=== PATIENT | male | born 1945 | race Hispanic/Latino ===

== ENCOUNTER 2017-04-08 12:05 | Emergency (ER) | payer OTHER ==
[~2017-04-08] VITALS: Ht 177.8 cm; Wt 118.2 kg
[2017-04-08] MEDS ORDERED: LOSA100T36 PO (12:15)
[2017-04-08] MEDS ORDERED: CARV25TA PO (12:15)
--- NOTE | 2017-04-08 15:23 | REP ---
Ultrasonography of the inguinal areas bilaterally: Says performed without and with Valsalva bilaterally. There is varying omental fat through the inguinal canals bilaterally. There is no bowel and either hernia on the right on the left. The hernia on the right measures 10.18 mm at rest and this increases to 15.4 mm with Valsalva. On the left, the hernia measures 13.4 mm at rest and increases to 18.3 of millimeters with Valsalva. There is an area of pulsation in the left upper thigh. Ultrasonography of this area identifies normal appearing soft tissues. No hernia, mass or vascular structure is identified by ultrasound. Signed by Andrés Moreira MD 04/08/2017 03:15 P
[2017-04-08 16:04] VITALS: BP 198/90
== END 2017-04-08 16:10 | disposition home or self-care (01) ==
LOC: M ED 12:05
DX: I73.9 Peripheral vascular disease, unspecified (principal); K40.20 Bilateral inguinal hernia, without obstruction or gangrene, not specified as recurrent; Z79.899 Other long term (current) drug therapy

== ENCOUNTER 2018-03-14 12:08 | Emergency (ER) | payer MEDICARE, OTHER ==
[2018-03-14 12:48] LABS: BASO # 0.1 10^3/uL (0.0-0.2); BASO % 0.9 % (0.0-1.0); EOS # 0.4 10^3/uL (0.0-0.50); EOS % 4.5 % (0.0-3.0); HEMATOCRIT 45.2 % (42.0-52.0); HEMOGLOBIN 15.6 g/dl (13.5-17.5); IMMATURE GRANULOCYTE % 0.6 % (0-3.0); LYMPH # 2.2 10^3/uL (1.5-4.5); LYMPH % 28.9 % (24.0-44.0); MEAN CORPUSCULAR HEMOGLOBIN 30.1 pg (27.0-33.0); MEAN CORPUSCULAR HGB CONC 34.5 g/dl (32.0-36.5); MEAN CORPUSCULAR VOLUME 87.1 fl (80.0-96.0); MONO # 0.5 10^3/uL (0.0-0.8); MONO % 6.6 % (0.0-5.0); NEUTROPHILS # 4.5 10^3/uL (1.8-7.7); NEUTROPHILS % 58.5 % (36.0-66.0); PLATELET COUNT, AUTOMATED 144 10^3/uL (150-450); RED BLOOD COUNT 5.19 10^6/uL (4.30-6.10); RED CELL DISTRIBUTION WIDTH 12.5 % (11.5-14.5); WHITE BLOOD COUNT 7.7 10^3/uL (4.0-10.0)
[2018-03-14 13:00] LABS: INR 1.07; PROTHROMBIN TIME 14.1 SECONDS (12.1-14.4)
[2018-03-14 13:01] LABS: PARTIAL THROMBOPLASTIN TIME 26.3 SECONDS (25.4-37.6)
[2018-03-14 13:17] LABS: ALBUMIN 3.7 GM/DL (3.2-5.2); ALBUMIN/GLOBULIN RATIO 1.09 (1.00-1.93); ALKALINE PHOSPHATASE 66 U/L (45-117); ALT/SGPT 23 U/L (12-78); ANION GAP 8 MEQ/L (8-16); AST/SGOT 9 U/L (7-37); BILIRUBIN,DIRECT 0.3 MG/DL (0.0-0.2); BILIRUBIN,TOTAL 1.1 MG/DL (0.2-1.0); BLOOD UREA NITROGEN 18 MG/DL (7-18); CALCIUM LEVEL 8.5 MG/DL (8.8-10.2); CARBON DIOXIDE LEVEL 27 MEQ/L (21-32); CHLORIDE LEVEL 104 MEQ/L (98-107); CPK CREATINE PHOSPHOKINASE 68 U/L (39-308); CREATININE FOR GFR 1.18 MG/DL (0.70-1.30); GLOMERULAR FILTRATION RATE > 60.0 (>42); GLUCOSE, FASTING 146 MG/DL (70-100); LIPASE 113 U/L (73-393); POTASSIUM SERUM 3.8 MEQ/L (3.5-5.1); SODIUM LEVEL 139 MEQ/L (136-145); TOTAL PROTEIN 7.1 GM/DL (6.4-8.2); TROPONIN I < 0.02 NG/ML (< 0.10)
[2018-03-14 13:23] LABS: CK-MB VALUE MASS < 1.0 NG/ML (<3.6); MB/CK RELATIVE INDEX 1.47 (< OR =4); NT-PRO BNP 34 PG/ML (<125)
== END 2018-03-14 13:47 | disposition home or self-care (01) ==
LOC: M ED 12:08
DX: R09.1 Pleurisy (principal); I10 Essential (primary) hypertension; E78.5 Hyperlipidemia, unspecified; Z98.890 Other specified postprocedural states; Z82.49 Family history of ischemic heart disease and other diseases of the circulatory system; Z79.899 Other long term (current) drug therapy
CPT/HCPCS: 71045

== ENCOUNTER 2019-08-19 06:10 | Emergency (ER) | payer MEDICARE, OTHER ==
[~2019-08-19] VITALS: Ht 177.8 cm; Wt 113.6 kg
[~2019-08-19 06:10] MED LIST: ATOR80TA59 PO; CARV25TA PO; CHLO125TA PO; IBUP-1022 PO; LOSA100T50 PO
[2019-08-19] MEDS ORDERED: CILO100T (06:38)
[2019-08-19] MEDS ORDERED: ASPI-1 PO (06:38)
[2019-08-19] MEDS ORDERED: LISI-538 (06:38)
[2019-08-19] MEDS ORDERED: CARV25TA (06:38)
[2019-08-19 07:00] LABS: BASO # 0.1 10^3/uL (0.0-0.2); BASO % 0.8 % (0.0-1.0); EOS # 0.4 10^3/uL (0.0-0.5); EOS % 5.3 % (0.0-3.0); HEMATOCRIT 45.8 % (42.0-52.0); LYMPH # 2.2 10^3/uL (1.5-5.0); LYMPH % 29.4 % (24.0-44.0); MEAN CORPUSCULAR HEMOGLOBIN 28.7 pg (27.0-33.0); MEAN CORPUSCULAR HGB CONC 32.8 g/dl (32.0-36.5); MEAN CORPUSCULAR VOLUME 87.7 fl (80.0-96.0); MONO # 0.6 10^3/uL (0.0-0.8); MONO % 7.5 % (0.0-5.0); NEUTROPHILS # 4.2 10^3/uL (1.5-8.5); NEUTROPHILS % 56.5 % (36.0-66.0); PLATELET COUNT, AUTOMATED 147 10^3/uL (150-450); RED BLOOD COUNT 5.22 10^6/uL (4.30-6.10); WHITE BLOOD COUNT 7.5 10^3/uL (4.0-10.0)
[2019-08-19 07:28] LABS: BLOOD UREA NITROGEN 22 MG/DL (7-18); CALCIUM LEVEL 8.6 MG/DL (8.8-10.2); CARBON DIOXIDE LEVEL 23 MEQ/L (21-32); CHLORIDE LEVEL 107 MEQ/L (98-107); CK-MB VALUE MASS 1.2 NG/ML (<3.6); CPK CREATINE PHOSPHOKINASE 83 U/L (39-308); CREATININE FOR GFR 1.38 MG/DL (0.70-1.30); GLOMERULAR FILTRATION RATE 53.9 (>42); GLUCOSE, FASTING 123 MG/DL (70-100); MB/CK RELATIVE INDEX 1.45 (< OR =4); POTASSIUM SERUM 4.2 MEQ/L (3.5-5.1); SODIUM LEVEL 139 MEQ/L (136-145); TROPONIN I < 0.02 NG/ML (< 0.10)
[2019-08-19] MEDS ORDERED: GI COCKTAIL 50ML BTL(HYOSCYAMINE/MAALOX/LIDOCAINE VISCOUS)(1:3:1) PO ONE (07:45)
--- NOTE | 2019-08-19 08:01 | REP ---
Clinical: Chest pain . Comparison: 06/30/2016, 03/14/2018 . Findings: The mediastinum and cardiac silhouette are stable and within normal limits for portable technique. The lung khalil are clear without acute consolidation, effusion, or pneumothorax. Skeletal structures are intact. Impression: No acute cardiopulmonary process appreciated. Electronically Signed by Adi Burr MD 08/19/2019 07:50 A
[2019-08-19] MEDS ORDERED: NS 1,000 ML IV ONE (10:00)
[2019-08-19 10:45] LABS: CPK CREATINE PHOSPHOKINASE 65 U/L (39-308); MB/CK RELATIVE INDEX 1.54 (< OR =4); TROPONIN I < 0.02 NG/ML (< 0.10)
[2019-08-19] MEDS ORDERED: PEPC1TAB5 PO (10:51)
[2019-08-19] MEDS ORDERED: SUCR1TA PO (10:51)
[2019-08-19 11:08] VITALS: BP 158/94
--- NOTE | 2019-08-21 14:54 | ECGEPIP ---
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
--- NOTE | 2019-08-21 14:59 | ECGEPIP ---
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
== END 2019-08-19 11:16 | disposition home or self-care (01) ==
LOC: M ED 06:10
DX: K21.0 Gastro-esophageal reflux disease with esophagitis (principal); R07.9 Chest pain, unspecified; I10 Essential (primary) hypertension; E78.5 Hyperlipidemia, unspecified; R00.1 Bradycardia, unspecified; R94.31 Abnormal electrocardiogram [ECG] [EKG]; Z79.82 Long term (current) use of aspirin; Z79.899 Other long term (current) drug therapy

== ENCOUNTER → 2020-06-02 | Outpatient (CLI) | payer MEDICARE, OTHER ==
[~2020-06-02] MED LIST changes: +ASPI-1 PO; +ASPI81TA86 PO; +ATOR1TAB21 PO; +CILO100T; +LISI-538 PO; +PEPC1TAB5 PO; +PLAV1TAB2 PO; +SUCR1TA PO; +TERB250T12 PO
== END ==
LOC: M LABSMTC 11:28
PROVIDERS: ATTEND Anesthesiology
DX: Z01.812 Encounter for preprocedural laboratory examination (principal); Z20.828 Contact with and (suspected) exposure to other viral communicable diseases
CPT/HCPCS: C9803; U0003

== ENCOUNTER 2020-06-07 10:04 | Day surgery (SDC) | payer MEDICARE, OTHER ==
[~2020-06-07] VITALS: Ht 177.8 cm; Wt 110.3 kg
[~2020-06-07 10:04] MED LIST changes: +LIDOCAINE 2% 100MG/5ML SDV (FOR ANES.) As Ordered ONE; +NS 1,000 ML IV ONE; -PLAV1TAB2 PO; +propofoL 200 MG/20 ML VIAL As Ordered ONE
[2020-06-07] MEDS ORDERED: PLAV1TAB2 PO (10:42)
--- NOTE | 2020-06-07 11:30 | ROOR ---
Patient Name: Theo Edwards Procedure Date: 06/07/2020 11:08 AM Date of : 1945 Age: 74 Room: [facility] Gender: Male Note Status: Finalized Procedure: Colonoscopy Indications: Screening for colorectal malignant neoplasm Providers: Santhosh CALERO MD Referring MD: SOMMER ALVARADO MD Requesting Provider: Medicines: Monitored Anesthesia Care Complications: No immediate complications. Procedure: Pre-Anesthesia Assessment: - The heart rate, respiratory rate, oxygen saturations, blood pressure, adequacy of pulmonary ventilation, and response to care were monitored throughout the procedure. The Colonoscope was introduced through the anus and advanced to the cecum, identified by appendiceal orifice and ileocecal valve. The colonoscopy was performed without difficulty. The patient tolerated the procedure well. The quality of the bowel preparation was good. Findings: The perianal and digital rectal examinations were normal. A 8-10 mm polyp was found in the rectum. The polyp was semi-pedunculated. The polyp was removed with a cold snare. Resection and retrieval were complete. To prevent bleeding after the polypectomy, two hemostatic clips were successfully placed. There was no bleeding at the end of the procedure. Mild sigmoid diverticulosis and small internal hemorrhoids. The exam was otherwise without abnormality on direct and retroflexion views. Impression: - One 8-10 mm polyp in the mid rectum, removed with a cold snare. Resected and retrieved. Clips were placed. - Mild sigmoid diverticulosis and small internal hemorrhoids. - The examination was otherwise normal on direct and retroflexion views. Recommendation: - Repeat colonoscopy in 3 - 5 years for surveillance based on pathology results. - Telephone endoscopist for pathology results in 2 weeks. Santhosh Claero MD Santhosh CALERO MD 06/07/2020 11:29:48 AM Electronically signed by Santhosh CALERO MD Number of Addenda: 0 Note Initiated On: 06/07/2020 11:08 AM Estimated Blood Loss: Estimated blood loss: none.
[2020-06-07 11:52] VITALS: BP 103/56
== END 2020-06-07 12:02 | disposition home or self-care (01) ==
LOC: M OPP 10:04
PROVIDERS: ATTEND Internal Medicine Gastroenterology
DX: Z12.11 Encounter for screening for malignant neoplasm of colon (principal); K62.1 Rectal polyp; K57.30 Diverticulosis of large intestine without perforation or abscess without bleeding; K64.8 Other hemorrhoids; I11.9 Hypertensive heart disease without heart failure; I36.0 Nonrheumatic tricuspid (valve) stenosis; I25.10 Atherosclerotic heart disease of native coronary artery without angina pectoris; Z79.82 Long term (current) use of aspirin; Z79.899 Other long term (current) drug therapy; Z88.8 Allergy status to other drugs, medicaments and biological substances

== ENCOUNTER → 2020-09-28 | Outpatient (REF) | payer MEDICARE, OTHER ==
[~2020-09-28] MED LIST changes: -LIDOCAINE 2% 100MG/5ML SDV (FOR ANES.) As Ordered ONE; -LISI-538 PO; +LISI20TA33 PO; -NS 1,000 ML IV ONE; +PLAV1TAB2 PO; -propofoL 200 MG/20 ML VIAL As Ordered ONE
== END ==
LOC: M LAB REF 17:05
PROVIDERS: ATTEND Dermatology
DX: L57.0 Actinic keratosis (principal); L57.8 Other skin changes due to chronic exposure to nonionizing radiation
CPT/HCPCS: 11102; 17000; 17003; 88305; G0463

== ENCOUNTER 2020-10-17 15:57 | Emergency (ER) | payer MEDICARE, OTHER ==
[~2020-10-17] VITALS: Ht 177.8 cm; Wt 117.5 kg
--- OUTSIDE RECORDS SUMMARY | 2020-10-17 16:06 | CCD | Continuity of Care Document ---
Author Author Theo CALERO MD Organization Unknown Address [address] [place] [id number] Phone [phone] Care Team Providers Care Incinerator Operator Name Role Phone Cirilo Soria M.D. AUTM [phone] Symone Keen M.D. AUTM [phone] Donovan Luevano M.D. AUTM [phone] Problems Active Problems Provider Date Essential hypertension LAURENT Johnston Onset: Social History Type Date Description Comments Sex Unknown ETOH Use 1 A Week Tobacco Use Start: Unknown Non Smoker Allergies, Adverse Reactions, Alerts Active Allergies Reaction Severity Comments Date Amlodipine / Valsartan 01/11 Hydralazine 01/12/2020 Labetalol 01/12/2020 Medications Active Medications SIG Qnty Indications Ordering Provide r Date Amoxicillin 500mg Tablets take 4 tablets by mouth 1 hour prior to arrival time for procedure. 4tabs Santhosh Calero MD 05/24/2020 Suprep Bowel Prep Kit 17.5-3.13-1.6GM/177ML Solution take per doctor's bowel prep instructions. 354ml Santhosh Calero MD 05/21/2020 Milk Of Magnesia 1200mg/15ML Suspe nsion take 45 milliliters by mouth as directed on colonoscopy prep sheet. Santhosh Calero MD 05/21/2020 Atorvastatin Calcium 20mg Tablets every day Unknown Aspirin [address] take 1 tab by mouth daily Unknown Lisinopril 20mg Tablets 1 by mouth every day Unknown Chlorthalidone 25mg Tablets 1/2 by mouth every day Unknown Carvedilol 25mg Tablets 1 by mouth bid Unknown Immunizations Description No Information Available Vital Signs Date Vital Result Comment 01/12/2020 10:21am BP Systolic 112 mmHg BP Diastolic 64 mmHg Height 70.5 inches 5'10.50" Weight 248.00 lb BMI (Body Mass Index) 35.1 kg/m2 [place] Body Weight 166 lb Weight 112.493 kg BSA (Body Surface Area) 2.30 m2 Results Test Acquired Date Facility Test Result H/L Range Note Laboratory test finding 06/07/2020 [facility] [address] [place] [address] [phone] Pathology Request For Service (SEE NOTE) 1 1 FINAL DIAGNOSIS Colon polyp rectum, polypectomy: Tubular adenoma, fragments. 06/08/20201107 CLINICAL DIAGNOSIS Screening colonoscopy 06/08/2020721 GROSS DIAGNOSIS Received in formalin labeled "colon polyp rectum" and it consists of fragments of tissue 0.3 x 0.3 x 0.1 cm. All in one. -OA 06/08/2020721 Signed VINCENT ADORNO MD 06/08/2020 1108 Procedures Date Code Description Status 06/07/2020 83416 Colonoscopy W/ Poly Completed Medical Devices Description No Information Available Encounters Description No Information Available Assessments Date Code Description Provider 06/07/2020 Z12.11 Encounter for screening for omar gnant neoplasm of colon Santhosh Calero MD 06/07/2020 D12.8 Benign neoplasm of rectum Santhosh Calero MD 06/07/2020 K57.30 Diverticulosis of la rge intestine without perforation or abscess without bleeding Santhosh Calero MD 06/07/2020 K64.8 Other hemorrhoids Santhosh Calero MD Plan of Treatment 01/12/2020 - Mariel Strauss, RPA-C* Z12.11 Encounter for screening for malignant neoplasm of colon * * Comments:* Colonoscopy was offered to the patient, and he would like to proceed. Due to patient's recent heart valve surgery, we will need to contact his Oil Changer to see when he will be okay to have the colonoscopy completed. We will need permission for the patient to hold Plavix prior to the procedure. The patient verbalized understanding of all of the above. He will await our phone call to get scheduled for the colonoscopy. He will seek medical attention sooner if needed. * Follow up:* We will call patient. Functional Status Description No Information Available Mental Status Description No Information Available Referrals Description No Information Available
--- OUTSIDE RECORDS SUMMARY | 2020-10-17 16:06 | CCD ---
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 ; Acti alpesh keratosis L57.0 ; Sebaceous hyperplasia L73.8 ; Nevus D22.9 ; Dermatofibroma D23.9 ; Skin tag L91.8 ; Onychomycosis B35.1 and Neoplasm of uncertain behavior of skin D48.5 IMMUNIZATIONS No Information SOCIAL HISTORY Tobacco Use: Social History Observation Description Date Details (start date - stop date) Never Smoker Sex Assigned At : Social History Observation Description Sex Assigned At Unknown Tobacco Use: Question Answer Notes Are you a: never smoker REASON FOR REFERRAL No Information VITAL SIGNS Weight 256 lbs Sep, Height 70 in Sep, BMI 36.73 kg/m2 Sep, Blood pressure systolic 124 mm Hg Sep, Blood pressure diastolic 74 mm Hg Sep, MEDICATIONS Medication SIG (Take, Route, Frequency, Duration) Notes Start Da te End Date Status Chlorthalidone Active Lisinopril Active Carvedilol Active ASA 81mg Active Plavix Not-Taking Atorvastatin Calcium Acti ve PROCEDURES from 1945 to 2020-10-05 Procedure Date Ordered Result Body Site Medication: (Derm) 1% Lidocaine with Epi nephrine Injection Intradermally to marked area (s) 2020-09-28 N/A RESULTS No Results REASON FOR VISIT spot on scalp MEDICAL (GENERAL) HISTORY Type Description Date Medical History HTN Medical History Hyperlipidemia Medical History PVD Surgical History Aortic Valve replacement Surgical History Scope bilateral knee's Goals Section No Information Health Concerns No Information MEDICAL EQUIPMENT No Information MENTAL STATUS No Information FUNCTIONAL STATUS No Information ASSESSMENTS Encounter Date Diagnosis Assessment Notes Treatment Notes Treatm ent Clinical Notes Sep, 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 The patient was extensively counseled regarding the benign nature of of the lesion but that skin cancer may arise in this area just as it would anywhere on their skin. For that reason, return to clinic was recommended for any acute changes, itching, burning, or bleeding. The patient was educated that benign lesions are not a covered insurance benefit and treatment would be elective and cosmetic. They expressed understanding. Sep, Actinic keratosis (ICD-10 - L57.0) Cryotherapy x [3 ] number of sites. [place] protocol was followed in compliance with [facility] standards. Patient was counseled regarding the indication for treatment (precancerous state for actinic keratosis or cosmetic reasons if done for seborrheic keratoses, acrochordons or warts) as well as, the method and expected results to include compromise of the skin barrier, bleeding, scarring/white area, redness at site, lesion recurrence, and pain. Patient was consented to the risks and benefits of the procedure and gave informed consent. Lesion(s) with locations as indicated in the physical examination were treated. Lesion(s) were treated with 2 cycles of liquid nitrogen with a thaw time of at least ten seconds. Therapy was applied in a pulsed fashion to minimize collateral tissue injury. Patient was instructed to use Vaseline ointment to the area(s) until healed. Patient tolerated the procedure well and left in stable condition. Pain before and after the procedure were assessed to not be significantly different than baseline. Sep, Sebaceous hyperplasia (ICD-10 - L73.8) Benign lesion. Benign lesion counseling performed. Sep, Nevus (ICD-10 - D22.9) Benign-appearing today. Reassurance provided, however patient was educated moles can change management consultant time. ABCDE education performed. Patient instructed to return for any changes to the mole to include size, color, itching, burning, or bleeding. Sep, Dermatofibroma (ICD-10 - D23.9) Benign lesion. Benign lesion counseling performed. Sep, Skin tag (ICD-10 - L91.8) Benign lesion. Benign lesion counseling performed. Sep, Onychomycosis (ICD-10 - B35.1) foot fungus, deferred treatment Sep, Neoplasm of uncertain behavior of skin (ICD-10 - D48.5) Procedure: Tangential Biopsy [place] protocol was followed in compliance with [facility] standards. The patient was educated on the potential risks and benefits of the procedure and gave his/her informed consent. Location of biopsy noted in the physical exam and images uploaded to the medical record. Area(s) treated with EtOH. Local anesthesia performed with <1mL of 1% lidocaine with epinephrine per site. Site(s) verified with patient via timeout utilizing patient name and date of . Biopsy/Biopsies performed. Dual site-specimen cup verification performed verbally between provider and clinic staff. Hemostasis achieved with hyfrecation or aluminum chloride/styptic. Closure: secondary intent. Petrolatum and bandage applied. Wound care instruction addressed with patient by provider or clinic staff and wound care handout given. Patient tolerated the procedure well and left in stable condition. Patient reports that his/her pain was well-managed. There was no noted significant d ifference from baseline pain score after procedure. Patient was educated to use acetaminophen 500mg up to 4 times daily. If not sufficient, patient was educated to re-present to the dermatology clinic or, if after hours, the emergency department. Patient was informed they would be notified in 10-14 days by telephone for all malignant conditions and scheduled for definitive management. r/o SCC PLAN OF TREATMENT Treatment Notes Assessment Notes Clinical Notes Cortes angioma Benign Lesion Kenna donovan. The patient was extensively counseled regarding the benign nature of of the lesion but that skin cancer may arise in this area just as it would anywhere on their skin. For that reason, return to clinic was recommended for any acute changes, itching, burning, or bleeding. The patient was educated that benign lesions are not a covered insurance benefit and treatment would be elective and cosmetic. They expressed understanding. Actinic keratosis Cryotherapy x [3 ] n umber of sites. [place] protocol was followed in compliance with [facility] standards. Patient was counseled regarding the indication for treatment (precancerous state for actinic keratosis or cosmetic reasons if done for seborrheic keratoses, acrochordons or warts) as well as, the method and expected results to include compromise of the skin barrier, bleeding, scarring/white area, redness at site, lesion recurrence, and pain. Patient was consented to the risks and benefits of the procedure and gave informed consent. Lesion(s) with locations as indicated in the physical examination were treated. Lesion(s) were treated with 2 cycles of liquid nitrogen with a thaw time of at least ten seconds. Therapy was applied in a pulsed fashion to minimize collateral tissue injury. Patient was instructed to use Vaseline ointment to the area(s) until healed. Patient tolerated the procedure well and left in stable condition. Pain before and after the procedure were assessed to not be significantly different than baseline. Sebaceous hyperplasia Benign lesion. Chandan ign lesion counseling performed. Nevus Benign-appearing tod ay. Reassurance provided, however patient was educated moles can change management consultant time. ABCDE education performed. Patient instructed to return for any changes to the mole to include size, color, itching, burning, or bleeding. Dermatofibroma Benign lesion. Benig n lesion counseling performed. Skin tag Benign lesion. Benig n lesion counseling performed. Onychomycosis foot fungus, deferre d treatment Neoplasm of uncertain behavior of skin P rocedure: Tangential Biopsy [place] protocol was followed in compliance with [facility] standards. The patient was educated on the potential risks and benefits of the procedure and g ave his/her informed consent. Location of biopsy noted in the physical exam and images uploaded to the medical record. Area(s) treated with EtOH. Local anesthesia performed with <1mL of 1% lidocaine with epinephrine per site. Site(s) verified with patient via timeout utilizing patient name and date of . Biopsy/Biopsies performed. Dual site-specimen cup verification performed verbally between provider and clinic staff. Hemostasis achieved with hyfrecation or aluminum chloride/styptic. Closure: secondary intent. Petrolatum and bandage applied. Wound care instruction addressed with patient by provider or clinic staff and wound care handout given. Patient tolerated the procedure well and left in stable condition. Patient reports that his/her pain was well-managed. There was no noted significant difference from baseline pain score after procedure. Patient was educated to use acetaminophen 500mg up to 4 times daily. If not sufficient, patient was educated to re-present to the dermatology clinic or, if after hours, the emergency department. Patient was informed they would be notified in 10-14 days by telephone for all malignant conditions and scheduled for definitive management.r/o SCC Next Appt Details Provider Name:Wilberto Jose Guadalupe Vitaliy, 10-04 02:00:00 PM, [address] [place] [address], [address] [place] [address], [place], [address], Insurance Providers Payer Name Payer Address Payer Phone Insured Name Patient Relati onship to Insured Coverage Start Date Coverage End Date MEDICARE Part A and B [address] [facility] [id number] RAYSHAWN DEAN FOR LIFE [address] [facility] [phone] TO RAYSHAWN VIDES
--- OUTSIDE RECORDS SUMMARY | 2020-10-17 16:06 | CCD | Continuity of Care Document ---
Author Author Theo SORIA M.D. Organization Unknown Address [address] [place] [address] Phone [phone] Care Team Providers Care Shank Cementer Hand Name Role Phone Cirilo Soria M.D. AUTM [phone] [facility] Dermatology AUTM [phone] [facility] AUTM [phone] [facility] Gastroenterology AUTM [phone] Problems Active Problems Provider Date Abnormal glucose level Cirilo Soria MD Onset: 05/14/2016 Essential hypertension Cirilo Soria MD Onset: 05/14/2016 Trochanteric bursitis Cirilo Soria MD Onset: 05/14/2016 Hyperlipidemia Cirilo Soria MD Onset: 06/17/2016 Hearing loss Cirilo Soria MD Onset: 11/12/2016 Adult health examination Cirilo Soria MD Onset: 02/13/20 17 Polyarthropathy Cirilo Soria MD Onset: 04/02/2017 Achilles bursitis Cirilo Soria MD Onset: 04/02/2017 Peripheral vascular disease Cirilo Soria MD Onset: 04/02 Pruritus of skin SYL Tompkins Onset: 7 Chronic pain SYL Tompkins Onset: 7 Current tear of medial cartilage AND/OR meniscus of knee Lucian meena Soria MD Onset: 11/03/2017 Social History Type Date Description Comments Sex Unknown Tobacco Use Start: Unknown Never Smoked Cigarettes Tobacco Use Start: Unknown Never Smoked Cigars Tobacco Use Start: Unknown Never Smoked A Pipe Tobacco Use Start: Unknown Never Used Smokeless Tobacco ETOH Use Occasionally consumes alcohol Tobacco Use Start: Unknown Patient has never smoked Allergies, Adverse Reactions, Alerts Active Allergies Reaction Severity Comments Date NKFA 05/14/2016 NKEA 05/14/2016 Amlodipine / Valsartan Urticaria, ? ALLERGY 04/21/2017 Hydralazine Urticaria, ? ALLERGY 017 Labetalol Urticaria, ? ALLERGY 017 Soap Urticaria 09/02/2017 Inactive Allergies NKDA 05/14/2016 Medications Active Medications SIG Qnty Indications Ordering Provide r Date Atorvastatin Calcium 20mg Tablets Take 1 Tablet Daily 90tabs E78.5 Cirilo Soria MD 06/30/2019 Lisinopril 20mg Tablets Take 1 Tablet Daily 90tabs I10 Cirilo Soria MD 11/05/2018 Carvedilol 25mg Tablets take 1 tablet twice a day 180tabs I10 Cirilo Soria MD 04/21/2017 Glucometer Device use daily 1units R73.9 Cirilo Soria MD 05/14/2016 Lancets Bullseye Safety Misc lancet use once a day 90units R73.9 Cirilo Soria MD 05/14/2016 Glucose Meter Test Strips Advanced Strips use once a day 90units R73.9 Cirilo Soria MD 2015 Chlorthalidone 25mg Tablets take one-half (1/2) tablet daily 45tabs I10 Cirilo Soria MD 0 Aspir-Low 81mg Tablets DR 1 by mouth every day Unknown Cilostazol 100mg Tablets 1 tab bid ( restarted after stopping plavix) Cirilo Soria M.D. History Medications Bactrim DS 800-160mg Tablets one tablet by mouth twice daily for 10 days 20tabs L02.214 Sumanth Cruz 05/07/2020 - 08/08/2020 Ciclopirox 8% Solution 1 thin layer to toe nails twice a day 19.8ml L60.2 Cirilo Soria MD 05/07/2020 - 08/08/2020 Terbinafine HCL 250mg Tablets 1 tab tab by mouth daily. 90tabs L60.2 Cirilo Soria MD 05/07/2020 - 08/08/2020 Medications Administered in Office Medication SIG Qnty Indications Ordering Provider Date methylPREDNISolone Sod Succ 125 MG Injection Cirilo Soria MD 04/21/20 17 Ketorolac (Toradol) Inj 30MG/ML Injection Cirilo Soria MD 04/21/20 17 Immunizations CPT Code Status Date Vaccine Lot # [id number] Given 08/08/2020 [id number] (Pneumovax 23 ) Vaccine [id number] 79540 Given 08/08/2020 Influenza (>= 6 Months) P.F. Vaccine [id number] 89384 Given 06/30/2019 Influenza (>= 6 Months) P.F. Vaccine [id number] 49191 Given 06/30/2019 Pneumococcal 13(Prevnar 13) Vaccine [id number] 33274 Given 06/25/2018 Influenza (>= 6 Months) P.F. Vaccine [id number] Vital Signs Date Vital Result Comment 08/08/2020 9:05am BP Systolic 118 mmHg BP Diastolic 80 mmHg Heart Rate 68 /min Body Temperature 97.1 F Respiratory Rate 16 /min O2 % BldC Oximetry 98 % Weight 250.00 lb Weight 113.400 kg Height 70.5 inches 5'10.50" BMI (Body Mass Index) 35.4 kg/m2 BSA (Body Surface Area) 2.31 m2 05/07/2020 12:53pm BP Systolic 112 mmHg BP Diastolic 66 mmHg Heart Rate 53 /min Body Temperature 97.4 F Respiratory Rate 18 /min O2 % BldC Oximetry 96 % Weight 249.00 lb Weight 112.946 kg Results Test Acquired Date Facility Test Result H/L Range Note Comprehensive Metabolic Panel 08/08/2020 [facility] Comprehensive Metabo (SEE NOTE) 1, 2 Sodium 135 mEq/L 134 - 153 Potassium 4.3 mEq/L 3.6 - 5.0 Chloride 100 mEq/L 98 - 107 Co2 26 mEq/L 22 - 30 Glucose 132 mg/dL High 65 - 110 BUN 21 mg/dL 7 - 21 Creatinine 1.1 mg/dL 0.7 - 1.5 BUN/Creat 19 8 - 27 Total Protein 7.0 g/dL 6.3 - 8.2 Albumin 4.7 g/dL 3.9 - 5.0 Globulin 2.3 GM/DL Low 2.4 - 3.2 A/G Ratio 2.0 0.8 - 2.0 Calcium 9.8 mg/dL 8.4 - 10.2 Total Bili 0.8 mg/dL 0.2 - 1.3 Alkaline Phos 68 U/L 38 - 126 Sgot/Ast 15 U/L 5 - 40 SGPT/Alt 12 U/L 7 - 56 Anion Gap 9.0 mmol/L 8.0 - 16.0 Age 74 yrs Non-Aa GFR >60 mL/min Afr Amer GFR >60 mL/min 3 CBC W/Automated Diff 08/08/2020 [facility] CBC W/Automated Diff (SEE NOTE) 4 WBC 7.2 10^3/uL 4.2 - 11.0 RBC 5.54 10^6/uL 4.50 - 6.30 Hemoglobin 16.3 g/dL High 14.0 - 16.0 Hematocrit 48.4 % 41.0 - 51.0 MCV 87.4 fL 80.0 - 94.0 MCH 29.4 pg 27.0 - 34.0 MCHC 33.7 g/dL 31.0 - 36.0 RDW 12.6 % 11.5 - 14.8 Platelets 140 10^3/uL Low 150 - 450 MPV 12.1 fL High 7.4 - 10.4 Neut 59.7 % 37.0 - 80.0 Lymph 26.7 % 25.0 - 40.0 [place] 7.0 % 3.0 - 8.0 Eos 5.2 % 0.0 - 7.0 Baso 0.8 % 0.0 - 2.0 %Ig 0.6 % High 0.0 - 0.0 %NRBC 0.0 % 0.0 - 0.0 #Neut 4.27 10^3/uL 2.00 - 6.90 #Lymph 1.91 10^3/uL 0.60 - 3.40 #Floyd 0.50 10^3/uL 0.00 - 0.90 #Eos 0.37 10^3/uL 0.00 - 0.70 #Baso 0.06 10^3/uL 0.00 - 0.20 #Ig 0.04 10^3/uL 0.00 - 0.10 #NRBC 0.00 10^3/uL 0.00 - 0.00 Manual Diff NOT INDICATED RBC Morph NOT INDICATED Laboratory test finding 08/08/2020 [facility] Hgba1c 5.8 % 4.4 - 6.1 5 Cve Panel 08/08/2020 [facility] Cve Panel (SEE NOTE) 6 Cholesterol 153 mg/dL 131 - 200 Triglycerides 96 mg/dL 35 - 160 HDL 45 mg/dL 29 - 86 LDL 99 mg/dL 65 - 175 Risk Factor 3.4 Low 3.4 - 4.9 LDL/HDL 2.20 1.00 - 3.55 7 Laboratory test finding 08/08/2020 [facility] Vitamin D (25-Hydroxy) 23 NG/ML 8 Laboratory test finding 05/07/2020 [facility] Culture Wound (SEE NOTE) 9, 10 1 Is patient fasting? N 2 COMPREHENSIVE METABOLIC PANE L 3 Male GFR Interprentation 20-49 yrs >60 mL/min Normal 50-59 yrs >56 mL/min Normal 60-69 yrs >49 mL/min Normal 70-79yrs >42 mL/min Normal 80 and above >35 mL/min Normal Female GFR Interpretation 20-39 yrs >60 mL/min Normal 40-49 yrs >58 mL/min Normal 50-59 yrs >51 mL/min Normal 60-69 yrs >45 mL/min Normal 70-79 yrs >39 mL/min Normal 80 and above >32 mL/min Normal 4 COMPLETE BLOOD COUNT 5 {A1] {HB] 6 LIPID PANEL 7 CVE RISK CHOL/HDL LDL/HDL MEN: 1/2 AVERAGE 3.43 1.00 AVERAGE 4.97 3.55 2X AVERAGE 9.55 6.25 3X AVERAGE 23.99 7.99 WOMEN: 1/2 AVERAGE 3.27 1.47 AVERAGE 4.44 3.22 2X AVERAGE 7.05 5.03 3X AVERAGE 11.04 6.14 8 VITAMIN-D(25HYDROXY) Deficiency: <=20 ng/ml Insufficiency: 21-29 ng/ml Preferred level: => 30 ng/ml 9 {SPECIMEN SOURCE : ABDOMEM GROIN AREA 10 _CULTURE WOUND_ ^^088437 ^$835064 $$[id number] ^^344238 $$[id number] $$189839 $$[id number] $$[id number] $$[id number] REPORTED DATE/TIME: 05/11/2020 13:06 Culture: CULTURE WOUND Status: Final Aerobic Bacterial Culture: P1 No growth in 36 - 48 hours. Previous result entered on 05/10/2020 05:29 ET No growth after 18-24 hours. P1 Test performed by: [facility] #: [id number] [address] [id number] [facility] [address] Asbestos Worker : Keenan Wisdom MD NPI #: Referral Manager : 05/10/20.0623.XMT.SENT REF 05/11/20.1332.XMT.SENT REF Procedures Description No Information Available Medical Devices Description No Information Available Encounters Type Date Location Provider Dx Diagnosis Office Visit 08/08/2020 9:20a Family Practice Cirilo Soria MD Z0 0.00 Encntr for general adult medical exam w/o abnormal findings E78.5 Hyperlipidemia, unspecified I10 Essential (primary) hyperten richard I73.9 Peripheral vascular disease, unspecified G47.33 Obstructive sleep apnea (colby lt) (pediatric) 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 M13.0 Polyarthritis, unspecified Z23 Encounter for immunization Assessments Date Code Description Provider 08/08/2020 Z00.00 Encounter for genera l adult medical examination without abnormal findings Cirilo Soria MD 08/08/2020 E78.5 Hyperlipidemia, unspecified Rangel Soria MD 08/08/2020 I10 Essential (primary) hypertension Cirilo Soria MD 08/08/2020 I73.9 Peripheral vascular disease, uns pecified Cirilo Soria MD 08/08/2020 G47.33 Obstructive sleep apnea (adult) (pediatric) Cirilo Soria MD 08/08/2020 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 Routine labs were ordered today. * E78.5 Hyperlipidemia, unspecified* Comments:* He will continue with his current regimen. He was encouraged to maintain a low-cholesterol diet. Include more whole grains, fruits and vegetables in diet. Avoid red meat and include lean meat in diet. Advised the patient about the importance of regular exercise regimen to help control his cholesterol. He is aware of the cardiac risks associated with elevated cholesterol. We will continue to monitor. * I10 Essential (primary) hypertension* Comments:* Blood pressure today is 118/80 mmHg. He was advised to continue with his current line of therapies. Advised him to regularly monitor his blood pressure. He will benefit from maintaining a low-sodium diet. We will continue to monitor. * I73.9 Peripheral vascular disease, unspecified* Comments:* Plavix was discontinued by business services assistant. He will continue Cilostazol 100 mg 1 tablet b.i.d. * G47.33 Obstructive sleep apnea (adult) (pediatric)* Comments:* Patient was advised to continue to wear his CPAP mask at night and uses CPAP machine at night. Cardiovascular risks if not being compliant with obstructive sleep apnea discussed in detail. 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 * M13.0 Polyarthritis, unspecified* Comments:* Symptomatic care at this time. * Z23 Encounter for immunization* Comments:* Influenza and Pneumovax 23 vaccination status updated after obtaining consent from the patient. Patient tolerated it well. * All * Comments:* He has not been checking his blood sugars at home. We will check his HbA1c. Advised to stop drinking sodas and fruit juice. He can drink water instead. Avoid sugar. We will call him with the results of blood work. Functional Status Description No Information Available Mental Status Description No Information Available Referrals Description No Information Available
--- OUTSIDE RECORDS SUMMARY | 2020-10-17 16:06 | CCD | Continuity of Care Document ---
Author Author Theo SORIA M.D. Organization Unknown Address [address] [place] [address] Phone [phone] Care Team Providers Care Student Finance Advisor Name Role Phone Cirilo Soria M.D. AUTM [phone] [facility] Dermatology AUTM [phone] [facility] AUTM [facility] Gastroenterology AUTM [phone] Problems Active Problems Provider Date Abnormal glucose [...] CPT Code Status Date Vaccine Lot # [id number] Given 08/08/2020 [id number] (Pneumovax 23 ) Vaccine [id number] 62954 Given 08/08/2020 Influenza (>= 6 Months) P.F. Vaccine [id number] 86440 Given 06/30/2019 Influenza (>= 6 Months) P.F. Vaccine [id number] Given 06/30/2019 Pneumococcal 13(Prevnar 13) Vaccine [id number] 16610 Given 06/25/2018 Influenza (>= 6 Months) P.F. [...] H/L Range Note Comprehensive Metabolic Panel 08/08/2020 [facility] Comprehensive Metabo (SEE NOTE) 1, [...] >60 mL/min 3 CBC W/Automated Diff 08/08/2020 [facility] CBC W/Automated Diff (SEE NOTE) 4 WBC [...] 80.0 Lymph 26.7 % 25.0 - 40.0 [place] 7.0 % 3.0 - 8.0 Eos 5.2 % 0.0 - 7.0 Baso 0.8 % 0.0 - 2.0 %Ig 0.6 % High 0.0 - 0.0 %NRBC 0.0 % 0.0 - 0.0 #Neut 4.27 10^3/uL 2.00 - 6.90 #Lymph 1.91 10^3/uL 0.60 - 3.40 #[place] 0.50 10^3/uL 0.00 - 0.90 #Eos 0.37 10^3/uL 0.00 - 0.70 #Baso 0.06 10^3/uL 0.00 - 0.20 #Ig 0.04 10^3/uL 0.00 - 0.10 #NRBC 0.00 10^3/uL 0.00 - 0.00 Manual Diff NOT INDICATED RBC Morph NOT INDICATED Laboratory test finding 08/08/2020 [facility] Hgba1c 5.8 % 4.4 - 6.1 5 Cve Panel 08/08/2020 [facility] Cve Panel (SEE NOTE) 6 Cholesterol 153 mg/dL 131 - 200 Triglycerides 96 mg/dL 35 - 160 HDL 45 mg/dL 29 - 86 LDL 99 mg/dL 65 - 175 Risk Factor 3.4 Low 3.4 - 4.9 LDL/HDL 2.20 1.00 - 3.55 7 Laboratory test finding 05/07/2020 [facility] Culture Wound (SEE NOTE) 8, 9 1 Is patient fasting? N 2 COMPREHENSIVE [...] 7.05 5.03 3X AVERAGE 11.04 6.14 8 {SPECIMEN SOURCE : ABDOMEM GROIN AREA 9 _CULTURE WOUND_ ^^242605 ^$558751 $$128445 ^^374916 $$903661 $$[id number] $$[id number] $$[id number] $$[id number] REPORTED DATE/TIME: 05/11/2020 13:06 Culture: CULTURE WOUND Status: Final Aerobic Bacterial Culture: P1 No growth in 36 - 48 hours. Previous result entered on 05/10/2020 05:29 ET No growth after 18-24 hours. P1 Test performed by: [facility] #: [id number] [address] [place] [id number] [facility] [address] Chemical Etch Operator : Keenan Wisdom MD NPI #: Strand Galvanizer : 05/10/20.0623.XMT.SENT REF 05/11/20.1332.XMT.SENT REF Procedures Description No Information Available Medical Devices Description No Information Available Encounters Type Date Location Provider Dx Diagnosis Office Visit 08/08/2020 9:20a [facility] Cirilo Soria MD Z0 0.00 Encntr for general adult medical exam w/o abnormal findings E78.5 Hyperlipidemia, unspecified I10 Essential (primary) hyperten richard I73.9 Peripheral vascular disease, unspecified G47.33 Obstructive sleep apnea (colby lt) (pediatric) 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
--- OUTSIDE RECORDS SUMMARY | 2020-10-17 16:06 | CCD ---
Continuity of Care Document (CCD) Created on: 09/04/2020 [facility] External Reference #: [id number] : [id number] Sex: Male Author Author Theo SORIA M.D. Organization Unknown Address [address] [place] [address] Phone [phone] Care Team Providers Care Rack Loader Name Role Phone Cirilo Soria M.D. AUTM [phone] [facility] AUTM [phone] [facility] AUTM [facility] Gastroenterology AUTM [phone] Problems Active Problems Provider Date Abnormal glucose [...] SIG Qnty Indications Ordering Provide r Date Triamcinolone Acetonide 0.5% Cream apply thin layer to left abd wall twice a day for 2-4 weeks 45gm L30.9 Cirilo Soria MD 09/04/2020 Weekly-D 1.25mg (26340 Ut) Capsule s 1 tab by mouth every week 12caps E55.9 Cirilo Soria MD 09/04/19 21 Atorvastatin Calcium 20mg Tablets Take 1 Tablet Daily 90tabs E78.5 Cirilo Soria MD 06/30/2019 Lisinopril 20mg Tablets Take 1 Tablet Daily 90tabs I10 Cirilo Soria MD 11/05/2018 Carvedilol 25mg Tablets take 1 tablet twice a day 180tabs I10 Cirilo Soria MD 04/21/2017 Glucometer Device use daily 1units R73.9 Cirilo Soria MD 05/14/2016 Lancets Bullseye Safety [facility] lancet use once a day 90units R73.9 Cirilo Soria MD 05/14/2016 Glucose Meter Test Strips Advanced Strips use once a day 90units R73.9 Cirilo Soria MD 2015 Chlorthalidone 25mg Tablets take one-half (1/2) tablet daily 45tabs I10 Cirilo Soria MD 0 Aspir-Low 81mg Tablets DR 1 by mouth every day I73.9 Unknown Cilostazol 100mg Tablets 1 tab bid ( restarted after stopping plavix) I73.9 Cirilo Soria M.D. History Medications Bactrim DS [...] CPT Code Status Date Vaccine Lot # [id number] Given 08/08/2020 [id number] (Pneumovax 23 ) Vaccine [id number] 71942 Given 08/08/2020 Influenza (>= 6 Months) P.F. Vaccine [id number] 26469 Given 06/30/2019 Influenza (>= 6 Months) P.F. Vaccine [id number] 81275 Given 06/30/2019 Pneumococcal 13(Prevnar 13) Vaccine [id number] 43602 Given 06/25/2018 Influenza (>= 6 Months) P.F. Vaccine [id number] Vital Signs Date Vital Result Comment 09/04/2020 2:54pm BP Systolic 142 mmHg just took his meds before he came forgot this am BP Diastolic 78 mmHg just took his meds b efore he came forgot this am Heart Rate 70 /min Body Temperature 97.3 F Respiratory Rate 18 /min O2 % BldC Oximetry 96 % Weight 259.00 lb Weight 117.482 kg Height 70.5 inches 5'10.50" BMI (Body Mass Index) 36.6 kg/m2 BSA (Body Surface Area) 2.34 m2 08/08/2020 9:05am BP Systolic 118 mmHg BP Diastolic 80 mmHg Heart Rate 68 /min Body Temperature 97.1 F Respiratory Rate 16 /min O2 % BldC Oximetry 98 % Weight 250.00 lb Weight 113.400 kg Height 70.5 inches 5'10.50" BMI (Body Mass Index) 35.4 kg/m2 BSA (Body Surface Area) 2.31 m2 Results Test Acquired Date Facility Test Result H/L Range Note Comprehensive Metabolic Panel 08/08/2020 [facility] Comprehensive Metabo (SEE NOTE) 1, 2 [...] >60 mL/min 3 CBC W/Automated Diff 08/08/2020 [facility] CBC W/Automated Diff (SEE NOTE) 4 [...] 80.0 Lymph 26.7 % 25.0 - 40.0 [place] 7.0 % 3.0 - 8.0 Eos 5.2 % 0.0 - 7.0 Baso 0.8 % 0.0 - 2.0 %Ig 0.6 % High 0.0 - 0.0 %NRBC 0.0 % 0.0 - 0.0 #Neut 4.27 10^3/uL 2.00 - 6.90 #Lymph 1.91 10^3/uL 0.60 - 3.40 #[place] 0.50 10^3/uL 0.00 - 0.90 #Eos 0.37 10^3/uL 0.00 - 0.70 #Baso 0.06 10^3/uL 0.00 - 0.20 #Ig 0.04 10^3/uL 0.00 - 0.10 #NRBC 0.00 10^3/uL 0.00 - 0.00 Manual Diff NOT INDICATED RBC Morph NOT INDICATED Laboratory test finding 08/08/2020 [facility] l Hgba1c 5.8 % 4.4 - 6.1 5 Cve Panel 08/08/2020 [facility] Cve Panel (SEE NOTE) 6 Cholesterol 153 mg/dL 131 - 200 Triglycerides 96 mg/dL 35 - 160 HDL 45 mg/dL 29 - 86 LDL 99 mg/dL 65 - 175 Risk Factor 3.4 Low 3.4 - 4.9 LDL/HDL 2.20 1.00 - 3.55 7 Laboratory test finding 08/08/2020 [facility] Vitamin D (25-Hydroxy) 23 NG/ML 8 Laboratory test finding 05/07/2020 [facility] Culture Wound (SEE NOTE) 9, 10 1 [...] : ABDOMEM GROIN AREA 10 _CULTURE WOUND_ ^^345198 ^$470970 $$894432 ^^764893 $$[id number] $$282602 $$251581 $$[id number] $$[id number] REPORTED DATE/TIME: 05/11/2020 13:06 Culture: CULTURE WOUND Status: Final Aerobic Bacterial Culture: P1 No growth in 36 - 48 hours. Previous result entered on 05/10/2020 05:29 ET No growth after 18-24 hours. P1 Test performed by: [employer] [place] CLIA #: [id number] [address] [place] [phone] [facility] [address] Senior Accounting Clerk : Keenan Wisdom MD NPI #: Air Pollution Inspector : 05/10/20.0623.XMT.SENT REF 05/11/20.1332.XMT.SENT REF Procedures Description No Information Available Medical Devices Description No Information Available Encounters Type Date Location Provider Dx Diagnosis Office Visit 09/04/2020 3:00p Family Practice Cirilo Soria MD I1 0 Essential (primary) hypertension I73.9 Peripheral vascular disease, unspecified E78.5 Hyperlipidemia, unspecified G47.33 Obstructive sleep apnea (colby lt) (pediatric) R73.9 Hyperglycemia, unspecified E55.9 Vitamin D deficiency, unspec ified L30.9 Dermatitis, unspecified Assessments Date Code Description Provider 09/04/2020 I10 Essential (primary) hypertension Cirilo Soria MD 09/04/2020 I73.9 Peripheral vascular disease, uns pecified Cirilo Soria MD 09/04/2020 E78.5 Hyperlipidemia, unspecified Rangel Soria MD 09/04/2020 G47.33 Obstructive sleep apnea (adult) (pediatric) Cirilo Soria MD 09/04/2020 R73.9 Hyperglycemia, unspecified Hardi robert Soria MD 09/04/2020 E55.9 Vitamin D deficiency, unspecifie d Cirilo Soria MD 09/04/2020 L30.9 Dermatitis, unspecified Cirilo Soria MD 08/08/2020 Z00.00 Encounter for genera l adult [...] Onychogryphosis Cirilo Soria MD Plan of Treatment Future Appointment(s):* 10/08/2020 1:00 pm - Cirilo Soria MD at [facility] 09/04/2020 - Cirilo Soria MD* I10 Essential (primary) hypertension* Follow up:* 1 month * I73.9 Peripheral vascular disease, unspecified * E78.5 Hyperlipidemia, unspecified * G47.33 Obstructive sleep apnea (adult) (pediatric) * R73.9 Hyperglycemia, unspecified * E55.9 Vitamin D deficiency, unspecified* New Medication:* Weekly-D 1.25 mg (82609 Ut) - 1 tab by mouth every week * L30.9 Dermatitis, unspecified* New Medication:* Triamcinolone Acetonide 0.5 % - apply thin layer to left abd wall twice a day for 2-4 weeks Functional Status Description No Information Available Mental Status Description No Information Available Referrals Description No Information Available
--- OUTSIDE RECORDS SUMMARY | 2020-10-17 16:06 | CCD | Continuity of Care Document ---
Author Author Theo SORIA M.D. Organization Unknown Address [address] [place] [address] Phone [phone] Care Team Providers Care Manager Hospice Name Role Phone Cirilo Soria M.D. AUTM [phone] [facility] Dermatology AUTM [phone] [facility] AUTM [facility] Gastroenterology AUTM [phone] Problems Active Problems Provider Date Abnormal glucose [...] CPT Code Status Date Vaccine Lot # [id number] Given 08/08/2020 [id number] (Pneumovax 23 ) Vaccine [id number] 47303 Given 08/08/2020 Influenza (>= 6 Months) P.F. Vaccine [id number] 67450 Given 06/30/2019 Influenza (>= 6 Months) P.F. Vaccine [id number] 63084 Given 06/30/2019 Pneumococcal 13(Prevnar 13) Vaccine [id number] 11286 Given 06/25/2018 Influenza (>= 6 Months) P.F. [...] Result H/L Range Note Laboratory test finding 08/08/2020 [facility] Hgba1c <pending> Laboratory test finding 08/08/2020 [facility] Vitamin D (25-Hydroxy) <pending> Laboratory test finding 05/07/2020 [facility] Culture Wound (SEE NOTE) 1, 2 1 {SPECIMEN SOURCE : ABDOMEM GROIN AREA 2 _CULTURE WOUND_ ^^682991 ^$636678 $$366007 ^^127822 $$827425 $$689570 $$[id number] $$[id number] $$[id number] REPORTED DATE/TIME: 05/11/2020 13:06 Culture: CULTURE WOUND Status: Final Aerobic Bacterial Culture: P1 No growth in 36 - 48 hours. Previous result entered on 05/10/2020 05:29 ET No growth after 18-24 hours. P1 [facility] #: [id number] [address] [id number] [facility] [address] Digital Marketing Officer : Keenan Wisdom MD NPI #: Supervisor Cell Room : 05/10/20.0623.XMT.SENT REF 05/11/20.1332.XMT.SENT REF Procedures Description [...]
--- OUTSIDE RECORDS SUMMARY | 2020-10-17 16:06 | CCD | Continuity of Care Document ---
Author Author Theo SORIA M.D. 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 AUTM [phone] [facility] Dermatology AUTM [phone] [facility] AUTM [facility] Gastroenterology AUTM [phone] Problems Active Problems Provider Date Abnormal glucose [...] L30.9 Cirilo Soria MD 09/04/2020 Weekly-D 1.25mg (04766 Ut) Capsule s 1 tab by mouth [...] I73.9 Unknown Cilostazol 100mg Tablets 1 tab twice a day 180tabs I73.9 Cirilo Soria MD History Medications Bactrim DS 800-160mg Tablets one [...] CPT Code Status Date Vaccine Lot # [id number] Given 08/08/2020 [id number] (Pneumovax 23 ) Vaccine [id number] Given 08/08/2020 Influenza (>= 6 Months) P.F. Vaccine [id number] Given 06/30/2019 Influenza (>= 6 Months) P.F. Vaccine [id number] Given 06/30/2019 Pneumococcal 13(Prevnar 13) Vaccine [id number] Given 06/25/2018 Influenza (>= 6 Months) P.F. Vaccine [id number] Vital Signs Date Vital Result Comment 10/08/2020 1:05pm BP Systolic 110 mmHg BP Diastolic 60 mmHg Heart Rate 55 /min Body Temperature 97.2 F Respiratory Rate 16 /min O2 % BldC Oximetry 98 % Weight 251.00 lb Weight 113.854 kg Height 70.5 inches 5'10.50" BMI (Body Mass Index) 35.5 kg/m2 BSA (Body Surface Area) 2.31 m2 09/04/2020 2:54pm BP Systolic 142 mmHg just [...] kg/m2 BSA (Body Surface Area) 2.34 m2 Results Test Acquired Date Facility Test Result H/L Range Note Comprehensive Metabolic Panel 08/08/2020 [facility] ospital Comprehensive Metabo (SEE NOTE) 1, 2 [...] >60 mL/min 3 CBC W/Automated Diff 08/08/2020 [facility] CBC W/Automated Diff (SEE NOTE) 4 [...] 80.0 Lymph 26.7 % 25.0 - 40.0 Ford 7.0 % 3.0 - 8.0 Eos 5.2 % 0.0 - 7.0 Baso 0.8 % 0.0 - 2.0 %Ig 0.6 % High 0.0 - 0.0 %NRBC 0.0 % 0.0 - 0.0 #Neut 4.27 10^3/uL 2.00 - 6.90 #Lymph 1.91 10^3/uL 0.60 - 3.40 #Ford 0.50 10^3/uL 0.00 - 0.90 #Eos 0.37 10^3/uL 0.00 - 0.70 #Baso 0.06 10^3/uL 0.00 - 0.20 #Ig 0.04 10^3/uL 0.00 - 0.10 #NRBC 0.00 10^3/uL 0.00 - 0.00 Manual Diff NOT INDICATED RBC Morph NOT INDICATED Laboratory test finding 08/08/2020 [facility] Hgba1c 5.8 % 4.4 - 6.1 5 Cve Panel 08/08/2020 [facility] Cve Panel (SEE NOTE) 6 Cholesterol 153 mg/dL 131 - 200 Triglycerides 96 mg/dL 35 - 160 HDL 45 mg/dL 29 - 86 LDL 99 mg/dL 65 - 175 Risk Factor 3.4 Low 3.4 - 4.9 LDL/HDL 2.20 1.00 - 3.55 7 Laboratory test finding 08/08/2020 [facility] Vitamin D (25-Hydroxy) 23 NG/ML 8 Laboratory test finding 05/07/2020 [facility] Culture Wound (SEE NOTE) 9, 10 [...] : ABDOMEM GROIN AREA 10 _CULTURE WOUND_ ^^[id number] ^$[id number] $$[id number] ^^[id number] $$[id number] $$[id number] $$[id number] $$[id number] $$[id number] REPORTED DATE/TIME: 05/11/2020 13:06 Culture: CULTURE WOUND Status: Final Aerobic Bacterial Culture: P1 No growth in 36 - 48 hours. Previous result entered on 05/10/2020 05:29 ET No growth after 18-24 hours. P1 Test performed by: [facility] [facility]: [id number] [address] [id number] [facility] [address] Tobacco Blender : Keenan Wisdom MD NPI #: Sales Donor Recruitment Representative : [email or web address] REF 05/11/[email or web address] REF Procedures Description No Information Available Medical Devices Description No Information Available Encounters Description No Information Available Assessments Date Code Description Provider 09/04/2020 I10 Essential (primary) hypertension Cirilo Soria MD 09/04/2020 I73.9 Peripheral vascular disease, uns pecified Cirilo Soria MD 09/04/2020 E78.5 Hyperlipidemia, unspecified Rangel Soria MD 09/04/2020 G47.33 Obstructive sleep apnea (adult) (pediatric) Cirilo Soria MD 09/04/2020 R73.9 Hyperglycemia, unspecified Macario Soria MD 09/04/2020 E55.9 Vitamin D deficiency, unspecifie d Cirilo Soria MD 09/04/2020 L30.9 Dermatitis, keoified Cirilo Soria MD 08/08/2020 Z00.00 Encounter for [...] Soria MD Plan of Treatment Future Appointment(s):* 04/08/2021 1:00 pm - Cirilo Soria MD at [facility] Functional Status Description No Information Available Mental Status Description No Information Available Referrals Description No Information Available
--- OUTSIDE RECORDS SUMMARY | 2020-10-17 16:08 | CCD ---
Author Author [facility] Organization [facility] Address Unknown Phone Unavailable Care Team Providers Care Car Shunter Name Role Phone Ajit, L Jenna PA Unavailable Unavailable Ajit, L Jenna PA Unavailable Unavailable Ajit, L Jenna PA Unavailable Unavailable Ajit, L Jenna PA Unavailable Unavailable Ajit, L Jenna PA Unavailable Unavailable Ajit, L Jenna PA Unavailable Unavailable Ajit, L Jenna PA Unavailable Unavailable Ajit, L Jenna PA Unavailable Unavailable Ajit, L Jenna PA Unavailable Unavailable Ajit, L Jenna PA Unavailable Unavailable Ajit, L Jenna PA Unavailable Unavailable Ajit, L Jenna PA Unavailable Unavailable Ajit, L Jenna PA Unavailable Unavailable Ajit, L Jenna PA Unavailable Unavailable Ajit, L Jenna PA Unavailable Unavailable Ajit, L Jenna PA Unavailable Unavailable Ajit, L Jenna PA Unavailable Unavailable Ajit, L Jenna PA Unavailable Unavailable Ajit, L Jenna PA Unavailable Unavailable Ajit, L Jenna PA Unavailable Unavailable Ajit, L Jenna PA Unavailable Unavailable Ajit, L Jenna PA Unavailable Unavailable Ajit, L Jenna PA Unavailable Unavailable Olivia II, C Dominic RPA-C Unavailable Unavailable Olivia II, C Dominic RPA-C Unavailable Unavailable Olivia II, C Dominic RPA-C Unavailable Unavailable Olivia II, C Dominic RPA-C Unavailable Unavailable Olivia II, C Dominic RPA-C Unavailable Unavailable Olivia II, C Dominic RPA-C Unavailable Unavailable Olivia II, C Dominic RPA-C Unavailable Unavailable Olivia II, C Dominic RPA-C Unavailable Unavailable Olivia II, C Dominic RPA-C Unavailable Unavailable Olivia II, C Dominic RPA-C Unavailable Unavailable Olivia II, C Dominic RPA-C Unavailable Unavailable Olivia II, C Dominic RPA-C Unavailable Unavailable Olivia II, C Dominic RPA-C Unavailable Unavailable Olivia II, C Dominic RPA-C Unavailable Unavailable Olivia II, C Dominic RPA-C Unavailable Unavailable Olivia II, C Dominic RPA-C Unavailable Unavailable Olivia II, C Dominic RPA-C Unavailable Unavailable Olivia II, C Dominic RPA-C Unavailable Unavailable Olivia II, C Dominic RPA-C Unavailable Unavailable Olivia II, C Dominic RPA-C Unavailable Unavailable Olivia II, C Dominic RPA-C Unavailable Unavailable Olivia II, C Dominic RPA-C Unavailable Unavailable Olivia II, C Dominic RPA-C Unavailable Unavailable Olivia II, C Dominic RPA-C Unavailable Unavailable Olivia II, C Dominic RPA-C Unavailable Unavailable Olivia II, C Dominic RPA-C Unavailable Unavailable Olivia II, C Dominic RPA-C Unavailable Unavailable Olivia II, C Dominic RPA-C Unavailable Unavailable Olivia II, C Dominic RPA-C Unavailable Unavailable Olivia II, C Dominic RPA-C Unavailable Unavailable Olivia II, C Dominic RPA-C Unavailable Unavailable Olivia II, C Dominic RPA-C Unavailable Unavailable Olivia II, C Dominic RPA-C Unavailable Unavailable Olivia II, C Dominic RPA-C Unavailable Unavailable Olivia II, C Dominic RPA-C Unavailable Unavailable Olivia II, C Dominic RPA-C Unavailable Unavailable Olivia II, C Dominic RPA-C Unavailable Unavailable Olivia II, C Dominic RPA-C Unavailable Unavailable SOMMER SORIA MD Unavailable Unavailable SOMMER SORIA MD Unavailable Unavailable SOMMER SORIA MD Unavailable Unavailable SOMMER SORIA MD Unavailable Unavailable SOMMER SORIA MD Unavailable Unavailable SOMMER SORIA MD Unavailable Unavailable SOMMER SORIA MD Unavailable Unavailable SOMMER SORIA MD Unavailable Unavailable SOMMER SORIA MD Unavailable Unavailable SOMMER SORIA MD Unavailable Unavailable SOMMER SORIA MD Unavailable Unavailable SOMMER SORIA MD Unavailable Unavailable SOMMER SORIA MD Unavailable Unavailable SOMMER SORIA MD Unavailable Unavailable SOMMER SORIA MD Unavailable Unavailable SOMMER SORIA MD Unavailable Unavailable SOMMER SORIA MD Unavailable Unavailable SOMMER SORIA MD Unavailable Unavailable SOMMER SORIA MD Unavailable Unavailable SOMMER SORIA MD Unavailable Unavailable SOMMER SORIA MD Unavailable Unavailable SOMMER SORIA MD Unavailable Unavailable SOMMER SORIA MD Unavailable Unavailable SOMMER SORIA MD Unavailable Unavailable SOMMER SORIA MD Unavailable Unavailable SOMMER SORIA MD Unavailable Unavailable SORIA, SOMMER MD Unavailable Unavailable SORIA, SOMMER MD Unavailable Unavailable SORIA, SOMMER MD Unavailable Unavailable SORIA, SOMMER MD Unavailable Unavailable SORIA, SOMMER MD Unavailable Unavailable SORIA, SOMMER MD Unavailable Unavailable SORIA, SOMMER MD Unavailable Unavailable SORIA, SOMMER MD Unavailable Unavailable SORIA, SOMMER MD Unavailable Unavailable SORIA, SOMMER MD Unavailable Unavailable SORIA, SOMMER MD Unavailable Unavailable SORIA, SOMMER MD Unavailable Unavailable SORIA, SOMMER MD Unavailable Unavailable SORIA, SOMMER MD Unavailable Unavailable SORIA, SOMMER MD Unavailable Unavailable SORIA, SOMMER MD Unavailable Unavailable SORIA, SOMMER MD Unavailable Unavailable SORIA, SOMMER MD Unavailable Unavailable SORIA, SOMMER MD Unavailable Unavailable SORIA, SOMMER MD Unavailable Unavailable SORIA, SOMMER MD Unavailable Unavailable SORIA, SOMMER MD Unavailable Unavailable SORIA, SOMMER MD Unavailable Unavailable SORIA, SOMMER MD Unavailable Unavailable SORIA, SOMMER MD Unavailable Unavailable SORIA, SOMMER MD Unavailable Unavailable SORIA, SOMMER MD Unavailable Unavailable SORIA, SOMMER MD Unavailable Unavailable SORIA, SOMMER MD Unavailable Unavailable SORIA, SOMMER MD Unavailable Unavailable SORIA, SOMMER MD Unavailable Unavailable SORIA, SOMMER MD Unavailable Unavailable SORIA, SOMMER MD Unavailable Unavailable SORIA, SMOMER MD Unavailable Unavailable SORIA, SOMMER MD Unavailable Unavailable SORIA, SOMMER MD Unavailable Unavailable SORIA, SOMMER MD Unavailable Unavailable SORIA, SOMMER MD Unavailable Unavailable SORIA, SOMMER MD Unavailable Unavailable SORIA, SOMMER MD Unavailable Unavailable SORIA, SOMMER MD Unavailable Unavailable SORIA, SOMMER MD Unavailable Unavailable SORIA, SOMMER MD Unavailable Unavailable Blake KEEN MD Unavailable Unavailable Blake KEEN MD Unavailable Unavailable Blake KEEN MD Unavailable Unavailable Blake KEEN MD Unavailable Unavailable Blake KEEN MD Unavailable Unavailable Blake KEEN MD Unavailable Unavailable Blake KEEN MD Unavailable Unavailable Blake KEEN MD Unavailable Unavailable Blake KEEN MD Unavailable Unavailable Blake KEEN MD Unavailable Unavailable Blake KEEN MD Unavailable Unavailable Blake KEEN MD Unavailable Unavailable Blake KEEN MD Unavailable Unavailable Blake KEEN MD Unavailable Unavailable HANSA, S AYMAN MD Unavailable Unavailable HANSA, S AYMAN MD Unavailable Unavailable HANSA, S AYMAN MD Unavailable Unavailable HANSA, S AYMAN MD Unavailable Unavailable HANSA, S AYMAN MD Unavailable Unavailable HANSA, S AYMAN MD Unavailable Unavailable HANSA, S AYMAN MD Unavailable Unavailable HANSA, S AYMAN MD Unavailable Unavailable HANSA, S AYMAN MD Unavailable Unavailable HANSA, S AYMAN MD Unavailable Unavailable HANSA, S AYMAN MD Unavailable Unavailable HANSA, S AYMAN MD Unavailable Unavailable HANSA, S AYMAN MD Unavailable Unavailable HANSA, S AYMAN MD Unavailable Unavailable HANSA, S AYMAN MD Unavailable Unavailable HANSA, S AYMAN MD Unavailable Unavailable HANSA, S AYMAN MD Unavailable Unavailable HANSA, S AYMAN MD Unavailable Unavailable HANSA, S AYMAN MD Unavailable Unavailable HANSA, S AYMAN MD Unavailable Unavailable HANSA, S AYMAN MD Unavailable Unavailable HANSA, S AYMAN MD Unavailable Unavailable HANSA, S AYMAN MD Unavailable Unavailable HANSA, S AYMAN MD Unavailable Unavailable HANSA, S AYMAN MD Unavailable Unavailable HANSA, S AYMAN MD Unavailable Unavailable HANSA, S AYMAN MD Unavailable Unavailable HANSA, S AYMAN MD Unavailable Unavailable HANSA, S AYMAN MD Unavailable Unavailable HANSA, S AYMAN MD Unavailable Unavailable HANSA, S AYMAN MD Unavailable Unavailable HANSA, S AYMAN MD Unavailable Unavailable HANSA, S AYMAN MD Unavailable Unavailable HANSA, S AYMAN MD Unavailable Unavailable HANSA, S AYMAN MD Unavailable Unavailable HANSA, S AYMAN MD Unavailable Unavailable HANSA, S AYMAN MD Unavailable Unavailable HANSA, S AYMAN MD Unavailable Unavailable HANSA, S AYMAN MD Unavailable Unavailable HANSA, S AYMAN MD Unavailable Unavailable HANSA, S AYMAN MD Unavailable Unavailable HANSA, S AYMAN MD Unavailable Unavailable HANSA, S AYMAN MD Unavailable Unavailable HANSA, S AYMAN MD Unavailable Unavailable HANSA, S AYMAN MD Unavailable Unavailable HANSA, S AYMAN MD Unavailable Unavailable HANSA, S AYMAN MD Unavailable Unavailable HANSA, S AYMAN MD Unavailable Unavailable HANSA, S AYMAN MD Unavailable Unavailable HANSA, S AYMAN MD Unavailable Unavailable HANSA, S AYMAN MD Unavailable Unavailable HANSA, S AYMAN MD Unavailable Unavailable HANSA, S AYMAN MD Unavailable Unavailable HANSA, S AYMAN MD Unavailable Unavailable HANSA, S AYMAN MD Unavailable Unavailable HANSA, S AYMAN MD Unavailable Unavailable HANSA, S AYMAN MD Unavailable Unavailable HANSA, S AYMAN MD Unavailable Unavailable HANSA, S AYMAN MD Unavailable Unavailable HANSA, S AYMAN MD Unavailable Unavailable HANSA, S AYMAN MD Unavailable Unavailable HANSA, S AYMAN MD Unavailable Unavailable HANSA, S AYMAN MD Unavailable Unavailable HANSA, S AYMAN MD Unavailable Unavailable HANSA, S AYMAN MD Unavailable Unavailable HANSA, S AYMAN MD Unavailable Unavailable HANSA, S AYMAN MD Unavailable Unavailable HANSA, S AYMAN MD Unavailable Unavailable Re-disclosure Warning The records that you are about to access may contain information from federally-assisted alcohol or drug abuse programs. If such information is present, then the following federally mandated warning applies: This information has been disclosed to you from records protected by federal confidentiality rules (42 CFR part 2). The federal rules prohibit you from making any further disclosure of this information unless further disclosure is expressly permitted by the written consent of the person to whom it pertains or as otherwise permitted by 42 CFR part 2. A general authorization for the release of medical or other information is NOT sufficient for this purpose. The Federal rules restrict any use of the information to criminally investigate or prosecute any alcohol or drug abuse patient.The records that you are about to access may contain highly sensitive health information, the redisclosure of which is protected by Article 27-F of the [place] State Public Health law. If you continue you may have access to information: Regarding HIV / AIDS; Provided by facilities licensed or operated by the [facility] Office of Mental Health; or Provided by the [facility] Office for People With Developmental Disabilities. If such information is present, then the following [facility] mandated warning applies: This information has been disclosed to you from confidential records which are protected by state law. State law prohibits you from making any further disclosure of this information without the specific written consent of the person to whom it pertains, or as otherwise permitted by law. Any unauthorized further disclosure in violation of state law may result in a fine or [place] health [place] sentence or both. A general authorization for the release of medical or other information is NOT sufficient authorization for further disc losure. Allergies and Adverse Reactions Type Description Substance Reaction Status Data Source(s ) No Known Environmental Allergies No Known Environmental Al lergies [facility] No Known Food Allergies No Known Food Allergies [facility] BRANDNAME [facility] Family History Family Member Name Family Member Gender Family Member Status Date o f Status Description Data Source(s) Unknown Female Problem [facility] ([facility]) Unknown Male Problem [facility] ([facility] ) Unknown Female Problem [facility] ([facility] Encounters Encounter Providers Location Date Indications Data Source(s ) Outpatient Attender: SOMMER SORIA MDConsultant: SOMMER Rider MD 10/08/2020 12:54:00 PM EST - 10/08/2020 12:54:00 PM [facility] [address] [place] [address] 10/02/2020 12:00:00 AM EST eCW1 ([facility]) Outpatient Attender: SOMMER SORIA MDConsultant: SOMMER Rider MD 09/04/2020 02:43:00 PM EST - 09/04/2020 02:43:00 PM [facility] Outpatient Attender: SOMMER SORIA MD Family Practice 09/04/2020 0 2:00:00 PM EST MED[facility] ([facility]) Outpatient Attender: SOMMER SORIA MDConsultant: SOMMER Rider MD 08/08/2020 08:56:00 AM EST - 08/08/2020 08:56:00 AM [facility] Outpatient Attender: SOMMER SORIA MD Family Practice 08/08/2020 0 8:20:00 AM EST [facility] ([facility]) Outpatient Attender: SOMMER SORIA MD Family Practice 05/07/2020 0 1:00:00 PM EDT [facility] ([facility]) Outpatient Attender: SOMMER SORIA MDConsultant: SOMMER Rider MD 05/07/2020 12:40:00 PM EDT - 05/07/2020 12:40:00 PM EDT [facility] [address] [place] [id number] 02/07/2020 12:00:00 AM EDT eCW1 ([facility]) Unknown [address] [id number] 02/06/2020 12:00:00 AM EDT eCW1 ([facility]) Outpatient Attender: SOMMER SORIA MD Family Practice 01/19/2020 1 0:00:00 AM EDT MED[facility] ([facility]) Outpatient Attender: SOMMER SORIA MDConsultant: SOMMER Rider MD 01/19/2020 09:37:00 AM EDT - 01/19/2020 09:37:00 AM EDT [facility] Recurring Patient Attender: Dominic Baker IIReferrer: SOMMER LINARES MD 12/30/2019 09:16:29 AM EDT [facility] Outpatient Attender: Jenna STREETER Main Office 10/19/2019 01:00:0 0 PM EST [facility] ([facility]) Outpatient Attender: SOMMER SORIA MDConsultant: SOMMER Rider MD 10/03/2019 10:18:00 AM EST - 10/03/2019 10:18:00 AM EST [facility] Office Visit Attender: SOMMER SORIA MD Family Practice 2019 09:00:00 AM EST [facility] ([facility] [address] [place] [phone] 09/30/2019 12:00:00 AM EST eCW1 ([facility]) Outpatient Attender: SOMMER SORIA MDConsultant: SOMMER Rider MD 09/27/2019 09:04:00 AM EST - 09/27/2019 10:04:00 AM EST [facility] Inpatient Attender: SYMONE KEEN MDAdmitter: SYMONE CASTRO MD [id number] 09/19/2019 06:32:00 AM EST - 09/20/2019 05:42:00 PM EST [facility] Patient discharged. Outpatient Attender: SYMONE KEEN MDReferrer: SYMONE CASTRO MD [email or web address] 09/12/2019 12:11:35 PM EST - 09/12/2019 01:47:14 PM EST [facility] Outpatient Attender: SOMMER SORIA MDConsultant: SOMMER Rider MD 03/18/2018 02:50:51 PM EDT [facility] Immunizations Vaccine Date Status Description Data Source(s) New in 2011. IIV4 08/08/2020 08:38:00 AM EST completed MED[facility] ([facility]) pneumococcal polysaccharide PPV23 08/08/2020 08:37:00 AM EST comple julian MED[facility] ([facility]) Medications Medication Brand Name Start Date Product Form Dose Route Admi nistrative Instructions Pharmacy Instructions Status Indications Reaction Description Data Source(s) Cholecalciferol 59879 UNT Oral Capsule Weekly-D 09/04/2020 12:00:00 AM EST ORAL active MED[facility] ([facility]) Triamcinolone Acetonide 5 MG/ML Topical Cream Triamcinolone Acetonide 09/04/2020 12:00:00 AM EST active M EDENT ([facility]) Amoxicillin 500 MG Oral Tablet Amoxicillin 05/24/2020 12:00:00 AM EDT ORAL active MEDENT ([facility], ) Magnesium Hydroxide 80 MG/ML Oral Suspension Milk Of Magnesi a 05/21/2020 12:00:00 AM EDT ORAL active M EDENT ([facility], ) Suprep Bowel Prep Kit Suprep Bowel Prep Kit 05/21/2020 12:00:00 AM EDT active MEDENT ([facility], ) terbinafine 250 MG Oral Tablet Terbinafine HCL 05/07/2020 12:00:00 AM EDT ORAL completed [facility] ([facility]) ciclopirox 80 MG/ML Topical Solution Ciclopirox 05/07/2020 12:00:00 A M EDT completed [facility] ([facility]) Sulfamethoxazole 800 MG / Trimethoprim 160 MG Oral Tablet [B actrim] Bactrim DS 05/07/2020 12:00:00 AM EDT ORAL completed [facility] ([facility]) Aspirin 81 MG Delayed Release Oral Tablet Aspirin 10/18/2019 1 2:00:00 AM EST ORAL active [facility] ([facility]) clopidogrel 75 MG Oral Tablet Clopidogrel Bisulfate 10/18/2019 1 2:00:00 AM EST ORAL active [facility] ( [facility]) Bisacodyl 10 MG Rectal Suppository bisacodyl (DULCOLAX ) suppository 10 mg bisacodyl (DULCOLAX) suppository 10 mg 09/22/2019 09:00:00 AM EST 10 mg Rectal active 10 mg, Rectal, Daily PRN, constipation, Starting Kasie 09/22/19 at 0900, Post-op
If lactulose not effective, give bisacodyl suppository x 1 per rectum prn starting POD #3.
[facility] Medication administered onsite POLYETHYLENE GLYCOL 3350 142 MG/ML Oral Solution polyethylene glycol (GLYCOLAX) packet 17 g polyethylene glycol (GLYCOLAX) packet 17 g 09/21/2019 07:00:00 AM EST 17 g Oral active 17 g, Or al, Daily PRN, For constipation, Starting Thu09/21/19 at 0700, PACU & Post-op
hold for loose stools
[facility] Medication administered onsite Aspirin 81 MG Delayed Release Oral Tablet aspirin EC t ablet 81 mg aspirin EC tablet 81 mg 09/20/2019 09:00:00 AM EST 81 mg Oral activ e 81 mg, Oral, Daily, First dose on Thu09/20/19 at 0900, Post-op
Starting POD # 1 for RUSS patient. Hold for platelet count less than 90,000. If OG tube in place, give non-enteric aspirin.
[facility] Medication administered onsite pantoprazole 40 MG Delayed Release Oral Tablet pantoprazole (PROTONIX) EC tablet 40 mg pantoprazole (PROTONIX) EC tablet 40 mg 09/20/2019 09:00:[address] 40 mg Oral active Stress Ulcer Prophylaxis 40 mg, Oral, Daily, Indications: Stress Ulcer Prophylaxis, First dose on Thu09/20/19 at 0900, Post-op [facility] Stress Ulcer Prophylaxis Medication administered onsite Docusate Sodium 100 MG Oral Capsule docusate sodium (C OLACE) capsule 100 mg docusate sodium (COLACE) capsule 100 mg 09/20/2019 09:00:00 AM EST 100 mg Oral active 100 mg, Oral, 2 times daily, First dose on Thu09/20/19 at 0900, Post-op
Start first POD.
[facility] Medication administered onsite Lisinopril 20 MG Oral Tablet lisinopril (PRINIVIL,ZEST RIL) tablet 20 mg lisinopril (PRINIVIL,ZESTRIL) tablet 20 mg 09/20/2019 09:00:00 AM EST 20 mg Oral active 20 mg, Oral, Daily, First dose on Thu09/20/19 at 0900 [facility] Medication administered onsite clopidogrel 75 MG Oral Tablet clopidogrel (PLAVIX) tab let 75 mg clopidogrel (PLAVIX) tablet 75 mg 09/20/2019 09:00:00 AM EST 75 mg Oral active 75 mg, Oral, Daily, First dose on Thu09/20/19 at 0900, Post-op
Start first POD.
[facility] Medication administered onsite Chlorthalidone 25 MG Oral Tablet chlorthalidone (HYGRO TEN) tablet 12.5 mg chlorthalidone (HYGROTEN) tablet 12.5 mg 09/20/2019 09:00:00 AM EST 12.5 mg Oral active 12.5 mg, Oral, Daily , First dose on Thu09/20/19 at 0900 [facility] Medication administered onsite carvedilol 25 MG Oral Tablet carvedilol (COREG) tablet 25 mg carvedilol (COREG) tablet 25 mg 09/20/2019 09:00:00 AM EST 25 mg Oral activ e 25 mg, Oral, 2 times daily, First dose on Thu09/20/19 at 0900
Hold for SBP <110 or HR <60
[facility] Medication administered onsite clopidogrel 75 MG Oral Tablet clopidogrel (PLAVIX) 75 MG tablet clopidogrel (PLAVIX) 75 MG tablet 09/20/2019 12:00:00 AM EST 75 mg Oral active Take 1 tablet (75 mg total) by mouth daily [facility] Amoxicillin 500 MG Oral Capsule amoxicillin (AMOXIL) 5 00 MG capsule amoxicillin (AMOXIL) 500 MG capsule 09/20/2019 12:00:00 AM EST 2000 mg Oral active Take 4 capsules (2,000 mg total) by mout h as needed (Take 1 hr prior to any dental procedures or cleanings) [facility] Aspirin 81 MG Delayed Release Oral Tablet aspirin 81 M G EC tablet aspirin 81 MG EC tablet 09/20/2019 12:00:00 AM EST 81 mg Oral active Take 1 tablet (81 mg total) by mouth daily [facility] heparin (porcine) injection 5,000 Units [id number] 09/19/19 09:00:00 PM EST 5000 U Subcutaneous aborted 5,000 Units , Subcutaneous, Every 12 hours (scheduled), First dose on Thu09/19/19 at 2100, Post-op
If platelet count is less than 100,000 or hematocrit is less than 25, or if there is a 5 point decrea se in hematocrit, do not give the dose and call physician/designee.Hold for INR greater than or equal to 1.7 if receiving Coumadin therapy.
[facility] Medication administered onsite cefazolin (ANCEF) injection 2 g 09/19/2019 03:00:00 PM EST 2 g Intravenous completed Perioperative Pharmacoprophylaxis 2 g, Intravenous, Administer over 6 Minutes, Every 8 hours (relative), First dose on Thu09/19/19 at 1500, For 2 doses, Post-op
RN may administer IV push or infuse this medication through syringe adapter set ref [id number]. Flush line after use
[facility] Perioperative Pharmacoprophylaxis Medication administered onsite normal saline flush 0.9 % injection 3 mL 77956-123-21 09/19/2019 02:00:00 PM EST 3 mL Intravenous active 3 mL , Intravenous, PROTOCOL, First dose on Thu09/19/19 at 1400, Post-op
flush per protocol, D/C Main IV fluid if appropriate
[facility] Medication administered onsite acetaminophen (TYLENOL) 325 MG tablet 650 mg 0 10:58:08 AM EST 650 mg Oral active [Order 1 S tart] Name: acetaminophen (TYLENOL) 325 MG tablet 650 mg Signed Summary: 650 mg, Oral, Every 4 hours PRN, mild pain (1-3), for temperature > 101. Call MD/PA. May also give for headache., Starting Thu09/19/19 at 1058, Post-op
"Maximum dose of acetaminophen is 4,000 mg from all sources in 24 hours."
[Order 1 End] [Order 2 Start] Name: acetaminophen (TYLENOL) suppository 650 mg Signed Summary: 650 mg (1 suppository), Rectal, Every 4 hours PRN, mild pain (1-3), for temperature > 101. Call MD/PA. May also give for headache., Starting Thu09/19/19 at 1058, Post-op [Order 2 End] [facility] Medication administered onsite 2 ML Metoclopramide 5 MG/ML Prefilled Sy ringe metoclopramide (REGLAN) injection 10 mg metoclopramide (REGLAN) injection 10 mg 09/19/2019 10:58:[address] 10 mg Intravenous active 10 mg, I ntravenous, Every 6 hours PRN, nausea, vomiting, Starting Thu09/19/19 at 1058, Post-op
Give once if no response to Zofran after 15-30 minutes, then q6h prn N/V.
[facility] Medication administered onsite ondansetron (ZOFRAN) injection 4 mg [id number] 09/19/2019 10:58:0 7 AM EST 4 mg Intravenous active 4 mg, In travenous, Every 6 hours PRN, nausea, vomiting, Starting Thu09/19/19 at 1058, Post-op
If no response in 15-30 minutes then give metoclopramide 10 mg IV x 1 then q6h prn N/V.
[facility] Medication administered onsite sodium chloride 0.9% (NS) infusion 5344-7324-05 09/19/2019 10:00:00 A M EST Intravenous completed at 75 mL/hr, Intravenous, Continuous, Starting Thu09/19/19 at 1000, For 4 hours, Post-op [facility] Medication administered onsite atorvastatin 20 MG Oral Tablet atorvastatin (LIPITOR) tablet 20 mg atorvastatin (LIPITOR) tablet 20 mg 09/19/2019 10:00:00 AM EST 20 mg Oral active 20 mg, Oral, Daily, First dose on Thu09/19/19 at 1000 [facility] Medication administered onsite Magnesium Chloride 0.17039 MEQ/ML / Pota ssium Chloride 0.0497 MEQ/ML / Sodium Acetate 0.0163 MEQ/ML / Sodium Chloride 0.0899 MEQ/ML / Sodium gluconate 5.02 MG/ML Injectable Solution [Normosol-R] electrolyte-R (NORMOSOL-R/PLASMALYTE-R) solution electrolyte-R (NORMOSOL-R/PLASMALYTE-R) solution 09/19 08:00:00 AM EST Intravenous active at 3 0 mL/hr, Intravenous, Continuous, Starting Thu09/19/19 at 0800, Pre-op
For cardiac surgery patients only
[facility] Medication administered onsite heparin (porcine) injection 5,000 Units [id number] 09/19/19 07:00:00 AM EST 5000 U Subcutaneous completed 5,000 Uni ts, Subcutaneous, On Admission, Thu09/19/19 at 0700, For 1 dose, Pre-op
Hold for platelets less than 90,000.
[facility] Medication administered onsite Lidocaine Hydrochloride 20 MG/ML Mucous Membrane Topical Solution lidocaine Viscous HCl (XYLOCAINE) 2 % solution lidocaine Viscous HCl (XYLOCAINE) 2 % solution 07/14/2019 12:00:00 AM EST 5 mL Oral aborted Take 5 mL by mouth as needed for pain [facility] cilostazol 100 MG Oral Tablet cilostazol (PLETAL) 100 MG tablet cilostazol (PLETAL) 100 MG tablet 100 mg Oral aborted Take 100 mg by mouth 2 (two) times a day [facility] Aspirin 325 MG Oral Tablet aspirin 325 MG tablet aspirin 325 MG tab let 325 mg Oral aborted Take 325 mg by mouth linus ly [facility] cilostazol 100 MG Oral Tablet cilostazol (PLETAL) 100 MG tablet cilostazol (PLETAL) 100 MG tablet 100 mg Oral aborted Take 100 mg by mouth 2 (two) times a day [facility] Insurance Providers Payer name Policy type / Coverage type Policy ID Covered green party ID Covered green party's relationship to moss Policy Moss Plan Information FOR LIFE [id number] SP [id number] MEDICARE [id number] SP [id number] MEDICARE PART A [facility] [id number] 18 [id number] FOR LIFE [id number] 01 [id number] FOR LIFE CO UNAVAILABLE 01 U NAVAILABLE FOR LIFE -O/P UNAVAILABLE 01 UNAVAILABLE Family [place] F [id number] SELF [id number] MEDICARE [id number] Sandra [id number] [id number] Sandra [id number] FOR LIFE -O/P [id number] 01 [id number] MEDICARE PART A -O/P [id number] 18 [id number] FOR LIFE -O/P [place] [id number] 01 [id number] FOR LIFE [id number] MEDICARE [id number] MEDICARE [id number] SP [id number] A MEDICARE [id number] Sandra [id number] A MEDICARE PART A [facility] [id number] 18 [id number] FOR LIFE -O/P [id number] 01 [id number] MEDICARE PART A -O/P [id number] 18 [id number] DME Jurisdiction A LAIC C [id number] SELF [id number] Medicare C [id number] SELF [id number] M77 For Life F [id number] SELF 0 [id number] DME Jurisdiction A LAIC C [id number] SELF [id number] Medicare C [id number] SELF [id number] For Life Medigap Part B [id number] Family Dependent [id number] Medicare Part A [place] Primary [id number] Self [id number] For Life Medigap Part [id number] Family Dependent [id number] [place] Part [place] Primary [id number] Self [id number] [employer] Plan Commercial [id number] Self [id number] [place] [facility] (TFL) Medigap Part B [id number] Self [id number] Medicare [facility] Medicare Primary [id number] Self [id number] Next audience Commercial [id number] Self [id number] [place] [employer] (TFL) Medigap Part B [id number] Self [id number] [place] Primary [id number] Self [id number] For Life Medigap Part [id number] Family Dependent [id number] [place] Part A [place] Primary [id number] Self [id number] For Life - WPS Medigap Part B [id number] Family Depen dent [id number] Medicare (Part B) Medicare Primary [id number] Self [id number] For Life Medigap Part B [id number] Family Dependent [id number] [place] Part [place] Primary [id number] Self [id number] [facility] [id number] SP [id number] For Life Medigap Part [id number] Family Dependent [id number] [place] Part A [place] Primary [id number] Self [id number] Next audience Commercial [id number] Self [id number] [place] [employer] (TFL) Medigap Part B [id number] Self [id number] [place] Primary [id number] Self [id number] [place] Family Health Plan Commercial [id number] Self [id number] [facility] Serv (TFL) Medigap Part B [id number] Self [id number] [place] Primary [id number] Self [id number] For Life Medigap Part B [id number] Family Dependent [id number] [place] Part [place] Primary [id number] Self [id number] FOR LIFE O [id number] P [id number] MEDICARE C [id number] S [id number] A FOR LIFE [id number] 01 [id number] MEDICARE -O/P [id number] 18 [id number] Medicare Part A [place] Primary [id number] Self [id number] For Life Commercial [id number] Family Dependent [id number] Medicare Part A [place] Primary [id number] Self [id number] For Life Commercial [id number] Family Dependent [id number] [facility] AT [facility] -PHYSICIAN [id number] 18 [id number] [facility] AT [facility] [id number] 18 [id number] [facility] AT [facility]-O/P [id number] 18 [id number] Medicare Part [place] Primary [id number] Self [id number] For Life Commercial [id number] Family Dependent [id number] MEDICARE PART A [facility] [id number] 18 [id number] For Life - WPS Medigap Part B [id number] Self [id number] Medicare (Part B) Medicare Primary [id number] Self [id number] [facility] [place] [id number] 18 [id number] [facility] [place] [id number] 18 [id number] [facility] Commercial [id number] Self [id number] [facility] [id number] Self [id number] [place] Commercial [id number] Self [id number] [place] Commercial [id number] Self [id number] [place] Commercial [id number] Self [id number] [place] Commercial [id number] Self 000 [id number] [place] Commercial [id number] Self 000 [id number] [place] Commercial [id number] Self 000 [id number] [place] O [id number] S [id number] [facility] Point Commercial Self [facility] Health Plan Commercial Self [facility] Healthcare Health Maintenance Organization (HMO) [facility] HEALTHCARE [id number] Spo [id number] Problems, Conditions, and Diagnoses Code Display Name Description Problem Type Effective Dates Data Source(s) 39669168 Essential hypertension Essential hypertension Problem 01/12/2020 12:00:00 AM [facility] ([facility], ) E78.5 Hyperlipidemia, acquired Hyperlipidemia, acquired 6457 200009/19/2019 12:00:00 AM [facility] I10 Hypertension, essential Hypertension, essential 270205 09/19/2019 12:00:00 AM [facility] I73.9 Peripheral vascular disease Peripheral vascular diseas e [id number] 09/19/2019 12:00:00 AM [facility] K21.9 GERD (gastroesophageal reflux disease) G ERD (gastroesophageal reflux disease) 72030019 09/19/2019 12:00:00 AM [facility] I35.0 Nonrheumatic aortic (valve) stenosis Nonrheumati c aortic (valve) stenosis [id number] 09/19/2019 12:00:00 AM [facility] E559 Vitamin D deficiency, unspecified Vitamin D defi ciency, unspecified Diagnosis 09/04/2020 02:43:00 PM [facility] R739 Hyperglycemia, unspecified Hyperglycemia, unspecified Diagnosis 09/04/2020 02:43:00 PM [facility] G4733 Obstructive sleep apnea (adult) (pediatr ic) Obstructive sleep apnea (adult) (pediatric) Diagnosis 09/04/2020 02:43:00 PM [facility] E785 Hyperlipidemia, unspecified Hyperlipidemia, unspecifie d Diagnosis 09/04/2020 02:43:00 PM [facility] I739 Peripheral vascular disease, unspecified Peripheral vascular disease, unspecified Diagnosis 09/04/2020 02:43:00 PM [facility] I10 Essential (primary) hypertension Essential (primary) h ypertension Diagnosis 09/04/2020 02:43:00 PM [facility] Z23 Encounter for immunization Encounter for immunization Diagnosis 08/08/2020 08:56:00 AM [facility] M130 Polyarthritis, unspecified Polyarthritis, unspecified Diagnosis 08/08/2020 08:56:00 AM [facility] 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 Onychogryphosis Diagnosis 08/08/2020 08:5 6:00 AM [facility] E782 Mixed hyperlipidemia Mixed hyperlipidemia Diagnosis 08/08/2020 08:56:00 AM [facility] I359 Nonrheumatic aortic valve disorder, unsp ecified Nonrheumatic aortic valve disorder, unspecified Diagnosis 10/03/2019 10:18:00 AM [facility] N3289 Other specified disorders of bladder Other speci fied disorders of bladder Diagnosis 09/27/2019 09:04:00 AM [facility] I35.0 Nonrheumatic aortic (valve) stenosis Nonrheumati c aortic (valve) stenosis Diagnosis 09/12/2019 12:11:35 PM [facility] Surgeries/Procedures Procedure Description Date Indications Data Source(s) Medication: (Derm) 1% Lidocaine with Epi nephrine Injection Intradermally to marked area (s) 09/28/2020 12:00:00 AM EST eCW1 ([facility]) Colonoscopy W/ Poly 06/07/2020 12:00:00 AM EDT [facility] ([facility]) ECG ROUTINE ECG W/LEAST 12 LDS W/I&R 10/19/2019 12:00: 00 AM EST [facility] ([facility]) Brief Emotional/Behav Assessment W/ Scoring Doc Per Standard Inst 10/03/2019 12:00:00 AM EST [facility] ([facility]) DESTROY BENIGN/PREMLG LESION 09/30/2019 12:00:00 AM ES T eCW1 ([facility]) ECHO TTHRC R-T 2D W/WOM-MODE COMPL SPEC&COLR DOP ECHOCARDIO GRAM TRANSTHORACIC Routine 09/20/2019 2:24 PM EST 09/20/2019 07:24:37 PM EST [facility] BLOOD COUNT COMPLETE AUTOMATED CBC Timed 09/20/2019 2:21 A M EST 09/20/2019 07:21:00 AM EST [facility] BASIC METABOLIC PANEL CALCIUM TOTAL BASIC METABOLIC PANEL Timed 09/20/2019 2:21 AM EST 09/20/2019 07:21:00 AM EST [facility] XR CHEST PORTABLE XR CHEST PORTABLE STAT 09/19/2019 9:33 AM EST 09/19/2019 02:33:46 PM EST [facility] ECG ROUTINE ECG W/LEAST 12 LDS TRCG ONLY W/O I&R ECG 12-LEAD Routine 09/19/2019 9:23 AM EST 09/19/2019 02:23:05 PM EST [facility] PROTHROMBIN TIME PROTIME-INR STAT 09/19/2019 9:19 AM EST 09/19/2019 02:19:00 PM EST [facility] BLOOD COUNT COMPLETE AUTOMATED CBC STAT 09/19/2019 9:19 A M EST 09/19/2019 02:19:00 PM EST [facility] MAGNESIUM MAGNESIUM STAT 09/19/2019 9:19 AM EST 09/19/2019 02:19:00 PM EST [facility] BASIC METABOLIC PANEL CALCIUM TOTAL BASIC METABOLIC PANEL STAT 09/19/2019 9:19 AM EST 09/19/2019 02:19:00 PM EST [facility] TRANSCATHETER AORTIC VALVE IMPLANT FEMORAL TRANSCATHE TER AORTIC VALVE IMPLANT FEMORAL Routine 09/19/2019 8:48 AM EST Nonrheumatic aortic (valve) stenosis 09/19/2019 01:48:00 PM EST Nonrheumatic aortic (valve) stenosis [facility] Nonrheumatic aortic (valve) stenosis POC ARTERIAL BLOOD GAS W LYTES POC ARTERIAL BLOOD GAS W LYTES R outine 09/19/2019 8:24 AM EST 09/19/2019 01:24:00 PM EST [facility] POC ACT POC ACT Routine 09/19/2019 8:23 AM EST 020 01:23:00 PM EST [facility] POC ARTERIAL BLOOD GAS W LYTES POC ARTERIAL BLOOD GAS W LYTES R outine 09/19/2019 7:55 AM EST 09/19/2019 12:55:00 PM EST [facility] POC ACT POC ACT Routine 09/19/2019 7:54 AM EST 020 12:54:00 PM EST [facility] GLUC BLD GLUC MNTR DEV CLEARED FDA SPEC HOME USE POCT GLUCOSE Routine 09/19/2019 6:49 AM EST 09/19/2019 11:49:00 AM EST [facility] ECG ROUTINE ECG W/LEAST 12 LDS TRCG ONLY W/O I&R ECG 12-LEAD Routine 09/12/2019 1:46 PM EST Nonrheumatic aortic valve stenosis 09/12/2019 06:46:25 PM ES T Nonrheumatic aortic valve stenosis [facility] Nonrheumatic aortic valve stenosis ROOM TEMP AB SCREEN ROOM TEMP AB SCREEN Routine 09/12/2019 1 :10 PM EST Nonrheumatic aortic valve stenosis 09/12/2019 06:10:00 PM ES T Nonrheumatic aortic valve stenosis [facility] Nonrheumatic aortic valve stenosis BLOOD TYPING ABO TYPE AND SCREEN Routine 09/12/2019 1:10 PM EST Nonrheumatic aortic valve stenosis 09/12/2019 06:10:00 PM ES T Nonrheumatic aortic valve stenosis [facility] Nonrheumatic aortic valve stenosis NT PRO BNP NT PRO BNP Routine 09/12/2019 1:03 PM EST Nonrheumatic aortic valve stenosis 09/12/2019 06:03:00 PM ES T Nonrheumatic aortic valve stenosis [facility] Nonrheumatic aortic valve stenosis URNLS DIP STICK/TABLET RGNT AUTO W/O MICROSCOPY URINALYSIS W/O MICRO Routine 09/12/2019 1:03 PM EST Nonrheumatic aortic valve stenosis 09/12/2019 06:03:00 PM ES T Nonrheumatic aortic valve stenosis [facility] Nonrheumatic aortic valve stenosis THROMBOPLASTIN TIME PARTIAL PLASMA/WHOLE BLOOD APTT Routine 09/12/2019 1:03 PM EST Nonrheumatic aortic valve stenosis 09/12/2019 06:03:00 PM ES T Nonrheumatic aortic valve stenosis [facility] Nonrheumatic aortic valve stenosis PROTHROMBIN TIME PROTIME-INR Routine 09/12/2019 1:03 PM EST Nonrheumatic aortic valve stenosis 09/12/2019 06:03:00 PM ES T Nonrheumatic aortic valve stenosis [facility] Nonrheumatic aortic valve stenosis BLOOD COUNT COMPLETE AUTO&AUTO DIFRNTL WBC COUNT CBC AND DIFFER ENTIAL Routine 09/12/2019 1:03 PM EST Nonrheumatic aortic valve stenosis 09/12/2019 06:03:00 PM ES T Nonrheumatic aortic valve stenosis [facility] Nonrheumatic aortic valve stenosis HEMOGLOBIN GLYCOSYLATED A1C HEMOGLOBIN A1C Routine 09/12/2019 1:03 PM EST Nonrheumatic aortic valve stenosis 09/12/2019 06:03:00 PM ES T Nonrheumatic aortic valve stenosis [facility] Nonrheumatic aortic valve stenosis COMPREHENSIVE METABOLIC PANEL COMPREHENSIVE METABOLIC PANEL Rou lamar 09/12/2019 1:03 PM EST Nonrheumatic aortic valve stenosis 09/12/2019 06:03:00 PM ES T Nonrheumatic aortic valve stenosis [facility] Nonrheumatic aortic valve stenosis Results ID Date Data Source [id number] 08/08/2020 09:32:00 AM EST [facility] ([facility]) Name Value Range Interpretation Code Description Data Meme rce(s) Supporting Document(s) Calcidiol [Mass/volume] in Serum or Plasma 23 ng/mL [facility] ([facility]) Is patient fasting? N ID Date Data Source [id number] 08/08/2020 09:32:00 AM EST [facility] ([facility]) Name Value Range Interpretation Code Description Data Meme rce(s) Supporting Document(s) Cve Panel Laboratory test result [facility] ([facility]) Is patient fasting? N Cholesterol 153 mg/dL 131-200 [facility] ([facility]) Is patient fasting? N Triglycerides 96 mg/dL 35-160 [facility] ([facility]) Is patient fasting? N HDL 45 mg/dL 29-86 [facility] ([facility]) Is patient fasting? N Risk Factor 3.4 3.4-4.9 Below low normal [facility] ([facility]) Is patient fasting? N LDL 99 mg/dL 65-175 [facility] ([facility]) Is patient fasting? N LDL/HDL 2.20 1.00-3.55 [facility] ([facility]) Is patient fasting? N ID Date Data Source [id number] 08/08/2020 09:32:00 AM EST [facility] ([facility]) Name Value Range Interpretation Code Description Data Meme rce(s) Supporting Document(s) Hemoglobin A1c/Hemoglobin.total in Blood 5.8 % 4.4-6.1 [facility] ([facility]) Is patient fasting? N ID Date Data Source [id number] 08/08/2020 09:32:00 AM EST [facility] ([facility]) Name Value Range Interpretation Code Description Data Meme rce(s) Supporting Document(s) CBC W/Automated Diff Laboratory test result [facility] ([facility]) Is patient fasting? N RBC 5.54 10^6/uL 4.50-6.30 [facility] ([facility]) Is patient fasting? N WBC 7.2 10^3/uL 4.2-11.0 [facility] ([facility]) Is patient fasting? N Hemoglobin 16.3 g/dL 14.0-16.0 Above high normal [facility] ([facility]) Is patient fasting? N Hematocrit 48.4 % 41.0-51.0 [facility] ([facility]) Is patient fasting? N MCV 87.4 fL 80.0-94.0 [facility] ([facility]) Is patient fasting? N RDW 12.6 % 11.5-14.8 [facility] ([facility]) Is patient fasting? N MCHC 33.7 g/dL 31.0-36.0 [facility] ([facility]) Is patient fasting? N MCH 29.4 pg 27.0-34.0 [facility] ([facility]) Is patient fasting? N Platelets 140 10^3/uL 150-450 Below low normal [facility] ([facility]) Is patient fasting? N MPV 12.1 fL 7.4-10.4 Above high normal [facility] ([facility]) Is patient fasting? N Neut 59.7 % 37.0-80.0 [facility] ([facility]) Is patient fasting? N [place] 7.0 % 3.0-8.0 [facility] ([facility]) Is patient fasting? N Lymph 26.7 % 25.0-40.0 [facility] ([facility]) Is patient fasting? N Eos 5.2 % 0.0-7.0 [facility] ([facility]) Is patient fasting? N %Ig 0.6 % 0.0-0.0 Above high normal [facility] ([facility]) Is patient fasting? N Baso 0.8 % 0.0-2.0 [facility] ([facility]) Is patient fasting? N #Neut 4.27 10^3/uL 2.00-6.90 [facility] ([facility]) Is patient fasting? N %NRBC 0.0 % 0.0-0.0 [facility] ([facility]) Is patient fasting? N #Lymph 1.91 10^3/uL 0.60-3.40 [facility] ([facility]) Is patient fasting? N #[place] 0.50 10^3/uL 0.00-0.90 [facility] ([facility]) Is patient fasting? N #Eos 0.37 10^3/uL 0.00-0.70 [facility] ([facility]) Is patient fasting? N #Baso 0.06 10^3/uL 0.00-0.20 [facility] ([facility]) Is patient fasting? N Manual Diff Laboratory test result M [facility] ([facility]) Is patient fasting? N #Ig 0.04 10^3/uL 0.00-0.10 [facility] ([facility]) Is patient fasting? N #NRBC 0.00 10^3/uL 0.00-0.00 [facility] ([facility]) Is patient fasting? N RBC Morph Laboratory test result [facility] ([facility]) Is patient fasting? N ID Date Data Source [id number] 08/08/2020 09:32:00 AM EST [facility] ([facility]) Name Value Range Interpretation Code Description Data Meme rce(s) Supporting Document(s) Comprehensive Metabo Laboratory test result [facility] ([facility]) Is patient fasting? N Potassium 4.3 meq/L 3.6-5.0 [facility] ([facility]) Is patient fasting? N Sodium 135 meq/L 134-153 [facility] ([facility]) Is patient fasting? N Co2 26 meq/L 22-30 [facility] ([facility]) Is patient fasting? N Chloride 100 meq/L 98-107 [facility] ([facility]) Is patient fasting? N BUN 21 mg/dL 7-21 [facility] ([facility]) Is patient fasting? N Creatinine 1.1 mg/dL 0.7-1.5 [facility] ([facility]) Is patient fasting? N Glucose 132 mg/dL 65-110 Above high normal [facility] ([facility]) Is patient fasting? N BUN/Creat 19 8-27 [facility] ([facility]) Is patient fasting? N Albumin 4.7 g/dL 3.9-5.0 [facility] ([facility]) Is patient fasting? N Total Protein 7.0 g/dL 6.3-8.2 [facility] ([facility]) Is patient fasting? N A/G Ratio 2.0 0.8-2.0 [facility] ([facility]) Is patient fasting? N Globulin 2.3 GM/DL 2.4-3.2 Below low normal [facility] ( [facility]) Is patient fasting? N Total Bili 0.8 mg/dL 0.2-1.3 [facility] ([facility]) Is patient fasting? N Alkaline Phos 68 U/L 38-126 [facility] ([facility]) Is patient fasting? N Calcium 9.8 mg/dL 8.4-10.2 [facility] ([facility]) Is patient fasting? N SGPT/Alt 12 U/L 7-56 [facility] ([facility]) Is patient fasting? N Sgot/Ast 15 U/L 5-40 [facility] ([facility]) Is patient fasting? N Anion Gap 9.0 mmol/L 8.0-16.0 [facility] ([facility]) Is patient fasting? N Non-Aa GFR Laboratory test result [facility] ([facility]) Is patient fasting? N Age 74 yrs [facility] ([facility]) Is patient fasting? N Afr Amer GFR Laboratory test result [facility] ([facility]) Is patient fasting? N ID Date Data Source [id number] 08/10/2020 03:17:00 AM [facility] Name Value Range Interpretation Code Description Data Meme rce(s) Supporting Document(s) Calcidiol [Moles/volume] in Serum or Plasma 23 NG/ML [facility] VITAMIN-D(2 5HYDROXY) Deficiency: <=20 ng/ml Insufficiency: 21-29 ng/ml Preferred level: => 30 ng/ml ID Date Data Source [id number] 08/08/2020 03:53:00 PM [facility] Name Value Range Interpretation Code Description Data Meme rce(s) Supporting Document(s) CVE PANEL [facility] LIPID PANEL Cholesterol [Mass/volume] in Serum or Plasma 153 MG/DL 131 - 200 [facility] Deprecated Triglyceride [Mass/volume] in Serum or Plasma 96 MG/DL 3 5 - 160 [facility] HDL 45 MG/DL 29 - 86 [facility] Cholesterol in LDL [Mass/volume] in Serum or Plasma by Direc t assay 99 mg/dL 65 - 175 [facility] Cholesterol.total/Cholesterol in HDL [Mass Ratio] in Serum o r Plasma 3.4 3.4 - 4.9 L [facility] LDL/HDL 2.20 1.00 - 3.55 [facility] ital CVE RISK CHOL/HDL LDL/HDLMEN: 1/2 AVERAGE 3.43 1.00 AVERAGE 4.97 3.55 2X AVERAGE 9.55 6.25 3X AVERAGE 23.99 7.99WOMEN: 1/2 AVERAGE 3.27 1.47 AVERAGE 4.44 3.22 2X AVERAGE 7.05 5.03 3X AVERAGE 11.04 6.14 ID Date Data Source [id number] 08/08/2020 03:53:00 PM EST [facility] Name Value Range Interpretation Code Description Data Meme rce(s) Supporting Document(s) COMPREHENSIVE METABOLIC PANEL [facility] COMPREHENSIVE METABOLIC PANEL Sodium [Moles/volume] in Serum or Plasma 135 mEq/L 134 - 153 [facility] Potassium [Moles/volume] in Serum or Plasma 4.3 mEq/L 3.6 - 5.0 [facility] Chloride [Moles/volume] in Serum or Plasma 100 mEq/L 98 - 107 [facility] Carbon dioxide, total [Moles/volume] in Serum or Plasma 26 MEQ/L 22 - 30 [facility] Glucose [Mass/volume] in Serum or Plasma 132 MG/DL 65 - 110 H [facility] BUN 21 MG/DL 7 - 21 [facility] Creatinine [Mass/volume] in Serum or Plasma 1.1 MG/DL 0.7 - 1.5 [facility] BUN/CREAT 19 8 - 27 [facility] Protein [Mass/volume] in Serum or Plasma 7.0 G/DL 6.3 - 8.2 [facility] Albumin [Mass/volume] in Serum or Plasma 4.7 G/DL 3.9 - 5.0 [facility] Globulin [Mass/volume] in Serum by calculation 2.3 GM/DL 2.4 - 3.2 L [facility] A/G RATIO 2.0 0.8 - 2.0 [facility] Calcium [Mass/volume] in Serum or Plasma 9.8 MG/DL 8.4 - 10.2 [facility] Bilirubin.total [Mass/volume] in Serum or Plasma 0.8 MG/DL 0.2 - 1.3 [facility] Alkaline phosphatase [Enzymatic activity/volume] in Serum or Plasma 68 U/L 38 - 126 [facility] Aspartate aminotransferase [Enzymatic activity/volume] in Serum or Plasma 15 U/L 5 - 40 [facility] Alanine aminotransferase [Enzymatic activity/volume] in Seru m or Plasma 12 U/L 7 - 56 [facility] Anion gap 3 in Serum or Plasma 9.0 mmol/L 8.0 - 16.0 [facility] AGE 74 yrs [facility] NON-AA GFR >60 mL/min [facility] AFR AMER GFR >60 mL/min [facility] Male GFR In terprentation 20-49 yrs >60 mL/min Normal 50-59 yrs >56 mL/min Normal 60-69 yrs >49 mL/min Normal 70-79yrs >42 mL/min Normal 80 and above >35 mL/min Normal Female GFR Interpretation 20-39 yrs >60 mL/min Normal 40-49 yrs >58 mL/min Normal 50-59 yrs >51 mL/min Normal 60-69 yrs >45 mL/min Normal 70-79 yrs >39 mL/min Normal 80 and above >32 mL/min Normal ID Date Data Source [id number] 08/08/2020 03:37:00 PM EST [facility] Name Value Range Interpretation Code Description Data Meme rce(s) Supporting Document(s) CBC W/AUTOMATED DIFF [facility] COMPLETE BLOOD COUNT Leukocytes [#/volume] in Blood by Automated count 7.2 10^3/uL 4.2 - 1 1.0 [facility] Erythrocytes [#/volume] in Blood by Automated count 5.54 10^6/uL 4. 50 - 6.30 [facility] Hemoglobin [Mass/volume] in Blood 16.3 g/dL 14.0 - 16.0 H [facility] Hematocrit [Volume Fraction] of Blood by Automated count 48.4 % 4 1.0 - 51.0 [facility] Erythrocyte mean corpuscular volume [Entitic volume] by Auto mated count 87.4 fL 80.0 - 94.0 [facility] Erythrocyte mean corpuscular hemoglobin [Entitic mass] by Automated count 29.4 pg 27.0 - 34.0 [facility] Erythrocyte mean corpuscular hemoglobin concentration [Mass/volume] by Automated count 33.7 g/dL 31.0 - 36.0 [facility] Erythrocyte distribution width [Ratio] by Automated count 12.6 % 11.5 - 14.8 [facility] Platelets [#/volume] in Blood by Automated count 140 10^3/uL 150 - 45 0 L [facility] Platelet mean volume [Entitic volume] in Blood by Automated count 12.1 fL 7.4 - 10.4 H [facility] Neutrophils/100 leukocytes in Blood by Automated count 59.7 % 37. 0 - 80.0 [facility] Lymphocytes/100 leukocytes in Blood by Manual count 26.7 % 25.0 - 40.0 [facility] Monocytes/100 leukocytes in Blood by Automated count 7.0 % 3.0 - 8.0 [facility] Eosinophils/100 leukocytes in Blood by Automated count 5.2 % 0.0 - 7.0 [facility] Basophils/100 leukocytes in Blood by Automated count 0.8 % 0.0 - 2.0 [facility] %IG 0.6 % 0.0 - 0.0 H [facility] %NRBC 0.0 % 0.0 - 0.0 [facility] Neutrophils [#/volume] in Blood by Automated count 4.27 10^3/uL 2.00 - 6.90 [facility] Lymphocytes [#/volume] in Blood by Automated count 1.91 10^3/uL 0.60 - 3.40 [facility] Monocytes [#/volume] in Blood by Automated count 0.50 10^3/uL 0.00 - 0.90 [facility] Eosinophils [#/volume] in Blood by Automated count 0.37 10^3/uL 0.00 - 0.70 [facility] Basophils [#/volume] in Blood by Automated count 0.06 10^3/uL 0.00 - 0.20 [facility] #IG 0.04 10^3/uL 0.00 - 0.10 [facility] #NRBC 0.00 10^3/uL 0.00 - 0.00 [facility] MANUAL DIFF NOT INDICATED [facility] RBC MORPH NOT INDICATED [facility] ID Date Data Source [id number] 08/08/2020 03:32:00 PM EST [facility] Name Value Range Interpretation Code Description Data Meme rce(s) Supporting Document(s) Hemoglobin A1c/Hemoglobin.total in Blood 5.8 % 4.4 - 6.1 [facility] {A1]{HB] ID Date Data Source [id number] 06/07/2020 11:29:00 AM EDT [facility] ([facility], ) Name Value Range Interpretation Code Description Data Meme rce(s) Supporting Document(s) Surgical pathology study Laboratory test result [facility] ([facility], ) FINAL DIAGNOSIS Colon polyp rectum, polypectomy: Tubular adenoma, fragments. 06/08/20201107 CLINICAL DIAGNOSIS Screening colonoscopy 06/08/2020721 GROSS DIAGNOSIS Received in formalin labeled "colon polyp rectum" and it consists of fragments of tissue 0.3 x 0.3 x 0.1 cm. All in one. -OA 06/08/2020721 Signed VINCENT ADORNO MD 06/08/20201107 ID Date Data Source [id number] 06/02/2020 12:00:00 PM EDT [facility] Name Value Range Interpretation Code Description Data Meme rce(s) Supporting Document(s) SARS coronavirus 2 RNA [facility] This lab was ordered by [facility] and reported by [facility]. ID Date Data Source [id number] 05/07/2020 01:56:00 PM EDT [facility] ([facility]) Name Value Range Interpretation Code Description Data Meme rce(s) Supporting Document(s) Bacteria identified in Wound by Culture Laboratory test result [facility] ([facility]) {SPECIMEN SOURCE : ABDOMEM GROIN AREA ID Date Data Source [id number] 05/11/2020 01:32:00 PM EDT [facility] Name Value Range Interpretation Code Description Data Meme rce(s) Supporting Document(s) CULTURE WOUND [facility] _CULTURE WOUND_$$[id number]$$[id number]$$[id number]$$[id number]$$[id number] DATE/TIME: 05/11/2020 13:06Culture: CULTURE WOUND Status: FinalAerobic Bacterial Culture: P1No growth in 36 - 48 hours. Previous result entered on 05/10/2020 05:29 ET No growth after 18-24 hours.P1 [facility] performed [facility]: [facility]: [id number] [address] [place] [id number] [facility] [id number] Director : Keenan Wisdom MD NPI #:Head Athletic Trainer/Strength Coach : 05/10/20.0623.XMT.SENT REF 05/11/20.1332.XMT.SENT REF ID Date Data Source [id number] 01/19/2020 11:28:00 AM EDT [facility] Name Value Range Interpretation Code Description Data Meme rce(s) Supporting Document(s) White Blood Count 6.6 4.2-11.0 [facility] ([facility]) Platelets 127 150-450 [facility] ([facility]) Red Blood Count 5.30 4.50-6.30 [facility] ([facility]io [facility]) Hematocrit 46.0 41.0-51.0 [facility] ([facility]) Hemoglobin 15.1 14.0-16.0 [facility] ([facility]) ID Date Data Source [id number] 01/19/2020 11:28:00 AM EDT [facility] Name Value Range Interpretation Code Description Data Meme rce(s) Supporting Document(s) Alanine aminotransferase [Enzymatic activity/volume] in Serum or Pl asma 15 [facility] ([facility]) Calcium [Mass/volume] in Serum or Plasma 9.3 [facility] ([facility]) Albumin [Mass/volume] in Serum or Plasma 4.6 [facility] ([facility]) Potassium [Moles/volume] in Serum or Plasma 4.3 [facility] ([facility]) Carbon dioxide, total [Moles/volume] in Serum or Plasma 23 [facility] ([facility]) Alkaline phosphatase [Enzymatic activity/volume] in Serum or Plasma 5 8 [facility] ([facility] Chloride [Moles/volume] in Serum or Plasma 103 [facility] ([facility]) Sodium 140 [facility] ([facility] Protein [Mass/volume] in Serum or Plasma 6.8 [facility] ([facility]) Aspartate aminotransferase [Enzymatic activity/volume] in Serum or Plasma 16 [facility] ([facility]) Urea nitrogen [Mass/volume] in Serum or Plasma 28 [facility] ([facility]) Creatinine For GFR 1.1 [facility] (Car [facility]) Glucose 113 65-110 [facility] ID Date Data Source [id number] 01/19/2020 11:28:00 AM EDT [facility] ([facility]) Name Value Range Interpretation Code Description Data Meme rce(s) Supporting Document(s) Triglycerides 108 [facility] ([facility]) Cholesterol 110 131-200 [facility] ([facility]) Cholesterol in LDL [Mass/volume] in Serum or Plasma by calculation 60 [facility] ([facility]) HDL 39 29-86 [facility] Chol/HDL Ratio 1.54 [facility] ([facility]) ID Date Data Source [id number] 01/19/2020 10:13:00 AM EDT [facility] ([facility]) Name Value Range Interpretation Code Description Data Meme rce(s) Supporting Document(s) Reflex Criteria Laboratory test result [facility] ([facility]) FASTING~.~.~<DG1.3.1>E78.5</DG1.3.1><DG1.3.1>E78.5</DG1.3.1><DG1.3.1>E78.5</DG1. 3.1><DG1.3.1 Prostate Specific Ag,Serum 1.7 ng/mL 0.0-4.0 [facility] ([facility]) FASTING~.~.~<DG1.3.1>E78.5</DG1.3.1><DG1.3.1>E78.5</DG1.3.1><DG1.3.1>E78.5</DG1. 3.1><DG1.3.1 ID Date Data Source [id number] 01/19/2020 10:13:00 AM EDT [facility] ([facility]) Name Value Range Interpretation Code Description Data Meme rce(s) Supporting Document(s) Natriuretic peptide.B prohormone N-Terminal [Mass/volu me] in Serum or Plasma 74 pg/mL 0-125 [facility] ([facility]) FASTING~.~.~<DG1.3.1>E78.5</DG1.3.1><DG1.3.1>E78.5</DG1.3.1><DG1.3.1>E78.5</DG1. 3.1><DG1.3.1 Hemoglobin A1c/Hemoglobin.total in Blood 5.7 % 4.4-6.1 [facility] ([facility]) FASTING~.~.~<DG1.3.1>E78.5</DG1.3.1><DG1.3.1>E78.5</DG1.3.1><DG1.3.1>E78.5</DG1. 3.1><DG1.3.1 ID Date Data Source [id number] 01/19/2020 10:13:00 AM EDT [facility] ([facility]) Name Value Range Interpretation Code Description Data Meme rce(s) Supporting Document(s) Urinalysis Laboratory test result [facility] ([facility]) FASTING~.~.~<DG1.3.1>E78.5</DG1.3.1><DG1.3.1>E78.5</DG1.3.1><DG1.3.1>E78.5</DG1. 3.1><DG1.3.1 Source Laboratory test result [facility] ([facility]) FASTING~.~.~<DG1.3.1>E78.5</DG1.3.1><DG1.3.1>E78.5</DG1.3.1><DG1.3.1>E78.5</DG1. 3.1><DG1.3.1 Color Laboratory test result [facility] ([facility]) FASTING~.~.~<DG1.3.1>E78.5</DG1.3.1><DG1.3.1>E78.5</DG1.3.1><DG1.3.1>E78.5</DG1. 3.1><DG1.3.1 Spec [place] 1.025 1.001-1.030 [facility] ([facility]) FASTING~.~.~<DG1.3.1>E78.5</DG1.3.1><DG1.3.1>E78.5</DG1.3.1><DG1.3.1>E78.5</DG1. 3.1><DG1.3.1 Clarity Laboratory test result [facility] ([facility]) FASTING~.~.~<DG1.3.1>E78.5</DG1.3.1><DG1.3.1>E78.5</DG1.3.1><DG1.3.1>E78.5</DG1. 3.1><DG1.3.1 pH 5 5-9 [facility] ([facility]) FASTING~.~.~<DG1.3.1>E78.5</DG1.3.1><DG1.3.1>E78.5</DG1.3.1><DG1.3.1>E78.5</DG1. 3.1><DG1.3.1 Glucose Laboratory test result [facility] ([facility]) FASTING~.~.~<DG1.3.1>E78.5</DG1.3.1><DG1.3.1>E78.5</DG1.3.1><DG1.3.1>E78.5</DG1. 3.1><DG1.3.1 Bilirubin Laboratory test result [facility] ([facility]) FASTING~.~.~<DG1.3.1>E78.5</DG1.3.1><DG1.3.1>E78.5</DG1.3.1><DG1.3.1>E78.5</DG1. 3.1><DG1.3.1 Ketone Laboratory test result [facility] ([facility]) FASTING~.~.~<DG1.3.1>E78.5</DG1.3.1><DG1.3.1>E78.5</DG1.3.1><DG1.3.1>E78.5</DG1. 3.1><DG1.3.1 Nitrite Laboratory test result [facility] ([facility]) FASTING~.~.~<DG1.3.1>E78.5</DG1.3.1><DG1.3.1>E78.5</DG1.3.1><DG1.3.1>E78.5</DG1. 3.1><DG1.3.1 Blood Laboratory test result [facility] ([facility]) FASTING~.~.~<DG1.3.1>E78.5</DG1.3.1><DG1.3.1>E78.5</DG1.3.1><DG1.3.1>E78.5</DG1. 3.1><DG1.3.1 Protein Laboratory test result [facility] ([facility]) FASTING~.~.~<DG1.3.1>E78.5</DG1.3.1><DG1.3.1>E78.5</DG1.3.1><DG1.3.1>E78.5</DG1. 3.1><DG1.3.1 Urobilinogen Laboratory test result [facility] ([facility]) FASTING~.~.~<DG1.3.1>E78.5</DG1.3.1><DG1.3.1>E78.5</DG1.3.1><DG1.3.1>E78.5</DG1. 3.1><DG1.3.1 Leuk Est Laboratory test result [facility] ([facility]) FASTING~.~.~<DG1.3.1>E78.5</DG1.3.1><DG1.3.1>E78.5</DG1.3.1><DG1.3.1>E78.5</DG1. 3.1><DG1.3.1 Microscopic Laboratory test result [facility] ([facility]) FASTING~.~.~<DG1.3.1>E78.5</DG1.3.1><DG1.3.1>E78.5</DG1.3.1><DG1.3.1>E78.5</DG1. 3.1><DG1.3.1 ID Date Data Source [id number] 01/19/2020 10:13:00 AM EDT [facility] ([facility]) Name Value Range Interpretation Code Description Data Meme rce(s) Supporting Document(s) CBC W/Automated Diff Laboratory test result [facility] ([facility]) FASTING~.~.~<DG1.3.1>E78.5</DG1.3.1><DG1.3.1>E78.5</DG1.3.1><DG1.3.1>E78.5</DG1. 3.1><DG1.3.1 WBC 6.6 10^3/uL 4.2-11.0 [facility] ([facility]) FASTING~.~.~<DG1.3.1>E78.5</DG1.3.1><DG1.3.1>E78.5</DG1.3.1><DG1.3.1>E78.5</DG1. 3.1><DG1.3.1 RBC 5.30 10^6/uL 4.50-6.30 [facility] ([facility]) FASTING~.~.~<DG1.3.1>E78.5</DG1.3.1><DG1.3.1>E78.5</DG1.3.1><DG1.3.1>E78.5</DG1. 3.1><DG1.3.1 Hematocrit 46.0 % 41.0-51.0 [facility] ([facility]) FASTING~.~.~<DG1.3.1>E78.5</DG1.3.1><DG1.3.1>E78.5</DG1.3.1><DG1.3.1>E78.5</DG1. 3.1><DG1.3.1 Hemoglobin 15.1 g/dL 14.0-16.0 [facility] ([facility]) FASTING~.~.~<DG1.3.1>E78.5</DG1.3.1><DG1.3.1>E78.5</DG1.3.1><DG1.3.1>E78.5</DG1. 3.1><DG1.3.1 MCHC 32.8 g/dL 31.0-36.0 [facility] ([facility]) FASTING~.~.~<DG1.3.1>E78.5</DG1.3.1><DG1.3.1>E78.5</DG1.3.1><DG1.3.1>E78.5</DG1. 3.1><DG1.3.1 MCH 28.5 pg 27.0-34.0 [facility] ([facility]) FASTING~.~.~<DG1.3.1>E78.5</DG1.3.1><DG1.3.1>E78.5</DG1.3.1><DG1.3.1>E78.5</DG1. 3.1><DG1.3.1 MCV 86.8 fL 80.0-94.0 [facility] ([facility]) FASTING~.~.~<DG1.3.1>E78.5</DG1.3.1><DG1.3.1>E78.5</DG1.3.1><DG1.3.1>E78.5</DG1. 3.1><DG1.3.1 Platelets 127 10^3/uL 150-450 Below low normal [facility] ([facility]) FASTING~.~.~<DG1.3.1>E78.5</DG1.3.1><DG1.3.1>E78.5</DG1.3.1><DG1.3.1>E78.5</DG1. 3.1><DG1.3.1 RDW 12.7 % 11.5-14.8 [facility] ([facility]) FASTING~.~.~<DG1.3.1>E78.5</DG1.3.1><DG1.3.1>E78.5</DG1.3.1><DG1.3.1>E78.5</DG1. 3.1><DG1.3.1 MPV 12.1 fL 7.4-10.4 Above high normal [facility] ([facility]) FASTING~.~.~<DG1.3.1>E78.5</DG1.3.1><DG1.3.1>E78.5</DG1.3.1><DG1.3.1>E78.5</DG1. 3.1><DG1.3.1 Lymph 30.6 % 25.0-40.0 [facility] ([facility]) FASTING~.~.~<DG1.3.1>E78.5</DG1.3.1><DG1.3.1>E78.5</DG1.3.1><DG1.3.1>E78.5</DG1. 3.1><DG1.3.1 Neut 55.0 % 37.0-80.0 [facility] ([facility]) FASTING~.~.~<DG1.3.1>E78.5</DG1.3.1><DG1.3.1>E78.5</DG1.3.1><DG1.3.1>E78.5</DG1. 3.1><DG1.3.1 [place] 7.8 % 3.0-8.0 [facility] ([facility]) FASTING~.~.~<DG1.3.1>E78.5</DG1.3.1><DG1.3.1>E78.5</DG1.3.1><DG1.3.1>E78.5</DG1. 3.1><DG1.3.1 Eos 5.8 % 0.0-7.0 [facility] ([facility]) FASTING~.~.~<DG1.3.1>E78.5</DG1.3.1><DG1.3.1>E78.5</DG1.3.1><DG1.3.1>E78.5</DG1. 3.1><DG1.3.1 Baso 0.6 % 0.0-2.0 [facility] ([facility]) FASTING~.~.~<DG1.3.1>E78.5</DG1.3.1><DG1.3.1>E78.5</DG1.3.1><DG1.3.1>E78.5</DG1. 3.1><DG1.3.1 %Ig 0.2 % 0.0-0.0 Above high normal [facility] ([facility]) FASTING~.~.~<DG1.3.1>E78.5</DG1.3.1><DG1.3.1>E78.5</DG1.3.1><DG1.3.1>E78.5</DG1. 3.1><DG1.3.1 #Neut 3.61 10^3/uL 2.00-6.90 [facility] ([facility]) FASTING~.~.~<DG1.3.1>E78.5</DG1.3.1><DG1.3.1>E78.5</DG1.3.1><DG1.3.1>E78.5</DG1. 3.1><DG1.3.1 #Lymph 2.01 10^3/uL 0.60-3.40 [facility] ([facility]) FASTING~.~.~<DG1.3.1>E78.5</DG1.3.1><DG1.3.1>E78.5</DG1.3.1><DG1.3.1>E78.5</DG1. 3.1><DG1.3.1 %NRBC 0.0 % 0.0-0.0 [facility] ([facility]) FASTING~.~.~<DG1.3.1>E78.5</DG1.3.1><DG1.3.1>E78.5</DG1.3.1><DG1.3.1>E78.5</DG1. 3.1><DG1.3.1 #Eos 0.38 10^3/uL 0.00-0.70 [facility] ([facility]) FASTING~.~.~<DG1.3.1>E78.5</DG1.3.1><DG1.3.1>E78.5</DG1.3.1><DG1.3.1>E78.5</DG1. 3.1><DG1.3.1 #[place] 0.51 10^3/uL 0.00-0.90 [facility] ([facility]) FASTING~.~.~<DG1.3.1>E78.5</DG1.3.1><DG1.3.1>E78.5</DG1.3.1><DG1.3.1>E78.5</DG1. 3.1><DG1.3.1 #Baso 0.04 10^3/uL 0.00-0.20 [facility] ([facility]) FASTING~.~.~<DG1.3.1>E78.5</DG1.3.1><DG1.3.1>E78.5</DG1.3.1><DG1.3.1>E78.5</DG1. 3.1><DG1.3.1 Manual Diff Laboratory test result [facility] ([facility]) FASTING~.~.~<DG1.3.1>E78.5</DG1.3.1><DG1.3.1>E78.5</DG1.3.1><DG1.3.1>E78.5</DG1. 3.1><DG1.3.1 #NRBC 0.00 10^3/uL 0.00-0.00 [facility] ([facility]) FASTING~.~.~<DG1.3.1>E78.5</DG1.3.1><DG1.3.1>E78.5</DG1.3.1><DG1.3.1>E78.5</DG1. 3.1><DG1.3.1 #Ig 0.01 10^3/uL 0.00-0.10 [facility] ([facility]) FASTING~.~.~<DG1.3.1>E78.5</DG1.3.1><DG1.3.1>E78.5</DG1.3.1><DG1.3.1>E78.5</DG1. 3.1><DG1.3.1 RBC Morph Laboratory test result [facility] ([facility]) FASTING~.~.~<DG1.3.1>E78.5</DG1.3.1><DG1.3.1>E78.5</DG1.3.1><DG1.3.1>E78.5</DG1. 3.1><DG1.3.1 ID Date Data Source [id number] 01/19/2020 10:13:00 AM EDT [facility] ([facility]) Name Value Range Interpretation Code Description Data Meme rce(s) Supporting Document(s) Sodium 140 meq/L 134-153 [facility] ([facility]) FASTING~.~.~<DG1.3.1>E78.5</DG1.3.1><DG1.3.1>E78.5</DG1.3.1><DG1.3.1>E78.5</DG1. 3.1><DG1.3.1 Comprehensive [employer] Laboratory test result [facility] ([facility]) FASTING~.~.~<DG1.3.1>E78.5</DG1.3.1><DG1.3.1>E78.5</DG1.3.1><DG1.3.1>E78.5</DG1. 3.1><DG1.3.1 Potassium 4.3 meq/L 3.6-5.0 [facility] ([facility]) FASTING~.~.~<DG1.3.1>E78.5</DG1.3.1><DG1.3.1>E78.5</DG1.3.1><DG1.3.1>E78.5</DG1. 3.1><DG1.3.1 Chloride 103 meq/L 98-107 [facility] ([facility]) FASTING~.~.~<DG1.3.1>E78.5</DG1.3.1><DG1.3.1>E78.5</DG1.3.1><DG1.3.1>E78.5</DG1. 3.1><DG1.3.1 Glucose 113 mg/dL 65-110 Above high normal [facility] ([facility]) FASTING~.~.~<DG1.3.1>E78.5</DG1.3.1><DG1.3.1>E78.5</DG1.3.1><DG1.3.1>E78.5</DG1. 3.1><DG1.3.1 Co2 23 meq/L 22-30 [facility] ([facility]) FASTING~.~.~<DG1.3.1>E78.5</DG1.3.1><DG1.3.1>E78.5</DG1.3.1><DG1.3.1>E78.5</DG1. 3.1><DG1.3.1 Creatinine 1.1 mg/dL 0.7-1.5 [facility] ([facility]) FASTING~.~.~<DG1.3.1>E78.5</DG1.3.1><DG1.3.1>E78.5</DG1.3.1><DG1.3.1>E78.5</DG1. 3.1><DG1.3.1 BUN/Creat 25 8-27 [facility] ([facility]) FASTING~.~.~<DG1.3.1>E78.5</DG1.3.1><DG1.3.1>E78.5</DG1.3.1><DG1.3.1>E78.5</DG1. 3.1><DG1.3.1 BUN 28 mg/dL 7-21 Above high normal [facility] ([facility]) FASTING~.~.~<DG1.3.1>E78.5</DG1.3.1><DG1.3.1>E78.5</DG1.3.1><DG1.3.1>E78.5</DG1. 3.1><DG1.3.1 Total Protein 6.8 g/dL 6.3-8.2 [facility] ([facility]) FASTING~.~.~<DG1.3.1>E78.5</DG1.3.1><DG1.3.1>E78.5</DG1.3.1><DG1.3.1>E78.5</DG1. 3.1><DG1.3.1 Albumin 4.6 g/dL 3.9-5.0 [facility] ([facility]) FASTING~.~.~<DG1.3.1>E78.5</DG1.3.1><DG1.3.1>E78.5</DG1.3.1><DG1.3.1>E78.5</DG1. 3.1><DG1.3.1 A/G Ratio 2.1 0.8-2.0 Above high normal [facility] ([facility]) FASTING~.~.~<DG1.3.1>E78.5</DG1.3.1><DG1.3.1>E78.5</DG1.3.1><DG1.3.1>E78.5</DG1. 3.1><DG1.3.1 Globulin 2.2 GM/DL 2.4-3.2 Below low normal [facility] ( [facility]) FASTING~.~.~<DG1.3.1>E78.5</DG1.3.1><DG1.3.1>E78.5</DG1.3.1><DG1.3.1>E78.5</DG1. 3.1><DG1.3.1 Calcium 9.3 mg/dL 8.4-10.2 [facility] ([facility]) FASTING~.~.~<DG1.3.1>E78.5</DG1.3.1><DG1.3.1>E78.5</DG1.3.1><DG1.3.1>E78.5</DG1. 3.1><DG1.3.1 Alkaline Phos 58 U/L 38-126 [facility] ([facility]) FASTING~.~.~<DG1.3.1>E78.5</DG1.3.1><DG1.3.1>E78.5</DG1.3.1><DG1.3.1>E78.5</DG1. 3.1><DG1.3.1 Total Bili 0.9 mg/dL 0.2-1.3 [facility] ([facility]) FASTING~.~.~<DG1.3.1>E78.5</DG1.3.1><DG1.3.1>E78.5</DG1.3.1><DG1.3.1>E78.5</DG1. 3.1><DG1.3.1 Sgot/Ast 16 U/L 5-40 [facility] ([facility]) FASTING~.~.~<DG1.3.1>E78.5</DG1.3.1><DG1.3.1>E78.5</DG1.3.1><DG1.3.1>E78.5</DG1. 3.1><DG1.3.1 SGPT/Alt 15 U/L 7-56 [facility] ([facility]) FASTING~.~.~<DG1.3.1>E78.5</DG1.3.1><DG1.3.1>E78.5</DG1.3.1><DG1.3.1>E78.5</DG1. 3.1><DG1.3.1 Anion Gap 14.0 mmol/L 8.0-16.0 [facility] ([facility]) FASTING~.~.~<DG1.3.1>E78.5</DG1.3.1><DG1.3.1>E78.5</DG1.3.1><DG1.3.1>E78.5</DG1. 3.1><DG1.3.1 Non-Aa GFR Laboratory test result [facility] ([facility]) FASTING~.~.~<DG1.3.1>E78.5</DG1.3.1><DG1.3.1>E78.5</DG1.3.1><DG1.3.1>E78.5</DG1. 3.1><DG1.3.1 Age 74 yrs [facility] ([facility]) FASTING~.~.~<DG1.3.1>E78.5</DG1.3.1><DG1.3.1>E78.5</DG1.3.1><DG1.3.1>E78.5</DG1. 3.1><DG1.3.1 Afr Amer GFR Laboratory test result [facility] ([facility]) FASTING~.~.~<DG1.3.1>E78.5</DG1.3.1><DG1.3.1>E78.5</DG1.3.1><DG1.3.1>E78.5</DG1. 3.1><DG1.3.1 ID Date Data Source [id number] 01/19/2020 10:13:00 AM EDT [facility] ([facility]) Name Value Range Interpretation Code Description Data Meme rce(s) Supporting Document(s) Creatine kinase [Enzymatic activity/volume] in Serum or Plasma 93 U /L 30-170 [facility] ([facility]) FASTING~.~.~<DG1.3.1>E78.5</DG1.3.1><DG1.3.1>E78.5</DG1.3.1><DG1.3.1>E78.5</DG1. 3.1><DG1.3.1 ID Date Data Source [id number] 01/19/2020 10:13:00 AM EDT [facility] ([facility]) Name Value Range Interpretation Code Description Data Meme rce(s) Supporting Document(s) Cve Panel Laboratory test result [facility] ([facility]) FASTING~.~.~<DG1.3.1>E78.5</DG1.3.1><DG1.3.1>E78.5</DG1.3.1><DG1.3.1>E78.5</DG1. 3.1><DG1.3.1 Triglycerides 108 mg/dL 35-160 [facility] ([facility]) FASTING~.~.~<DG1.3.1>E78.5</DG1.3.1><DG1.3.1>E78.5</DG1.3.1><DG1.3.1>E78.5</DG1. 3.1><DG1.3.1 Cholesterol 110 mg/dL 131-200 Below low normal [facility] ([facility]) FASTING~.~.~<DG1.3.1>E78.5</DG1.3.1><DG1.3.1>E78.5</DG1.3.1><DG1.3.1>E78.5</DG1. 3.1><DG1.3.1 HDL 39 mg/dL 29-86 [facility] ([facility]) FASTING~.~.~<DG1.3.1>E78.5</DG1.3.1><DG1.3.1>E78.5</DG1.3.1><DG1.3.1>E78.5</DG1. 3.1><DG1.3.1 Risk Factor 2.8 3.4-4.9 Below low normal [facility] ([facility]) FASTING~.~.~<DG1.3.1>E78.5</DG1.3.1><DG1.3.1>E78.5</DG1.3.1><DG1.3.1>E78.5</DG1. 3.1><DG1.3.1 LDL 60 mg/dL 65-175 Below low normal [facility] ([facility]) FASTING~.~.~<DG1.3.1>E78.5</DG1.3.1><DG1.3.1>E78.5</DG1.3.1><DG1.3.1>E78.5</DG1. 3.1><DG1.3.1 LDL/HDL 1.54 1.00-3.55 [facility] ([facility]) FASTING~.~.~<DG1.3.1>E78.5</DG1.3.1><DG1.3.1>E78.5</DG1.3.1><DG1.3.1>E78.5</DG1. 3.1><DG1.3.1 ID Date Data Source [id number] 01/22/2020 08:16:00 AM EDT [facility] Name Value Range Interpretation Code Description Data Meme rce(s) Supporting Document(s) Prostate specific Ag [Mass/volume] in Serum or Plasma 1.7 ng/mL 0.0- 4.0 [facility] Graciela ECLIA methodology.According to the [employer] [place] [employer], Serum PSA shoulddecrease and remain at undetectable levels after radicalprostatectomy. The AUA defines biochemical recurrence as an initialPSA value 0.2 ng/mL or greater followed by a subsequent confirmatoryPSA value 0.2 ng/mL or greater.Values obtained with different assay methods or kits cannot be usedinterchangeably. Results cannot be interpreted as absolute evidenceof the presence or absence of malignant disease. Reflex Criteria COMMENT [facility] The percent free PSA is performed on a r eflex basis only when thetotal PSA is between 4.0 and 10.0 ng/mL. ID Date Data Source [id number] 01/19/2020 02:11:00 PM EDT [facility] Name Value Range Interpretation Code Description Data Meme rce(s) Supporting Document(s) COMPREHENSIVE METABOLIC PANEL [facility] COMPREHENSIVE METABOLIC PANEL Sodium [Moles/volume] in Serum or Plasma 140 mEq/L 134 - 153 [facility] Potassium [Moles/volume] in Serum or Plasma 4.3 mEq/L 3.6 - 5.0 [facility] Chloride [Moles/volume] in Serum or Plasma 103 mEq/L 98 - 107 [facility] Carbon dioxide, total [Moles/volume] in Serum or Plasma 23 MEQ/L 22 - 30 [facility] Glucose [Mass/volume] in Serum or Plasma 113 MG/DL 65 - 110 H [facility] BUN 28 MG/DL 7 - 21 [facility] Creatinine [Mass/volume] in Serum or Plasma 1.1 MG/DL 0.7 - 1.5 [facility]CRE[facility] 25 8 - [facility] Protein [Mass/volume] in Serum or Plasma 6.8 G/DL 6.3 - 8.2 [facility] Albumin [Mass/volume] in Serum or Plasma 4.6 G/DL 3.9 - 5.0 [facility] Globulin [Mass/volume] in Serum by calculation 2.2 GM/DL 2.4 - 3.2 L [facility] A/G RATIO 2.1 0.8 - 2.0 H [facility] Calcium [Mass/volume] in Serum or Plasma 9.3 MG/DL 8.4 - 10.2 [facility] Bilirubin.total [Mass/volume] in Serum or Plasma 0.9 MG/DL 0.2 - 1.3 [facility] Alkaline phosphatase [Enzymatic activity/volume] in Serum or Plasma 58 U/L 38 - 126 [facility] Aspartate aminotransferase [Enzymatic activity/volume] in Serum or Plasma 16 U/L 5 - 40 [facility] Alanine aminotransferase [Enzymatic activity/volume] in Seru m or Plasma 15 U/L 7 - 56 [facility] Anion gap 3 in Serum or Plasma 14.0 mmol/L 8.0 - 16.0 [facility] AGE 74 yrs [facility] NON-AA GFR >60 mL/min [facility] ital AFR AMER GFR >60 mL/min [facility] Male GFR In terprentation 20-49 yrs >60 mL/min Normal 50-59 yrs >56 mL/min Normal 60-69 yrs >49 mL/min Normal 70-79yrs >42 mL/min Normal 80 and above >35 mL/min Normal Female GFR Interpretation 20-39 yrs >60 mL/min Normal 40-49 yrs >58 mL/min Normal 50-59 yrs >51 mL/min Normal 60-69 yrs >45 mL/min Normal 70-79 yrs >39 mL/min Normal 80 and above >32 mL/min Normal ID Date Data Source [id number] 01/19/2020 02:11:00 PM EDT [facility] Name Value Range Interpretation Code Description Data Meme rce(s) Supporting Document(s) CVE PANEL [facility] LIPID PANEL Cholesterol [Mass/volume] in Serum or Plasma 110 MG/DL 131 - 200 L [facility] Deprecated Triglyceride [Mass/volume] in Serum or Plasma 108 MG/DL 3 5 - 160 [facility] HDL 39 MG/DL 29 - 86 [facility] Cholesterol in LDL [Mass/volume] in Serum or Plasma by Direc t assay 60 mg/dL 65 - 175 L [facility] Cholesterol.total/Cholesterol in HDL [Mass Ratio] in Serum o r Plasma 2.8 3.4 - 4.9 L [facility] LDL/HDL 1.54 1.00 - 3.55 [facility] ital CVE RISK CHOL/HDL LDL/HDLMEN: 1/2 AVERAGE 3.43 1.00 AVERAGE 4.97 3.55 2X AVERAGE 9.55 6.25 3X AVERAGE 23.99 7.99WOMEN: 1/2 AVERAGE 3.27 1.47 AVERAGE 4.44 3.22 2X AVERAGE 7.05 5.03 3X AVERAGE 11.04 6.14 ID Date Data Source [id number] 01/19/2020 02:11:00 PM EDT [facility] Name Value Range Interpretation Code Description Data Meme rce(s) Supporting Document(s) Hemoglobin A1c/Hemoglobin.total in Blood 5.7 % 4.4 - 6.1 [facility] {A1]{HB] ID Date Data Source [id number] 01/19/2020 02:06:00 PM EDT [facility] Name Value Range Interpretation Code Description Data Meme rce(s) Supporting Document(s) Creatine kinase [Enzymatic activity/volume] in Serum or Plasma 9 3 U/L 30 - 170 [facility] ID Date Data Source [id number] 01/19/2020 02:04:00 PM EDT [facility] Name Value Range Interpretation Code Description Data Meme rce(s) Supporting Document(s) BNP 74 PG/ML 0 - 125 [facility] ID Date Data Source [id number] 01/19/2020 01:49:00 PM EDT [facility] Name Value Range Interpretation Code Description Data Meme rce(s) Supporting Document(s) CBC W/AUTOMATED DIFF [facility] COMPLETE BLOOD COUNT Leukocytes [#/volume] in Blood by Automated count 6.6 10^3/uL 4.2 - 1 1.0 [facility] Erythrocytes [#/volume] in Blood by Automated count 5.30 10^6/uL 4. 50 - 6.30 [facility] Hemoglobin [Mass/volume] in Blood 15.1 g/dL 14.0 - 16.0 [facility] Hematocrit [Volume Fraction] of Blood by Automated count 46.0 % 4 1.0 - 51.0 [facility] Erythrocyte mean corpuscular volume [Entitic volume] by Auto mated count 86.8 fL 80.0 - 94.0 [facility] Erythrocyte mean corpuscular hemoglobin [Entitic mass] by Automated count 28.5 pg 27.0 - 34.0 [facility] Erythrocyte mean corpuscular hemoglobin concentration [Mass/volume] by Automated count 32.8 g/dL 31.0 - 36.0 [facility] Erythrocyte distribution width [Ratio] by Automated count 12.7 % 11.5 - 14.8 [facility] Platelets [#/volume] in Blood by Automated count 127 10^3/uL 150 - 45 0 L [facility] Platelet mean volume [Entitic volume] in Blood by Automated count 12.1 fL 7.4 - 10.4 H [facility] Neutrophils/100 leukocytes in Blood by Automated count 55.0 % 37. 0 - 80.0 [facility] Lymphocytes/100 leukocytes in Blood by Manual count 30.6 % 25.0 - 40.0 [facility] Monocytes/100 leukocytes in Blood by Automated count 7.8 % 3.0 - 8.0 [facility] Eosinophils/100 leukocytes in Blood by Automated count 5.8 % 0.0 - 7.0 [facility] Basophils/100 leukocytes in Blood by Automated count 0.6 % 0.0 - 2.0 [facility] %IG 0.2 % 0.0 - 0.0 [facility] %NRBC 0.0 % 0.0 - 0.0 [facility] al Neutrophils [#/volume] in Blood by Automated count 3.61 10^3/uL 2.00 - 6.90 [facility] Lymphocytes [#/volume] in Blood by Automated count 2.01 10^3/uL 0.60 - 3.40 [facility] Monocytes [#/volume] in Blood by Automated count 0.51 10^3/uL 0.00 - 0.90 [facility] Eosinophils [#/volume] in Blood by Automated count 0.38 10^3/uL 0.00 - 0.70 [facility] Basophils [#/volume] in Blood by Automated count 0.04 10^3/uL 0.00 - 0.20 [facility] #IG 0.01 10^3/uL 0.00 - 0.10 [facility] #NRBC 0.00 10^3/uL 0.00 - 0.00 [facility] MANUAL DIFF NOT INDICATED [facility] RBC MORPH NOT INDICATED [facility] ID Date Data Source [id number] 01/19/2020 01:48:00 PM EDT [facility] Name Value Range Interpretation Code Description Data Meme rce(s) Supporting Document(s) [facility]IS [facility] COLOR yellow NORMAL: Yellow [facility] CLARITY clear NORMAL: Clear [facility] Specific gravity of Urine by Test strip 1.025 1.001 - 1.030 [facility] pH 5 5 - 9 [facility] Glucose [Mass/volume] in Urine by Test strip NORM NORMAL: Negat [facility] Bilirubin.total [Presence] in Urine by Test strip NEG NORMAL: Negative [facility] Ketones [Presence] in Urine by Test strip NEG NORMAL: Negative [facility] Protein [Mass/volume] in Urine by Test strip NEG NORMAL: Negat [facility] Nitrite [Presence] in Urine by Test strip NEG NORMAL: Negative [facility] BLOOD NEG NORMAL: Negative [facility] Leukocyte esterase [Presence] in Urine by Test strip NEG BRITTANI L: Negative [facility] Urobilinogen [Mass/volume] in Urine by Test strip NOR less conchita n 1.0 mg/dL [facility] MICROSCOPIC Not Indicate [facility] ID Date Data Source [id number] 10/06/2019 09:47:01 PM EST [facility] NT INFORMATIONPatient MRN Name Date of Age Gend*PT [id number] Theo Edwards 1945 73 years M IPPT Location Admission Date/Time Visit ID Attending [id number] 09/19/19 0632 --- --- EPI ID CSN Admitting Provider [id number] Symone Keen MD([id number]) [place] [address] OPERATIVE REPORT OPNAME: JERRY THEO Riley#: [id number] #: [id number] ADMISSION DATE: 09/19/2019DOB: 1945 SEX: M PT TYPE: I SURACCT #: [id number] CARE PHYSICIAN: SOMMER VALDIVIA OF OPERATION: 09/19/2019PREOPERATIVE DIAGNOSES:1. Severe aortic stenosis, progressive symptomatology, peripheral vasculardisease.2. Hypertension.POSTOPERATIVE DIAGNOSES:1. Severe aortic stenosis, progressive symptomatology, peripheral vasculardisease.2. Hypertension.ANESTHESIA:General.ATTENDING SPUDDER:Dr. Gonzalez CARDIAC SURGEON:Dr. Timothy Granados.INDICATIONS:The patient is a 73-year-old gentleman with progressive symptomatology.The patient has indication for aortic valve replacement.PROCEDURE:Transcatheter aortic valve replacement with a #23 Ria 3 valve, rightfemoral access.DESCRIPTION OF PROCEDURE:After the patient was brought to the operating room, prepped and drapingwas done in routine fashion, bilateral femoral access was obtained. Leftfemoral venous access was used to advance a temporary transvenousballoon-tipped pacer wire and was tested. Two Perclosure was used for theright femoral. The left femoral artery was used for advancing the pigtailcatheter to the root of the aorta. Then, the right femoral access was usedand the aortic valve was crossed with a catheter and exchanging was donewith the Confida wire after a Confida wire was placed into the leftventricular apex. BAV was done under rapid pacing, #23 mm Ria 3 valvewas advanced in the aortic position and was deployed. Due to mildperivalvular leak 1 mL was added for post-dilation and that eliminated mildto trivial perivalvular leak. The delivery system was pulled back.Protamine was started and right femoral artery sheath was removed andPerclosures were secured in place. The site was held. The left femoralalso was secured with Perclosure and also left femoral vein cannula wasremoved and the sites were completely held and there was no change in thecolor of the leg or temperature. No bleeding, no hematoma. The patientwas transferred to recovery room in stable condition.ASTRID Romo Job #: [id number] DOC #: [id number] Name Value Range Interpretation Code Description Data Meme rce(s) Supporting Document(s) ID Date Data Source [id number] 09/28/2019 09:03:00 AM EST [facility] [address] [place] [address] PHONE: [phone] FAX: [phone] Name .................. : JERRY TABARES Acct Number.................. : [id number] ROOM. ................. : Number ................... : [id number] Stay type ............. : O/P Discharge Date......... ... : 09/27/19 Admit Date ......... : 09/27/19 Admit Phys .................... : SORIA HARD Date of ....... : 1945 Family Phys ................... : [employer] HARD Phone .................. : [phone] Age ................................ : 73 Film# .................. .:[id number] Sex ................................. : M Unsigned transcriptions are preliminary reports and do not represent a medical or legal document RENAL/URINARY BLADDER [id number] COMPLETE:09/27/19 12:52 P [id number] (PROCEDURE REASON other specified disorders of bladd RENAL AND BLADDER ULTRASOUND: HISTORY: Disorder of bladder. FINDINGS: Real time imaging reveals the right kidney to measures 11.3 x 5.2 x 5.9 cm and the left measures 11.2 x 5.3 x 6.2 cm. No mass or hydronephrosis is demonstrated on either side nor findings to clearly suggest calculi. The renal cortical echotexture is normal as compared to adjacent liver. The urinary bladd er is fairly marginated. No definite focal intrinsic filling defect is seen. The urinary bladder volume is 200 cc. IMPRESSION: Grossly unremarkable study, as described above. Electronically Reviewed and Signed By Breann Bustamante MD , 09/28/19 09:03, ANTOINE Transcribe Initials: BRITTNI , Transcribe Date: 09/28/19 05:02, Dictation Date: Copy for: 710 MED REC Page 1 of 1 Name Value Range Interpretation Code Description Data Meme rce(s) Supporting Document(s) ID Date Data Source [id number] 09/23/2019 01:18:13 PM EST [facility] NT INFORMATIONPatient MRN Name Date of Age Gend*PT [id number] Theo Edwards 1945 73 years M IPPT Location Admission Date/Time Visit ID Attending [id number] 09/19/19 0632 --- --- EPI ID CSN Admitting Provider [id number] Symone Keen MD([id number]) Attestation signed by Symone Keen MD at 09/23/2019 1:18 PMI saw and evaluated the patient and reviewed Brianna Naif's note. I agree withthe history, physical and medical decision making with the following additions,exceptions, and/or observationsSignature: Symone Keen MDDate: September 23, 2019Time: 1:18 PM ------Physician Discharge Summary Theo EdwardsMRN: [id number] date: 09/19/2019Attending Physician: Symone Keen MDAdmission Diagnosis: Nonrheumatic aortic (valve) stenosisSecondary Diagnoses: Principal Problem: Nonrheumatic aortic (valve) stenosisActive Problems: GERD (gastroesophageal reflux disease) Peripheral vascular disease Hypertension, essential Hyperlipidemia, acquiredPrinciple Procedures:Transfemoral TAVR with a #23 mm Schaffer Ria 3 ValveIndication for Admission:Mr. Edwards is a 73 years old male who reports having a routine physical examwith his PCP and was noted to have heart murmur. [facility] Patient underwent echocardiogram on 07/09/2019which concluded Moderately severe-severe calcific aortic stenosis with very mildsufficiency. Borderline concentric left ventricular hypertrophy withhyperkinetic wall motion. Moderately dilated left atrium with grade I LVdiastolic dysfunction and mildly elevated mean left atrial pressure. Normalright heart chamber sizes, wall motion and estimated pulmonary arterialpressure. Mild degenerative changes of the mitral valvular apparatus withoutfunctional quality. EF 80%. Cardiac catheterization dated 07/13/2019 revealedno significant obstructive coronary artery disease in the major vessel. He doeshave a lesion in the nondominant small RCA. Patient denies any SOB, chest pain,pressure, palpitations, PND, peripheral edema, lightheadedness or syncope. Withthe above findings he was referred to the TAVR clinic for further evaluation.The patient met with Dr. Robert, options were discussed and they have electedto under go REPLACEMENT, AORTIC VALVE, TRANSCATHETER, FEMORAL APPROACH on09/19/2019.Hospital Course & Complications:The patient came to the hospital the morning of his procedure on 09/19/19. Heunderwent a TAVR: Procedures: 1. successful percutaneous transfemoral TAVR using a 23 millimeter Ria 3valve via right femoral approach TECHNIQUE: The patient was brought to the operating room in a fasting state.Bilateral femoral access was obtained.Left femoral venous access was obtained and a temporary transvenous pacer wirewas advanced and appropriate capturing was confirmedTwo pre Perclose suture was deployed in the right femoral artery.A 6 Canadian pigtail catheter was advanced through the left femoral artery.The aortic valve was crossed with a JR4 catheter and a Confida wire was advancedto the left ventricular apex.BAV was performed successfully under rapid pacingThe 23 millimeter Ria valve was advanced and was deployed under rapid pacingsuccessfully.Post deployment ZAINAB revealed mild PVL. 1 cc was added and postdilatation wasperformed. Final ZAINAB revealed trivial perivalvular leak. The procedure wastherefore deemed successful.The 2 pre Perclose suture on the right side with sutured with excellenthemostasis,Likewise another Perclose was deployed in the left femoral artery with excellenthemostasis.The patient tolerated the procedure very well Primary Access Site: right femoral arteryClosure: Perclose Estimated Blood Loss: NoneComplications: NoneSedation: Fentanyl and VersedSpecimens: NoneImplants: 23 mm Ria 3Contr ast Used: see scanned cath report document under the media tab.Following the TAVR, the patient was brought to the recovery room. He was SR onthe monitor. His blood pressure remained stable. After meeting criteria, he wasbrought to a cardiac telemetry floor.On 09/20, the patient feels well. He has been ambulating independently withoutany issue. He had an echocardiogram:Interpretation Summary Left ventricular ejection fraction is normalNormal left ventricular systolic function. Grade 1 diastolic dysfunction. Mildleft atrial enlargement.Structurally and functionally normal prosthetic aortic valve, status post TAVR.No regurgitationTrace tricuspid regurgitation. Echocardiographic FindingsLeft Ventricle The left ventricular cavity is normal. Estimated ejectionfraction is 60%. Normal (55-65%) ejection fraction. Grade I (mild) leftventricular diastolic dysfunction. normal wall thickness observed.Right Ventricle The right ventricle is normal. Wall motion normal.Left Atrium The left atrium is mildly dilated.Right Atrium The right atrium is normal in size.IVC/SVC Inferior vena cava is normal with greater than 50% collapse. .Mitral Valve The mitral valve is normal in structure. No regurgita tion.Tricuspid Valve The tricuspid valve is normal. Trace regurgitation. No pulmonaryhypertension present.Aortic Valve Peak gradient across the aortic valve is 20 mmHg No aorticinsufficiency is present. There is a TAVR present. There is no aorticinsufficiency present. The prosthetic valve is well seated.Pulmonic Valve No regurgitation.Ascending Aorta no aneurysm is present.Pericardium No pericardial effusion.Echo Vital SignsVital SignsPt Height 1.79 mWeight 115.1 kgBSA 2.32 g8Cxyfcxbi BP Echo 130 mmHgDiastolic BP Echo 66 mmHg2D MeasurementsDimensionsLVIDD 4.53 cmLVIDS 2.76 cmIVS 0.76 cmPW 1.14 cmFS 39 %LA volume 48.5 cm3EF 66 %Echo EF Estimated 60 %LA Volume Index 20.9 mL/m22D Measurements - LV VolumeMOD BiplaneLV Systolic Volume 21 cm3LV Systolic Volume Index 9.1 mL/s1Uyeacgq Measurements - Aortic ValveStenosisLVOT peak brooklynn 1.15 m/sLVOT peak VTI 25.8 cmAo peak brooklynn 2.81 m/Bindu mean gradient 17 mmHgAV peak gradient 32 mmHgAV Velocity Ratio 0.41 HCMAV LVOT peak gradient 5 mmHgDoppler Measurements - Diastolic FillingDiastolic FillingE/A ratio 0.74 E wave decelartion time 201 msThe patient will be discharged to home on DAPT- ASA and plavix for at least 6months. At this time, his pletal is being held. He will follow-up with hiscardiologist, Dr. Jim, on October 19 and have an echocardiogram onFe. All questions were answered and the patient agrees with thedischarge.Past Medical History:Past Medical History:Diagnosis Date Claudication Enlarged prostate GERD (gastroesophageal reflux disease) Hyperlipidemia Hypertension Nonrheumatic aortic (valve) stenosis Peripheral vascular disease f/u by Dr. Sung Sleep apnea uses cpap nightlyMost Recent Labs:BMP:Lab ResultsComponent Value Date NA 141 09/20/2019 K 3.9 09/20/2019 CL 107 09/20/2019 CO2 27 09/20/2019 ANIONGAP 7 09/20/2019 CALCIUM 8.5 09/20/2019 GLU 109 (H) 09/20/2019 BUN 20 09/20/2019 CREATININE 1.25 09/20/2019 GFRAA >60 09/20/2019 GFRNONAA 57 (L) 09/20/2019CBC without Diff:Lab ResultsComponent Value Date WBC 7.6 09/20/2019 RBC 4.91 09/20/2019 HGB 14.2 09/20/2019 HCT 42.7 09/20/2019 MCV 87.0 09/20/2019 MCH 29.0 09/20/2019 MCHC 33.3 09/20/2019 RDW 13.6 09/20/2019 PLT 106 (L) 09/20/2019 MPV 8.7 09/20/2019Medications:Your medication listSTART taking these medications Instructions Last Dose Given Morning Afternoon Evening Bedtime As Neededamoxicillin 500 MG capsuleCommonly known as: AMOXIL Take 4 capsules (2,000 mg total) by mouth as needed (Take 1 hr prior to anydental procedures or cleanings)aspirin 81 MG EC tabletReplaces: aspirin 325 MG tablet Take 1 tablet (81 mg total) by mouth dailyclopidogrel 75 MG tabletCommonly known as: PLAVIX Take 1 tablet (75 mg total) by mouth dailyCONTINUE taking these medications Instructions Last Dose Given Morning Afternoon Evening Bedtime As Neededatorvastatin 20 MG tabletCommonly known as: LIPITOR Take 20 mg by mouth dailycarvedilol 25 MG tabletCommonly known as: COREG Take 25 mg by mouth 2 (two) times a daychlorthalidone 25 MG tabletCommonly known as: HYGROTEN Take 12.5 mg by mouth dailylisinopril 20 MG tabletCommonly known as: PRINIVIL,ZESTRIL Take 20 mg by mouth dailySTOP taking these medicationsaspirin 325 MG tabletReplaced by: aspirin 81 MG EC tabletcilostazol 100 MG tabletCommonly known as: PLETALWhere to Get Your MedicationsInformation about where to get these medications is not yet availableAsk your nurse or doctor about these medications amoxicillin 500 MG capsule aspirin 81 MG EC tablet clopidogrel 75 MG tabletDischarge Exam:Vitals: Temp: [97.8 F-98.7 F] 97.8 FHeart Rate: [64-71] 64Resp: [16-18] 17BP: (117-137)/(59-72) 130/66General appearance: alert, appears stated age and cooperativeLungs: Clear to auscultation bilaterally. No wheezes, rales or rhonchi. No coughon exam.Heart: S1, S2 normal, no murmur, click, rub or gallopAbdomen: Soft, nontender, bowel sounds present.Extremities: No edema in lower extremities.Wound/Incision: Bilateral groin sites clean, dry and intact. Soft and withouthematomas bilaterally.Discharged Condition:goodDisposition: Home or Self CareFollow Up: Follow-up with Dr. Jim 10/19, echocardiogram 10/20Signature: Irma Disla, NPDate: September 20, 2019Time: 3:49 PM Name Value Range Interpretation Code Description Data Meme rce(s) Supporting Document(s) ID Date Data Source [id number] 09/20/2019 03:42:24 PM EST [facility] Name Value Range Interpretation Code Description Data Meme rce(s) Supporting Document(s) &PDF [facility] AZSFEq7dTfBLBoCg19/GAOrsLZGnq7KiETdjITq5USdtWWCaA5SllUspLDLBTpGREqtUIOZVEA9tPJ2s pYy [file] AgICAgICAgICAgICAgICAgICAgICAgICAgICAgICAg MHCmAJAiYRHcTREsCEKgXLIeAJRnFMSxXWKtLUVxAVOaONVjVZJtUUPmSQNjJMYuFBReIALhDNVlUL1O ICAgICAgICAgICAgICAgICAgICAgICAgICAgICAgICAgICAgICAgICAgICAgICAgICAgICAgICAgICAg ICAgICAgICAgICAgICAgICAgICAgICAgICAgICAgIC CoWLJmNADgKG9YZICmEBSxISCfNCCcADPzMYJcOMHtSBAuFVPrYGThYZYjBTVnAIOoTMPcCSIsHACkLU SvAKFpZVNbTDFmOWWvAEWvFAKoDZJpZIRxSTGyUQAvJVByBXCeMRHtUBVeGEMjXEHqZL8KXKEfUHUvUB AgICAgICAgICAgICAgICAgICAgICAgICAgICAgICAg ICAgICAgICAgICAgICAgICAgICAgICAgICAgICAgICAgICAgICAgICAgICAgICAgICAgICAgICAgICAg YU8NCURgUUWdVWDhFTSjGEYmJCIbETNhPQFzXJLlTHUtJOTpVRZzUGEjYEQcKFZfGGBrGWUvVKKgJATo ICAgICAgICAgICAgICAgICAgICAgICAgICAgICAgIC RoTJUnLXOqENGlZF0OCFHzKRBhTZWhBDUhKAQfQPOlBEYdMRHmFLRyMWJdCJNyPDRaHFIzWZGyJKKoDP DvHIMlEGWrQSNkTPDjOFIuVYOzSPYjTXZcVKXxRDZqHSCvVAPaGTQpUBXdCTAiIDKxRQDmFT0OAJUdTM AgICAgICAgICAgICAgICAgICAgICAgICAgICAgICAg ICAgICAgICAgICAgICAgICAgICAgICAgICAgICAgICAgICAgICAgICAgICAgICAgICAgICAgICAgICAg NBKuGZ2IJPDdRAAjLSQlFPChUGScIJEdBMFgHOAwXMOvDRMnDQYxQRSjAGPxEYArYGYfDIUgVWUlFBXs ICAgICAgICAgICAgICAgICAgICAgICAgICAgICAgIC AsZLFuCGFeXIBwHBQlMG4EXJHsIUXqUQBgGJRmVKZoRUIcZTGwWCDwWEHrJHHsSGPhJOOvLEUmUYPhOI TdTFVcMCSfRVJpZRMuNVPyXBQiAJYdOWVrWTEpSVFvQVKgTCPdTPWvOSNxUPTkMQOxBYTmBZTkIO9HRQ AgICAgICAgICAgICAgICAgICAgICAgICAgICAgICAg ICAgICAgICAgICAgICAgICAgICAgICAgICAgICAgICAgICAgICAgICAgICAgICAgICAgICAgICAgICAg RLRdKJIoNA0DMG63sXLqz3J4MGMlBU3wnjw/Ha8QUUgdiaLglOGbGZ6ZHeGuFO1vop4RUlQgTQ6ejw3R XGpCEnUxR8U3wQPtEIUwAZEGRaYvD06bWVbsQd53FR lzYXHdFcVrAVh7Kg1VFfKzV6gqZYNvZrU4NEWeKuX2WTJsPiPuBOcaZK0Ls2IezMCrCUw+Sf9RXK6xp0 HyWAtnRyYgON4gek4BBFfMWyOpA7G0gDCfU4A6DHhdRi3ZFIJjRAStZiVbKBHUKFkxGQ1PQK3ajwH9QD 0IdXYpQCHmPTMenOViLJt9B30tlHThRXlqNJ9RPME+ Winnie+Ta3FNMErTCBbMGNsBmJzYLGPPiIzR30oyPVjGILvDUT4CXBsQq3MSZYfW8TbxoGrcMwycpIcSPNs IZAVBG7IILijkuJaoJFjePcaLW70hEeeWG2KFe8GKbLrUT7nkd5VyLGjFt9ZYZEuCc6RFQQxGWNhQQVl SGD8SVGfOtWlJGoxLIXeZWRvFPO8BKKsIELeAE3RJb GiIVXbWoE7BWsrXAWfKEPjdh4UICUsCOHoVxK2YbTiRHXtGNCcUQulCMGiECOtPAc3RPNyOGAvLE5CWh LuEQIkZXAmBxFeEVIlOADosz4ZGLTuHRFzWbC2NtBxODTxBTTwQSxjIFKjMRU2PcfmXNFeFWEaIV0HEh SxBVHxRYF5BHFlSHSzEQAdru3FKXLdMIUaQmK3ERHv KIOhUZBtXAusWYWdOOE4HkY6GWCuGQSfCI5DUiGoLVJzCXS5ZTZlTETcSEBzxf0BOMTkMQBxLhuuRLDr UPIhXCJkLUeqSCWaDVC7DBf3BJGkCKPlZS5SQpZnYILwJIptXNCxXSAuHIAylr8UGIWjBAGoDvEhQtZk NKFhESWrXJfpCWMeDRDlOuF3SSPjMHNmGP6GHaMgBY WiLNZ8HnBlGMLgJSClbp3BXFSbUCDbIfplYkWrOBFiHSYtGSxpHKBvTZRpZBLnMQKfLGDhFV0FAlNgWA VdUIM2VFIzASYzYQAwut8ZAUHtLDTmOQS7RMCwWOWtZNObJNsyFJAcZLC6ZrIrGRGcSFIyAE6KEsSbLI XkYyLcDgrwWZRtXKJocb3ISXEuCQJnYYP6QVYuQZUf VXKkHPfhESLxIRB3NWKvWGWwBWSwRD8CAxAmRHNeJuD4HxLzIHEqBXZnoh6IlXWqpWfhce0DZTsJHy4W eFxrLVL1GFjtYz5fxDBlMwMrJGEAUl8WmcJeSEYoJMBEDIasKWRyLIGqVsG7K2VeUSBiIHkmULcwTLOu ZyzxFWLuXgCpMJw1JkE0LGPcNjL4OPEoSZU5ZvWfJ5 S0V1Y5JPSuQCCyBIJaPvJ+QT3wJJh+Fi4Fn5YiwwW9yyBiZFtqXwe2Re4PYMLDH9XCGu== ID Date Data Source [id number] 09/20/2019 12:28:32 PM EST [facility]annerPATIE NT INFORMATIONPatient MRN Name Date of Age Gend*PT [id number] Ra Jerryul 1945 73 years M IPPT Location Admission Date/Time Visit ID Attending [id number] 09/19/19 0632 --- Symone Keen MD ([id number]) EPI ID CSN Admitting Provider [id number] Symone Keen MD([id number])Looks wellNo ComplaintAmbulatingPlan for DC home todaySymone Keen MD Name Value Range Interpretation Code Description Data Meme rce(s) Supporting Document(s) ID Date Data Source [id number] 09/20/2019 03:22:09 AM EST [facility] Name Value Range Interpretation Code Description Data Meme rce(s) Supporting Document(s) SODIUM 141 mmol/L (136-145) [facility] POTASSIUM 3.9 mmol/L (3.6-5.2) [facility] CHLORIDE 107 mmol/L (100-108) [facility] CO2 27 mmol/L (22-31) [facility] ANION GAP 7 mmol/L (7-16) [facility] UREA NITROGEN 20 mg/dL (7-24) [facility] CREATININE 1.25 mg/dL (0.80-1.30) [facility] BUN/CREAT RATIO 16.0 RATIO (10.0-20.0) [facility] GLUCOSE 109 mg/dL (70-99) H [facility] CALCIUM 8.5 mg/dL (8.4-10.2) [facility] GFR 57 ml/min/1.73m2 (>59) L [facility] GFR ( AMER) >60 ml/min/1.73m2 (>59) [facility] GFR INTERPRETATION Lab [facility] [place] --NORMAL KIDNEY FUNCTION OR MILD DISEASE - GFR >OR= 60CHRONIC KIDNEY DISEASE - GFR 15 - 59RENAL FAILURE - GFR <15 Est. GFR calculation based on the MDRDstudy equation, which assumes a steadystate for creatinine. Est. GFR should notbe used for medication dosing. ID Date Data Source [id number] 09/20/2019 02:48:04 AM EST [facility] Name Value Range Interpretation Code Description Data Meme rce(s) Supporting Document(s) WBC 7.6 10*3/uL (4.1-11.0) [facility] [place] RBC 4.91 10*6/uL (4.60-6.10) [facility] HGB 14.2 g/dL (13.5-18.0) [facility] HCT 42.7 % (41.0-53.0) [facility] MCV 87.0 fL (80.0-95.0) [facility] MCH 29.0 pg (27.0-32.0) [facility] MCHC 33.3 g/dL (32.0-36.0) [facility] RDW 13.6 % (10.5-14.5) [facility] PLT 106 10*3/uL (150-450) L [facility] MPV 8.7 fL (7.1-10.7) [facility] ID Date Data Source [id number] 09/19/2019 01:45:10 PM EST [facility]anner[facility]IE NT INFORMATIONPatient MRN Name Date of Age Gend*PT [id number] Theo Edwards 1945 73 years M IPPT Location Admission Date/Time Visit ID Attending [id number] 09/19/19 0632 --- Symone Keen MD ([id number]) EPI ID CSN Admitting Provider [id number] Symone Keen MD([id number])[facility] CARDIOVASCULAR [id number] [place] [id number] CARDIAC CATHETERIZATION Preoperative diagnosis: Severe symptomatic aortic stenosisPostoperative diagnosis severe symptomatic aortic stenosisReferring Physician: Dr. Jim Surgeon: Dr. Riley-surgeon: Dr. Granados Anesthesia: Dr. ThomasAnesthesia type: MAC Brief Cardiolab NotePatient Name: Theo Edwards of : 1945 Age 73 yearsPrimary Physician: Sommer Soria MD PCP Fqji of Surgery: 09/19/2019 Pediatric Dermatologist: Symone Keen MD Video Game Animator(s): None CCS Functional Classification: None History:This is a pleasant 73-year-old gentleman with history of hyper tension,dyslipidemia, PVD with claudication, degenerative joint disease who presentedwith severe symptomatic aortic stenosis with a valve area index of 0.28 a peakand mean gradient of 64 and 34 mmHg respectively peak velocity of 4 m/s andnormal EF of 80%. He had a lesion in a small nondominant RCA. Patient STSscore was 1.4%. He was low risk. Patient was given option of TAVR versus S AVRand he opted for TAVR procedure.Risk/benifit/alternative of TAVR procedure was discussed with patient/family.Risks included, but not limited to; NM, CVA, , renal impairment, vascularcomplication, and need for emergency surgery were discussed and accepted bypatient. Findings/Intervention Procedures: 1. successful percutaneous transfemoral TAVR using a 23 millimeter Ria 3valve via right femoral approach TECHNIQUE: The patient was brought to the operating room in a fasting state.Bilateral femoral access was obtained.Left femoral venous access was obtained and a temporary transvenous pacer wirewas advanced and appropriate capturing was confirmedTwo pre Perclose suture was deployed in the right femoral artery.A 6 Canadian pigtail catheter was advanced through the left femoral artery.The aortic valve was crossed with a JR4 catheter and a Confida wire was advancedto the left ventricular apex.BAV was performed successfully under rapid pacingThe 23 millimeter Ria valve was advanced and was deployed under rapid pacingsuccessfully.Post deployment ZAINAB revealed mild PVL. 1 cc was added and postdilatation wasperformed. Final ZAINAB revealed trivial perivalvular leak. The procedure wastherefore deemed successful.The 2 pre Perclose suture on the right side with sutured with excellenthemostasis,Likewise another Perclose was deployed in the left femoral artery with excellenthemostasis.The patient tolerated the procedure very well Primary Access Site: right femoral arteryClosure: Perclose Estimated Blood Loss: NoneComplications: NoneSedation: Fentanyl and VersedSpecimens: NoneImplants: 23 mm Ria 3Contrast Used: see scanned cath report document under the media tab. Plan: The patient will be admitted and treated according to the post TAVR protocolThe above was discussed with the Pamela Keen MD09/19/2019 8:45 AM Name Value Range Interpretation Code Description Data Meme rce(s) Supporting Document(s) ID Date Data Source [id number] 09/19/2019 09:47:40 AM EST [address] [address]Hxjntxv Name: THEO FLORES: 1945Sex: MOrdering Provider: IRMA Eduardo Prov: IRMA DISLAReferrjulia Provider: Procedure Performed: XR CHEST PORTABLEExam Date: 09/19/2019 09:33MRN: [id number] Number: [id number] Class: InpatientAccount #: [id number] for Exam: Post TAVR procedureTechnique: AP portable view obtained.Comparison: NoneFindings: There is significant soft tissue density superior mediastinal shadows and middle mediastinal shadows hemorrhage isn't excluded. There is a new aortic valve. There is prominence of the vasculature which could be related to supine positioning or congestive heart failure. The minor fissure is not thickened. There is no pneumothorax. Oxygen tubing and monitoring wires are projected over the patient.IMPRESSION: Aortic valve replacement. No pneumothorax. Prominent soft tissue shadows in the superior mediastinum could be related to vasculature or mediastinal hemorrhage. Unfortunately, I'm not provided a preoperative chest x-ray. If further evaluation is indicated clinically, CT chest is recommended. These findings were communicated via the departmental critical result protocol..Report electronically signed by: NANCY BECKMAN On 09/19/2019 9:47 AMWorkstation ID: [id number] Name Value Range Interpretation Code Description Data Meme rce(s) Supporting Document(s) ID Date Data Source [id number] 09/19/2019 09:47:53 AM EST [facility] Name Value Range Interpretation Code Description Data Meme rce(s) Supporting Document(s) EKG [facility] QBVZDv6sCsUBWjEss5MfAsFaKXRkBX1htio9R9G4mCWoS4AhkSPhh7rmL1JtG2KwAXCzPKODXW9MvSMy jb2 [file] xRm9zBrsh6bd0kPXpKBjWwd0fjSb4+yyL/iz5dl4wKgDLVeii8tR6+media marketing manager/Be6DwMeLlhyqMMy/Sg5rUJ [file] btGaIDLbBRVSOf9Fb469JQYmLWVIEpt+BjtinAErzFehRNLSUIA6BVMULLTOZ5O= ID Date Data Source [id number] 09/19/2019 11:03:27 AM EST [facility] Name Value Range Interpretation Code Description Data Meme rce(s) Supporting Document(s) MAGNESIUM 2.1 mg/dL (1.7-2.4) [facility] ID Date Data Source [id number] 09/19/2019 11:03:27 AM EST [facility] Name Value Range Interpretation Code Description Data Meme rce(s) Supporting Document(s) SODIUM 137 mmol/L (136-145) [facility] POTASSIUM 3.9 mmol/L (3.6-5.2) [facility] CHLORIDE 105 mmol/L (100-108) [facility] CO2 25 mmol/L (22-31) [facility] ANION GAP 7 mmol/L (7-16) [facility] UREA NITROGEN 24 mg/dL (7-24) [facility] CREATININE 1.27 mg/dL (0.80-1.30) [facility] BUN/CREAT RATIO 18.9 RATIO (10.0-20.0) [facility] GLUCOSE 109 mg/dL (70-99) H [facility] CALCIUM 8.4 mg/dL (8.4-10.2) [facility] GFR 56 ml/min/1.73m2 (>59) L [facility] GFR ([facility] AM) >60 ml/min/1.73m2 (>59) [facility] GFR INTERPRETATION [facility] --NORMAL KIDNEY FUNCTION OR MILD DISEASE - GFR >OR= 60CHRONIC KIDNEY DISEASE - GFR 15 - 59RENAL FAILURE - GFR <15 Est. GFR calculation based on the MDRDstudy equation, which assumes a steadystate for creatinine. Est. GFR should notbe used for medication dosing. ID Date Data Source [id number] 09/19/2019 10:47:03 AM EST [facility] Name Value Range Interpretation Code Description Data Meme [facility](s) Supporting Document(s) PT 12.4 s (9.2-11.9) H [facility] INR 1.22 [facility] SUGGESTED THERAPEUTIC RANGES USING INR F ORSTABILIZED ANTICOAGULATED PATIENTS:STANDARD DOSE THERAPY INR 2.0-3.0 DVT, PE, PREVENT DVT OR EMBOLISMHIGH DOSE THERAPY INR 2.5-3.5 PREVENT EMBOLISM FROM MECHANICAL HEART VALVE ID Date Data Source [id number] 09/19/2019 10:40:30 AM EST [facility] Name Value Range Interpretation Code Description Data Meme rce(s) Supporting Document(s) WBC 6.5 10*3/uL (4.1-11.0) [facility] [place] RBC 4.70 10*6/uL (4.60-6.10) [facility] HGB 13.8 g/dL (13.5-18.0) [facility] HCT 40.4 % (41.0-53.0) L [facility] MCV 85.9 fL (80.0-95.0) [facility] MCH 29.3 pg (27.0-32.0) [facility] MCHC 34.1 g/dL (32.0-36.0) [facility] RDW 13.7 % (10.5-14.5) [facility] PLT 120 10*3/uL (150-450) L [facility] MPV 9.3 fL (7.1-10.7) [facility] ID Date Data Source [id number] 09/19/2019 08:44:42 AM EST [facility]anner[facility] NT INFORMATIONPatient MRN Name Date of Age Gend*PT [id number] Theo Edwards 1945 73 years M IPPT Location Admission Date/Time Visit ID Attending Provider --- --- --- --- EPI ID CSN Admitting Prov ider [id number] ---ZAINAB ExamPerformed by: Gautam Quinones MDInformation: Diagnostic Indication for ZAINAB: hemodynamic monitoring Physician Requesting Echo: Symone Keen MD Patient Location: OOR procedure area Intubated: No Bite Block: Yes Heart Visualized: No Insertion: Easy Probe Type: Multiplane Modalities: Color flow mappingEchocardiographic and Doppler Measurements:STS Required Documentation: Post OP CPB: Highest Level Aortic Insufficiency/Regurg: Trace/trivial Highest Level Mitral Insufficiency/Regurg: None Repaired/Replaced Aortic Valve: Yes Aortic Paravalvular leak: Yes Repaired/Replaced Mitral Valve: No Repaired/Replaced Tricuspid Valve: No New RWMAs: NoAnesthesia Information: Anesthesiologist: Gautam Quinones MD Surgeon: Symone Keen MD Echocardiogram Comments: Limited ZAINAB exam to evaluate aortic valve statuspost TAVR: AV: Schaffer Sapiens 23 mm bioprosthesis in aortic position, goodleaflet motion, no central AI, trace paravalvular leak ( two jets: non-coronaryand left coronary cusps); MV: No JENNA, no MR; Pericardium: No effusion. Name Value Range Interpretation Code Description Data Meme rce(s) Supporting Document(s) ID Date Data Source [id number] 09/19/2019 08:41:17 AM EST [facility]annerPATIE NT INFORMATIONPatient MRN Name Date of Age Gend*PT [id number] Theo Edwards 1945 73 years M IPPT Location Admission Date/Time Visit ID Attending Provider --- --- --- --- EPI ID CSN Admitting Prov ider [id number] ---Arterial Line PlacementPatient location during procedure: CV hybrid roomIndications for arterial line: hemodynamic monitoringStaffingPerformed by: Gautam Quinones MDApproved by: Gautam Quinones, MDCompleted: patient identified, risks and benefits discussed, surgical consentobtained, anesthesia consent obtained, monitors and equipment checked, pre-opevaluation completed, timeout performed, patient was prepped and draped in usualsterile fashion,Arterial Line InsertionSite prep: chlorhexidineAnesthesia: local infiltrationLocal anesthetic: lidocaine 1% without epinephrineLaterality: rightLocation: radial arteryNeedle gauge: 20 GTechnique: Seldinger technique used and landmark techniqueNumber of attempts: 1AssessmentSutured: noDressing: dressing appliedPatient tolerance: tolerated well Name Value Range Interpretation Code Description Data Meme rce(s) Supporting Document(s) ID Date Data Source [id number] 09/19/2019 08:31:40 AM EST [facility] Name Value Range Interpretation Code Description Data Meme rce(s) Supporting Document(s) POC SOURCE [facility] POC TEMPERATURE [facility] 37.0C POC FIO2 100 [facility] POC PH 7.33 pH (7.35-7.45) L [facility] POC PCO2 45.6 MMHG (32.0-48.0) [facility] POC PO2 89 MMHG (83-108) [facility] POC SAT O2 96 % (95-99) [facility] POC BASE DEFICIT 2 MMOL/L (0-2) [facility] POC HCO3 23.8 MMOL/L (21.0-29.0) [facility] POC TOTAL CO2 25 MMOL/L (23.0-32.0) [facility] PERFOR[facility] BY [facility] POC HCT 38 % (41.0-53.0) L [facility] POC SODIUM 139 MMOL/L (136-145) [facility] POC POTASSIUM 3.8 MMOL/L (3.6-5.2) [facility] POC IONIZED CALCIUM 4.8 MG/DL (4.6-5.3) [facility] POC GLU 122 MG/DL (70-99) H [facility] PERFORM LAB [facility] ID Date Data Source [id number] 09/19/2019 08:32:05 AM EST [facility] Name Value Range Interpretation Code Description Data Meme rce(s) Supporting Document(s) POC ACT 241 s (80-140) H [facility] PERFORMED BY [facility] ID Date Data Source [id number] 09/19/2019 08:20:07 AM EST [facility] Name Value Range Interpretation Code Description Data Meme rce(s) Supporting Document(s) POC SOURCE [facility] POC TEMPERATURE [facility] 37.0C POC FIO2 100 [facility] POC PH 7.36 pH (7.35-7.45) [facility] POC PCO2 46.6 MMHG (32.0-48.0) [facility] POC PO2 80 MMHG (83-108) L [facility] POC SAT O2 95 % (95-99) [facility] POC BASE EXCESS 0 MMOL/L (0-3) [facility] POC HCO3 26.3 MMOL/L (21.0-29.0) [facility] POC TOTAL CO2 28 MMOL/L (23.0-32.0) [facility] BY [facility] POC HCT 42 % (41.0-53.0) [facility] POC SODIUM 140 MMOL/L (136-145) [facility] POC POTASSIUM 4.0 MMOL/L (3.6-5.2) [facility] POC IONIZED CALCIUM 5.0 MG/DL (4.6-5.3) [facility] POC GLU 129 MG/DL (70-99) H [facility] PERFORM LAB [facility] ID Date Data Source [id number] 09/19/2019 08:20:02 AM EST [facility] Name Value Range Interpretation Code Description Data Meme rce(s) Supporting Document(s) POC ACT 131 s (80-140) [facility] PERFORMED BY [facility] ID Date Data Source [id number] 09/19/2019 07:11:40 AM EST [facility]anner[facility] NT INFORMATIONPatient MRN Name Date of Age Gend*PT [id number] Theo Edwards 1945 73 years M IPPT Location Admission Date/Time Visit ID Attending [id number] 09/19/19 0632 --- Symone Keen MD ([id number]) EPI ID CSN Admitting Provider [id number] Symone Keen MD([id number])Updated H&PPlease see the scanned/dictated outpatient note.I have reviewed the note, clinical history and physical exam findings. Therehave been no significant changes.Plan as outlined in the outpatient note.Risk/benifit/alternative of TAVR was discussed with patient/family. Risksincluded, but not limited to; NM, CVA, , renal impairment, vascularcomplication, and need for emergency surgery were discussed and accepted bypatient.Symone Keen MD, [facility] TULSAAIInterventional Criminal Defense Lawyer Name Value Range Interpretation Code Description Data Meme rce(s) Supporting Document(s) ID Date Data Source [id number] 09/19/2019 06:50:40 AM EST [facility] Name Value Range Interpretation Code Description Data Meme rce(s) Supporting Document(s) POC NOVA GLU 124 mg/dL (70-99) H [facility] [place] PERFORMED BY [facility] ID Date Data Source [id number] 09/20/2019 08:46:16 PM EST [facility] SPEC EXP DATE 09/22/2019TEST ING SITE PERFORMED AT [address] [place] [address] 12003AQPU NUMBER [id number] COMPONENT TYPE LEUKOPOOR RED CELLSUNIT DIVISION 00STATUS OF UNIT REL FROM ALLOCTRANSFUSION STATUS OK TO TRANSFUSECROSSMATCH RESULT COMPATIBLEUNIT NUMBER [id number] COMPONENT TYPE LEUKOPOOR RED CELLSUNIT DIVISION 00STATUS OF UNIT REL FROM ALLOCTRANSFUSION STATUS OK TO TRANSFUSECROSSMATCH RESULT COMPATIBLEUNIT NUMBER [id number] COMPONENT TYPE LEUKOPOOR RED CELLSUNIT DIVISION 00STATUS OF UNIT REL FROM ALLOCTRANSFUSION STATUS OK TO TRANSFUSECROSSMATCH RESULT COMPATIBLEUNIT NUMBER [id number] COMPONENT TYPE LEUKOPOOR RED CELLSUNIT DIVISION 00STATUS OF UNIT REL FROM ALLOCTRANSFUSION STATUS OK TO TRANSFUSECROSSMATCH RESULT COMPATIBLE Name Value Range Interpretation Code Description Data Meme rce(s) Supporting Document(s) TRANSFUSE RED CELLS [facility] TESTING SITE PERFORMED AT [address] [place] [id number] ID Date Data Source [id number] 09/12/2019 03:52:03 PM EST [facility] Name Value Range Interpretation Code Description Data Meme rce(s) Supporting Document(s) EKG [facility] YJOEVz3aWaFGSdSkf0LsXgZxVXDkIG7mqie0N6T6lKOtU5GwrXYik1qmP9FtN3ErBLFkRFMRGO9WkCGq jb2 [file] jypcAHHUeuy9WwOZGDwZNSPLCBXLYXe2QcKzdhJ9cy ZO4TM/wA6wZPpJrFbQJ75EqMT+VK6ZpaoWxtcMOztJGVCGFJxThr72Bv+KMcHI5DisXKBF9FUsCpUSqq mK7oJ3Jw6jBsN9vRC9ASwDkm+XJvXwEHCYadMNxvqE+UL/k8NGkvYr3kJ7ntefQbtmFvnPn04uGkvbzt uqXrREMlWOrYr6ALPCFSSIT86aWAZUDfQUWJgQpxKQ DgoSjvYwbIYlhh7FvZXfbJ6xiDFnw29n6+9rS/E7mf83jH/x3i9cZWxn7w7vJUupNB8kK8+DDw01RqFA +DGQVWWw8jX2dEbvOjSDCNG4cUn0mPNaUAjIByxvEVgbs+GRAND PORTAGE+0P8kVn4qctvBsDIyved1gzfhBLw0px [file] kgMDAwMDAgbiAKMDAwMDAwMTczNCAwMDAwMCBuIAow PJTcFTLcEQR1SWSsCYEvZM1aRpKzZNKoMKCyYDFeZkQ0UuBcFsADkPJzyFikstt9IQcuP2l1XBRkRGoa KK5rsyOpQBIjCmuiIk5muGO7SQZxXmpHAt8Qm3KyikR2ueYdUyRpCdx0VrIfFW3Y ID Date Data Source [id number] 09/12/2019 01:16:11 PM EST BannerPATI NT INFORMATIONPatient MRN Name Date of Age Gend*PT [id number] Theo Edwards 1945 73 years M OPPT Location Admission Date/Time Visit ID Attending Provider --- --- --- Symone Keen MD ([id number]) EPI ID CSN Admitting Provider [id number] ---HISTORY PHYSICALName: Theo Edwards : 1945 Sex: male Care Provider: Katie Kwongending Physician: Dr. Garibayformant: The patient who is reliable and accompanied by his .Chief Complaint: "I need valve replacement".HISTORY OF PRESENT ILLNESS:Mr. Edwards is a 73 years old male who reports havinga routine physical exam with his PCP and was noted to have heart murmur.Subsequently he was referred to [facility]. Patient underwentechocardiogram on 07/09/2019 which concluded Moderately severe- severe calcificaortic stenosis with very mild sufficiency. Borderline concentric leftventricular hypertrophy with hyperkinetic wall motion. Moderately dilated leftatrium with grade I LV diastolic dysfunction and mildly elevated mean leftatrial pressure. Normal right heart chamber sizes, wall motion and estima tedpulmonary arterial pressure. Mild degenerative changes of the mitral valvularapparatus without functional quality. EF 80%. Cardiac catheterization dated109/12/2018 revealedno significant obstructive coronary artery disease in the major vessel. He doeshave a lesion in the nondominant small RCA. Patient denies any SOB, chest pain,pressure, palpitations, PND, peripheral edema, lightheadedness or syncope. Withthe above findings he was referred to the TAVR clinic for further evaluation.The patient met with Dr. Robert, options were discussed and they have electedto under go REPLACEMENT, AORTIC VALVE, TRANSCATHETER, FEMORAL APPROACH on09/19/2019.PAST MEDICAL HISTORY:Past Medical History:Diagnosis Date Claudication Enlarged prostate GERD (gastroesophageal reflux disease) Hyperlipidemia Hypertension Nonrheumatic aortic (valve) stenosis Peripheral vascular disease f/u by Dr. Sung Sleep apnea uses cpap nightlyPAST SURGICAL HISTORY:Past Surgical History:Procedure Laterality Date APPENDECTOMY CARDIAC CATHETERIZATION N/A 07/13/2019 Procedure: CATHETERIZATION, HEART, LEFT; Surgeon: Symone Keen MD;Laterality: N/A; COLONOSCOPY KNEE ARTHROSCOPY BilateralALLERGIES: No Known Drug AllergiesMEDICATIONS:Prior to Admission medicationsMedication Sig Start Date End Date Taking? Authorizing Provideraspirin 325 MG tablet Take 325 mg by mouth daily Historical Provider, MDatorvastatin (LIPITOR) 20 MG tablet Take 20 mg by mouth daily HistoricalProvider, MDcarvedilol (COREG) 25 MG tablet Take 25 mg by mouth 2 (two) times a dayHistorical Provider, Michhlorthalidone (HYGROTEN) 25 MG tablet Take 12.5 mg by mouth daily HistoricalProvider, MDlisinopril (PRINIVIL,ZESTRIL) 20 MG tablet Take 20 mg by mouth dailyHistorical Provider, MDcilostazol (PLETAL) 100 MG tablet Take 100 mg by mouth 2 (two) times a day09/12/19 Historical Provider, lidocaine Viscous HCl (XYLOCAINE) 2 % solution Take 5 mL by mouth as needed forpain 07/14/19 09/12/19 CANDIS Patriciaocial HistoryTobacco Use Smoking status: Never Smoker Smokeless tobacco: Never UsedSubstance Use Topics Alcohol use: Yes Comment: rarely Drug use: Yes Types: Marijuana Comment: last used in 2018Family HistoryProblem Relation Age of Onset Uterine cancer Mother Stroke Father Malig Hyperthermia Neg HxREVIEW OF SYSTEMS:Constitution: Weight stable. Denies fever or chills. Caffeine intake: 2-3cups/day. He has fatigue.HEENT: Denies any blurred vision, double vision, dizziness, tinnitus, dysphagiaor headaches.Respiratory: Denies any shortness of breath at rest, or KIRBY. Denies cough,yellow sputum production or wheezing.Cardiovascular: Denies any chest pain, pressure or tightness. Denies any PND ororthopnea.Muscle/Skeletal System: Denies any muscle ache, joint ache or weakness.Neurologic: Denies any numbness, tingling, tremors or syncope.GI: Denies any nausea, vomiting, diarrhea, constipation or melena.: Denies any dysuria, hematuria or nocturia.Endocrine: Denies polyuria, polydipsia or polyphagia. Denies any heat or coldintolerance or night sweats.Hematology: Denies any bleeding or bruising tendencies.CSHA Frailty Scale :: 4/10 Vulnerable (while not dependent on others for dailyhelp, often symptoms limit activities. A common complaint is being "slowed up",and /or being tired during the day).Anesthesia complications: Denies.Steroid use: He denies any oral steroid therapy for three weeks or greaterwithin the last 3 months.DNR Status: Full Code per the patient.HCP: Yes per patient.PHYSICAL EXAM: General: He is a 73 years old, pleasant male, in no acute distress at time ofexamination. Vitals on arrival to the office are BP 128/74 (BP Location: Leftupper arm, Patient Position: Sitting) | Pulse 59 | Ht 1.791 m (5' 10.5") | Wt(!) 115.7 kg (255 lb) | SpO2 98% | BMI 36.07 kg/m Body mass index is 36.07kg/m ..Skin is pink warm and dry.HEENT: He is normocephalic, atraumatic. Krebs co njunctivae. Anicteric sclerae.Pupils are equal, round, reactive to light and accommodation. Extraocularmovements are intact. Ears: Without drainage or lesion. Mouth: Dentition is ingood repair. He has a grade 2 airway. Neck is supple midline without cervicaladenopathy. There is no tonsillo pharyngeal congestion. Mucous membranes aremoist. There are no oral lesions. No jugular distention. No carotid bruit.CHEST/BREAST: A/P less than transverse. Breast exam declined.LUNGS: Clear to auscultation. No wheezes, rhonchi or crackles.HEART: Rate rhythm regular. 4/6 murmur, best heard at R SB 2nd ICS.ABDOMEN: Bowel sounds positive times four. Soft, non tender. No reboundtenderness. No hepatosplenomegaly. Negative CVAT.GENITAL/RECTAL: Deferred.MUSCLE/SKELETAL: Strength is 5/5. Club Lounge Attendant are equal.NEUROLOGICALLY: Cranial nerves II through XII are grossly intact.VASCULAR: Pulses are symmetrical. No bilateral pedal edema.IMPRESSION:1. Nonrheumatic aortic valve stenosis.2. Medical co morbidities as listed above.3. Medication and surgical instructions as per [facility].09/12/2019 1:11 PMLyudmila Kostiv, NPThis document or parts of this document, were dictated using [employer] speaking software. A reasonable attempt at proofreading has beenmade to minimize errors. Please call with any questions or corrections. Name Value Range Interpretation Code Description Data Meme rce(s) Supporting Document(s) ID Date Data Source [id number] 09/13/2019 03:49:08 PM EST [facility] Name Value Range Interpretation Code Description Data Meme rce(s) Supporting Document(s) SPECIMEN DESCRIPTION [facility] STAPH SCREEN RESULTS (ONEGSA) [facility] COMMENT [facility] GENE TO DETECT STAPH AUREUS. (2) RT-P CR WAS PERFORMED FOR THE mecA AND [employer] GENES TO DETECT METHICILLIN RESISTANCE IN STAPH AUREUS. ID Date Data Source [id number] 09/12/2019 06:57:10 PM EST [facility] SPEC EXP DATE 09/20/2019PATI ENT ABO/Rh O POSITIVEANTIBODY SCREEN NEGATIVETESTING SITE PERFORMED AT [address] [place] [id number] Name Value Range Interpretation Code Description Data Meme rce(s) Supporting Document(s) TYPE AND SCREEN [facility] ID Date Data Source [id number] 09/12/2019 05:49:47 PM EST [facility] Name Value Range Interpretation Code Description Data Meme rce(s) Supporting Document(s) ROOM TEMP AB SCREEN [facility] ROOM TEMP AB SCREEN NEGATIVE ID Date Data Source [id number] 09/13/2019 03:03:26 PM EST [facility] SPECIMEN DESCRIPTION MIDSTREAM UR INE,CLEAN CATCHCULTURE RESULTS NO GROWTHREPORT STATUS FINAL 09/13/2019 Name Value Range Interpretation Code Description Data Meme rce(s) Supporting Document(s) ID Date Data Source [id number] 09/12/2019 09:07:01 PM EST [facility] Name Value Range Interpretation Code Description Data Meme rce(s) Supporting Document(s) HEMOGLOBIN A1C @ 5.8 % (4.0-6.0) [facility] Performed using Siemens S [place] immunoassa y.Care must be taken when interpreting [id number] in patients with a hemoglobin variantor decreased erythrocyte lifespan. Values 5.7 - 6.4% suggest prediabetes.Values >=6.5% are diagnostic for diabetes.REFERENCE: DIABETES CARE 2018: 41(S13-S27). EST AVERAGE GLUCOSE 120 mg/dL [facility] ID Date Data Source [id number] 09/12/2019 08:20:51 PM EST [facility] Name Value Range Interpretation Code Description Data Meme rce(s) Supporting Document(s) SODIUM 139 mmol/L (136-145) [facility] POTASSIUM 4.9 mmol/L (3.6-5.2) [facility] CHLORIDE 104 mmol/L (100-108) [facility] CO2 30 mmol/L (22-31) [facility] ANION GAP 5 mmol/L (7-16) L [facility] UREA NITROGEN 19 mg/dL (7-24) [facility] CREATININE 1.35 mg/dL (0.80-1.30) H [facility] BUN/CREAT RATIO 14.1 RATIO (10.0-20.0) [facility] GLUCOSE 131 mg/dL (70-99) H [facility] CALCIUM 9.6 mg/dL (8.4-10.2) [facility] TOTAL PROTEIN 6.8 g/dL (6.4-8.2) [facility] ALBUMIN 4.0 g/dL (3.2-4.5) [facility] GLOBULIN 2.8 g/dL (2.7-4.3) [facility] ALB/GLOB RATIO 1.4 RATIO [facility] ALKALINE PHOSPHATASE 66 U/L (45-117) [facility] BILIRUBIN,TOTAL 0.9 mg/dL (0.0-1.0) [facility] AST (SGOT) 9 U/L (11-39) L [facility] ALT (SGPT) 27 U/L (12-78) [facility] GFR 52 ml/min/1.73m2 (>59) L [facility] GFR ( AMER) >60 ml/min/1.73m2 (>59) [facility] GFR INTERPRETATION [facility] --NORMAL KIDNEY FUNCTION OR MILD DISEASE - GFR >OR= 60CHRONIC KIDNEY DISEASE - GFR 15 - 59RENAL FAILURE - GFR <15 Est. GFR calculation based on the MDRDstudy equation, which assumes a steadystate for creatinine. Est. GFR should notbe used for medication dosing. ID Date Data Source [id number] 09/12/2019 08:20:51 PM EST [facility] Name Value Range Interpretation Code Description Data Meme rce(s) Supporting Document(s) NT PRO BNP 30 pg/mL (0-125) [facility] ID Date Data Source [id number] 09/12/2019 07:52:34 PM EST [facility] Name Value Range Interpretation Code Description Data Meme rce(s) Supporting Document(s) APTT 29.5 s (22.0-34.3) [facility] ID Date Data Source [id number] 09/12/2019 07:52:34 PM EST [facility] Name Value Range Interpretation Code Description Data Meme rce(s) Supporting Document(s) PT 11.6 s (9.2-11.9) [facility] INR 1.14 [facility] SUGGESTED THERAPEUTIC RANGES USING INR F ORSTABILIZED ANTICOAGULATED PATIENTS:STANDARD DOSE THERAPY INR 2.0-3.0 DVT, PE, PREVENT DVT OR EMBOLISMHIGH DOSE THERAPY INR 2.5-3.5 PREVENT EMBOLISM FROM MECHANICAL HEART VALVE ID Date Data Source [id number] 09/12/2019 07:24:28 PM EST [facility] Name Value Range Interpretation Code Description Data Meme rce(s) Supporting Document(s) COLOR [facility] APPEARANCE [facility] SPEC GRAV URINE 1.017 (1.003-1.030) [facility] PH URINE 5.5 (5.0-7.5) [facility] LEUK ESTERASE (NEG) [facility] NITRITE URINE (NEG) [facility] PROTEIN URINE (NEG) [facility] GLUCOSE URINE (NEG) [facility] KETONE URINE (NEG) [facility] UROBILINOGEN 0.2 mg/dL (0-1.0) [facility] BILIRUBIN URINE (NEG) [facility] BLOOD/HGB URINE (NEG) [facility] ID Date Data Source [id number] 09/12/2019 07:14:15 PM EST [facility] Name Value Range Interpretation Code Description Data Meme rce(s) Supporting Document(s) WBC 8.0 10*3/uL (4.1-11.0) [facility] RBC 5.40 10*6/uL (4.60-6.10) [facility] HGB 15.8 g/dL (13.5-18.0) [facility] HCT 46.7 % (41.0-53.0) [facility] MCV 86.6 fL (80.0-95.0) [facility] MCH 29.2 pg (27.0-32.0) [facility] MCHC 33.7 g/dL (32.0-36.0) [facility] RDW 13.8 % (10.5-14.5) [facility] PLT 151 10*3/uL (150-450) [facility] MPV 9.6 fL (7.1-10.7) [facility] NEUT % 56.2 % (35.0-75.0) [facility] LYMPH % 29.3 % (16.0-52.0) [facility] MONO % 7.6 % (0.0-8.0) [facility] EOS % 5.9 % (0.0-5.0) H [facility] BASO % 1.0 % (0.0-4.0) [facility] NEUT # 4.5 10*3/uL (1.8-7.7) [facility] LYMPH # 2.3 10*3/uL (1.2-4.8) [facility] MONO # 0.6 10*3/uL (0.0-0.8) [facility] Eosinophils [#/volume] in Blood by Automated count 0.5 10*3/uL (0.0-0 .5) [facility] BASO # 0.1 10*3/uL (0.0-0.2) [facility] ID Date Data Source [id number] 08/19/2019 10:09:00 AM EST [facility] Name Value Range Interpretation Code Description Data Meme rce(s) Supporting Document(s) CPK Creatine Phosphokinase 65 U/L 39-308 Brittani l (applies to non-numeric results) [facility] MB/CK Relative Index 1.54 Normal (applies to non-num leeann results) [facility]) <content>DIAGNOSIS CRITERIA</content>
<content>MMB ng/ml Relative Index (RI)</content>
<content>NON-AMI < or = 5 N/A</content>
<content>SADLER ZONE > 5 < or = 4</content>
<content>AMI > 5 > 4</content>
<content></content> CK-MB Value Mass 1.0 ng/mL Normal (applies to non-numeric results) [facility]) Troponin I Laboratory test result Normal (applies to non-n umeric results) [facility] ([facility]) <content>Troponin I Reference Interval f or Siemens S [place] LOCI:</content>
<content></content>
<content>99th Percentile= 0.00-0.045 ng/ml</content>
<content></content>
<content>Risk Stratification:</content>
<content><= 0.10 ng/ml Decreased Risk for Adverse Clinical</content>
<content>Events.</content>
<content>0.10-1.50 ng/ml Increased Risk for Adverse Clinical</content>
<content>Events. Evaluation of additional</content>
<content>criterion and/or repeat testing in 2-6</content>
<content>hours is suggested to rule out myocardial</content>
<content>damage.</content>
<content>>= 1.50 ng/ml Indicative of Myocardial Injury.</content>
<content></content> ID Date Data Source [id number] 08/19/2019 09:09:00 AM EST [facility] ([facility]) Name Value Range Interpretation Code Description Data Meme rce(s) Supporting Document(s) Troponin <0.02 [facility] ([facility]) ID Date Data Source [id number] 08/19/2019 09:09:00 AM EST [facility] ([facility]) Name Value Range Interpretation Code Description Data Meme rce(s) Supporting Document(s) CPK-MB 1.0 [facility] ([facility]) Creatine kinase [Enzymatic activity/volume] in Serum or Plasma 65 [facility] ([facility]) MB/CK Relative 1.54 [facility] ([facility]) ID Date Data Source [id number] 08/19/2019 09:08:00 AM EST [facility] ([facility]) Name Value Range Interpretation Code Description Data Meme rce(s) Supporting Document(s) Troponin <0.02 [facility] ([facility]) ID Date Data Source [id number] 08/19/2019 09:08:00 AM EST [facility] Name Value Range Interpretation Code Description Data Meme rce(s) Supporting Document(s) Creatine kinase [Enzymatic activity/volume] in Serum or Plasma 83 [facility] ([facility]) MB/CK Relative 1.45 [facility] ([facility] CPK-MB 1.2 [facility] ID Date Data Source [id number] 08/19/2019 09:08:00 AM EST [facility] ([facility] Name Value Range Interpretation Code Description Data Meme rce(s) Supporting Document(s) Glucose 123 70-100 [facility] Blood Urea Nitrogen 22 7-18 [facility] ([facility] Potassium 4.2 3.5-5.1 [facility] Creatinine 1.38 0.70-1.30 [facility] ([facility]) Sodium 139 136-145 [facility] Carbon Dioxide 23 21-32 [facility] ([facility] Chloride 107 98-107 [facility] Calcium 8.6 8.2-9.6 [facility] Glomerular filtration rate/1.73 sq M.pre dicted [Volume Rate/Area] in Serum or Plasma by Creatinine-based formula (MDRD) 53.9 [facility] ([facility]) ID Date Data Source [id number] 08/19/2019 09:08:00 AM EST [facility] ([facility] Name Value Range Interpretation Code Description Data Meme rce(s) Supporting Document(s) Platelets 147 150-450 [facility] White Blood Count 7.5 4.0-10.0 [facility] ([facility]) Red Blood Count 5.22 4.30-6.10 [facility] ([facility]) Hematocrit 45.8 [facility] ([facility]) Hemoglobin 15.0 [facility] ([facility]) ID Date Data Source [id number] 08/19/2019 06:30:00 AM EST [facility] ([facility]) Name Value Range Interpretation Code Description Data Meme rce(s) Supporting Document(s) Blood Urea Nitrogen 22 mg/dL 7-18 Above high normal [facility] ([facility]) Glucose, Fasting 123 mg/dL 70-100 Above high normal [facility] ([facility]) Sodium Level 139 meq/L 136-145 Normal (applies to non-numeric res ults) [facility] ([facility]) Glomerular Filtration Rate 53.9 Normal (applies to n on-numeric results) [facility] ([facility]) <content>Units are mL/min/1.73 m2</content>
<content></content>
<content>Chronic Kidney Disease Staging per NKF:</content>
<content></content>
<content>Stage I & II GFR >=60 Normal to Mildly Decreased</content>
<content>Stage III GFR 30-59 Moderately Decreased</content>
<content>Stage IV GFR 15-29 Severely Decreased</content>
<content>Stage V GFR <15 Very Little GFR Left</content>
<content>ESRD GFR <15 on W[employer] MILLING WHEEL OPERATOR</content>
<content></content> Creatinine For GFR 1.38 mg/dL 0.70-1.30 Above high normal [facility] ([facility]) Carbon Dioxide Level 23 meq/L 21-32 Normal (applies to non-num leeann results) [facility] ([facility]) Potassium Serum 4.2 meq/L 3.5-5.1 Normal (applies to non-numeric results) [facility] ([facility]) Chloride Level 107 meq/L 98-107 Normal (applies to non-numeric r esults) [facility]) Calcium Level 8.6 mg/dL 8.8-10.2 Below low normal [facility] ([facility]) Anion Gap 9 meq/L 8-16 Normal (applies to non-numeric resul ts) [facility] ([facility]) ID Date Data Source [id number] 08/19/2019 06:30:00 AM EST [facility] Name Value Range Interpretation Code Description Data Meme rce(s) Supporting Document(s) CPK Creatine Phosphokinase 83 U/L 39-308 Brittani l (applies to non-numeric results) [facility] ([facility]) CK-MB Value Mass 1.2 ng/mL Normal (applies to non-numeric results) [facility] ([facility]) Troponin I Laboratory test result Normal (applies to non-n umeric results) [facility]) <content>Troponin I Reference Interval f or Siemens S [place] LOCI:</content>
<content></content>
<content>99th Percentile= 0.00-0.045 ng/ml</content>
<content></content>
<content>Risk Stratification:</content>
<content><= 0.10 ng/ml Decreased Risk for Adverse Clinical</content>
<content>Events.</content>
<content>0.10-1.50 ng/ml Increased Risk for Adverse Clinical</content>
<content>Events. Evaluation of additional</content>
<content>criterion and/or repeat testing in 2-6</content>
<content>hours is suggested to rule out myocardial</content>
<content>damage.</content>
<content>>= 1.50 ng/ml Indicative of Myocardial Injury.</content>
<content></content> MB/CK Relative Index 1.45 Normal (applies to non-num leeann results) [facility]) <content>DIAGNOSIS CRITERIA</content>
<content>MMB ng/ml Relative Index (RI)</content>
<content>NON-AMI < or = 5 N/A</content>
<content>SADLER ZONE > 5 < or = 4</content>
<content>AMI > 5 > 4</content>
<content></content> ID Date Data Source [id number] 08/19/2019 06:30:00 AM EST [facility] ([facility]) Name Value Range Interpretation Code Description Data Meme rce(s) Supporting Document(s) White Blood Count 7.5 10 4.0-10.0 Normal (applies to non-numeri c results) [facility] ([facility]) Hemoglobin 15.0 g/dL 13.5-17.5 Normal (applies to non-numeric resul ts) [facility] ([facility]) Red Blood Count 5.22 10 4.30-6.10 Normal (applies to non-numeric results) [facility] ([facility]) Hematocrit 45.8 % 42.0-52.0 Normal (applies to non-numeric resul ts) [facility] ([facility]) Mean Corpuscular HGB Conc 32.8 g/dL 32.0-36.5 Normal (applies to non-numeric results) [facility] ([facility]) Mean Corpuscular Volume 87.7 fl 80.0-96.0 Normal ( applies to non-numeric results) [facility] ([facility]) Mean Corpuscular Hemoglobin 28.7 pg 27.0-33.0 Norm al (applies to non-numeric results) [facility] ([facility]) Neutrophils % 56.5 % 36.0-66.0 Normal (applies to non-numeric re sults) [facility] ([facility]) Platelet Count, Automated 147 10 150-450 Below low normal [facility] Red Cell Distribution Width 12.7 % 11.5-14.5 Norm al (applies to non-numeric results) [facility] ([facility]) [place] % 7.5 % 0.0-5.0 Above high normal [facility] ([facility]) Lymph % 29.4 % 24.0-44.0 Normal (applies to non-numeric resul ts) [facility] ([facility]) Eos % 5.3 % 0.0-3.0 Above high normal [facility] ([facility]) Immature Granulocyte % 0.5 % 0-3.0 Normal (applies to non-n umeric results) [facility] ([facility]) Nucleated Red Blood Cell % 0.0 % 0-0 Normal (applies to n on-numeric results) [facility] ([facility]) Baso % 0.8 % 0.0-1.0 Normal (applies to non-numeric resul ts) [facility] ([facility]) Neutrophils # 4.2 10 1.5-8.5 Normal (applies to non-numeric re sults) [facility] ([facility]) Lymph # 2.2 10 1.5-5.0 Normal (applies to non-numeric resul ts) [facility] ([facility]) [place] # 0.6 10 0.0-0.8 Normal (applies to non-numeric resul ts) [facility] ([facility]) Baso # 0.1 10 0.0-0.2 Normal (applies to non-numeric resul ts) [facility] ([facility]) Eos # 0.4 10 0.0-0.5 Normal (applies to non-numeric resul ts) [facility] ([facility]) Procedure Social History Code Duration Value Status Description Data Source(s ) Smoking 09/28/2020 12:00:00 AM EST Never Smoker completed Never S moker eCW1 ([facility]) Smoking 10/19/2019 12:00:00 AM EST Patient has never smoked co mpleted Patient has never smoked [facility] ([facility]) Smoking 09/30/2019 12:00:00 AM EST Never Smoker completed Never S moker eCW1 ([facility]) Alcohol intake 09/20/2019 12:00:00 AM EST Yes completed [facility] Smoking 09/20/2019 12:00:00 AM EST [facility] 09[facility]12/2019 12:00:00 AM EST Yes completed [facility] Smoking 09/12/2019 12:00:00 AM EST Never smoker completed Never s [facility] Vital Signs ID Date Data Source UNK Name Value Range Interpretation Code Description Data Source(s) Body surface area Derived from formula 2.31 m2 2.31 m2 [facility] ([facility]) Body mass index (BMI) [Ratio] 35.5 kg/m2 35.5 k g/m2 [facility] ([facility]) Body height 70.5 [in_i] 70.5 [in_i] [facility] ([facility]) 5'10.50" Body weight 113.854 kg 113.854 kg [facility] ([facility]) Body weight 251.00 [lb_av] 251.00 [lb_av] [facility] ([facility]) Oxygen saturation in Arterial blood by Pulse oximetry 98 % 98 % [facility] ([facility]) Respiratory rate 16 /min 16 /min [facility] ( [facility]) Body temperature 97.2 [degF] 97.2 [degF] [facility] ([facility]) Heart rate 55 /min 55 /min [facility] ([facility]) Diastolic blood pressure 60 mm[Hg] 60 mm[Hg] [facility] ([facility]) Systolic blood pressure 110 mm[Hg] 110 mm[Hg] M [facility] ([facility]) Diastolic blood pressure 74 mm[Hg] 74 mm[Hg] eCW1 ([facility]) Systolic blood pressure 124 mm[Hg] 124 mm[Hg] e CW1 ([facility]) Body mass index (BMI) [Ratio] 36.73 kg/m2 36.73 kg/m2 W1 ([facility]) Body height 70 [in_i] 70 [in_i] eCW1 ([facility]) Body weight 256 [lb_av] 256 [lb_av] eCW1 ([facility]) Body surface area Derived from formula 2.34 m2 2.34 m2 [facility] ([facility]) Body mass index (BMI) [Ratio] 36.6 kg/m2 36.6 k g/m2 [facility] ([facility]) Body height 70.5 [in_i] 70.5 [in_i] [facility] ([facility]) 5'10.50" Body weight 117.482 kg 117.482 kg [facility] ([facility]) Body weight 259.00 [lb_av] 259.00 [lb_av] [facility] ([facility]) Oxygen saturation in Arterial blood by Pulse oximetry 96 % 96 % [facility] ([facility]) Respiratory rate 18 /min 18 /min [facility] ( [facility]) Body temperature 97.3 [degF] 97.3 [degF] [facility] ([facility]) Heart rate 70 /min 70 /min [facility] ([facility]) Diastolic blood pressure 78 mm[Hg] 78 mm[Hg] [facility] ([facility]) just took his meds before he came forgot this am Systolic blood pressure 142 mm[Hg] 142 mm[Hg] M [facility] ([facility]) just took his meds before he came forgot this am Body surface area Derived from formula 2.31 m2 2.31 m2 [facility] ([facility]) Body mass index (BMI) [Ratio] 35.4 kg/m2 35.4 k g/m2 [facility] ([facility]) Body height 70.5 [in_i] 70.5 [in_i] [facility] ([facility]) 5'10.50" Body weight 113.400 kg 113.400 kg [facility] ([facility]) Body weight 250.00 [lb_av] 250.00 [lb_av] [facility] ([facility]) Oxygen saturation in Arterial blood by Pulse oximetry 98 % 98 % [facility] ([facility]) Respiratory rate 16 /min 16 /min [facility] ( [facility]) Body temperature 97.1 [degF] 97.1 [degF] [facility] ([facility]) Heart rate 68 /min 68 /min [facility] ([facility]) Diastolic blood pressure 80 mm[Hg] 80 mm[Hg] [facility] ([facility]) Systolic blood pressure 118 mm[Hg] 118 mm[facility]Hg] [facility] Body weight 112.946 kg 112.946 kg [facility] ([facility]) Body weight 249.00 [lb_av] 249.00 [lb_av] [facility] ([facility]) Oxygen saturation in Arterial blood by Pulse oximetry 96 % 96 % [facility]) Respiratory rate 18 /min 18 /min [facility] ( [facility]) Body temperature 97.4 [degF] 97.4 [degF] [facility] ([facility]) Heart rate 53 /min 53 /min [facility]) Diastolic blood pressure 66 mm[Hg] 66 mm[Hg] [facility] ([facility]) Systolic blood pressure 112 mm[Hg] 112 mm[Hg] [facility] ([facility]) Body weight 112.039 kg 112.039 kg [facility] ([facility]) Body weight 247.00 [lb_av] 247.00 [lb_av] [facility] ([facility]) Oxygen saturation in Arterial blood by Pulse oximetry 97 % 97 % [facility] ([facility]) Respiratory rate 18 /min 18 /min [facility] ( [facility]) Body temperature 97.4 [degF] 97.4 [degF] [facility]) Heart rate 57 /min 57 /min [facility]) Diastolic blood pressure 62 mm[Hg] 62 mm[Hg] [facility] ([facility]) Systolic blood pressure 124 mm[Hg] 124 mm[Hg] [facility] ([facility]) Body surface area Derived from formula 2.30 m2 2.30 m2 [facility] ([facility], ) Body weight 112.493 kg 112.493 kg [facility] ([facility], ) [place] body weight 166 [lb_av] 166 [lb_av] [facility] Body mass index (BMI) [Ratio] 35.1 kg/m2 35.1 k g/m2 [facility] ([facility], ) Body weight 248.00 [lb_av] 248.00 [lb_av] [facility] Body height 70.5 [in_i] 70.5 [in_i] [facility] ([facility], ) 5'10.50" Diastolic blood pressure 64 mm[Hg] 64 mm[Hg] [facility] ([facility], ) Systolic blood pressure 112 mm[Hg] 112 mm[Hg] M [facility] ([facility]) Diastolic blood pressure--sitting 58 mm[Hg] 58 mm[Hg] [facility] ([facility]) large cuff, Ra Systolic blood pressure--sitting 108 mm[Hg] 108 mm[Hg] [facility] ([facility]) large cuff, Ra Heart rate 57 /min 57 /min [facility] ([facility]) Body mass index (BMI) [Ratio] 35.9 kg/m2 35.9 k g/m2 [facility] ([facility]) Body height 70 [in_i] 70 [in_i] [facility] 5'10" Body weight 250.00 [lb_av] 250.00 [lb_av] [facility] ([facility]) Body weight 115.668 kg 115.668 kg [facility] ([facility]) Body weight 255.00 [lb_av] 255.00 [lb_av] [facility] ([facility]) Oxygen saturation in Arterial blood by Pulse oximetry 95 % 95 % [facility] ([facility]) Respiratory rate 18 /min 18 /min [facility] ( [facility]) Body temperature 97.8 [degF] 97.8 [degF] [facility] System) Heart rate 55 /min 55 /min MEDENT ([facility]) Diastolic blood pressure 62 mm[Hg] 62 mm[Hg] MEDENT ([facility]) Systolic blood pressure 120 mm[Hg] 120 mm[Hg] M EDENT ([facility]) Body mass index (BMI) [Ratio] 36.73 kg/m2 36.73 kg/m2 eCW1 ([facility]) Body height 70 [in_us] 70 [in_us] eCW1 ([facility]) Body weight Measured 256.0 [lb_av] 256.0 [lb_av ] eCW1 ([facility]) Diastolic blood pressure 70 mm[Hg] 70 mm[Hg] eCW1 ([facility]) Systolic blood pressure 127 mm[Hg] 127 mm[Hg] e CW1 ([facility]) Body temperature 97.8 [degF] 97.8 [degF] eCW1 ( [facility]) Respiratory rate 18 /min 18 /min eCW1 ([facility]) Heart rate 60 /min 60 /min eCW1 ([facility]) Heart rate 64 /min 64 /min [facility] Diastolic blood pressure 66 mm[Hg] 66 mm[Hg] [facility] Systolic blood pressure 130 mm[Hg] 130 mm[Hg] [facility] Oxygen saturation in Arterial blood by Pulse oximetry 95 % 95 % [facility] Respiratory rate 17 /min 17 /min [facility] Body temperature 36.56 Sadia 36.56 Sadia [facility] Body mass index (BMI) [Ratio] 35.89 kg/m2 35.89 kg/m2 [facility] Body weight 115.1 kg 115.1 kg [facility] Body height 179.1 cm 179.1 cm [facility] Diastolic blood pressure 74 mm[Hg] 74 mm[Hg] [facility] Systolic blood pressure 128 mm[Hg] 128 mm[Hg] [facility] Oxygen saturation in Arterial blood by Pulse oximetry 98 % 98 % [facility] Body mass index (BMI) [Ratio] 36.07 kg/m2 36.07 kg/m2 [facility] Body weight 115.667 kg 115.667 kg [facility] Body height 179.1 cm 179.1 cm [facility] Heart rate 59 /min 59 /min [facility] Patient Treatment Plan of Care Planned Activity Planned Date Details Description Data Source (s) Amoxicillin 500 MG Oral Capsule 09/20/2019 12:00:00 AM EST [facility] Aspirin 81 MG Delayed Release Oral Tablet 09/20/2019 12:00:00 AM T [facility] clopidogrel 75 MG Oral Tablet 09/20/2019 12:00:00 AM EST [facility] Lidocaine Hydrochloride 20 MG/ML Mucous Membrane Topic al Solution 07/14/2019 12:00:00 AM EST [facility] cilostazol 100 MG Oral Tablet [facility] Aspirin 325 MG Oral Tablet S [facility] cilostazol 100 MG Oral Tablet [facility]
[2020-10-17] MEDS ORDERED: CILO100T (16:10)
[2020-10-17] MEDS ORDERED: NS 1,000 ML IV SCH (16:17)
[2020-10-17] MEDS ORDERED: GI COCKTAIL 50ML BTL(HYOSCYAMINE/MAALOX/LIDOCAINE VISCOUS)(1:3:1) PO ONE (16:20)
[2020-10-17] MEDS ORDERED: ASPIRIN 81 MG CHEW TABLET PO ONE (16:20)
[2020-10-17 16:51] LABS: BASO # 0.1 10^3/uL (0.0-0.2); BASO % 0.9 % (0.0-1.0); EOS # 0.3 10^3/uL (0.0-0.5); EOS % 4.6 % (0.0-3.0); HEMATOCRIT 44.7 % (42.0-52.0); HEMOGLOBIN 14.6 g/dl (13.5-17.5); LYMPH # 1.4 10^3/uL (1.5-5.0); LYMPH % 21.1 % (24.0-44.0); MEAN CORPUSCULAR HEMOGLOBIN 28.9 pg (27.0-33.0); MEAN CORPUSCULAR HGB CONC 32.7 g/dl (32.0-36.5); MEAN CORPUSCULAR VOLUME 88.3 fl (80.0-96.0); MONO # 0.6 10^3/uL (0.0-0.8); MONO % 9.5 % (2.0-8.0); NEUTROPHILS # 4.2 10^3/uL (1.5-8.5); NEUTROPHILS % 63.4 % (36.0-66.0); PLATELET COUNT, AUTOMATED 123 10^3/uL (150-450); RED BLOOD COUNT 5.06 10^6/uL (4.30-6.10); WHITE BLOOD COUNT 6.6 10^3/uL (4.0-10.0)
--- OUTSIDE RECORDS SUMMARY | 2020-10-17 16:51 | CCD ---
Author Author [facility] Organization [facility] Address Unknown Phone Unavailable Care Team Providers Care Hose Inspector And Patcher Name Role Phone Blake KEEN MD Unavailable Unavailable Blake KEEN [...] Unavailable HANSA, S AYMAN MD Unavailable Unavailable Blake KEEN MD Unavailable Unavailable Blake KEEN MD Unavailable Unavailable Blake KEEN MD Unavailable Unavailable Blake KEEN MD Unavailable Unavailable Blake KEEN MD Unavailable Unavailable Blake KEEN MD Unavailable Unavailable Blake KEEN MD Unavailable Unavailable Ajit, L Jenna PA Unavailable [...] Unavailable SOMMER SORIA MD Unavailable Unavailable SOMMER SOIRA MD Unavailable Unavailable SOMMER SORIA MD Unavailable [...] Unavailable Unavailable SOMMER SORIA MD Unavailable Unavailable SORIASOMMER WATSON MD Unavailable Unavailable SORIA, SOMMER MD Unavailable [...] Unavailable Unavailable SORIA, SOMMER MD Unavailable Unavailable Re-disclosure Warning The records [...] is protected by Article 27-F of the [place] Public Health law. If you continue you may have access to information: Regarding HIV / AIDS; Provided by facilities licensed or operated by the [facility] of Mental Health; or Provided by the [facility] for People With Developmental Disabilities. If such information is present, then the following [facility] mandated warning applies: This information has been [...] Environmental Allergies No Known Environmental Al lergies [facility] No Known Food Allergies No Known Food Allergies [facility] BRANDNAME [facility] ITCHING [facility] Family History Family Member Name Family Member Gender Family Member Status Date o f Status Description Data Source(s) Unknown Female Problem [facility]ENT ([facility]) Unknown Male Problem MEDENT ([facility] ) Unknown Female Problem [facility] ([facility] Encounters Encounter Providers Location Date Indications Data Source(s ) Outpatient Attender: SOMMER SORIA MDConsultant: SOMMER Rider MD 10/08/2020 12:54:00 PM EST - 10/08/2020 12:54:00 PM [facility] Out[facility] [address] [address] 10/02/2020 12:00:00 AM EST eCW1 ([facility]) Outpatient Attender: SOMMER SORIA MDConsultant: SOMMER Rider MD 09/04/2020 02:43:00 PM EST - 09/04/2020 02:43:00 PM [facility] Outpatient Attender: SOMMER SORIA MD Family Practice 09/04/2020 0 2:00:00 PM EST MEDENT ([facility]) Outpatient Attender: SOMMER SORIA MDConsultant: SOMMER Rider MD 08/08/2020 08:56:00 AM EST - 08/08/2020 08:56:00 AM [facility] Outpatient Attender: SOMMER SORIA MD Family Practice 08/08/2020 0 8:20:00 AM EST MEDENT ([facility]) Outpatient Attender: SOMMER SORIA MD Family Practice 05/07/2020 0 1:00:00 PM EDT MEDENT ([facility]) Outpatient Attender: SOMMER SORIA MDConsultant: SOMMER Rider MD 05/07/2020 12:40:00 PM EDT - 05/07/2020 12:40:00 PM EDT [facility] [address] [place] [id number] 02/07/2020 12:00:00 AM EDT eCW1 ([facility]) Unknown [address] [facility] [address] 02/06/2020 12:00:00 AM EDT eCW1 ([facility]) Outpatient Attender: SOMMER SORIA MD Family Practice 01/19/2020 1 0:00:00 AM EDT MEDENT ([facility]) Outpatient Attender: SOMMER SORIA MDConsultant: SOMMER Rider MD 01/19/2020 09:37:00 AM EDT - 01/19/2020 09:37:[address] [facility] Recurring Patient Attender: Dominic Baker IIReferrer: SOMMER LINARES MD 12/30/2019 09:16:29 AM EDT [facility] Outpatient Attender: Jenna STREETER Main Office 10/19/2019 01:00:0 0 PM EST MEDENT ([facility]) Outpatient Attender: SOMMER SORIA MDConsultant: SOMMER Rider MD 10/03/2019 10:18:00 AM EST - 10/03/2019 10:18:[address] [facility] Office Visit Attender: SOMMER SORIA MD Family Practice 2019 09:00:00 AM EST [facility] ([facility] [address] [place] [phone] 09/30/2019 12:00:00 AM EST eCW1 ([facility]) Outpatient Attender: SOMMER SORIA MDConsultant: SOMMER Rider MD 09/27/2019 09:04:00 AM EST - 09/27/2019 10:04:[address] [facility] Inpatient Attender: SYMONE KEEN MDAdmitter: SYMONE CASTRO MD [id number] 09/19/2019 06:32:00 AM EST - 09/20/2019 05:42:00 PM EST [facility] Patient discharged. Outpatient Attender: SYMONE KEEN MDReferrer: SYMONE CASTRO MD MOB-MOB.PAT 09/12/2019 12:11:35 PM EST - 09/12/2019 01:47:14 PM EST [facility] Outpatient Attender: SOMMER SORIA MDConsultant: SOMMER Rider MD 03/18/2018 02:50:[address] [facility] Immunizations Vaccine Date Status Description Data Source(s) New in 2011. IIV4 08/08/2020 08:38:00 AM EST completed MEDENT ([facility]) pneumococcal polysaccharide PPV23 08/08/2020 08:37:00 AM EST comple julian MEDENT ([facility]) Medications Medication Brand Name Start Date Product Form Dose Route Admi nistrative Instructions Pharmacy Instructions Status Indications Reaction Description Data Source(s) Cholecalciferol 24856 UNT Oral Capsule Weekly-D 09/04/2020 12:00:00 AM EST ORAL active MEDENT ([facility]) Triamcinolone Acetonide 5 MG/ML Topical Cream Triamcinolone Acetonide 09/04/2020 12:00:00 AM EST active M EDENT ([facility]) Amoxicillin 500 MG Oral Tablet Amoxicillin 05/24/2020 12:00:00 AM EDT ORAL active MEDENT ([facility], ) Magnesium Hydroxide 80 MG/ML Oral Suspension Milk Of Magnesi a 05/21/2020 12:00:00 AM EDT ORAL active M EDENT ([facility], ) Suprep Bowel Prep Kit Suprep Bowel Prep Kit 05/21/2020 12:00:00 AM EDT active MEDENT ([facility], ) terbinafine 250 MG Oral Tablet Terbinafine HCL 05/07/2020 12:00:00 AM EDT ORAL completed MEDENT ([facility]) ciclopirox 80 MG/ML Topical Solution Ciclopirox 05/07/2020 12:00:00 A M EDT completed MEDENT ([facility]) Sulfamethoxazole 800 MG / Trimethoprim 160 MG Oral Tablet [B actrim] Bactrim DS 05/07/2020 12:00:00 AM EDT ORAL completed MEDENT ([facility]) Aspirin 81 MG Delayed Release Oral Tablet Aspirin 10/18/2019 1 2:00:00 AM EST ORAL active [facility] ([facility]) clopidogrel 75 MG Oral Tablet Clopidogrel Bisulfate 10/18/2019 1 2:00:00 AM EST ORAL active MEDENT ( [facility]) Bisacodyl 10 MG Rectal Suppository bisacodyl (DULCOLAX ) suppository 10 mg bisacodyl (DULCOLAX) suppository 10 mg 09/22/2019 09:00:00 AM EST 10 mg Rectal active 10 mg, Rectal, Daily PRN, constipation, Starting Kasie 09/22/19 at 0900, Post-op
If lactulose not effective, give bisacodyl suppository x 1 per rectum prn starting POD #3.
[facility] Medication administered onsite POLYETHYLENE GLYCOL 3350 142 MG/ML Oral Solution polyethylene glycol (GLYCOLAX) packet 17 g polyethylene glycol (GLYCOLAX) packet 17 g 09/21/2019 07:00:00 AM EST 17 g Oral active 17 g, Or al, Daily PRN, For constipation, Starting Thu09/21/19 at 0700, PACU & Post-op
hold for loose stools
[facility] Medication administered onsite Aspirin 81 MG [...] OG tube in place, give non-enteric aspirin.
[facility] Medication administered onsite pantoprazole 40 MG Delayed Release Oral Tablet pantoprazole (PROTONIX) EC tablet 40 mg pantoprazole (PROTONIX) EC tablet 40 mg 09/20/2019 09:00:[address] 40 mg Oral active Stress Ulcer Prophylaxis 40 mg, Oral, Daily, Indications: Stress Ulcer Prophylaxis, First dose on Thu09/20/19 at 0900, Post-op [facility] Stress Ulcer Prophylaxis Medication administered onsite Docusate Sodium 100 MG Oral Capsule docusate sodium (C OLACE) capsule 100 mg docusate sodium (COLACE) capsule 100 mg 09/20/2019 09:00:00 AM EST 100 mg Oral active 100 mg, Oral, 2 times daily, First dose on Thu09/20/19 at 0900, Post-op
Start first POD.
[facility] Medication administered onsite Lisinopril 20 MG Oral Tablet lisinopril (PRINIVIL,ZEST RIL) tablet 20 mg lisinopril (PRINIVIL,ZESTRIL) tablet 20 mg 09/20/2019 09:00:00 AM EST 20 mg Oral active 20 mg, Oral, Daily, First dose on Thu09/20/19 at 0900 [facility] Medication administered onsite clopidogrel 75 MG Oral Tablet clopidogrel (PLAVIX) tab let 75 mg clopidogrel (PLAVIX) tablet 75 mg 09/20/2019 09:00:00 AM EST 75 mg Oral active 75 mg, Oral, Daily, First dose on Thu09/20/19 at 0900, Post-op
Start first POD.
[facility] Medication administered onsite Chlorthalidone 25 MG Oral Tablet chlorthalidone (HYGRO TEN) tablet 12.5 mg chlorthalidone (HYGROTEN) tablet 12.5 mg 09/20/2019 09:00:00 AM EST 12.5 mg Oral active 12.5 mg, Oral, Daily , First dose on Thu09/20/19 at 0900 [facility] Medication administered onsite carvedilol 25 MG Oral Tablet carvedilol (COREG) tablet 25 mg carvedilol (COREG) tablet 25 mg 09/20/2019 09:00:00 AM EST 25 mg Oral activ e 25 mg, Oral, 2 times daily, First dose on Thu09/20/19 at 0900
Hold for SBP <110 or HR <60
[facility] Medication administered onsite clopidogrel 75 MG Oral Tablet clopidogrel (PLAVIX) 75 MG tablet clopidogrel (PLAVIX) 75 MG tablet 09/20/2019 12:00:00 AM EST 75 mg Oral active Take 1 tablet (75 mg total) by mouth daily [facility] Amoxicillin 500 MG Oral Capsule amoxicillin (AMOXIL) 5 00 MG capsule amoxicillin (AMOXIL) 500 MG capsule 09/20/2019 12:00:00 AM EST 2000 mg Oral active Take 4 capsules (2,000 mg total) by mout h as needed (Take 1 hr prior to any dental procedures or cleanings) [facility] Aspirin 81 MG Delayed Release Oral Tablet aspirin 81 M G EC tablet aspirin 81 MG EC tablet 09/20/2019 12:00:00 AM EST 81 mg Oral active Take 1 tablet (81 mg total) by mouth daily [facility] heparin (porcine) injection 5,000 Units 71290-453-53 09/19/19 09:00:00 PM EST 5000 U Subcutaneous [...] equal to 1.7 if receiving Coumadin therapy.
[facility] Medication administered onsite cefazolin (ANCEF) injection 2 g 09/19/2019 03:00:00 PM EST 2 g Intravenous completed Perioperative Pharmacoprophylaxis 2 g, Intravenous, Administer over 6 Minutes, Every 8 hours (relative), First dose on Thu09/19/19 at 1500, For 2 doses, Post-op
RN may administer IV push or infuse this medication through syringe adapter set ref [id number]. Flush line after use
[facility] Perioperative Pharmacoprophylaxis Medication administered onsite normal saline flush 0.9 % injection 3 mL 19156-785-80 09/19/2019 02:00:00 PM EST 3 mL Intravenous active 3 mL , Intravenous, PROTOCOL, First dose on Thu09/19/19 at 1400, Post-op
flush per protocol, D/C Main IV fluid if appropriate
[facility] Medication administered onsite acetaminophen (TYLENOL) 325 [...] Thu09/19/19 at 1058, Post-op [Order 2 End] [facility] Medication administered onsite 2 ML Metoclopramide 5 MG/ML Prefilled Sy ringe metoclopramide (REGLAN) injection 10 mg metoclopramide (REGLAN) injection 10 mg 09/19/2019 10:58:[address] 10 mg Intravenous active 10 mg, I ntravenous, Every 6 hours PRN, nausea, vomiting, Starting Thu09/19/19 at 1058, Post-op
Give once if no response to Zofran after 15-30 minutes, then q6h prn N/V.
[facility] Medication administered onsite ondansetron (ZOFRAN) injection 4 mg 76590-632-00 09/19/2019 10:58:0 7 AM EST 4 mg Intravenous active 4 mg, In travenous, Every 6 hours PRN, nausea, vomiting, Starting Thu09/19/19 at 1058, Post-op
If no response in 15-30 minutes then give metoclopramide 10 mg IV x 1 then q6h prn N/V.
[facility] Medication administered onsite sodium chloride 0.9% (NS) infusion 7298-0302-81 09/19/2019 10:00:00 A M EST Intravenous completed at 75 mL/hr, Intravenous, Continuous, Starting Thu09/19/19 at 1000, For 4 hours, Post-op [facility] Medication administered onsite atorvastatin 20 MG Oral Tablet atorvastatin (LIPITOR) tablet 20 mg atorvastatin (LIPITOR) tablet 20 mg 09/19/2019 10:00:00 AM EST 20 mg Oral active 20 mg, Oral, Daily, First dose on Thu09/19/19 at 1000 [facility] Medication administered onsite Magnesium Chloride 0.36667 MEQ/ML / Pota ssium Chloride 0.0497 MEQ/ML / Sodium Acetate 0.0163 MEQ/ML / Sodium Chloride 0.0899 MEQ/ML / Sodium gluconate 5.02 MG/ML Injectable Solution [Normosol-R] electrolyte-R (NORMOSOL-R/PLASMALYTE-R) solution electrolyte-R (NORMOSOL-R/PLASMALYTE-R) solution 09/19 08:00:00 AM EST Intravenous active at 3 0 mL/hr, Intravenous, Continuous, Starting Thu09/19/19 at 0800, Pre-op
For cardiac surgery patients only
[facility] Medication administered onsite heparin (porcine) injection 5,000 Units 29951-247-72 09/19/19 07:00:00 AM EST 5000 U Subcutaneous completed 5,000 Uni ts, Subcutaneous, On Admission, Thu09/19/19 at 0700, For 1 dose, Pre-op
Hold for platelets less than 90,000.
[facility] Medication administered onsite Lidocaine Hydrochloride 20 MG/ML Mucous Membrane Topical Solution lidocaine Viscous HCl (XYLOCAINE) 2 % solution lidocaine Viscous HCl (XYLOCAINE) 2 % solution 07/14/2019 12:00:00 AM EST 5 mL Oral aborted Take 5 mL by mouth as needed for pain [facility] cilostazol 100 MG Oral Tablet cilostazol (PLETAL) 100 MG tablet cilostazol (PLETAL) 100 MG tablet 100 mg Oral aborted Take 100 mg by mouth 2 (two) times a day [facility] Aspirin 325 MG Oral Tablet aspirin 325 MG tablet aspirin 325 MG tab let 325 mg Oral aborted Take 325 mg by mouth linus ly [facility] cilostazol 100 MG Oral Tablet cilostazol (PLETAL) 100 MG tablet cilostazol (PLETAL) 100 MG tablet 100 mg Oral aborted Take 100 mg by mouth 2 (two) times a day [facility] Insurance Providers Payer name Policy type / Coverage type Policy ID Covered democrat ID Covered democrat's relationship to moss Policy Moss Plan Information FOR LIFE [id number] SP [id number] MEDICARE [id number] SP [id number] MEDICARE PART A [facility] [id number] 18 [id number] FOR LIFE [id number] FOR LIFE CO UNAVAILABLE 01 U NAVAILABLE FOR LIFE -O/P UNAVAILABLE 01 UNAVAILABLE Family [place] F [id number] SELF [id number] MEDICARE [id number] Sandra [id number] Sandra [id number] FOR LIFE -O/P [id number] 01 [id number] MEDICARE PART A -O/P [id number] 18 [id number] FOR LIFE -O/P CO [id number] 01 [id number] FOR LIFE [id number] MEDICARE [id number] MEDICARE [id number] SP [id number] A MEDICARE [id number] Sandra [id number] A MEDICARE PART A [facility] [id number] 18 [id number] FOR LIFE -O/P [id number] 01 [id number] MEDICARE PART A -O/P [id number] 18 [id number] DME Jurisdiction A UTIC C [id number] SELF [id number] Medicare C [id number] SELF [id number] M77 For Life F [id number] SELF [id number] DME Jurisdiction A UTIC C [id number] SELF [id number] Medicare C [id number] SELF [id number] For Life Medigap Part B [id number] Family Dependent [id number] Medicare Part A [place] Medicare Primary [id number] Self [id number] For Life Medigap Part B [id number] Family Dependent [id number] Medicare Part A [place] Medicare Primary [id number] Self [id number] [employer] Plan Commercial [id number] Self [id number] [place] [employer] (TFL) Medigap Part B [id number] Self [id number] Medicare [facility] Medicare Primary [id number] Self [id number] [employer] Commercial [id number] Self [id number] [place] [employer] (TFL) Medigap Part B [id number] Self [id number] [place] Primary [id number] Self [id number] For Life Medigap Part B [id number] Family Dependent [id number] Medicare Part A [place] Medicare Primary [id number] Self [id number] For Life - WPS Medigap Part B [id number] Family Depen dent [id number] Medicare (Part B) Medicare Primary [id number] Self [id number] For Life Medigap Part B [id number] Family Dependent [id number] Medicare Part A [place] Medicare Primary [id number] Self [id number] [facility] [id number] SP [id number] For Life Medigap Part [id number] Family Dependent [id number] Medicare Part A [place] Medicare Primary [id number] Self [id number] [employer] Commercial [id number] Self [id number] [place] [employer] (TFL) Medigap Part B [id number] Self [id number] [place] Medicare Primary [id number] Self [id number] [place] Family Health Plan Commercial [id number] Self [id number] [facility] Serv (TFL) Medigap Part B [id number] Self [id number] [place] Medicare Primary [id number] Self [id number] For Life Medigap Part B [id number] Family Dependent [id number] Medicare Part A [place] Medicare Primary [id number] Self [id number] FOR LIFE O [id number] P [id number] MEDICARE C [id number] S [id number] A FOR LIFE [id number] 01 [id number] MEDICARE -O/P [id number] 18 [id number] Medicare Part A [place] Medicare Primary [id number] Self [id number] For Life Commercial [id number] Family Dependent [id number] Medicare Part A [place] Medicare Primary [id number] Self [id number] For Life Commercial [id number] Family Dependent [id number] USFHP AT [facility] [id number] 18 [id number] USFHP AT [facility] [id number] 18 [id number] USFHP AT [facility]-O/P [id number] 18 [id number] Medicare Part A [place] Medicare Primary [id number] Self [id number] For Life Commercial [id number] Family Dependent [id number] MEDICARE PART A [facility] [id number] 18 [id number] For Life - WPS Medigap Part B [id number] Self [id number] Medicare (Part B) Medicare Primary [id number] Self [id number] [facility] [place] [id number] 18 [id number] USFHP AT [facility] [place] [id number] 18 [id number] [facility] Commercial [id number] Self [id number] [facility] [id number] Self [id number] [place] Commercial [id number] Self [id number] [place] Commercial [id number] Self 000 [id number] [place] Commercial [id number] Self 000 [id number] [place] Commercial [id number] Self 000 [id number] [place] Commercial [id number] Self 000 [id number] [place] Commercial [id number] Self 000 [id number] [place] O [id number] S [id number] [facility] Point Commercial Self [facility] Health Plan Commercial Self [facility] Healthcare Health Maintenance Organization (HMO) [facility] [id number] Spo [id number] Problems, Conditions, and Diagnoses Code Display Name Description Problem Type Effective Dates Data Source(s) 29733099 Essential hypertension Essential hypertension Problem 01/12/2020 12:00:00 AM COLLIN MONTILLA ([facility], ) E78.5 Hyperlipidemia, acquired Hyperlipidemia, acquired 6457 200009/19/2019 12:00:[address] [facility] I10 Hypertension, essential Hypertension, essential 478191 09/19/2019 12:00:[address] [facility] I73.9 Peripheral vascular disease Peripheral vascular diseas e [id number] 09/19/2019 12:00:[address] [facility] K21.9 GERD (gastroesophageal reflux disease) G ERD (gastroesophageal reflux disease) 60664331 09/19/2019 12:00:[address] [facility] I35.0 Nonrheumatic aortic (valve) stenosis Nonrheumati c aortic (valve) stenosis [id number] 09/19/2019 12:00:00 AM [facility] E559 Vitamin D deficiency, unspecified Vitamin D defi ciency, unspecified Diagnosis 09/04/2020 02:43:00 PM [facility] R739 Hyperglycemia, unspecified Hyperglycemia, unspecified Diagnosis 09/04/2020 02:43:00 PM [facility] G4733 Obstructive sleep apnea (adult) (pediatr ic) Obstructive sleep apnea (adult) (pediatric) Diagnosis 09/04/2020 02:43:00 PM [facility] E785 Hyperlipidemia, unspecified Hyperlipidemia, unspecifie d Diagnosis 09/04/2020 02:43:00 PM [facility] I739 Peripheral vascular disease, unspecified Peripheral vascular disease, unspecified Diagnosis 09/04/2020 02:43:00 PM [facility] I10 Essential (primary) hypertension Essential (primary) h ypertension Diagnosis 09/04/2020 02:43:00 PM [facility] Z23 Encounter for immunization Encounter for immunization Diagnosis 08/08/2020 08:56:00 AM [facility] M130 Polyarthritis, unspecified Polyarthritis, unspecified Diagnosis 08/08/2020 08:56:00 AM [facility] 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 Onychogryphosis Diagnosis 08/08/2020 08:5 6:00 AM [facility] E782 Mixed hyperlipidemia Mixed hyperlipidemia Diagnosis 08/08/2020 08:56:00 AM [facility] I359 Nonrheumatic aortic valve disorder, unsp ecified Nonrheumatic aortic valve disorder, unspecified Diagnosis 10/03/2019 10:18:00 AM [facility] N3289 Other specified disorders of bladder Other speci fied disorders of bladder Diagnosis 09/27/2019 09:04:00 AM [facility] I35.0 Nonrheumatic aortic (valve) stenosis Nonrheumati c aortic (valve) stenosis Diagnosis 09/12/2019 12:11:35 PM [facility] Surgeries/Procedures Procedure Description Date Indications Data Source(s) Medication: (Derm) 1% Lidocaine with Epi nephrine Injection Intradermally to marked area (s) 09/28/2020 12:00:00 AM EST eCW1 ([facility]) Colonoscopy W/ Poly 06/07/2020 12:00:00 AM EDT MEDENT ([facility]) ECG ROUTINE ECG W/LEAST 12 LDS W/I&R 10/19/2019 12:00: 00 AM EST MEDENT ([facility]) Brief Emotional/Behav Assessment W/ Scoring Doc Per Standard Inst 10/03/2019 12:00:00 AM EST [facility] ([facility] DESTROY BENIGN/PREMLG LESION 09/30/2019 12:00:00 AM ES T eCW1 ([facility]) ECHO TTHRC R-T 2D W/WOM-MODE COMPL SPEC&COLR DOP ECHOCARDIO GRAM TRANSTHORACIC Routine 09/20/2019 2:24 PM EST 09/20/2019 07:24:37 PM EST [facility] BLOOD COUNT COMPLETE AUTOMATED CBC Timed 09/20/2019 2:21 A M EST 09/20/2019 07:21:00 AM EST [facility] BASIC METABOLIC PANEL CALCIUM TOTAL BASIC METABOLIC PANEL Timed 09/20/2019 2:21 AM EST 09/20/2019 07:21:00 AM EST [facility] XR CHEST PORTABLE XR CHEST PORTABLE STAT 09/19/2019 9:33 AM EST 09/19/2019 02:33:46 PM EST [facility] ECG ROUTINE ECG W/LEAST 12 LDS TRCG ONLY W/O I&R ECG 12-LEAD Routine 09/19/2019 9:23 AM EST 09/19/2019 02:23:05 PM EST [facility] PROTHROMBIN TIME PROTIME-INR STAT 09/19/2019 9:19 AM EST 09/19/2019 02:19:00 PM EST [facility] BLOOD COUNT COMPLETE AUTOMATED CBC STAT 09/19/2019 9:19 A M EST 09/19/2019 02:19:00 PM EST [facility] MAGNESIUM MAGNESIUM STAT 09/19/2019 9:19 AM EST 09/19/2019 02:19:00 PM EST [facility] BASIC METABOLIC PANEL CALCIUM TOTAL BASIC METABOLIC PANEL STAT 09/19/2019 9:19 AM EST 09/19/2019 02:19:00 PM EST [facility] TRANSCATHETER AORTIC VALVE IMPLANT FEMORAL TRANSCATHE TER AORTIC VALVE IMPLANT FEMORAL Routine 09/19/2019 8:48 AM EST Nonrheumatic aortic (valve) stenosis 09/19/2019 01:48:00 PM EST Nonrheumatic aortic (valve) stenosis [facility] Nonrheumatic aortic (valve) stenosis POC ARTERIAL BLOOD GAS W LYTES POC ARTERIAL BLOOD GAS W LYTES R outine 09/19/2019 8:24 AM EST 09/19/2019 01:24:00 PM EST [facility] POC ACT POC ACT Routine 09/19/2019 8:23 AM EST 020 01:23:00 PM EST [facility] POC ARTERIAL BLOOD GAS W LYTES POC ARTERIAL BLOOD GAS W LYTES R outine 09/19/2019 7:55 AM EST 09/19/2019 12:55:00 PM EST [facility] POC ACT POC ACT Routine 09/19/2019 7:54 AM EST 020 12:54:00 PM EST [facility] GLUC BLD GLUC MNTR DEV CLEARED FDA SPEC HOME USE POCT GLUCOSE Routine 09/19/2019 6:49 AM EST 09/19/2019 11:49:00 AM EST [facility] ECG ROUTINE ECG W/LEAST 12 LDS TRCG ONLY W/O I&R ECG 12-LEAD Routine 09/12/2019 1:46 PM EST Nonrheumatic aortic valve stenosis 09/12/2019 06:46:25 PM ES T Nonrheumatic aortic valve stenosis [facility] Nonrheumatic aortic valve stenosis ROOM TEMP AB SCREEN ROOM TEMP AB SCREEN Routine 09/12/2019 1 :10 PM EST Nonrheumatic aortic valve stenosis 09/12/2019 06:10:00 PM ES T Nonrheumatic aortic valve stenosis [facility] Nonrheumatic aortic valve stenosis BLOOD TYPING ABO TYPE AND SCREEN Routine 09/12/2019 1:10 PM EST Nonrheumatic aortic valve stenosis 09/12/2019 06:10:00 PM ES T Nonrheumatic aortic valve stenosis [facility] Nonrheumatic aortic valve stenosis NT PRO BNP NT PRO BNP Routine 09/12/2019 1:03 PM EST Nonrheumatic aortic valve stenosis 09/12/2019 06:03:00 PM ES T Nonrheumatic aortic valve stenosis [facility] Nonrheumatic aortic valve stenosis URNLS DIP STICK/TABLET RGNT AUTO W/O MICROSCOPY URINALYSIS W/O MICRO Routine 09/12/2019 1:03 PM EST Nonrheumatic aortic valve stenosis 09/12/2019 06:03:00 PM ES T Nonrheumatic aortic valve stenosis [facility] Nonrheumatic aortic valve stenosis THROMBOPLASTIN TIME PARTIAL PLASMA/WHOLE BLOOD APTT Routine 09/12/2019 1:03 PM EST Nonrheumatic aortic valve stenosis 09/12/2019 06:03:00 PM ES T Nonrheumatic aortic valve stenosis [facility] Nonrheumatic aortic valve stenosis PROTHROMBIN TIME PROTIME-INR Routine 09/12/2019 1:03 PM EST Nonrheumatic aortic valve stenosis 09/12/2019 06:03:00 PM ES T Nonrheumatic aortic valve stenosis [facility] Nonrheumatic aortic valve stenosis BLOOD COUNT COMPLETE AUTO&AUTO DIFRNTL WBC COUNT CBC AND DIFFER ENTIAL Routine 09/12/2019 1:03 PM EST Nonrheumatic aortic valve stenosis 09/12/2019 06:03:00 PM ES T Nonrheumatic aortic valve stenosis [facility] Nonrheumatic aortic valve stenosis HEMOGLOBIN GLYCOSYLATED A1C HEMOGLOBIN A1C Routine 09/12/2019 1:03 PM EST Nonrheumatic aortic valve stenosis 09/12/2019 06:03:00 PM ES T Nonrheumatic aortic valve stenosis [facility] Nonrheumatic aortic valve stenosis COMPREHENSIVE METABOLIC PANEL COMPREHENSIVE METABOLIC PANEL Rou lamar 09/12/2019 1:03 PM EST Nonrheumatic aortic valve stenosis 09/12/2019 06:03:00 PM ES T Nonrheumatic aortic valve stenosis [facility] Nonrheumatic aortic valve stenosis Results ID Date Data Source [id number] 08/08/2020 09:32:00 AM EST [facility] ([facility]) Name Value Range Interpretation Code Description Data Meme rce(s) Supporting Document(s) Calcidiol [Mass/volume] in Serum or Plasma 23 ng/mL [facility] ([facility]) Is patient fasting? N ID Date Data Source [id number] 08/08/2020 09:32:00 AM EST [facility] ([facility]) Name Value Range Interpretation Code Description Data Meme rce(s) Supporting Document(s) Cve Panel Laboratory test result [facility] ([facility]) Is patient fasting? N Cholesterol 153 mg/dL 131-200 [facility] ([facility]) Is patient fasting? N Triglycerides 96 mg/dL 35-160 [facility] ([facility]) Is patient fasting? N HDL 45 mg/dL 29-86 [facility] ([facility]) Is patient fasting? N Risk Factor 3.4 3.4-4.9 Below low normal [facility] ([facility]) Is patient fasting? N LDL 99 mg/dL 65-175 [facility] ([facility]) Is patient fasting? N LDL/HDL 2.20 1.00-3.55 [facility] ([facility]) Is patient fasting? N ID Date Data Source [id number] 08/08/2020 09:32:00 AM EST [facility] ([facility]) Name Value Range Interpretation Code Description Data Meme rce(s) Supporting Document(s) Hemoglobin A1c/Hemoglobin.total in Blood 5.8 % 4.4-6.1 [facility] ([facility]) Is patient fasting? N ID Date Data Source [id number] 08/08/2020 09:32:00 AM EST [facility] ([facility]) Name Value Range Interpretation Code Description Data Meme rce(s) Supporting Document(s) CBC W/Automated Diff Laboratory test result [facility] ([facility]) Is patient fasting? N RBC 5.54 10^6/uL 4.50-6.30 [facility] ([facility]) Is patient fasting? N WBC 7.2 10^3/uL 4.2-11.0 [facility] ([facility]) Is patient fasting? N Hemoglobin 16.3 g/dL 14.0-16.0 Above high normal [facility] ([facility]) Is patient fasting? N Hematocrit 48.4 % 41.0-51.0 [facility] ([facility]) Is patient fasting? N MCV 87.4 fL 80.0-94.0 [facility] ([facility]) Is patient fasting? N RDW 12.6 % 11.5-14.8 [facility] ([facility]) Is patient fasting? N MCHC 33.7 g/dL 31.0-36.0 [facility] ([facility]) Is patient fasting? N MCH 29.4 pg 27.0-34.0 [facility] ([facility]) Is patient fasting? N Platelets 140 10^3/uL 150-450 Below low normal [facility] ([facility]) Is patient fasting? N MPV 12.1 fL 7.4-10.4 Above high normal [facility] ([facility]) Is patient fasting? N Neut 59.7 % 37.0-80.0 [facility] ([facility]) Is patient fasting? N Dubois 7.0 % 3.0-8.0 [facility] ([facility]) Is patient fasting? N Lymph 26.7 % 25.0-40.0 [facility] ([facility]) Is patient fasting? N Eos 5.2 % 0.0-7.0 [facility] ([facility]) Is patient fasting? N %Ig 0.6 % 0.0-0.0 Above high normal [facility] ([facility]) Is patient fasting? N Baso 0.8 % 0.0-2.0 [facility] ([facility]) Is patient fasting? N #Neut 4.27 10^3/uL 2.00-6.90 [facility] ([facility]) Is patient fasting? N %NRBC 0.0 % 0.0-0.0 [facility] ([facility]) Is patient fasting? N #Lymph 1.91 10^3/uL 0.60-3.40 [facility] ([facility]) Is patient fasting? N #Dubois 0.50 10^3/uL 0.00-0.90 [facility] ([facility]) Is patient fasting? N #Eos 0.37 10^3/uL 0.00-0.70 [facility] ([facility]) Is patient fasting? N #Baso 0.06 10^3/uL 0.00-0.20 [facility] ([facility]) Is patient fasting? N Manual Diff Laboratory test result [facility] ([facility]) Is patient fasting? N #Ig 0.04 10^3/uL 0.00-0.10 [facility] ([facility]) Is patient fasting? N #NRBC 0.00 10^3/uL 0.00-0.00 [facility] ([facility]) Is patient fasting? N RBC Morph Laboratory test result [facility] ([facility]) Is patient fasting? N ID Date Data Source [id number] 08/08/2020 09:32:00 AM EST [facility] ([facility]) Name Value Range Interpretation Code Description Data Meme rce(s) Supporting Document(s) Comprehensive Metabo Laboratory test result [facility] ([facility]) Is patient fasting? N Potassium 4.3 meq/L 3.6-5.0 [facility] ([facility]) Is patient fasting? N Sodium 135 meq/L 134-153 [facility] ([facility]) Is patient fasting? N Co2 26 meq/L 22-30 [facility] ([facility]) Is patient fasting? N Chloride 100 meq/L 98-107 [facility] ([facility]) Is patient fasting? N BUN 21 mg/dL 7-21 [facility] ([facility]) Is patient fasting? N Creatinine 1.1 mg/dL 0.7-1.5 [facility] ([facility]) Is patient fasting? N Glucose 132 mg/dL 65-110 Above high normal [facility] ([facility]) Is patient fasting? N BUN/Creat 19 8-27 [facility] ([facility]) Is patient fasting? N Albumin 4.7 g/dL 3.9-5.0 [facility] ([facility]) Is patient fasting? N Total Protein 7.0 g/dL 6.3-8.2 [facility] ([facility]) Is patient fasting? N A/G Ratio 2.0 0.8-2.0 [facility] ([facility]) Is patient fasting? N Globulin 2.3 GM/DL 2.4-3.2 Below low normal [facility] ( [facility]) Is patient fasting? N Total Bili 0.8 mg/dL 0.2-1.3 [facility] ([facility]) Is patient fasting? N Alkaline Phos 68 U/L 38-126 [facility] ([facility]) Is patient fasting? N Calcium 9.8 mg/dL 8.4-10.2 [facility] ([facility]) Is patient fasting? N SGPT/Alt 12 U/L 7-56 [facility] ([facility]) Is patient fasting? N Sgot/Ast 15 U/L 5-40 [facility] ([facility]) Is patient fasting? N Anion Gap 9.0 mmol/L 8.0-16.0 [facility] ([facility]) Is patient fasting? N Non-Aa GFR Laboratory test result [facility] ([facility]) Is patient fasting? N Age 74 yrs [facility] ([facility]) Is patient fasting? N Afr Amer GFR Laboratory test result [facility] ([facility]) Is patient fasting? N ID Date Data Source [id number] 08/10/2020 03:17:00 AM [facility] Name Value Range Interpretation Code Description Data Meme rce(s) Supporting Document(s) Calcidiol [Moles/volume] in Serum or Plasma 23 NG/ML [facility] VITAMIN-D(2 5HYDROXY) Deficiency: <=20 ng/ml Insufficiency: 21-29 ng/ml Preferred level: => 30 ng/ml ID Date Data Source [id number] 08/08/2020 03:53:00 PM [facility] Name Value Range Interpretation Code Description Data Meme rce(s) Supporting Document(s) CVE PANEL [facility] LIPID PANEL Cholesterol [Mass/volume] in Serum or Plasma 153 MG/DL 131 - 200 [facility] Deprecated Triglyceride [Mass/volume] in Serum or Plasma 96 MG/DL 3 5 - 160 [facility] HDL 45 MG/DL 29 - 86 [facility] Cholesterol in LDL [Mass/volume] in Serum or Plasma by Direc t assay 99 mg/dL 65 - 175 [facility] Cholesterol.total/Cholesterol in HDL [Mass Ratio] in Serum o r Plasma 3.4 3.4 - 4.[address] [facility] LDL/HDL 2.20 1.00 - 3.55 [facility] ital CVE RISK CHOL/HDL LDL/HDLMEN: 1/2 AVERAGE 3.43 1.00 AVERAGE 4.97 3.55 2X AVERAGE 9.55 6.25 3X AVERAGE 23.99 7.99WOMEN: 1/2 AVERAGE 3.27 1.47 AVERAGE 4.44 3.22 2X AVERAGE 7.05 5.03 3X AVERAGE 11.04 6.14 ID Date Data Source [id number] 08/08/2020 03:53:[address] [facility] Name Value Range Interpretation Code Description Data Meme rce(s) Supporting Document(s) COMPREHENSIVE METABOLIC PANEL [facility] COMPREHENSIVE METABOLIC PANEL Sodium [Moles/volume] in Serum or Plasma 135 mEq/L 134 - 153 [facility] Potassium [Moles/volume] in Serum or Plasma 4.3 mEq/L 3.6 - 5.0 [facility] Chloride [Moles/volume] in Serum or Plasma 100 mEq/L 98 - 107 [facility] Carbon dioxide, total [Moles/volume] in Serum or Plasma 26 MEQ/L 22 - 30 [facility] Glucose [Mass/volume] in Serum or Plasma 132 MG/DL 65 - [address] [facility] BUN 21 MG/DL 7 - 21 [facility] Creatinine [Mass/volume] in Serum or Plasma 1.1 MG/DL 0.7 - 1.5 [facility] BUN/CREAT 19 8 - 27 [facility] Protein [Mass/volume] in Serum or Plasma 7.0 G/DL 6.3 - 8.2 [facility] Albumin [Mass/volume] in Serum or Plasma 4.7 G/DL 3.9 - 5.0 [facility] Globulin [Mass/volume] in Serum by calculation 2.3 GM/DL 2.4 - 3.[address] [facility] A/G RATIO 2.0 0.8 - 2.0 [facility] Calcium [Mass/volume] in Serum or Plasma 9.8 MG/DL 8.4 - 10.2 [facility] Bilirubin.total [Mass/volume] in Serum or Plasma 0.8 MG/DL 0.2 - 1.3 [facility] Alkaline phosphatase [Enzymatic activity/volume] in Serum or Plasma 68 U/L 38 - 126 [facility] Aspartate aminotransferase [Enzymatic activity/volume] in Serum or Plasma 15 U/L 5 - 40 [facility] Alanine aminotransferase [Enzymatic activity/volume] in Seru m or Plasma 12 U/L 7 - 56 [facility] Anion gap 3 in Serum or Plasma 9.0 mmol/L 8.0 - 16.0 [facility] AGE 74 yrs [facility] NON-AA GFR >60 mL/min [facility] ital AFR AMER GFR >60 mL/min [facility] Ho spital Male GFR In terprentation 20-49 [...] >32 mL/min Normal ID Date Data Source [id number] 08/08/2020 03:37:[address] [facility] Name Value Range Interpretation Code Description Data Meme rce(s) Supporting Document(s) CBC W/AUTOMATED DIFF [facility] COMPLETE BLOOD COUNT Leukocytes [#/volume] in Blood by Automated count 7.2 10^3/uL 4.2 - [address] [facility] Erythrocytes [#/volume] in Blood by Automated count 5.54 10^6/uL 4. 50 - 6.30 [facility] Hemoglobin [Mass/volume] in Blood 16.3 g/dL 14.0 - 16.[address] [facility] Hematocrit [Volume Fraction] of Blood by Automated count 48.4 % 4 1.0 - 51.0 [facility] Erythrocyte mean corpuscular volume [Entitic volume] by Auto mated count 87.4 fL 80.0 - 94.0 [facility] Erythrocyte mean corpuscular hemoglobin [Entitic mass] by Automated count 29.4 pg 27.0 - 34.0 [facility] Erythrocyte mean corpuscular hemoglobin concentration [Mass/volume] by Automated count 33.7 g/dL 31.0 - 36.0 [facility] Erythrocyte distribution width [Ratio] by Automated count 12.6 % 11.5 - 14.8 [facility] Platelets [#/volume] in Blood by Automated count 140 10^3/uL 150 - [address] [facility] Platelet mean volume [Entitic volume] in Blood by Automated count 12.1 fL 7.4 - 10.[address] [facility] Neutrophils/100 leukocytes in Blood by Automated count 59.7 % 37. 0 - 80.0 [facility] Lymphocytes/100 leukocytes in Blood by Manual count 26.7 % 25.0 - 40.0 [facility] Monocytes/100 leukocytes in Blood by Automated count 7.0 % 3.0 - 8.0 [facility] Eosinophils/100 leukocytes in Blood by Automated count 5.2 % 0.0 - 7.0 [facility] Basophils/100 leukocytes in Blood by Automated count 0.8 % 0.0 - 2.0 [facility] %IG 0.6 % 0.0 - 0.0 H [facility] al %NRBC 0.0 % 0.0 - 0.0 [facility] Neutrophils [#/volume] in Blood by Automated count 4.27 10^3/uL 2.00 - 6.90 [facility] Lymphocytes [#/volume] in Blood by Automated count 1.91 10^3/uL 0.60 - 3.40 [facility] Monocytes [#/volume] in Blood by Automated count 0.50 10^3/uL 0.00 - 0.90 [facility] Eosinophils [#/volume] in Blood by Automated count 0.37 10^3/uL 0.00 - 0.70 [facility] Basophils [#/volume] in Blood by Automated count 0.06 10^3/uL 0.00 - 0.20 [facility] #IG 0.04 10^3/uL 0.00 - 0.10 [facility] #NRBC 0.00 10^3/uL 0.00 - 0.00 [facility] MANUAL DIFF NOT INDICATED [facility] RBC MORPH NOT INDICATED [facility] ID Date Data Source [id number] 08/08/2020 03:32:[address] [facility] Name Value Range Interpretation Code Description Data Meme rce(s) Supporting Document(s) Hemoglobin A1c/Hemoglobin.total in Blood 5.8 % 4.4 - 6.1 [facility] {A1]{HB] ID Date Data Source [id number] 06/07/2020 11:29:00 AM EDT [facility] ([facility] ) Name Value Range Interpretation Code Description Data Meme rce(s) Supporting Document(s) Surgical pathology study Laboratory test result [facility] ([facility] ) FINAL DIAGNOSIS Colon polyp rectum, polypectomy: Tubular adenoma, fragments. 06/08/20201107 CLINICAL DIAGNOSIS Screening colonoscopy 06/08/2020721 GROSS DIAGNOSIS Received in formalin labeled "colon polyp rectum" and it consists of fragments of tissue 0.3 x 0.3 x 0.1 cm. All in one. -OA 06/08/2020721 Signed VINCENT ADORNO MD 06/08/20201107 ID Date Data Source [id number] 06/02/2020 12:00:00 PM EDT [facility] Name Value Range Interpretation Code Description Data Meme rce(s) Supporting Document(s) SARS coronavirus 2 RNA [facility] This lab was ordered by [facility] and reported by [facility]. ID Date Data Source [id number] 05/07/2020 01:56:00 PM EDT [facility] ([facility]) Name Value Range Interpretation Code Description Data Meme rce(s) Supporting Document(s) Bacteria identified in Wound by Culture Laboratory test result [facility] ([facility]) {SPECIMEN SOURCE : ABDOMEM GROIN AREA ID Date Data Source [id number] 05/11/2020 01:32:[address] [facility] Name Value Range Interpretation Code Description Data Meme rce(s) Supporting Document(s) CULTURE WOUND [facility] _CULTURE WOUND_$$[id number]$$[id number]$$[id number]$$[id number]$$[id number] DATE/TIME: 05/11/2020 13:06Culture: CULTURE WOUND Status: FinalAerobic Bacterial Culture: P1No growth in 36 - 48 hours. Previous result entered on 05/10/2020 05:29 ET No growth after 18-24 hours.P1 [facility]: [id number] [address] [place] [address] [id number] [facility] [id number] Director : Keenan Wisdom MD NPI #:Literacy Tutor : 05/10/[email or web address].SENT REF 05/11/20.1332.XMT.SENT REF ID Date Data Source [id number] 01/19/2020 11:28:00 AM EDT [facility] Name Value Range Interpretation Code Description Data Meme rce(s) Supporting Document(s) White Blood Count 6.6 4.2-11.0 [facility] ([facility]) Platelets 127 150-450 [facility] ([facility]) Red Blood Count 5.30 4.50-6.30 [facility] ([facility]) Hematocrit 46.0 41.0-51.0 [facility] ([facility]) Hemoglobin 15.1 14.0-16.0 [facility] ([facility]) ID Date Data Source [id number] 01/19/2020 11:28:00 AM EDT [facility] Name Value Range Interpretation Code Description Data Meme rce(s) Supporting Document(s) Alanine aminotransferase [Enzymatic activity/volume] in Serum or Pl asma 15 [facility] ([facility]) Calcium [Mass/volume] in Serum or Plasma 9.3 [facility] ([facility]) Albumin [Mass/volume] in Serum or Plasma 4.6 [facility] ([facility]) Potassium [Moles/volume] in Serum or Plasma 4.3 [facility] ([facility]) Carbon dioxide, total [Moles/volume] in Serum or Plasma 23 [facility] ([facility]) Alkaline phosphatase [Enzymatic activity/volume] in Serum or Plasma 5 8 [facility] ([facility]) Chloride [Moles/volume] in Serum or Plasma 103 [facility] ([facility]) Sodium 140 [facility] Protein [Mass/volume] in Serum or Plasma 6.8 [facility] ([facility]) Aspartate aminotransferase [Enzymatic activity/volume] in Serum or Plasma 16 [facility] ([facility]) Urea nitrogen [Mass/volume] in Serum or Plasma 28 [facility] ([facility]) Creatinine For GFR 1.1 [facility] ([facility]) Glucose 113 65-110 [facility] ID Date Data Source [id number] 01/19/2020 11:28:00 AM EDT [facility] ([facility]) Name Value Range Interpretation Code Description Data Meme rce(s) Supporting Document(s) Triglycerides 108 [facility] ([facility]) Cholesterol 110 131-200 [facility] ([facility]) Cholesterol in LDL [Mass/volume] in Serum or Plasma by calculation 60 [facility] ([facility]) HDL 39 29-86 [facility] Chol/HDL Ratio 1.54 [facility] ([facility]) ID Date Data Source [id number] 01/19/2020 10:13:00 AM EDT [facility] ([facility]) Name Value Range Interpretation Code Description Data Meme rce(s) Supporting Document(s) Reflex Criteria Laboratory test result [facility] ([facility]) FASTING~.~.~<DG1.3.1>E78.5</DG1.3.1><DG1.3.1>E78.5</DG1.3.1><DG1.3.1>E78.5</DG1. 3.1><DG1.3.1 Prostate Specific Ag,Serum 1.7 ng/mL 0.0-4.0 [facility] ([facility]) FASTING~.~.~<DG1.3.1>E78.5</DG1.3.1><DG1.3.1>E78.5</DG1.3.1><DG1.3.1>E78.5</DG1. 3.1><DG1.3.1 ID Date Data Source [id number] 01/19/2020 10:13:00 AM EDT [facility] ([facility]) Name Value Range Interpretation Code Description Data Meme rce(s) Supporting Document(s) Natriuretic peptide.B prohormone N-Terminal [Mass/volu me] in Serum or Plasma 74 pg/mL 0-125 [facility] ([facility]) FASTING~.~.~<DG1.3.1>E78.5</DG1.3.1><DG1.3.1>E78.5</DG1.3.1><DG1.3.1>E78.5</DG1. 3.1><DG1.3.1 Hemoglobin A1c/Hemoglobin.total in Blood 5.7 % 4.4-6.1 [facility] ([facility]) FASTING~.~.~<DG1.3.1>E78.5</DG1.3.1><DG1.3.1>E78.5</DG1.3.1><DG1.3.1>E78.5</DG1. 3.1><DG1.3.1 ID Date Data Source [id number] 01/19/2020 10:13:00 AM EDT [facility] ([facility]) Name Value Range Interpretation Code Description Data Meme rce(s) Supporting Document(s) Urinalysis Laboratory test result [facility] ([facility]) FASTING~.~.~<DG1.3.1>E78.5</DG1.3.1><DG1.3.1>E78.5</DG1.3.1><DG1.3.1>E78.5</DG1. 3.1><DG1.3.1 Source Laboratory test result [facility] ([facility]) FASTING~.~.~<DG1.3.1>E78.5</DG1.3.1><DG1.3.1>E78.5</DG1.3.1><DG1.3.1>E78.5</DG1. 3.1><DG1.3.1 Color Laboratory test result [facility] ([facility]) FASTING~.~.~<DG1.3.1>E78.5</DG1.3.1><DG1.3.1>E78.5</DG1.3.1><DG1.3.1>E78.5</DG1. 3.1><DG1.3.1 Spec [place] 1.025 1.001-1.030 [facility] ([facility]) FASTING~.~.~<DG1.3.1>E78.5</DG1.3.1><DG1.3.1>E78.5</DG1.3.1><DG1.3.1>E78.5</DG1. 3.1><DG1.3.1 Clarity Laboratory test result [facility] ([facility]) FASTING~.~.~<DG1.3.1>E78.5</DG1.3.1><DG1.3.1>E78.5</DG1.3.1><DG1.3.1>E78.5</DG1. 3.1><DG1.3.1 pH 5 5-9 [facility] ([facility]) FASTING~.~.~<DG1.3.1>E78.5</DG1.3.1><DG1.3.1>E78.5</DG1.3.1><DG1.3.1>E78.5</DG1. 3.1><DG1.3.1 Glucose Laboratory test result [facility] ([facility]) FASTING~.~.~<DG1.3.1>E78.5</DG1.3.1><DG1.3.1>E78.5</DG1.3.1><DG1.3.1>E78.5</DG1. 3.1><DG1.3.1 Bilirubin Laboratory test result [facility] ([facility]) FASTING~.~.~<DG1.3.1>E78.5</DG1.3.1><DG1.3.1>E78.5</DG1.3.1><DG1.3.1>E78.5</DG1. 3.1><DG1.3.1 Ketone Laboratory test result [facility] ([facility]) FASTING~.~.~<DG1.3.1>E78.5</DG1.3.1><DG1.3.1>E78.5</DG1.3.1><DG1.3.1>E78.5</DG1. 3.1><DG1.3.1 Nitrite Laboratory test result [facility] ([facility]) FASTING~.~.~<DG1.3.1>E78.5</DG1.3.1><DG1.3.1>E78.5</DG1.3.1><DG1.3.1>E78.5</DG1. 3.1><DG1.3.1 Blood Laboratory test result [facility] ([facility]) FASTING~.~.~<DG1.3.1>E78.5</DG1.3.1><DG1.3.1>E78.5</DG1.3.1><DG1.3.1>E78.5</DG1. 3.1><DG1.3.1 Protein Laboratory test result [facility] ([facility]) FASTING~.~.~<DG1.3.1>E78.5</DG1.3.1><DG1.3.1>E78.5</DG1.3.1><DG1.3.1>E78.5</DG1. 3.1><DG1.3.1 Urobilinogen Laboratory test result [facility] ([facility]) FASTING~.~.~<DG1.3.1>E78.5</DG1.3.1><DG1.3.1>E78.5</DG1.3.1><DG1.3.1>E78.5</DG1. 3.1><DG1.3.1 Leuk Est Laboratory test result [facility] ([facility]) FASTING~.~.~<DG1.3.1>E78.5</DG1.3.1><DG1.3.1>E78.5</DG1.3.1><DG1.3.1>E78.5</DG1. 3.1><DG1.3.1 Microscopic Laboratory test result [facility] ([facility]) FASTING~.~.~<DG1.3.1>E78.5</DG1.3.1><DG1.3.1>E78.5</DG1.3.1><DG1.3.1>E78.5</DG1. 3.1><DG1.3.1 ID Date Data Source [id number] 01/19/2020 10:13:00 AM EDT [facility] ([facility]) Name Value Range Interpretation Code Description Data Meme rce(s) Supporting Document(s) CBC W/Automated Diff Laboratory test result [facility] ([facility]) FASTING~.~.~<DG1.3.1>E78.5</DG1.3.1><DG1.3.1>E78.5</DG1.3.1><DG1.3.1>E78.5</DG1. 3.1><DG1.3.1 WBC 6.6 10^3/uL 4.2-11.0 [facility] ([facility]) FASTING~.~.~<DG1.3.1>E78.5</DG1.3.1><DG1.3.1>E78.5</DG1.3.1><DG1.3.1>E78.5</DG1. 3.1><DG1.3.1 RBC 5.30 10^6/uL 4.50-6.30 [facility] ([facility]) FASTING~.~.~<DG1.3.1>E78.5</DG1.3.1><DG1.3.1>E78.5</DG1.3.1><DG1.3.1>E78.5</DG1. 3.1><DG1.3.1 Hematocrit 46.0 % 41.0-51.0 [facility] ([facility]) FASTING~.~.~<DG1.3.1>E78.5</DG1.3.1><DG1.3.1>E78.5</DG1.3.1><DG1.3.1>E78.5</DG1. 3.1><DG1.3.1 Hemoglobin 15.1 g/dL 14.0-16.0 [facility] ([facility]) FASTING~.~.~<DG1.3.1>E78.5</DG1.3.1><DG1.3.1>E78.5</DG1.3.1><DG1.3.1>E78.5</DG1. 3.1><DG1.3.1 MCHC 32.8 g/dL 31.0-36.0 [facility] ([facility]) FASTING~.~.~<DG1.3.1>E78.5</DG1.3.1><DG1.3.1>E78.5</DG1.3.1><DG1.3.1>E78.5</DG1. 3.1><DG1.3.1 MCH 28.5 pg 27.0-34.0 [facility] ([facility]) FASTING~.~.~<DG1.3.1>E78.5</DG1.3.1><DG1.3.1>E78.5</DG1.3.1><DG1.3.1>E78.5</DG1. 3.1><DG1.3.1 MCV 86.8 fL 80.0-94.0 [facility] ([facility]) FASTING~.~.~<DG1.3.1>E78.5</DG1.3.1><DG1.3.1>E78.5</DG1.3.1><DG1.3.1>E78.5</DG1. 3.1><DG1.3.1 Platelets 127 10^3/uL 150-450 Below low normal [facility] ([facility]) FASTING~.~.~<DG1.3.1>E78.5</DG1.3.1><DG1.3.1>E78.5</DG1.3.1><DG1.3.1>E78.5</DG1. 3.1><DG1.3.1 RDW 12.7 % 11.5-14.8 [facility] ([facility]) FASTING~.~.~<DG1.3.1>E78.5</DG1.3.1><DG1.3.1>E78.5</DG1.3.1><DG1.3.1>E78.5</DG1. 3.1><DG1.3.1 MPV 12.1 fL 7.4-10.4 Above high normal [facility] ([facility]) FASTING~.~.~<DG1.3.1>E78.5</DG1.3.1><DG1.3.1>E78.5</DG1.3.1><DG1.3.1>E78.5</DG1. 3.1><DG1.3.1 Lymph 30.6 % 25.0-40.0 [facility] ([facility]) FASTING~.~.~<DG1.3.1>E78.5</DG1.3.1><DG1.3.1>E78.5</DG1.3.1><DG1.3.1>E78.5</DG1. 3.1><DG1.3.1 Neut 55.0 % 37.0-80.0 [facility] ([facility]) FASTING~.~.~<DG1.3.1>E78.5</DG1.3.1><DG1.3.1>E78.5</DG1.3.1><DG1.3.1>E78.5</DG1. 3.1><DG1.3.1 Dubois 7.8 % 3.0-8.0 [facility] ([facility]) FASTING~.~.~<DG1.3.1>E78.5</DG1.3.1><DG1.3.1>E78.5</DG1.3.1><DG1.3.1>E78.5</DG1. 3.1><DG1.3.1 Eos 5.8 % 0.0-7.0 [facility] ([facility]) FASTING~.~.~<DG1.3.1>E78.5</DG1.3.1><DG1.3.1>E78.5</DG1.3.1><DG1.3.1>E78.5</DG1. 3.1><DG1.3.1 Baso 0.6 % 0.0-2.0 [facility] ([facility]) FASTING~.~.~<DG1.3.1>E78.5</DG1.3.1><DG1.3.1>E78.5</DG1.3.1><DG1.3.1>E78.5</DG1. 3.1><DG1.3.1 %Ig 0.2 % 0.0-0.0 Above high normal [facility] ([facility]) FASTING~.~.~<DG1.3.1>E78.5</DG1.3.1><DG1.3.1>E78.5</DG1.3.1><DG1.3.1>E78.5</DG1. 3.1><DG1.3.1 #Neut 3.61 10^3/uL 2.00-6.90 [facility] ([facility]) FASTING~.~.~<DG1.3.1>E78.5</DG1.3.1><DG1.3.1>E78.5</DG1.3.1><DG1.3.1>E78.5</DG1. 3.1><DG1.3.1 #Lymph 2.01 10^3/uL 0.60-3.40 [facility] ([facility]) FASTING~.~.~<DG1.3.1>E78.5</DG1.3.1><DG1.3.1>E78.5</DG1.3.1><DG1.3.1>E78.5</DG1. 3.1><DG1.3.1 %NRBC 0.0 % 0.0-0.0 [facility] ([facility]) FASTING~.~.~<DG1.3.1>E78.5</DG1.3.1><DG1.3.1>E78.5</DG1.3.1><DG1.3.1>E78.5</DG1. 3.1><DG1.3.1 #Eos 0.38 10^3/uL 0.00-0.70 [facility] ([facility]) FASTING~.~.~<DG1.3.1>E78.5</DG1.3.1><DG1.3.1>E78.5</DG1.3.1><DG1.3.1>E78.5</DG1. 3.1><DG1.3.1 #Dubois 0.51 10^3/uL 0.00-0.90 [facility] ([facility]) FASTING~.~.~<DG1.3.1>E78.5</DG1.3.1><DG1.3.1>E78.5</DG1.3.1><DG1.3.1>E78.5</DG1. 3.1><DG1.3.1 #Baso 0.04 10^3/uL 0.00-0.20 [facility] ([facility]) FASTING~.~.~<DG1.3.1>E78.5</DG1.3.1><DG1.3.1>E78.5</DG1.3.1><DG1.3.1>E78.5</DG1. 3.1><DG1.3.1 Manual Diff Laboratory test result [facility] ([facility]) FASTING~.~.~<DG1.3.1>E78.5</DG1.3.1><DG1.3.1>E78.5</DG1.3.1><DG1.3.1>E78.5</DG1. 3.1><DG1.3.1 #NRBC 0.00 10^3/uL 0.00-0.00 [facility] ([facility]) FASTING~.~.~<DG1.3.1>E78.5</DG1.3.1><DG1.3.1>E78.5</DG1.3.1><DG1.3.1>E78.5</DG1. 3.1><DG1.3.1 #Ig 0.01 10^3/uL 0.00-0.10 [facility] ([facility]) FASTING~.~.~<DG1.3.1>E78.5</DG1.3.1><DG1.3.1>E78.5</DG1.3.1><DG1.3.1>E78.5</DG1. 3.1><DG1.3.1 RBC Morph Laboratory test result [facility] ([facility]) FASTING~.~.~<DG1.3.1>E78.5</DG1.3.1><DG1.3.1>E78.5</DG1.3.1><DG1.3.1>E78.5</DG1. 3.1><DG1.3.1 ID Date Data Source [id number] 01/19/2020 10:13:00 AM EDT [facility] ([facility]) Name Value Range Interpretation Code Description Data Meme rce(s) Supporting Document(s) Sodium 140 meq/L 134-153 [facility] ([facility]) FASTING~.~.~<DG1.3.1>E78.5</DG1.3.1><DG1.3.1>E78.5</DG1.3.1><DG1.3.1>E78.5</DG1. 3.1><DG1.3.1 [facility] [employer] Laboratory test result [facility] ([facility]) FASTING~.~.~<DG1.3.1>E78.5</DG1.3.1><DG1.3.1>E78.5</DG1.3.1><DG1.3.1>E78.5</DG1. 3.1><DG1.3.1 Potassium 4.3 meq/L 3.6-5.0 [facility] ([facility]) FASTING~.~.~<DG1.3.1>E78.5</DG1.3.1><DG1.3.1>E78.5</DG1.3.1><DG1.3.1>E78.5</DG1. 3.1><DG1.3.1 Chloride 103 meq/L 98-107 [facility] ([facility]) FASTING~.~.~<DG1.3.1>E78.5</DG1.3.1><DG1.3.1>E78.5</DG1.3.1><DG1.3.1>E78.5</DG1. 3.1><DG1.3.1 Glucose 113 mg/dL 65-110 Above high normal [facility] ([facility]) FASTING~.~.~<DG1.3.1>E78.5</DG1.3.1><DG1.3.1>E78.5</DG1.3.1><DG1.3.1>E78.5</DG1. 3.1><DG1.3.1 Co2 23 meq/L 22-30 [facility] ([facility]) FASTING~.~.~<DG1.3.1>E78.5</DG1.3.1><DG1.3.1>E78.5</DG1.3.1><DG1.3.1>E78.5</DG1. 3.1><DG1.3.1 Creatinine 1.1 mg/dL 0.7-1.5 [facility] ([facility]) FASTING~.~.~<DG1.3.1>E78.5</DG1.3.1><DG1.3.1>E78.5</DG1.3.1><DG1.3.1>E78.5</DG1. 3.1><DG1.3.1 BUN/Creat 25 8-27 [facility] ([facility]) FASTING~.~.~<DG1.3.1>E78.5</DG1.3.1><DG1.3.1>E78.5</DG1.3.1><DG1.3.1>E78.5</DG1. 3.1><DG1.3.1 BUN 28 mg/dL 7-21 Above high normal [facility] ([facility]) FASTING~.~.~<DG1.3.1>E78.5</DG1.3.1><DG1.3.1>E78.5</DG1.3.1><DG1.3.1>E78.5</DG1. 3.1><DG1.3.1 Total Protein 6.8 g/dL 6.3-8.2 [facility] ([facility]) FASTING~.~.~<DG1.3.1>E78.5</DG1.3.1><DG1.3.1>E78.5</DG1.3.1><DG1.3.1>E78.5</DG1. 3.1><DG1.3.1 Albumin 4.6 g/dL 3.9-5.0 [facility] ([facility]) FASTING~.~.~<DG1.3.1>E78.5</DG1.3.1><DG1.3.1>E78.5</DG1.3.1><DG1.3.1>E78.5</DG1. 3.1><DG1.3.1 A/G Ratio 2.1 0.8-2.0 Above high normal [facility] ([facility]) FASTING~.~.~<DG1.3.1>E78.5</DG1.3.1><DG1.3.1>E78.5</DG1.3.1><DG1.3.1>E78.5</DG1. 3.1><DG1.3.1 Globulin 2.2 GM/DL 2.4-3.2 Below low normal [facility] ( [facility]) FASTING~.~.~<DG1.3.1>E78.5</DG1.3.1><DG1.3.1>E78.5</DG1.3.1><DG1.3.1>E78.5</DG1. 3.1><DG1.3.1 Calcium 9.3 mg/dL 8.4-10.2 [facility] ([facility]) FASTING~.~.~<DG1.3.1>E78.5</DG1.3.1><DG1.3.1>E78.5</DG1.3.1><DG1.3.1>E78.5</DG1. 3.1><DG1.3.1 Alkaline Phos 58 U/L 38-126 [facility] ([facility]) FASTING~.~.~<DG1.3.1>E78.5</DG1.3.1><DG1.3.1>E78.5</DG1.3.1><DG1.3.1>E78.5</DG1. 3.1><DG1.3.1 Total Bili 0.9 mg/dL 0.2-1.3 [facility] ([facility]) FASTING~.~.~<DG1.3.1>E78.5</DG1.3.1><DG1.3.1>E78.5</DG1.3.1><DG1.3.1>E78.5</DG1. 3.1><DG1.3.1 Sgot/Ast 16 U/L 5-40 [facility] ([facility]) FASTING~.~.~<DG1.3.1>E78.5</DG1.3.1><DG1.3.1>E78.5</DG1.3.1><DG1.3.1>E78.5</DG1. 3.1><DG1.3.1 SGPT/Alt 15 U/L 7-56 [facility] ([facility]) FASTING~.~.~<DG1.3.1>E78.5</DG1.3.1><DG1.3.1>E78.5</DG1.3.1><DG1.3.1>E78.5</DG1. 3.1><DG1.3.1 Anion Gap 14.0 mmol/L 8.0-16.0 [facility] ([facility]) FASTING~.~.~<DG1.3.1>E78.5</DG1.3.1><DG1.3.1>E78.5</DG1.3.1><DG1.3.1>E78.5</DG1. 3.1><DG1.3.1 Non-Aa GFR Laboratory test result [facility] ([facility]) FASTING~.~.~<DG1.3.1>E78.5</DG1.3.1><DG1.3.1>E78.5</DG1.3.1><DG1.3.1>E78.5</DG1. 3.1><DG1.3.1 Age 74 yrs [facility] ([facility]) FASTING~.~.~<DG1.3.1>E78.5</DG1.3.1><DG1.3.1>E78.5</DG1.3.1><DG1.3.1>E78.5</DG1. 3.1><DG1.3.1 Afr Amer GFR Laboratory test result [facility] ([facility]) FASTING~.~.~<DG1.3.1>E78.5</DG1.3.1><DG1.3.1>E78.5</DG1.3.1><DG1.3.1>E78.5</DG1. 3.1><DG1.3.1 ID Date Data Source [id number] 01/19/2020 10:13:00 AM EDT [facility] ([facility]) Name Value Range Interpretation Code Description Data Meme rce(s) Supporting Document(s) Creatine kinase [Enzymatic activity/volume] in Serum or Plasma 93 U /L 30-170 [facility] ([facility]) FASTING~.~.~<DG1.3.1>E78.5</DG1.3.1><DG1.3.1>E78.5</DG1.3.1><DG1.3.1>E78.5</DG1. 3.1><DG1.3.1 ID Date Data Source [id number] 01/19/2020 10:13:00 AM EDT [facility] ([facility]) Name Value Range Interpretation Code Description Data Meme rce(s) Supporting Document(s) Cve Panel Laboratory test result [facility] ([facility]) FASTING~.~.~<DG1.3.1>E78.5</DG1.3.1><DG1.3.1>E78.5</DG1.3.1><DG1.3.1>E78.5</DG1. 3.1><DG1.3.1 Triglycerides 108 mg/dL 35-160 [facility] ([facility]) FASTING~.~.~<DG1.3.1>E78.5</DG1.3.1><DG1.3.1>E78.5</DG1.3.1><DG1.3.1>E78.5</DG1. 3.1><DG1.3.1 Cholesterol 110 mg/dL 131-200 Below low normal [facility] ([facility]) FASTING~.~.~<DG1.3.1>E78.5</DG1.3.1><DG1.3.1>E78.5</DG1.3.1><DG1.3.1>E78.5</DG1. 3.1><DG1.3.1 HDL 39 mg/dL 29-86 [facility] ([facility]) FASTING~.~.~<DG1.3.1>E78.5</DG1.3.1><DG1.3.1>E78.5</DG1.3.1><DG1.3.1>E78.5</DG1. 3.1><DG1.3.1 Risk Factor 2.8 3.4-4.9 Below low normal [facility] ([facility]) FASTING~.~.~<DG1.3.1>E78.5</DG1.3.1><DG1.3.1>E78.5</DG1.3.1><DG1.3.1>E78.5</DG1. 3.1><DG1.3.1 LDL 60 mg/dL 65-175 Below low normal [facility] ([facility]) FASTING~.~.~<DG1.3.1>E78.5</DG1.3.1><DG1.3.1>E78.5</DG1.3.1><DG1.3.1>E78.5</DG1. 3.1><DG1.3.1 LDL/HDL 1.54 1.00-3.55 [facility] ([facility]) FASTING~.~.~<DG1.3.1>E78.5</DG1.3.1><DG1.3.1>E78.5</DG1.3.1><DG1.3.1>E78.5</DG1. 3.1><DG1.3.1 ID Date Data Source [id number] 01/22/2020 08:16:[address] [facility] Name Value Range Interpretation Code Description Data Meme rce(s) Supporting Document(s) Prostate specific Ag [Mass/volume] in Serum or Plasma 1.7 ng/mL 0.0- 4.0 [facility] Graciela ECLIA methodology.According to the [place] [employer], Serum PSA shoulddecrease and remain at undetectable levels after radicalprostatectomy. The AUA defines biochemical recurrence as an initialPSA value 0.2 ng/mL or greater followed by a subsequent confirmatoryPSA value 0.2 ng/mL or greater.Values obtained with different assay methods or kits cannot be usedinterchangeably. Results cannot be interpreted as absolute evidenceof the presence or absence of malignant disease. Reflex Criteria COMMENT [facility] The percent free PSA is performed on a r eflex basis only when thetotal PSA is between 4.0 and 10.0 ng/mL. ID Date Data Source [id number] 01/19/2020 02:11:[address] [facility] Name Value Range Interpretation Code Description Data Meme rce(s) Supporting Document(s) COMPREHENSIVE METABOLIC PANEL [facility] COMPREHENSIVE METABOLIC PANEL Sodium [Moles/volume] in Serum or Plasma 140 mEq/L 134 - 153 [facility] Potassium [Moles/volume] in Serum or Plasma 4.3 mEq/L 3.6 - 5.0 [facility] Chloride [Moles/volume] in Serum or Plasma 103 mEq/L 98 - 107 [facility] Carbon dioxide, total [Moles/volume] in Serum or Plasma 23 MEQ/L 22 - 30 [facility] Glucose [Mass/volume] in Serum or Plasma 113 MG/DL 65 - [address] [facility] BUN 28 MG/DL 7 - 21 H [facility] Creatinine [Mass/volume] in Serum or Plasma 1.1 MG/DL 0.7 - 1.5 [facility] BUN/CREAT 25 8 - 27 [facility] Protein [Mass/volume] in Serum or Plasma 6.8 G/DL 6.3 - 8.2 [facility] Albumin [Mass/volume] in Serum or Plasma 4.6 G/DL 3.9 - 5.0 [facility] Globulin [Mass/volume] in Serum by calculation 2.2 GM/DL 2.4 - 3.[address] [facility] A/G RATIO 2.1 0.8 - 2.0 [facility] Calcium [Mass/volume] in Serum or Plasma 9.3 MG/DL 8.4 - 10.2 [facility] Bilirubin.total [Mass/volume] in Serum or Plasma 0.9 MG/DL 0.2 - 1.3 [facility] Alkaline phosphatase [Enzymatic activity/volume] in Serum or Plasma 58 U/L 38 - 126 [facility] Aspartate aminotransferase [Enzymatic activity/volume] in Serum or Plasma 16 U/L 5 - 40 [facility] Alanine aminotransferase [Enzymatic activity/volume] in Seru m or Plasma 15 U/L 7 - 56 [facility] Anion gap 3 in Serum or Plasma 14.0 mmol/L 8.0 - 16.0 [facility] AGE 74 yrs [facility] NON-AA GFR >60 mL/min [facility] AFR AMER GFR >60 mL/min [facility] Male GFR In terprentation 20-49 [...] >32 mL/min Normal ID Date Data Source [id number] 01/19/2020 02:11:[address] [facility] Name Value Range Interpretation Code Description Data Meme rce(s) Supporting Document(s) CVE PANEL [facility] LIPID PANEL Cholesterol [Mass/volume] in Serum or Plasma 110 MG/DL 131 - [address] [facility] Deprecated Triglyceride [Mass/volume] in Serum or Plasma 108 MG/DL 3 5 - 160 [facility] HDL 39 MG/DL 29 - 86 [facility] Cholesterol in LDL [Mass/volume] in Serum or Plasma by Direc t assay 60 mg/dL 65 - [address] [facility] Cholesterol.total/Cholesterol in HDL [Mass Ratio] in Serum o r Plasma 2.8 3.4 - 4.[address] [facility] LDL/HDL 1.54 1.00 - 3.55 [facility] CVE RISK CHOL/HDL LDL/HDLMEN: 1/2 AVERAGE 3.43 1.00 AVERAGE 4.97 3.55 2X AVERAGE 9.55 6.25 3X AVERAGE 23.99 7.99WOMEN: 1/2 AVERAGE 3.27 1.47 AVERAGE 4.44 3.22 2X AVERAGE 7.05 5.03 3X AVERAGE 11.04 6.14 ID Date Data Source [id number] 01/19/2020 02:11:[address] [facility] Name Value Range Interpretation Code Description Data Meme rce(s) Supporting Document(s) Hemoglobin A1c/Hemoglobin.total in Blood 5.7 % 4.4 - 6.1 [facility] {A1]{HB] ID Date Data Source [id number] 01/19/2020 02:06:[address] [facility] Name Value Range Interpretation Code Description Data Meme rce(s) Supporting Document(s) Creatine kinase [Enzymatic activity/volume] in Serum or Plasma 9 3 U/L 30 - 170 [facility] ID Date Data Source [id number] 01/19/2020 02:04:[address] [facility] Name Value Range Interpretation Code Description Data Meme rce(s) Supporting Document(s) BNP 74 PG/ML 0 - 125 [facility] ID Date Data Source [id number] 01/19/2020 01:49:[address] [facility] Name Value Range Interpretation Code Description Data Meme rce(s) Supporting Document(s) CBC W/AUTOMATED DIFF [facility] COMPLETE BLOOD COUNT Leukocytes [#/volume] in Blood by Automated count 6.6 10^3/uL 4.2 - [address] [facility] Erythrocytes [#/volume] in Blood by Automated count 5.30 10^6/uL 4. 50 - 6.30 [facility] Hemoglobin [Mass/volume] in Blood 15.1 g/dL 14.0 - 16.0 [facility] Hematocrit [Volume Fraction] of Blood by Automated count 46.0 % 4 1.0 - 51.0 [facility] Erythrocyte mean corpuscular volume [Entitic volume] by Auto mated count 86.8 fL 80.0 - 94.0 [facility] Erythrocyte mean corpuscular hemoglobin [Entitic mass] by Automated count 28.5 pg 27.0 - 34.0 [facility] Erythrocyte mean corpuscular hemoglobin concentration [Mass/volume] by Automated count 32.8 g/dL 31.0 - 36.0 [facility] Erythrocyte distribution width [Ratio] by Automated count 12.7 % 11.5 - 14.8 [facility] Platelets [#/volume] in Blood by Automated count 127 10^3/uL 150 - [address] [facility] Platelet mean volume [Entitic volume] in Blood by Automated count 12.1 fL 7.4 - 10.[address] [facility] Neutrophils/100 leukocytes in Blood by Automated count 55.0 % 37. 0 - 80.0 [facility] Lymphocytes/100 leukocytes in Blood by Manual count 30.6 % 25.0 - 40.0 [facility] Monocytes/100 leukocytes in Blood by Automated count 7.8 % 3.0 - 8.0 [facility] Eosinophils/100 leukocytes in Blood by Automated count 5.8 % 0.0 - 7.0 [facility] Basophils/100 leukocytes in Blood by Automated count 0.6 % 0.0 - 2.0 [facility] %IG 0.2 % 0.0 - 0.0 [facility] %NRBC 0.0 % 0.0 - 0.0 [facility] al Neutrophils [#/volume] in Blood by Automated count 3.61 10^3/uL 2.00 - 6.90 [facility] Lymphocytes [#/volume] in Blood by Automated count 2.01 10^3/uL 0.60 - 3.40 [facility] Monocytes [#/volume] in Blood by Automated count 0.51 10^3/uL 0.00 - 0.90 [facility] Eosinophils [#/volume] in Blood by Automated count 0.38 10^3/uL 0.00 - 0.70 [facility] Basophils [#/volume] in Blood by Automated count 0.04 10^3/uL 0.00 - 0.20 [facility] #IG 0.01 10^3/uL 0.00 - 0.10 [facility] #NRBC 0.00 10^3/uL 0.00 - 0.00 [facility] MANUAL DIFF NOT INDICATED [facility] RBC MORPH NOT INDICATED [facility] ID Date Data Source [id number] 01/19/2020 01:48:[address] [facility] Name Value Range Interpretation Code Description Data Meme rce(s) Supporting Document(s) [facility]IS [facility] R [facility] COLOR yellow NORMAL: Yellow [facility] ospital CLARITY clear NORMAL: Clear [facility] Specific gravity of Urine by Test strip 1.025 1.001 - 1.030 [facility] pH 5 5 - 9 [facility] Glucose [Mass/volume] in Urine by Test strip NORM NORMAL: Negat [facility] Bilirubin.total [Presence] in Urine by Test strip NEG NORMAL: Negative [facility] Ketones [Presence] in Urine by Test strip NEG NORMAL: Negative [facility] Protein [Mass/volume] in Urine by Test strip NEG NORMAL: Negat [facility] Nitrite [Presence] in Urine by Test strip NEG NORMAL: Negative [facility] BLOOD NEG NORMAL: Negative [facility] Leukocyte esterase [Presence] in Urine by Test strip NEG BRITTANI L: Negative [facility] Urobilinogen [Mass/volume] in Urine by Test strip NOR less conchita n 1.0 mg/dL [facility] MICROSCOPIC Not Indicate [facility] H ospital ID Date Data Source [id number] 10/06/2019 09:47:01 PM EST [facility] NT INFORMATIONPatient MRN Name Date of Age Gend*PT [id number] Theo Edwards 1945 73 years M IPPT Location Admission Date/Time Visit ID Attending [id number] 09/19/19 0632 --- --- EPI ID CSN Admitting Provider [id number] Symone Keen MD([id number]) [place] [address] OPERATIVE REPORT OPNAME: JERRY THEO Riley#: [id number] #: [id number] ADMISSION DATE: 09/19/2019DOB: 1945 SEX: M PT TYPE: I SURACCT #: [id number] CARE PHYSICIAN: SOMMER VALDIVIA OF OPERATION: 09/19/2019PREOPERATIVE DIAGNOSES:1. Severe aortic stenosis, progressive symptomatology, peripheral vasculardisease.2. Hypertension.POSTOPERATIVE DIAGNOSES:1. Severe aortic stenosis, progressive symptomatology, peripheral vasculardisease.2. Hypertension.ANESTHESIA:General.ATTENDING EXTRACTING MACHINE OPERATOR:Dr. Gonzalez CARDIAC SURGEON:Dr. Timothy Granados.INDICATIONS:The patient is [...] room in stable condition.ASTRID Romo Job #: [id number] DOC #: [id number] Name Value Range Interpretation Code Description Data Meme rce(s) Supporting Document(s) ID Date Data Source [id number] 09/28/2019 09:03:00 AM EST [facility] [address] [place] [address] PHONE: [phone] FAX: [phone] Name .................. : JERRY TABARES Acct Number.................. : [id number] ROOM. ................. : Number ................... : [id number] Stay type ............. : O/P Discharge Date......... ... : 09/27/19 Admit Date ......... : 09/27/19 Admit Phys .................... : SORIA HARD Date of ....... : 1945 Family Phys ................... : [employer] HARD Phone .................. : [phone] Age ................................ : 73 Film# .................. .:[id number] Sex ................................. : M Unsigned transcriptions are preliminary reports and do not represent a medical or legal document RENAL/URINARY BLADDER [id number] COMPLETE:09/27/19 12:52 P 12414 (PROCEDURE REASON other specified disorders of bladd [...] rce(s) Supporting Document(s) ID Date Data Source [id number] 09/23/2019 01:18:13 PM EST [facility] NT INFORMATIONPatient MRN Name Date of Age Gend*PT [id number] Theo Edwards 1945 73 years M IPPT Location Admission Date/Time Visit ID Attending [id number] 09/19/19 0632 --- --- EPI ID CSN Admitting Provider [id number] Symone Keen MD([id number]) Attestation signed by Symone Keen MD at 09/23/2019 1:18 PMI saw and evaluated the patient and reviewed Brianna Naif's note. I agree withthe history, physical and medical decision making with the following additions,exceptions, and/or observationsSignature: Symone Keen MDDate: September 23, 2019Time: 1:18 PM ------Physician Discharge Summary Theo EdwardsMRN: [id number] date: 09/19/2019Attending Physician: Symone Keen MDAdmission Diagnosis: [...] [facility]. Patient underwent echocardiogram on 07/09/2019which concluded Moderately [...] deployed in the right femoral artery.A 6 [place] pigtail catheter was advanced through the left [...] SignsPt Height 1.79 mWeight 115.1 kgBSA 2.32 n3Mloiyshj BP Echo 130 mmHgDiastolic BP Echo 66 mmHg2D MeasurementsDimensionsLVIDD 4.53 cmLVIDS 2.76 cmIVS 0.76 cmPW 1.14 cmFS 39 %LA volume 48.5 cm3EF 66 %Echo EF Estimated 60 %LA Volume Index 20.9 mL/m22D Measurements - LV VolumeMOD BiplaneLV Systolic Volume 21 cm3LV Systolic Volume Index 9.1 mL/q1Atqzfux Measurements - Aortic ValveStenosisLVOT peak brooklynn 1.15 [...] rce(s) Supporting Document(s) ID Date Data Source [id number] 09/20/2019 03:42:24 PM EST [facility] Name Value Range Interpretation Code Description Data Meme rce(s) Supporting Document(s) &PDF [facility] OBZIVp0hCsKKPbZq59/LZZceQKYor8OtYLinAOh1FBvlGMBrA7JibJbpLEZCKoVYHugZRFGZFV1qNL7s pYy [file] AgICAgICAgICAgICAgICAgICAgICAgICAgICAgICAg JGNgGQRmTXUpQNBlRJRdWUYxDZExWJMaXCKxZDXvSGUzGTBzWJZtWQItHOVmQWLlCOMuJPYjIBAhDF3S ICAgICAgICAgICAgICAgICAgICAgICAgICAgICAgICAgICAgICAgICAgICAgICAgICAgICAgICAgICAg ICAgICAgICAgICAgICAgICAgICAgICAgICAgICAgIC RmAMFpEJXaMW0IRQNqXHMmKISfASMkRATuRAAoNJVgHAPoNQTuGKGgFTCtYESbKXBsUBWvPMCxXKHzXQ ClFSQqSUGrWWSyUGWlFVKdZNByYPNuSOWnAYSzDQZwUULkLOAkTRXlBYPnHAXjQBFrVE3GGMAwEPClYL AgICAgICAgICAgICAgICAgICAgICAgICAgICAgICAg ICAgICAgICAgICAgICAgICAgICAgICAgICAgICAgICAgICAgICAgICAgICAgICAgICAgICAgICAgICAg YG1PACNxBXUhJKWrKRXqZPPqPFXdKGPmBPDbVOGaHGAsALRvRZNvQFXbDLByDLRkKTCrGQPhKFYhJSYj ICAgICAgICAgICAgICAgICAgICAgICAgICAgICAgIC CwDZOvLFMxQUOiEE7BJAArJNDtUHBeYQXzWQBoQFOkKORpGTArKHVzXGRoAEYfAASpDKSyICInLQSxIW CvUYYyIRCpUYOwWOWmCALuARMtSMHvXIZdIZMmZQFiMVKnLDPwHVIiFKYrRVYhPOIzHUGeFQ0SCEPnJK AgICAgICAgICAgICAgICAgICAgICAgICAgICAgICAg ICAgICAgICAgICAgICAgICAgICAgICAgICAgICAgICAgICAgICAgICAgICAgICAgICAgICAgICAgICAg RYFvPP3NPYHqHUDqAIDpIHBuMDImZPPaJMCxZVJfLWFvHRGoSUDuUQHrZEAcNXUmNESjWSRzQVNlRMGv ICAgICAgICAgICAgICAgICAgICAgICAgICAgICAgIC YuJASfNDBrUZMbIMFgGW2LJZYeHFIiRRAuKUKnLHLtDELfOLKnSMPsCWXeVBUyPBPsRYVdLREjSPHaRB LxTSXnRHGxRANqQQMfHRDiRUZaAZSqHVOjTOBeFAAlFOXkIBFvRETaYPOfNFTnPCNtYQJcPGMpFO0ICU AgICAgICAgICAgICAgICAgICAgICAgICAgICAgICAg ICAgICAgICAgICAgICAgICAgICAgICAgICAgICAgICAgICAgICAgICAgICAgICAgICAgICAgICAgICAg CLPhJXNsHK6SJG75cALmg7S0CJBzNR0gohy/Jx6SCQwvaaJvfKUsHV2PUaVkXX5ebj8XRmUgIW6yvp7J IIjLIxWqO5P9kAPrSMKsEJQMSkGdB29kHNfnTi88ZA vxHVXwPtGwUYy2Hg8RPtKzL0atYRFuThP9KPDcXvB8IBAwJaLhZFlmJR9Rv8XlkOVyMBv+Ke1YPY0tw5 DiMJeiQiNcXW2fux4LYXcXEbRiF5Y2oEXeA6Q6LQpvIt5KUMQhBGLcAuHpRIYRPRoqLE0PNJ1xgiA8GP 4QmWTwXCGrTLIhcCHvXMr5T60eeHCuXItxIS4HDWT+ Winnie+Pl4YCUXuWAZyFZGpZsXrCGLXCpUuG33ovTIjKFUyNKO3QUTzVr0HMIKmJ7HoecRtaTgghtJdNRQa EDUMVP4WTZhiidHepXQwcRndRG26aCpjLD0ZUg4CVzGaLG2jrj1IsOLfCk9NNLTkRf5QVJOjWIPkMNDw MSE1RZUfVvMtTCtpRKPbJCWrZAO7CUSgDLOeZS5KTv CbYJMuWaN2SYhkORDgGMRbhg9YUTLvUJKqGpI2VoZeWAXdYSAwZBwjXSYfCTZnNQz9FJBrZYVnBF8FJh MzQBVbNWOnHbGgZKJgIWMeiv4XNEZtPIYoEgV4GlXyPLXvCUMaYJorUSTxERK7PnqlCOFaSGHzEF1PFa EfWJNgKZO1HMPkFVAaOGAbnt7KSJBbDRCnDbA1OBNj KUSfEDAjBRhrHRYgZKD7IzV4BQDkTHMiZI9VOdGaHWXlDBN8SHDzGDShRGUbfd8VOQAnTUMeYgokDIIn UFDcPJVgEIyxNFLtSVL0XWk5GBLmHIGjDZ4TXuCaVHTaPYvuNHOhPFKsITCfpk2WBDGsIPSpCmSuGfZc TVElELCdKWbfMLOcSIGbKxM3HBDuMFYmXV3HPyBdVC OsJVM8XxOfYSIeWAGtdj7BOZKbIMAuXgzhNqYhZKDaFAWhWEicQUApYDSnUVOiRICvKTOlQO5VNxYuNB ZrGRK3EOEnUCTfGDWiew9PZQFdTDFvJDU0OMPfFFJnLUPeHBasBQMvZFO4EuYfIKGeQAGtAO0EYfQlHS FmWsCxEfgrWQJiDBXlqg5GNKHpMSJwZZF1PJMbVYRs CAWuNVqrFHUjLDB7RKSuQDTyVUUqMM3KBfGjEHNoLjZ7AoLzHWEuUTVnfr5UzJCpgFmtsx0JYTuKMh1U qBpqUQV5QItsGy8ydCNyHsUhCOWRIz5EpfNzJRXxGHEDEUccHBZcCYRyTpQ1B0LjRBCmNBguINxfVNVl AqsvKRTaOaUdMIk2PwA9YQDjGdC0FLVuVZG8VlUaW8 Z3R3D5IHGuPLPtKAWcSeU+PV8lSQm+Gl9Va2LefwH5zaSfMTtzNwx7Ft9OKTZHT2MHRd== ID Date Data Source [id number] 09/20/2019 12:28:32 PM EST [facility] NT INFORMATIONPatient MRN Name Date of Age Gend*PT [id number] Ra Jerryul 1945 73 years M IPPT Location Admission Date/Time Visit ID Attending [id number] 09/19/19 0632 --- Symone Keen MD ([id number]) EPI ID CSN Admitting Provider [id number] Symone Keen MD([id number])Looks wellNo ComplaintAmbulatingPlan for DC home todaySymone Keen MD Name Value Range Interpretation Code Description Data Meme rce(s) Supporting Document(s) ID Date Data Source [id number] 09/20/2019 03:22:09 AM EST [facility] Name Value Range Interpretation Code Description Data Meme rce(s) Supporting Document(s) SODIUM 141 mmol/L (136-145) [facility] POTASSIUM 3.9 mmol/L (3.6-5.2) [facility] CHLORIDE 107 mmol/L (100-108) [facility] CO2 27 mmol/L (22-31) [facility] ANION GAP 7 mmol/L (7-16) [facility] UREA NITROGEN 20 mg/dL (7-24) [facility] CREATININE 1.25 mg/dL (0.80-1.30) [facility] BUN/CREAT RATIO 16.0 RATIO (10.0-20.0) [facility] GLUCOSE 109 mg/dL (70-99) H [facility] CALCIUM 8.5 mg/dL (8.4-10.2) [facility] GFR 57 ml/min/1.73m2 (>59) L [facility] GFR ( AMER) >60 ml/min/1.73m2 (>59) [facility] GFR INTERPRETATION [facility] --NORMAL KIDNEY FUNCTION OR MILD DISEASE - GFR >OR= 60CHRONIC KIDNEY DISEASE - GFR 15 - 59RENAL FAILURE - GFR <15 Est. GFR calculation based on the MDRDstudy equation, which assumes a steadystate for creatinine. Est. GFR should notbe used for medication dosing. ID Date Data Source [id number] 09/20/2019 02:48:04 AM EST [facility] Name Value Range Interpretation Code Description Data Meme rce(s) Supporting Document(s) WBC 7.6 10*3/uL (4.1-11.0) [facility] [place] RBC 4.91 10*6/uL (4.60-6.10) [facility] HGB 14.2 g/dL (13.5-18.0) [facility] HCT 42.7 % (41.0-53.0) [facility] MCV 87.0 fL (80.0-95.0) [facility] MCH 29.0 pg (27.0-32.0) [facility] MCHC 33.3 g/dL (32.0-36.0) [facility] RDW 13.6 % (10.5-14.5) [facility] PLT 106 10*3/uL (150-450) L [facility] MPV 8.7 fL (7.1-10.7) [facility] ID Date Data Source [id number] 09/19/2019 01:45:10 PM EST [facility]PAT[facility] NT INFORMATIONPatient MRN Name Date of Age Gend*PT [id number] Theo Edwards 1945 73 years M IPPT Location Admission Date/Time Visit ID Attending [id number] 09/19/19 0632 --- Symone Keen MD ([id number]) EPI ID CSN Admitting Provider [id number] Symone Keen MD([id number])[facility] CARDIOVASCULAR [id number] [place] [id number]-[place] CARDIAC CATHETERIZATION Preoperative diagnosis: Severe symptomatic aortic stenosisPostoperative diagnosis severe symptomatic aortic stenosisReferring Physician: Dr. Jim Surgeon: Dr. Riley-surgeon: Dr. Granados Anesthesia: Dr. ThomasAnesthesia type: MAC Brief Cardiolab NotePatient Name: Theo Edwards of : 1945 Age 73 yearsPrimary Physician: Sommer Soria MD PCP Zmje of Surgery: 09/19/2019 Claims Adjudicator: Symone Keen MD General Production Manager(s): None CCS Functional Classification: None History:This is [...] with patient/family.Risks included, but not limited to; NV, CVA, , renal impairment, vascularcomplication, and need [...] deployed in the right femoral artery.A 6 Zimbabwean pigtail catheter was advanced through the left [...] rce(s) Supporting Document(s) ID Date Data Source [id number] 09/19/2019 09:47:40 AM EST [address] [address]Pqyxels Name: THEO FLORES: 1945Sex: MOrdering Provider: IRMA Eduardo Prov: IRMA DISLAReferrjulia Provider: Procedure Performed: XR CHEST PORTABLEExam Date: 09/19/2019 09:33MRN: [id number] Number: [id number] Class: InpatientAccount #: [id number] for Exam: Post TAVR procedureTechnique: AP portable [...] NANCY BECKMAN On 09/19/2019 9:47 AMWorkstation ID: [id number] Name Value Range Interpretation Code Description Data Meme rce(s) Supporting Document(s) ID Date Data Source [id number] 09/19/2019 09:47:53 AM EST [facility] Name Value Range Interpretation Code Description Data Meme rce(s) Supporting Document(s) EKG [facility] GBQKAi1zAjRBLhNor0ApEaJsQTAnHM0dakl6K8F7sJQgW3SljWAcf8zjU3OqD1DtSVQhZSYOXH9MlKQj jb2 [file] yWs1hSfdi8zt7oVZhXUzJqy6cmZa7+yyL/ef7dj4wXmNZYkbo1yX5+inside sales specialist/Yb2PcCbRblrrZAj/Sg5rUJ [file] ooZcURZhFSHDNm1Pm416IFLdHDUVLds+BlqcsTCkrKvgYFRVJPU3CVNRPXAQS5D= ID Date Data Source [id number] 09/19/2019 11:03:27 AM EST [facility] Name Value Range Interpretation Code Description Data Meme rce(s) Supporting Document(s) MAGNESIUM 2.1 mg/dL (1.7-2.4) [facility] ID Date Data Source [id number] 09/19/2019 11:03:27 AM EST [facility] Name Value Range Interpretation Code Description Data Meme rce(s) Supporting Document(s) SODIUM 137 mmol/L (136-145) [facility] POTASSIUM 3.9 mmol/L (3.6-5.2) [facility] CHLORIDE 105 mmol/L (100-108) [facility] CO2 25 mmol/L (22-31) [facility] ANION GAP 7 mmol/L (7-16) [facility] UREA NITROGEN 24 mg/dL (7-24) [facility] CREATININE 1.27 mg/dL (0.80-1.30) [facility] BUN/CREAT RATIO 18.9 RATIO (10.0-20.0) [facility] GLUCOSE 109 mg/dL (70-99) H [facility] CALCIUM 8.4 mg/dL (8.4-10.2) [facility] GFR 56 ml/min/1.73m2 (>59) L [facility] GFR ([facility] AM) >60 ml/min/1.73m2 (>59) [facility] GFR INTERPRETATION [facility] --NORMAL KIDNEY FUNCTION OR MILD DISEASE - GFR >OR= 60CHRONIC KIDNEY DISEASE - GFR 15 - 59RENAL FAILURE - GFR <15 Est. GFR calculation based on the MDRDstudy equation, which assumes a steadystate for creatinine. Est. GFR should notbe used for medication dosing. ID Date Data Source [id number] 09/19/2019 10:47:03 AM EST [facility] Name Value Range Interpretation Code Description Data Meme [facility](s) Supporting Document(s) PT 12.4 s (9.2-11.9) H [facility] INR 1.22 [facility] SUGGESTED THERAPEUTIC RANGES USING INR F ORSTABILIZED ANTICOAGULATED PATIENTS:STANDARD DOSE THERAPY INR 2.0-3.0 DVT, PE, PREVENT DVT OR EMBOLISMHIGH DOSE THERAPY INR 2.5-3.5 PREVENT EMBOLISM FROM MECHANICAL HEART VALVE ID Date Data Source [id number] 09/19/2019 10:40:30 AM EST [facility] Name Value Range Interpretation Code Description Data Meme rce(s) Supporting Document(s) WBC 6.5 10*3/uL (4.1-11.0) [facility] [place] RBC 4.70 10*6/uL (4.60-6.10) [facility] HGB 13.8 g/dL (13.5-18.0) [facility] HCT 40.4 % (41.0-53.0) L [facility] MCV 85.9 fL (80.0-95.0) [facility] MCH 29.3 pg (27.0-32.0) [facility] MCHC 34.1 g/dL (32.0-36.0) [facility] RDW 13.7 % (10.5-14.5) [facility] PLT 120 10*3/uL (150-450) L [facility] MPV 9.3 fL (7.1-10.7) [facility] ID Date Data Source [id number] 09/19/2019 08:44:42 AM EST [facility] HospitalPATIE NT INFORMATIONPatient MRN Name Date of Age Gend*PT [id number] Theo Edwards 1945 73 years M IPPT Location Admission Date/Time Visit ID Attending Provider --- --- --- --- EPI ID CSN Admitting Prov ider [id number] ---ZAINAB ExamPerformed by: Gautam Quinones MDInformation: Diagnostic [...] rce(s) Supporting Document(s) ID Date Data Source [id number] 09/19/2019 08:41:17 AM EST [facility] HospitalPAT[facility] NT INFORMATIONPatient MRN Name Date of Age Gend*PT [id number] Theo Edwards 1945 73 years M IPPT Location Admission Date/Time Visit ID Attending Provider --- --- --- --- EPI ID CSN Admitting Prov ider [id number] ---Arterial Line PlacementPatient location during procedure: CV [...] rce(s) Supporting Document(s) ID Date Data Source [id number] 09/19/2019 08:31:40 AM EST [facility] Name Value Range Interpretation Code Description Data Meme rce(s) Supporting Document(s) POC SOURCE [facility] POC TEMPERATURE [facility] 37.0C POC FIO2 100 [facility] POC PH 7.33 pH (7.35-7.45) L [facility] POC PCO2 45.6 MMHG (32.0-48.0) [facility] POC PO2 89 MMHG (83-108) [facility] POC SAT O2 96 % (95-99) [facility] POC BASE DEFICIT 2 MMOL/L (0-2) [facility] POC HCO3 23.8 MMOL/L (21.0-29.0) [facility] POC TOTAL CO2 25 MMOL/L (23.0-32.0) [facility] PERFORMED BY [facility] POC HCT 38 % (41.0-53.0) L [facility] POC SODIUM 139 MMOL/L (136-145) [facility] POC POTASSIUM 3.8 MMOL/L (3.6-5.2) [facility] POC IONIZED CALCIUM 4.8 MG/DL (4.6-5.3) [facility] POC GLU 122 MG/DL (70-99) H [facility] PERFORM LAB [facility] ID Date Data Source [id number] 09/19/2019 08:32:05 AM EST [facility] Name Value Range Interpretation Code Description Data Meme rce(s) Supporting Document(s) POC ACT 241 s (80-140) H [facility] PERFORMED BY [facility] ID Date Data Source [id number] 09/19/2019 08:20:07 AM EST [facility] Name Value Range Interpretation Code Description Data Meme rce(s) Supporting Document(s) POC SOURCE [facility] POC TEMPERATURE [facility] 37.0C POC FIO2 100 [facility] POC PH 7.36 pH (7.35-7.45) [facility] POC PCO2 46.6 MMHG (32.0-48.0) [facility] POC PO2 80 MMHG (83-108) L [facility] POC SAT O2 95 % (95-99) [facility] POC BASE EXCESS 0 MMOL/L (0-3) [facility] POC HCO3 26.3 MMOL/L (21.0-29.0) [facility] POC TOTAL CO2 28 MMOL/L (23.0-32.0) [facility] PERFORMED BY [facility] POC HCT 42 % (41.0-53.0) [facility] POC SODIUM 140 MMOL/L (136-145) [facility] POC POTASSIUM 4.0 MMOL/L (3.6-5.2) [facility] POC IONIZED CALCIUM 5.0 MG/DL (4.6-5.3) [facility] POC GLU 129 MG/DL (70-99) H [facility] PERFORM LAB [facility] ID Date Data Source [id number] 09/19/2019 08:20:02 AM EST [facility] Name Value Range Interpretation Code Description Data Meme rce(s) Supporting Document(s) POC ACT 131 s (80-140) [facility] PERFORMED BY [facility] ID Date Data Source [id number] 09/19/2019 07:11:40 AM EST [facility] HospitalPAT[facility] NT INFORMATIONPatient MRN Name Date of Age Gend*PT [id number] Theo Edwards 1945 73 years M IPPT Location Admission Date/Time Visit ID Attending [id number] 09/19/19 0632 --- Symone Keen MD ([id number]) EPI ID CSN Admitting Provider [id number] Symone Keen MD([id number])Updated H&PPlease see the scanned/dictated outpatient note.I have reviewed the note, clinical history and physical exam findings. Therehave been no significant changes.Plan as outlined in the outpatient note.Risk/benifit/alternative of TAVR was discussed with patient/family. Risksincluded, but not limited to; NV, CVA, , renal impairment, vascularcomplication, and need for emergency surgery were discussed and accepted bypatient.Symone Keen MD, [facility], [facility]SAAIInterventional Sole Buffer Name Value Range Interpretation Code Description Data Meme rce(s) Supporting Document(s) ID Date Data Source [id number] 09/19/2019 06:50:40 AM EST [facility] Name Value Range Interpretation Code Description Data Meme rce(s) Supporting Document(s) POC NOVA GLU 124 mg/dL (70-99) H [facility] [place] PERFORMED BY [facility] ID Date Data Source [id number] 09/20/2019 08:46:16 PM EST [facility] SPEC EXP DATE 09/22/2019TEST ING SITE PERFORMED AT [address] [place] [address] 18119VZOJ NUMBER [id number] COMPONENT TYPE LEUKOPOOR RED CELLSUNIT DIVISION 00STATUS OF UNIT REL FROM ALLOCTRANSFUSION STATUS OK TO TRANSFUSECROSSMATCH RESULT COMPATIBLEUNIT NUMBER [id number] COMPONENT TYPE LEUKOPOOR RED CELLSUNIT DIVISION 00STATUS OF UNIT REL FROM ALLOCTRANSFUSION STATUS OK TO TRANSFUSECROSSMATCH RESULT COMPATIBLEUNIT NUMBER [id number] COMPONENT TYPE LEUKOPOOR RED CELLSUNIT DIVISION 00STATUS OF UNIT REL FROM ALLOCTRANSFUSION STATUS OK TO TRANSFUSECROSSMATCH RESULT COMPATIBLEUNIT NUMBER [id number] COMPONENT TYPE LEUKOPOOR RED CELLSUNIT DIVISION 00STATUS OF UNIT REL FROM ALLOCTRANSFUSION STATUS OK TO TRANSFUSECROSSMATCH RESULT COMPATIBLE Name Value Range Interpretation Code Description Data Meme rce(s) Supporting Document(s) TRANSFUSE RED CELLS [facility] TESTING SITE PERFORMED AT [address] [place] [address] ID Date Data Source [id number] 09/12/2019 03:52:03 PM EST [facility] Name Value Range Interpretation Code Description Data Meme rce(s) Supporting Document(s) EKG [facility] MZFLXh3dPbZURaWrz5LvZiTkDSWpFH2bsgu9A5E6gKZuY3JqkWIiw8fjS1IaH3PeTZHgFAKGEN6UfSMu jb2 [file] qbgvDEPMyxj0FhTNNXgXTHRDSXWDSFg1GbEzxsW8tp ZO4TM/hN3pMJyEpTfOB62BwZP+OI9VenuGgrgJFxnTFUAAKLxIjt65Xj+MXwFS9BwnWMXS1YErPqFRbi nZ1fL7Me7iJyJ8bZL4WYgQst+XJvXwEHCYadMNxvqE+UL/p1QKgrKy8xY3ewlaMyjeYqaLh02tQlekkg ygMnQKZiXMuJk8JSXAKWMFU11aZQALZnYYGKvPdnTF RzgFnfFhjQMiqu2FbXJeoQ9awZGjr46u8+9rS/E1xk10xD/n3y9gCHrr3p7oMRsxWU0aA1+CYh88PrPL +YUUAJSo6iW4pJemUfNVIJH3fJx7lLPmAEeKKlitNLkxd+LAC DU FLAMBEAU+7U3xBh2yifcUxEMtfiz6haybDXh2bh [file] kgMDAwMDAgbiAKMDAwMDAwMTczNCAwMDAwMCBuIAow UQGuMWXsHMN1WPItTUGgQN5yLvWaJDRgRTFtBBJbRyU6IuXuOoQCwBWmaOxiymi0OAydD5z1YDQtGJvi KM0cxuAkZTNuMblmMi5zmPB3TNAeAuwCXr3Ef2OrvzV5ppObNiSsNbg5IhCxRD8Q ID Date Data Source [id number] 09/12/2019 01:16:11 PM EST [facility] HospitalPATI NT INFORMATIONPatient MRN Name Date of Age Gend*PT [id number] Theo Edwards 1945 73 years M OPPT Location Admission Date/Time Visit ID Attending Provider --- --- --- Symone Keen MD ([id number]) EPI ID CSN Admitting Provider [id number] ---HISTORY PHYSICALName: Theo Edwards : 1945 Sex: male Care Provider: Katie Kwongending Physician: Dr. Garibayformant: The patient who is reliable and accompanied by his .Chief Complaint: "I need valve replacement".HISTORY OF PRESENT ILLNESS:Mr. Edwards is a 73 years old male who reports havinga routine physical exam with his PCP and was noted to have heart murmur.Subsequently he was referred to [facility]. Patient underwentechocardiogram on 07/09/2019 which concluded Moderately [...] warm and dry.HEENT: He is normocephalic, atraumatic. [place] co njunctivae. Anicteric sclerae.Pupils are equal, round, [...] hepatosplenomegaly. Negative CVAT.GENITAL/RECTAL: Deferred.MUSCLE/SKELETAL: Strength is 5/5. Product Marketing Engineer are equal.NEUROLOGICALLY: Cranial nerves II through XII are grossly intact.VASCULAR: Pulses are symmetrical. No bilateral pedal edema.IMPRESSION:1. Nonrheumatic aortic valve stenosis.2. Medical co morbidities as listed above.3. Medication and surgical instructions as per TAVR clinic.09/12/2019 1:11 PMLyudmila Kostiv, NPThis document or parts of this document, were dictated using Kimeltu speaking software. A reasonable attempt at proofreading has beenmade to minimize errors. Please call with any questions or corrections. Name Value Range Interpretation Code Description Data Meme rce(s) Supporting Document(s) ID Date Data Source [id number] 09/13/2019 03:49:08 PM EST [facility] Name Value Range Interpretation Code Description Data Meme rce(s) Supporting Document(s) SPECIMEN DESCRIPTION [facility] STAPH SCREEN RESULTS (ONEGSA) [facility] COMMENT [facility] GENE TO DETECT STAPH AUREUS. (2) RT-P CR WAS PERFORMED FOR THE mecA AND SCC[employer] GENES TO DETECT METHICILLIN RESISTANCE IN STAPH AUREUS. ID Date Data Source [id number] 09/12/2019 06:57:10 PM EST [facility] SPEC EXP DATE 09/20/2019PATI ENT ABO/Rh O POSITIVEANTIBODY SCREEN NEGATIVETESTING SITE PERFORMED AT [address] [place] [address] Name Value Range Interpretation Code Description Data Meme rce(s) Supporting Document(s) TYPE AND SCREEN [facility] ID Date Data Source [id number] 09/12/2019 05:49:47 PM EST [facility] Name Value Range Interpretation Code Description Data Meme rce(s) Supporting Document(s) ROOM TEMP AB SCREEN [facility] ROOM TEMP AB SCREEN NEGATIVE ID Date Data Source [id number] 09/13/2019 03:03:26 PM EST [facility] SPECIMEN DESCRIPTION MIDSTREAM UR INE,CLEAN CATCHCULTURE RESULTS NO GROWTHREPORT STATUS FINAL 09/13/2019 Name Value Range Interpretation Code Description Data Meme rce(s) Supporting Document(s) ID Date Data Source [id number] 09/12/2019 09:07:01 PM EST [facility] Name Value Range Interpretation Code Description Data Meme rce(s) Supporting Document(s) HEMOGLOBIN A1C @ 5.8 % (4.0-6.0) [facility] Performed using Siemens [place] immunoassa y.Care must be taken when interpreting HqY3gvgqjeqi in patients with a hemoglobin variantor decreased erythrocyte lifespan. Values 5.7 - 6.4% suggest prediabetes.Values >=6.5% are diagnostic for diabetes.REFERENCE: DIABETES CARE 2018: 41(S13-S27). EST AVERAGE GLUCOSE 120 mg/dL [facility] ID Date Data Source [id number] 09/12/2019 08:20:51 PM EST [facility] Name Value Range Interpretation Code Description Data Meme rce(s) Supporting Document(s) SODIUM 139 mmol/L (136-145) [facility] POTASSIUM 4.9 mmol/L (3.6-5.2) [facility] CHLORIDE 104 mmol/L (100-108) [facility] CO2 30 mmol/L (22-31) [facility] ANION GAP 5 mmol/L (7-16) L [facility] UREA NITROGEN 19 mg/dL (7-24) [facility] CREATININE 1.35 mg/dL (0.80-1.30) H [facility] BUN/CREAT RATIO 14.1 RATIO (10.0-20.0) [facility] GLUCOSE 131 mg/dL (70-99) H [facility] CALCIUM 9.6 mg/dL (8.4-10.2) [facility] TOTAL PROTEIN 6.8 g/dL (6.4-8.2) [facility] ALBUMIN 4.0 g/dL (3.2-4.5) [facility] GLOBULIN 2.8 g/dL (2.7-4.3) [facility] ALB/GLOB RATIO 1.4 RATIO [facility] ALKALINE PHOSPHATASE 66 U/L (45-117) [facility] BILIRUBIN,TOTAL 0.9 mg/dL (0.0-1.0) [facility] AST (SGOT) 9 U/L (11-39) L [facility] ALT (SGPT) 27 U/L (12-78) [facility] GFR 52 ml/min/1.73m2 (>59) L [facility] GFR ( AMER) >60 ml/min/1.73m2 (>59) [facility] GFR INTERPRETATION [facility] --NORMAL KIDNEY FUNCTION OR MILD DISEASE - GFR >OR= 60CHRONIC KIDNEY DISEASE - GFR 15 - 59RENAL FAILURE - GFR <15 Est. GFR calculation based on the MDRDstudy equation, which assumes a steadystate for creatinine. Est. GFR should notbe used for medication dosing. ID Date Data Source [id number] 09/12/2019 08:20:51 PM EST [facility] Name Value Range Interpretation Code Description Data Meme rce(s) Supporting Document(s) NT PRO BNP 30 pg/mL (0-125) [facility] ID Date Data Source [id number] 09/12/2019 07:52:34 PM EST [facility] Name Value Range Interpretation Code Description Data Meme rce(s) Supporting Document(s) APTT 29.5 s (22.0-34.3) [facility] ID Date Data Source [id number] 09/12/2019 07:52:34 PM EST [facility] Name Value Range Interpretation Code Description Data Meme rce(s) Supporting Document(s) PT 11.6 s (9.2-11.9) [facility] INR 1.14 [facility] SUGGESTED THERAPEUTIC RANGES USING INR F ORSTABILIZED ANTICOAGULATED PATIENTS:STANDARD DOSE THERAPY INR 2.0-3.0 DVT, PE, PREVENT DVT OR EMBOLISMHIGH DOSE THERAPY INR 2.5-3.5 PREVENT EMBOLISM FROM MECHANICAL HEART VALVE ID Date Data Source [id number] 09/12/2019 07:24:28 PM EST [facility] Name Value Range Interpretation Code Description Data Meme rce(s) Supporting Document(s) COLOR [facility] APPEARANCE [facility] SPEC GRAV URINE 1.017 (1.003-1.030) [facility] PH URINE 5.5 (5.0-7.5) [facility] LEUK ESTERASE (NEG) [facility] NITRITE URINE (NEG) [facility] PROTEIN URINE (NEG) [facility] GLUCOSE URINE (NEG) [facility] KETONE URINE (NEG) [facility] UROBILINOGEN 0.2 mg/dL (0-1.0) [facility] BILIRUBIN URINE (NEG) [facility] BLOOD/HGB URINE (NEG) [facility] ID Date Data Source [id number] 09/12/2019 07:14:15 PM EST [facility] Name Value Range Interpretation Code Description Data Meme rce(s) Supporting Document(s) WBC 8.0 10*3/uL (4.1-11.0) [facility] RBC 5.40 10*6/uL (4.60-6.10) [facility] HGB 15.8 g/dL (13.5-18.0) [facility] HCT 46.7 % (41.0-53.0) [facility] MCV 86.6 fL (80.0-95.0) [facility] MCH 29.2 pg (27.0-32.0) [facility] MCHC 33.7 g/dL (32.0-36.0) [facility] RDW 13.8 % (10.5-14.5) [facility] PLT 151 10*3/uL (150-450) [facility] MPV 9.6 fL (7.1-10.7) [facility] NEUT % 56.2 % (35.0-75.0) [facility] LYMPH % 29.3 % (16.0-52.0) [facility] MONO % 7.6 % (0.0-8.0) [facility] EOS % 5.9 % (0.0-5.0) H [facility] BASO % 1.0 % (0.0-4.0) [facility] NEUT # 4.5 10*3/uL (1.8-7.7) [facility] LYMPH # 2.3 10*3/uL (1.2-4.8) [facility] MONO # 0.6 10*3/uL (0.0-0.8) [facility] Eosinophils [#/volume] in Blood by Automated count 0.5 10*3/uL (0.0-0 .5) [facility] BASO # 0.1 10*3/uL (0.0-0.2) [facility] ID Date Data Source [id number] 08/19/2019 10:09:00 AM EST [facility] ([facility]) Name Value Range Interpretation Code Description Data Meme rce(s) Supporting Document(s) CPK Creatine Phosphokinase 65 U/L 39-308 Brittani l (applies to non-numeric results) [facility] ([facility]) MB/CK Relative Index 1.54 Normal (applies to non-num leeann results) [facility] ([facility]) <content>DIAGNOSIS CRITERIA</content>
<content>MMB ng/ml Relative Index (RI)</content>
<content>NON-AMI < or = 5 N/A</content>
<content>SADLER ZONE > 5 < or = 4</content>
<content>AMI > 5 > 4</content>
<content></content> CK-MB Value Mass 1.0 ng/mL Normal (applies to non-numeric results) [facility] ([facility]) Troponin I Laboratory test result Normal (applies to non-n umeric results) [facility] ([facility]) <content>Troponin I Reference Interval f or [employer] [place] LOCI:</content>
<content></content>
<content>99th Percentile= 0.00-0.045 ng/ml</content>
<content></content>
<content>Risk Stratification:</content>
<content><= 0.10 ng/ml Decreased Risk for Adverse Clinical</content>
<content>Events.</content>
<content>0.10-1.50 ng/ml Increased Risk for Adverse Clinical</content>
<content>Events. Evaluation of additional</content>
<content>criterion and/or repeat testing in 2-6</content>
<content>hours is suggested to rule out myocardial</content>
<content>damage.</content>
<content>>= 1.50 ng/ml Indicative of Myocardial Injury.</content>
<content></content> ID Date Data Source [id number] 08/19/2019 09:09:00 AM EST MEDENT ([facility]) Name Value Range Interpretation Code Description Data Meme rce(s) Supporting Document(s) Troponin <0.02 MEDENT ([facility]) ID Date Data Source [id number] 08/19/2019 09:09:00 AM EST MEDENT ([facility]) Name Value Range Interpretation Code Description Data Meme rce(s) Supporting Document(s) CPK-MB 1.0 MED[facility] ([facility]) Creatine kinase [Enzymatic activity/volume] in Serum or Plasma 65 [facility] ([facility]) MB/CK Relative 1.54 [facility] ([facility]) ID Date Data Source [id number] 08/19/2019 09:08:00 AM EST MEDENT ([facility]) Name Value Range Interpretation Code Description Data Meme rce(s) Supporting Document(s) Troponin <0.02 MED[facility] ([facility]) ID Date Data Source [id number] 08/19/2019 09:08:00 AM EST MED[facility] ([facility]) Name Value Range Interpretation Code Description Data Meme rce(s) Supporting Document(s) Creatine kinase [Enzymatic activity/volume] in Serum or Plasma 83 MEDENT ([facility]) MB/CK Relative 1.45 MED[facility] ([facility]) CPK-MB 1.2 [facility] ([facility] ID Date Data Source [id number] 08/19/2019 09:08:00 AM EST MED[facility] ([facility]) Name Value Range Interpretation Code Description Data Meme rce(s) Supporting Document(s) Glucose 123 70-100 [facility] ([facility] Blood Urea Nitrogen 22 7-18 MED[facility] ([facility]) Potassium 4.2 3.5-5.1 MED[facility] ([facility] Creatinine 1.38 0.70-1.30 MED[facility] ([facility]) Sodium 139 136-145 MED[facility] ([facility] Carbon Dioxide 23 21-32 MED[facility] ([facility]) Chloride 107 98-107 [facility] ([facility] Calcium 8.6 8.2-9.6 [facility] ([facility] Glomerular filtration rate/1.73 sq M.pre dicted [Volume Rate/Area] in Serum or Plasma by Creatinine-based formula (MDRD) 53.9 [facility] ([facility]) ID Date Data Source [id number] 08/19/2019 09:08:00 AM EST MED[facility] ([facility]) Name Value Range Interpretation Code Description Data Meme rce(s) Supporting Document(s) Platelets 147 150-450 [facility] ([facility] White Blood Count 7.5 4.0-10.0 [facility] ([facility]) Red Blood Count 5.22 4.30-6.10 [facility] ([facility]) Hematocrit 45.8 [facility] ([facility]) Hemoglobin 15.0 [facility] ([facility]) ID Date Data Source [id number] 08/19/2019 06:30:00 AM EST MED[facility] ([facility]) Name Value Range Interpretation Code Description Data Meme rce(s) Supporting Document(s) Blood Urea Nitrogen 22 mg/dL 7-18 Above high normal MEDENT ([facility]) Glucose, Fasting 123 mg/dL 70-100 Above high normal M EDENT ([facility]) Sodium Level 139 meq/L 136-145 Normal (applies to non-numeric res ults) [facility] ([facility]) Glomerular Filtration Rate 53.9 Normal (applies to n on-numeric results) [facility] ([facility]) <content>Units are mL/min/1.73 m2</content>
<content></content>
<content>Chronic Kidney Disease Staging per NKF:</content>
<content></content>
<content>Stage I & II GFR >=60 Normal to Mildly Decreased</content>
<content>Stage III GFR 30-59 Moderately Decreased</content>
<content>Stage IV GFR 15-29 Severely Decreased</content>
<content>Stage V GFR <15 Very Little GFR Left</content>
<content>ESRD GFR <15 on ACCOUNT REPRESENTATIVE</content>
<content></content> Creatinine For GFR 1.38 mg/dL 0.70-1.30 Above high normal MEDENT ([facility]) Carbon Dioxide Level 23 meq/L 21-32 Normal (applies to non-num leeann results) [facility] ([facility]) Potassium Serum 4.2 meq/L 3.5-5.1 Normal (applies to non-numeric results) [facility] ([facility]) Chloride Level 107 meq/L 98-107 Normal (applies to non-numeric r esults) [facility] ([facility]) Calcium Level 8.6 mg/dL 8.8-10.2 Below low normal MEDEN T ([facility]) Anion Gap 9 meq/L 8-16 Normal (applies to non-numeric resul ts) [facility] ([facility]) ID Date Data Source [id number] 08/19/2019 06:30:00 AM EST [facility] ([facility]) Name Value Range Interpretation Code Description Data Meme rce(s) Supporting Document(s) CPK Creatine Phosphokinase 83 U/L 39-308 Brittani l (applies to non-numeric results) [facility] ([facility]) CK-MB Value Mass 1.2 ng/mL Normal (applies to non-numeric results) [facility] ([facility]) Troponin I Laboratory test result Normal (applies to non-n umeric results) [facility]) <content>Troponin I Reference Interval f or Siemens [place] LOCI:</content>
<content></content>
<content>99th Percentile= 0.00-0.045 ng/ml</content>
<content></content>
<content>Risk Stratification:</content>
<content><= 0.10 ng/ml Decreased Risk for Adverse Clinical</content>
<content>Events.</content>
<content>0.10-1.50 ng/ml Increased Risk for Adverse Clinical</content>
<content>Events. Evaluation of additional</content>
<content>criterion and/or repeat testing in 2-6</content>
<content>hours is suggested to rule out myocardial</content>
<content>damage.</content>
<content>>= 1.50 ng/ml Indicative of Myocardial Injury.</content>
<content></content> MB/CK Relative Index 1.45 Normal (applies to non-num leeann results) [facility]) <content>DIAGNOSIS CRITERIA</content>
<content>MMB ng/ml Relative Index (RI)</content>
<content>NON-AMI < or = 5 N/A</content>
<content>SADLER ZONE > 5 < or = 4</content>
<content>AMI > 5 > 4</content>
<content></content> ID Date Data Source [id number] 08/19/2019 06:30:00 AM EST [facility] ([facility]) Name Value Range Interpretation Code Description Data Meme rce(s) Supporting Document(s) White Blood Count 7.5 10 4.0-10.0 Normal (applies to non-numeri c results) [facility] ([facility]) Hemoglobin 15.0 g/dL 13.5-17.5 Normal (applies to non-numeric resul ts) [facility] ([facility]) Red Blood Count 5.22 10 4.30-6.10 Normal (applies to non-numeric results) [facility] ([facility]) Hematocrit 45.8 % 42.0-52.0 Normal (applies to non-numeric resul ts) [facility] ([facility]) Mean Corpuscular HGB Conc 32.8 g/dL 32.0-36.5 Normal (applies to non-numeric results) [facility] ([facility]) Mean Corpuscular Volume 87.7 fl 80.0-96.0 Normal ( applies to non-numeric results) [facility] ([facility]) Mean Corpuscular Hemoglobin 28.7 pg 27.0-33.0 Norm al (applies to non-numeric results) [facility] ([facility]) Neutrophils % 56.5 % 36.0-66.0 Normal (applies to non-numeric re sults) [facility] ([facility]) Platelet Count, Automated 147 10 150-450 [facility] Red Cell Distribution Width 12.7 % 11.5-14.5 Norm al (applies to non-numeric results) [facility] ([facility]) [place] % 7.5 % 0.0-5.0 Above high normal [facility] ([facility]) Lymph % 29.4 % 24.0-44.0 Normal (applies to non-numeric resul ts) [facility] ([facility]) Eos % 5.3 % 0.0-3.0 Above high normal [facility] ([facility]) Immature Granulocyte % 0.5 % 0-3.0 Normal (applies to non-n umeric results) [facility] ([facility]) Nucleated Red Blood Cell % 0.0 % 0-0 Normal (applies to n on-numeric results) [facility] ([facility]) Baso % 0.8 % 0.0-1.0 Normal (applies to non-numeric resul ts) [facility] ([facility]) Neutrophils # 4.2 10 1.5-8.5 Normal (applies to non-numeric re sults) [facility] ([facility]) Lymph # 2.2 10 1.5-5.0 Normal (applies to non-numeric resul ts) [facility] ([facility]) [place] # 0.6 10 0.0-0.8 Normal (applies to non-numeric resul ts) [facility] ([facility]) Baso # 0.1 10 0.0-0.2 Normal (applies to non-numeric resul ts) [facility] ([facility]) Eos # 0.4 10 0.0-0.5 Normal (applies to non-numeric resul ts) [facility] ([facility]) Procedure Social History Code Duration Value Status Description Data Source(s ) Smoking 09/28/2020 12:00:00 AM EST Never Smoker completed Never S moker eCW1 ([facility]) Smoking 10/19/2019 12:00:00 AM EST Patient has never smoked co mpleted Patient has never smoked [facility] ([facility]) Smoking 09/30/2019 12:00:00 AM EST Never Smoker completed Never S moker eCW1 ([facility]) Alcohol intake 09/20/2019 12:00:00 AM EST Yes completed [facility] Smoking 09/20/2019 12:00:00 AM EST [facility] 09/12/2019 12:00:00 AM EST Yes completed [facility] Smoking 09/12/2019 12:00:00 AM EST Never smoker completed Never s [facility] Vital Signs ID Date Data Source UNK Name Value Range Interpretation Code Description Data Source(s) Body surface area Derived from formula 2.31 m2 2.31 m2 MED[facility] ([facility]) Body mass index (BMI) [Ratio] 35.5 kg/m2 35.5 k g/m2 [facility] ([facility]) Body height 70.5 [in_i] 70.5 [in_i] MED[facility] ([facility]) 5'10.50" Body weight 113.854 kg 113.854 kg [facility] ([facility]) Body weight 251.00 [lb_av] 251.00 [lb_av] MEDEN T ([facility]) Oxygen saturation in Arterial blood by Pulse oximetry 98 % 98 % [facility] ([facility]) Respiratory rate 16 /min 16 /min [facility] ( [facility]) Body temperature 97.2 [degF] 97.2 [degF] [facility] ([facility]) Heart rate 55 /min 55 /min MED[facility] ([facility]) Diastolic blood pressure 60 mm[Hg] 60 mm[Hg] [facility] ([facility]) Systolic blood pressure 110 mm[Hg] 110 mm[Hg] M EDENT ([facility]) Diastolic blood pressure 74 mm[Hg] 74 mm[Hg] eCW1 ([facility]) Systolic blood pressure 124 mm[Hg] 124 mm[Hg] e CW1 ([facility]) Body mass index (BMI) [Ratio] 36.73 kg/m2 36.73 kg/m2 W1 ([facility]) Body height 70 [in_i] 70 [in_i] eCW1 ([facility]) Body weight 256 [lb_av] 256 [lb_av] eCW1 ([facility]) Body surface area Derived from formula 2.34 m2 2.34 m2 MED[facility] ([facility]) Body mass index (BMI) [Ratio] 36.6 kg/m2 36.6 k g/m2 [facility] ([facility]) Body height 70.5 [in_i] 70.5 [in_i] MED[facility] ([facility]) 5'10.50" Body weight 117.482 kg 117.482 kg [facility] ([facility]) Body weight 259.00 [lb_av] 259.00 [lb_av] MEDEN T ([facility]) Oxygen saturation in Arterial blood by Pulse oximetry 96 % 96 % [facility] ([facility]) Respiratory rate 18 /min 18 /min [facility] ( [facility]) Body temperature 97.3 [degF] 97.3 [degF] [facility] ([facility]) Heart rate 70 /min 70 /min [facility] ([facility]) Diastolic blood pressure 78 mm[Hg] 78 mm[Hg] MED[facility] ([facility]) just took his meds before he came forgot this am Systolic blood pressure 142 mm[Hg] 142 mm[Hg] M EDENT ([facility]) just took his meds before he came forgot this am Body surface area Derived from formula 2.31 m2 2.31 m2 [facility] ([facility]) Body mass index (BMI) [Ratio] 35.4 kg/m2 35.4 k g/m2 [facility] ([facility]) Body height 70.5 [in_i] 70.5 [in_i] [facility] ([facility]) 5'10.50" Body weight 113.400 kg 113.400 kg [facility] ([facility]) Body weight 250.00 [lb_av] 250.00 [lb_av] MEDEN T ([facility]) Oxygen saturation in Arterial blood by Pulse oximetry 98 % 98 % [facility] ([facility]) Respiratory rate 16 /min 16 /min [facility] ( [facility]) Body temperature 97.1 [degF] 97.1 [degF] [facility] ([facility]) Heart rate 68 /min 68 /min [facility] ([facility]) Diastolic blood pressure 80 mm[Hg] 80 mm[Hg] [facility] ([facility]) Systolic blood pressure 118 mm[Hg] 118 mm[Hg] [facility] Body weight 112.946 kg 112.946 kg [facility] ([facility]) Body weight 249.00 [lb_av] 249.00 [lb_av] MEDEN T ([facility]) Oxygen saturation in Arterial blood by Pulse oximetry 96 % 96 % [facility] ([facility]) Respiratory rate 18 /min 18 /min [facility] ( [facility]) Body temperature 97.4 [degF] 97.4 [degF] [facility] ([facility]) Heart rate 53 /min 53 /min [facility] ([facility]) Diastolic blood pressure 66 mm[Hg] 66 mm[Hg] [facility] ([facility]) Systolic blood pressure 112 mm[Hg] 112 mm[Hg] M EDENT ([facility]) Body weight 112.039 kg 112.039 kg [facility] ([facility]) Body weight 247.00 [lb_av] 247.00 [lb_av] MEDEN T ([facility]) Oxygen saturation in Arterial blood by Pulse oximetry 97 % 97 % [facility] ([facility]) Respiratory rate 18 /min 18 /min [facility] ( [facility]) Body temperature 97.4 [degF] 97.4 [degF] [facility] ([facility]) Heart rate 57 /min 57 /min [facility] ([facility]) Diastolic blood pressure 62 mm[Hg] 62 mm[Hg] [facility] ([facility]) Systolic blood pressure 124 mm[Hg] 124 mm[Hg] [facility] ([facility]) Body surface area Derived from formula 2.30 m2 2.30 m2 [facility] ([facility], ) Body weight 112.493 kg 112.493 kg [facility] ([facility], ) [place] body weight 166 [lb_av] 166 [lb_av] [facility] Body mass index (BMI) [Ratio] 35.1 kg/m2 35.1 k g/m2 [facility] ([facility], ) Body weight 248.00 [lb_av] 248.00 [lb_av] [facility] Body height 70.5 [in_i] 70.5 [in_i] [facility] ([facility], ) 5'10.50" Diastolic blood pressure 64 mm[Hg] 64 mm[Hg] [facility] ([facility], ) Systolic blood pressure 112 mm[Hg] 112 mm[Hg] M EDENT ([facility]) Diastolic blood pressure--sitting 58 mm[Hg] 58 mm[Hg] [facility] ([facility]) large cuff, Ra Systolic blood pressure--sitting 108 mm[Hg] 108 mm[Hg] [facility] ([facility]) large cuff, Ra Heart rate 57 /min 57 /min [facility] ([facility]) Body mass index (BMI) [Ratio] 35.9 kg/m2 35.9 k g/m2 [facility] ([facility]) Body height 70 [in_i] 70 [in_i] [facility]) 5'10" Body weight 250.00 [lb_av] 250.00 [lb_av] MEDEN T ([facility]) Body weight 115.668 kg 115.668 kg [facility] ([facility]) Body weight 255.00 [lb_av] 255.00 [lb_av] MEDEN T ([facility]) Oxygen saturation in Arterial blood by Pulse oximetry 95 % 95 % [facility] ([facility]) Respiratory rate 18 /min 18 /min [facility] ( [facility]) Body temperature 97.8 [degF] 97.8 [degF] [facility] ([facility]) Heart rate 55 /min 55 /min [facility] ([facility]) Diastolic blood pressure 62 mm[Hg] 62 mm[Hg] [facility] ([facility]) Systolic blood pressure 120 mm[Hg] 120 mm[Hg] M EDENT ([facility]) Body mass index (BMI) [Ratio] 36.73 kg/m2 36.73 kg/m2 eCW1 ([facility]) Body height 70 [in_us] 70 [in_us] eCW1 ([facility]) Body weight Measured 256.0 [lb_av] 256.0 [lb_av ] eCW1 ([facility]) Diastolic blood pressure 70 mm[Hg] 70 mm[Hg] eCW1 ([facility]) Systolic blood pressure 127 mm[Hg] 127 mm[Hg] e CW1 ([facility]) Body temperature 97.8 [degF] 97.8 [degF] eCW1 ( [facility]) Respiratory rate 18 /min 18 /min eCW1 ([facility]) Heart rate 60 /min 60 /min eCW1 ([facility]) Heart rate 64 /min 64 /min [facility] Diastolic blood pressure 66 mm[Hg] 66 mm[Hg] [facility] Systolic blood pressure 130 mm[Hg] 130 mm[Hg] [facility] Oxygen saturation in Arterial blood by Pulse oximetry 95 % 95 % [facility] Respiratory rate 17 /min 17 /min [facility] Body temperature 36.56 Sadia 36.56 Sadia [facility] Body mass index (BMI) [Ratio] 35.89 kg/m2 35.89 kg/m2 [facility] Body weight 115.1 kg 115.1 kg [facility] Body height 179.1 cm 179.1 cm [facility] Diastolic blood pressure 74 mm[Hg] 74 mm[Hg] [facility] Systolic blood pressure 128 mm[Hg] 128 mm[Hg] [facility] Oxygen saturation in Arterial blood by Pulse oximetry 98 % 98 % [facility] Body mass index (BMI) [Ratio] 36.07 kg/m2 36.07 kg/m2 [facility] Body weight 115.667 kg 115.667 kg [facility] Body height 179.1 cm 179.1 cm [facility] Heart rate 59 /min 59 /min [facility] Patient Treatment Plan of Care Planned Activity Planned Date Details Description Data Source (s) Amoxicillin 500 MG Oral Capsule 09/20/2019 12:00:00 AM EST [facility] Aspirin 81 MG Delayed Release Oral Tablet 09/20/2019 12:00:00 AM T [facility] clopidogrel 75 MG Oral Tablet 09/20/2019 12:00:00 AM EST [facility] Lidocaine Hydrochloride 20 MG/ML Mucous Membrane Topic al Solution 07/14/2019 12:00:00 AM EST [facility] cilostazol 100 MG Oral Tablet [facility] Aspirin 325 MG Oral Tablet [facility] cilostazol 100 MG Oral Tablet [facility]
--- NOTE | 2020-10-17 17:10 | REP ---
INDICATION: CHEST PAIN. COMPARISON: 08/19/2019, 03/14/2018. TECHNIQUE: AP portable seated chest FINDINGS: The lungs are adequately inflated some mild chronic interstitial changes but without pleural effusion, lateral pleural thickening apical scar, pneumothorax no dense consolidation or parenchymal mass. The heart, mediastinal and hilar contours are normal. Pulmonary arteries centrally are mildly prominent but symmetric and with no interval change. This suggests some degree of pulmonary artery hypertension, presumably on the basis of COPD. The aorta is mildly tortuous and calcified. Airway is intact. Minor degenerative changes in the spine and shoulders. No free air under the diaphragm. IMPRESSION: No cardiomegaly, edema, effusion or acute infiltrate. Some underlying chronic interstitial changes are again noted. Central pulmonary arteries prominent suggesting a degree of pulmonary artery hypertension, likely on the basis of COPD. <Electronically signed by Naseem Morgan > 10/17/20 [id number]
[2020-10-17 17:20] LABS: ALBUMIN 3.8 GM/DL (3.2-5.2); ALT/SGPT 24 U/L (12-78); BILIRUBIN,DIRECT 0.2 MG/DL (0.0-0.2); BILIRUBIN,TOTAL 0.7 MG/DL (0.2-1.0); BLOOD UREA NITROGEN 24 MG/DL (7-18); CALCIUM LEVEL 9.3 MG/DL (8.8-10.2); CARBON DIOXIDE LEVEL 30 MEQ/L (21-32); CHLORIDE LEVEL 105 MEQ/L (98-107); CK-MB VALUE MASS < 1.0 NG/ML (<3.6); CPK CREATINE PHOSPHOKINASE 66 U/L (39-308); CREATININE FOR GFR 1.34 MG/DL (0.70-1.30); GLOMERULAR FILTRATION RATE 55.5 (>42); GLUCOSE, FASTING 122 MG/DL (70-100); LIPASE 88 U/L (73-393); MB/CK RELATIVE INDEX 1.52 (< OR =4); POTASSIUM SERUM 4.2 MEQ/L (3.5-5.1); SODIUM LEVEL 141 MEQ/L (136-145); TOTAL PROTEIN 6.4 GM/DL (6.4-8.2); TROPONIN I < 0.02 NG/ML (< 0.10)
[2020-10-17] MEDS ORDERED: LABETALOL 100MG/20ML VIAL IV STA (17:30)
[2020-10-17 17:54] VITALS: BP 179/84
[2020-10-17 18:29] VITALS: BP 161/73
--- NOTE | 2020-10-18 09:34 | ECGEPIP ---
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
== END 2020-10-17 18:56 | disposition home or self-care (01) ==
LOC: M ED 15:57
DX: R07.89 Other chest pain (principal); K22.4 Dyskinesia of esophagus; I45.10 Unspecified right bundle-branch block; R11.2 Nausea with vomiting, unspecified; I11.9 Hypertensive heart disease without heart failure; E78.5 Hyperlipidemia, unspecified; Z79.82 Long term (current) use of aspirin; Z79.899 Other long term (current) drug therapy

== ENCOUNTER 2020-10-18 01:34 | Emergency (ER) | payer MEDICARE, OTHER ==
[~2020-10-18] VITALS: Ht 177.8 cm; Wt 117.5 kg
--- OUTSIDE RECORDS SUMMARY | 2020-10-18 01:44 | CCD ---
Author Author [facility] Organization [facility] Address Unknown Phone Unavailable Care Team Providers Care Yarn Tester Name Role Phone Ajit, L Jenna PA [...] Unavailable Blake KEEN MD Unavailable Unavailable Blake EKEN MD Unavailable Unavailable Blake KEEN MD Unavailable [...] is protected by Article 27-F of the [place] State Public Health law. If you continue you may have access to information: Regarding HIV / AIDS; Provided by facilities licensed or operated by the [facility] Office of Mental Health; or Provided by the [facility] Office for People With Developmental Disabilities. If such information is present, then the following [facility] mandated warning applies: This information has been [...] law may result in a fine or assisted sentence or both. A general authorization for the release of medical or other information is NOT sufficient authorization for further disc losure. Allergies and Adverse Reactions Type Description Substance Reaction Status Data Source(s ) No Known Environmental Allergies No Known Environmental Al lergies [facility] No Known Food Allergies No Known Food Allergies [facility] BRANDNAME [facility] ITCHING [facility] Family History Family Member Name Family Member Gender Family Member Status Date o f Status Description Data Source(s) Unknown Female Problem [facility] ([facility]) Unknown Male Problem MED[facility] ([facility] ) Unknown Female Problem [facility] ([facility] Encounters Encounter Providers Location Date Indications Data Source(s ) Outpatient Attender: SOMMER SORIA MDConsultant: SOMMER Rider MD 10/08/2020 12:54:00 PM EST - 10/08/2020 12:54:00 PM [facility] Outpatient [address] [facility] [address] 10/02/2020 12:00:00 AM EST eCW1 ([facility]) Outpatient Attender: SOMMER SORIA MDConsultant: SOMMER Rider MD 09/04/2020 02:43:00 PM EST - 09/04/2020 02:43:00 PM [facility] Outpatient Attender: SOMMER SORIA MD Family Practice 09/04/2020 0 2:00:00 PM EST MEDENT ([facility]) Outpatient Attender: SOMMER SORIA MDConsultant: SOMMER Rider MD 08/08/2020 08:56:00 AM EST - 08/08/2020 08:56:00 AM [facility] Outpatient Attender: SOMMER SORIA MD Family Practice 08/08/2020 0 8:20:00 AM EST MED[facility] ([facility]) Outpatient Attender: SOMMER SORIA MD Family Practice 05/07/2020 0 1:00:00 PM EDT MED[facility] ([facility]) Outpatient Attender: SOMMER SORIA MDConsultant: SOMMER Rider MD 05/07/2020 12:40:00 PM EDT - 05/07/2020 12:40:00 PM EDT [facility] [address] [place] [id number] 02/07/2020 12:00:00 AM EDT eCW1 ([facility]) Unknown [address] [facility] [id number] 02/06/2020 12:00:00 AM EDT eCW1 ([facility]) Outpatient Attender: SOMMER SORIA MD Family Practice 01/19/2020 1 0:00:00 AM EDT MEDENT ([facility]) Outpatient Attender: SOMMER SORIA MDConsultant: SOMMER Rider MD 01/19/2020 09:37:00 AM EDT - 01/19/2020 09:37:00 AM EDT [facility] Recurring Patient Attender: Dominic Bakre IIReferrer: SOMMER LINARES MD 12/30/2019 09:16:29 AM EDT [facility] Outpatient Attender: Jenna STREETER Main Office 10/19/2019 01:00:0 0 PM EST MEDENT ([facility]) Outpatient Attender: SOMMER SORIA MDConsultant: SOMMER Rider MD 10/03/2019 10:18:00 AM EST - 10/03/2019 10:18:00 AM EST [facility] Office Visit Attender: SOMMER SORIA MD Family Practice 2019 09:00:00 AM EST [facility] ([facility] [address] [place] [id number] 09/30/2019 12:00:00 AM EST eCW1 ([facility]) Outpatient Attender: SOMMER SORIA MDConsultant: SOMMER Rider MD 09/27/2019 09:04:00 AM EST - 09/27/2019 10:04:00 AM EST [facility] Inpatient Attender: SYMONE KEEN MDAdmitter: SYMONE CASTRO MD [id number] 09/19/2019 06:32:00 AM EST - 09/20/2019 05:42:00 PM EST [facility] Patient discharged. Outpatient Attender: SYMONE KEEN MDReferrer: SYMONE CASTRO MD MOB-MOB.PAT 09/12/2019 12:11:35 PM EST - 09/12/2019 01:47:14 PM EST [facility] Outpatient Attender: SOMMER SORIA MDConsultant: SOMMER Rider MD 03/18/2018 02:50:51 PM EDT [facility] Immunizations Vaccine Date Status Description Data Source(s) New in 2011. IIV4 08/08/2020 08:38:00 AM EST completed MED[facility] ([facility]) pneumococcal polysaccharide PPV23 08/08/2020 08:37:00 AM EST comple julian MEDENT ([facility]) Medications Medication Brand Name Start Date Product Form Dose Route Admi nistrative Instructions Pharmacy Instructions Status Indications Reaction Description Data Source(s) Cholecalciferol 61010 UNT Oral Capsule Weekly-D 09/04/2020 12:00:00 AM EST ORAL active MED[facility] ([facility]) Triamcinolone Acetonide 5 MG/ML Topical Cream Triamcinolone Acetonide 09/04/2020 12:00:00 AM EST active M EDENT ([facility]) Amoxicillin 500 MG Oral Tablet Amoxicillin 05/24/2020 12:00:00 AM EDT ORAL active MEDENT ([facility], ) Magnesium Hydroxide 80 MG/ML Oral Suspension Milk Of Magnesi a 05/21/2020 12:00:00 AM EDT ORAL active M EDENT ([facility], ) Suprep Bowel Prep Kit Suprep Bowel Prep Kit 05/21/2020 12:00:00 AM EDT active MEDENT ([facility], ) terbinafine 250 MG Oral Tablet Terbinafine HCL 05/07/2020 12:00:00 AM EDT ORAL completed MED[facility] ([facility]) ciclopirox 80 MG/ML Topical Solution Ciclopirox 05/07/2020 12:00:00 A M EDT completed MED[facility] ([facility]) Sulfamethoxazole 800 MG / Trimethoprim 160 MG Oral Tablet [B actrim] Bactrim DS 05/07/2020 12:00:00 AM EDT ORAL completed [facility] ([facility]) Aspirin 81 MG Delayed Release Oral Tablet Aspirin 10/18/2019 1 2:00:00 AM EST ORAL active [facility] ([facility]) clopidogrel 75 MG Oral Tablet Clopidogrel Bisulfate 10/18/2019 1 2:00:00 AM EST ORAL active MED[facility] ( [facility]) Bisacodyl 10 MG Rectal Suppository bisacodyl (DULCOLAX ) suppository 10 mg bisacodyl (DULCOLAX) suppository 10 mg 09/22/2019 09:00:00 AM EST 10 mg Rectal active 10 mg, Rectal, Daily PRN, constipation, Starting Kasie 09/22/19 at 0900, Post-op
If lactulose not effective, give bisacodyl suppository x 1 per rectum prn starting POD #3.
[facility] Medication administered onsite POLYETHYLENE GLYCOL 3350 142 MG/ML Oral Solution polyethylene glycol (GLYCOLAX) packet 17 g polyethylene glycol (GLYCOLAX) packet 17 g 09/21/2019 07:00:00 AM EST 17 g Oral active 17 g, Or al, Daily PRN, For constipation, Starting Thu09/21/19 at 0700, PACU & Post-op
hold for loose stools
[facility] Medication administered onsite Aspirin 81 MG [...] OG tube in place, give non-enteric aspirin.
[facility] Medication administered onsite pantoprazole 40 MG Delayed Release Oral Tablet pantoprazole (PROTONIX) EC tablet 40 mg pantoprazole (PROTONIX) EC tablet 40 mg 09/20/2019 09:00:[address] 40 mg Oral active Stress Ulcer Prophylaxis 40 mg, Oral, Daily, Indications: Stress Ulcer Prophylaxis, First dose on Thu09/20/19 at 0900, Post-op [facility] Stress Ulcer Prophylaxis Medication administered onsite Docusate Sodium 100 MG Oral Capsule docusate sodium (C OLACE) capsule 100 mg docusate sodium (COLACE) capsule 100 mg 09/20/2019 09:00:00 AM EST 100 mg Oral active 100 mg, Oral, 2 times daily, First dose on Thu09/20/19 at 0900, Post-op
Start first POD.
[facility] Medication administered onsite Lisinopril 20 MG Oral Tablet lisinopril (PRINIVIL,ZEST RIL) tablet 20 mg lisinopril (PRINIVIL,ZESTRIL) tablet 20 mg 09/20/2019 09:00:00 AM EST 20 mg Oral active 20 mg, Oral, Daily, First dose on Thu09/20/19 at 0900 [facility] Medication administered onsite clopidogrel 75 MG Oral Tablet clopidogrel (PLAVIX) tab let 75 mg clopidogrel (PLAVIX) tablet 75 mg 09/20/2019 09:00:00 AM EST 75 mg Oral active 75 mg, Oral, Daily, First dose on Thu09/20/19 at 0900, Post-op
Start first POD.
[facility] Medication administered onsite Chlorthalidone 25 MG Oral Tablet chlorthalidone (HYGRO TEN) tablet 12.5 mg chlorthalidone (HYGROTEN) tablet 12.5 mg 09/20/2019 09:00:00 AM EST 12.5 mg Oral active 12.5 mg, Oral, Daily , First dose on Thu09/20/19 at 0900 [facility] Medication administered onsite carvedilol 25 MG Oral Tablet carvedilol (COREG) tablet 25 mg carvedilol (COREG) tablet 25 mg 09/20/2019 09:00:00 AM EST 25 mg Oral activ e 25 mg, Oral, 2 times daily, First dose on Thu09/20/19 at 0900
Hold for SBP <110 or HR <60
[facility] Medication administered onsite clopidogrel 75 MG Oral Tablet clopidogrel (PLAVIX) 75 MG tablet clopidogrel (PLAVIX) 75 MG tablet 09/20/2019 12:00:00 AM EST 75 mg Oral active Take 1 tablet (75 mg total) by mouth daily [facility] Amoxicillin 500 MG Oral Capsule amoxicillin (AMOXIL) 5 00 MG capsule amoxicillin (AMOXIL) 500 MG capsule 09/20/2019 12:00:00 AM EST 2000 mg Oral active Take 4 capsules (2,000 mg total) by mout h as needed (Take 1 hr prior to any dental procedures or cleanings) [facility] Aspirin 81 MG Delayed Release Oral Tablet aspirin 81 M G EC tablet aspirin 81 MG EC tablet 09/20/2019 12:00:00 AM EST 81 mg Oral active Take 1 tablet (81 mg total) by mouth daily [facility] heparin (porcine) injection 5,000 Units 46825-046-19 09/19/19 09:00:00 PM EST 5000 U Subcutaneous [...] equal to 1.7 if receiving Coumadin therapy.
[facility] Medication administered onsite cefazolin (ANCEF) injection 2 g 09/19/2019 03:00:00 PM EST 2 g Intravenous completed Perioperative Pharmacoprophylaxis 2 g, Intravenous, Administer over 6 Minutes, Every 8 hours (relative), First dose on Thu09/19/19 at 1500, For 2 doses, Post-op
RN may administer IV push or infuse this medication through syringe adapter set ref [id number]. Flush line after use
[facility] Perioperative Pharmacoprophylaxis Medication administered onsite normal saline flush 0.9 % injection 3 mL 69738-803-26 09/19/2019 02:00:00 PM EST 3 mL Intravenous active 3 mL , Intravenous, PROTOCOL, First dose on Thu09/19/19 at 1400, Post-op
flush per protocol, D/C Main IV fluid if appropriate
[facility] Medication administered onsite acetaminophen (TYLENOL) 325 [...] Thu09/19/19 at 1058, Post-op [Order 2 End] [facility] Medication administered onsite 2 ML Metoclopramide 5 MG/ML Prefilled Sy ringe metoclopramide (REGLAN) injection 10 mg metoclopramide (REGLAN) injection 10 mg 09/19/2019 10:58:[address] 10 mg Intravenous active 10 mg, I ntravenous, Every 6 hours PRN, nausea, vomiting, Starting Thu09/19/19 at 1058, Post-op
Give once if no response to Zofran after 15-30 minutes, then q6h prn N/V.
[facility] Medication administered onsite ondansetron (ZOFRAN) injection 4 mg [id number] 09/19/2019 10:58:0 7 AM EST 4 mg Intravenous active 4 mg, In travenous, Every 6 hours PRN, nausea, vomiting, Starting Thu09/19/19 at 1058, Post-op
If no response in 15-30 minutes then give metoclopramide 10 mg IV x 1 then q6h prn N/V.
[facility] Medication administered onsite sodium chloride 0.9% (NS) infusion 5207-9277-65 09/19/2019 10:00:00 A M EST Intravenous completed at 75 mL/hr, Intravenous, Continuous, Starting Thu09/19/19 at 1000, For 4 hours, Post-op [facility] Medication administered onsite atorvastatin 20 MG Oral Tablet atorvastatin (LIPITOR) tablet 20 mg atorvastatin (LIPITOR) tablet 20 mg 09/19/2019 10:00:00 AM EST 20 mg Oral active 20 mg, Oral, Daily, First dose on Thu09/19/19 at 1000 [facility] Medication administered onsite Magnesium Chloride 0.10795 MEQ/ML / Pota ssium Chloride 0.0497 MEQ/ML / Sodium Acetate 0.0163 MEQ/ML / Sodium Chloride 0.0899 MEQ/ML / Sodium gluconate 5.02 MG/ML Injectable Solution [Normosol-R] electrolyte-R (NORMOSOL-R/PLASMALYTE-R) solution electrolyte-R (NORMOSOL-R/PLASMALYTE-R) solution 09/19 08:00:00 AM EST Intravenous active at 3 0 mL/hr, Intravenous, Continuous, Starting Thu09/19/19 at 0800, Pre-op
For cardiac surgery patients only
[facility] Medication administered onsite heparin (porcine) injection 5,000 Units [id number] 09/19/19 07:00:00 AM EST 5000 U Subcutaneous completed 5,000 Uni ts, Subcutaneous, On Admission, Thu09/19/19 at 0700, For 1 dose, Pre-op
Hold for platelets less than 90,000.
[facility] Medication administered onsite Lidocaine Hydrochloride 20 MG/ML Mucous Membrane Topical Solution lidocaine Viscous HCl (XYLOCAINE) 2 % solution lidocaine Viscous HCl (XYLOCAINE) 2 % solution 07/14/2019 12:00:00 AM EST 5 mL Oral aborted Take 5 mL by mouth as needed for pain [facility] cilostazol 100 MG Oral Tablet cilostazol (PLETAL) 100 MG tablet cilostazol (PLETAL) 100 MG tablet 100 mg Oral aborted Take 100 mg by mouth 2 (two) times a day [facility] Aspirin 325 MG Oral Tablet aspirin 325 MG tablet aspirin 325 MG tab let 325 mg Oral aborted Take 325 mg by mouth linus ly [facility] cilostazol 100 MG Oral Tablet cilostazol (PLETAL) 100 MG tablet cilostazol (PLETAL) 100 MG tablet 100 mg Oral aborted Take 100 mg by mouth 2 (two) times a day [facility] Insurance Providers Payer name Policy type / Coverage type Policy ID Covered libertarian ID Covered libertarian's relationship to moss Policy Moss Plan Information FOR LIFE [id number] SP [id number] MEDICARE [id number] SP [id number] MEDICARE PART A [facility] [id number] 18 [id number] FOR LIFE [id number] 01 [id number] FOR LIFE CO UNAVAILABLE 01 U NAVAILABLE FOR LIFE -O/P UNAVAILABLE 01 UNAVAILABLE Family [place] F [id number] SELF [id number] MEDICARE [id number] Sandra [id number] [id number] Sandra [id number] FOR LIFE -O/P [id number] 01 [id number] MEDICARE PART A -O/P [id number] 18 [id number] FOR LIFE -O/P [place] [id number] 01 [id number] FOR LIFE [id number] MEDICARE [id number] MEDICARE [id number] SP [id number] A MEDICARE [id number] Sandra [id number] A MEDICARE PART A [facility] [id number] 18 [id number] FOR LIFE -O/P [id number] 01 [id number] MEDICARE PART A -O/P [id number] 18 [id number] DME Jurisdiction A ILIC C [id number] SELF [id number] Medicare C [id number] SELF [id number] M77 For Life F [id number] SELF [id number] DME Jurisdiction A ILIC C [id number] SELF [id number] Medicare C [id number] SELF [id number] For Life Medigap Part B [id number] Family Dependent [id number] [place] Part [place] Primary [id number] Self [id number] For Life Medigap Part [id number] Family Dependent [id number] [place] Part [place] Primary [id number] Self [id number] [employer] Plan Commercial [id number] Self [id number] [place] [employer] (TFL) Medigap Part B [id number] Self [id number] Medicare [facility] Medicare Primary [id number] Self [id number] [employer] Commercial [id number] Self [id number] [place] [employer] (TFL) Medigap Part B [id number] Self [id number] [place] Primary [id number] Self [id number] For Life Medigap Part B [id number] Family Dependent [id number] [place] Part [place] [id number] Self [id number] For Life - [place] Medigap Part B [id number] Family Depen dent [id number] Medicare (Part B) Medicare Primary [id number] Self [id number] For Life Medigap Part [id number] Family Dependent [id number] [place] Part [place] [id number] Self [id number] [facility] [id number] SP [id number] For Life Medigap Part B [id number] Family Dependent [id number] [place] Part [place] Primary [id number] Self [id number] [employer] [id number] Self [id number] [place] [employer] (TFL) Medigap Part B [id number] Self [id number] [place] Primary [id number] Self [id number] [place] Family Health Plan Commercial [id number] Self [id number] [facility] Serv (TFL) Medigap Part B [id number] Self [id number] [place] Medicare Primary [id number] Self [id number] For Life Medigap Part B [id number] Family Dependent [id number] [place] Part [place] Primary [id number] Self [id number] FOR LIFE O [id number] P [id number] MEDICARE C [id number] S [id number] A FOR LIFE [id number] 01 [id number] MEDICARE -O/P [id number] 18 [id number] Medicare Part [place] Primary [id number] Self [id number] For Life Commercial [id number] Family Dependent [id number] [place] Part [place] Primary [id number] Self [id number] For Life Commercial [id number] Family Dependent [id number] [facility] AT [facility] [id number] 18 [id number] [facility] AT [facility] [id number] 18 [id number] USFHP AT [facility]/P [id number] 18 [id number] Medicare Part [place] Primary [id number] Self [id number] For Life Commercial [id number] Family Dependent [id number] MEDICARE PART A [facility] [id number] 18 [id number] For Life - [place] Medigap Part B [id number] Self [id number] Medicare (Part B) Medicare Primary [id number] Self [id number] [facility] [place] [id number] 18 [id number] [facility] AT [facility] [place] [id number] 18 [id number] [facility] Commercial [id number] Self [id number] [facility] [id number] Self [id number] [place] Commercial [id number] Self [id number] [place] Commercial [id number] Self 000 [id number] [place] Commercial [id number] Self [id number] [place] Commercial [id number] Self [id number] [place] Commercial [id number] Self [id number] [place] Commercial [id number] Self [id number] [place] [id number] S [id number] [facility] Point Commercial Self [facility] Health Plan Commercial Self [facility] Healthcare Health Maintenance Organization (HMO) [facility] [id number] Spo [id number] Problems, Conditions, and Diagnoses Code Display Name Description Problem Type Effective Dates Data Source(s) 01157564 Essential hypertension Essential hypertension Problem 01/12/2020 12:00:00 AM COLLIN MONTILLA ([facility], ) E78.5 Hyperlipidemia, acquired Hyperlipidemia, acquired 6457 200009/19/2019 12:00:00 AM [facility] I10 Hypertension, essential Hypertension, essential 192314 09/19/2019 12:00:00 AM [facility] I73.9 Peripheral vascular disease Peripheral vascular diseas e 79366450 09/19/2019 12:00:00 AM [facility] K21.9 GERD (gastroesophageal reflux disease) G ERD (gastroesophageal reflux disease) 24311980 09/19/2019 12:00:00 AM [facility] I35.0 Nonrheumatic aortic (valve) stenosis Nonrheumati c aortic (valve) stenosis 11165390 09/19/2019 12:00:00 AM [facility] E559 Vitamin D deficiency, unspecified Vitamin D defi ciency, unspecified Diagnosis 09/04/2020 02:43:00 PM [facility] R739 Hyperglycemia, unspecified Hyperglycemia, unspecified Diagnosis 09/04/2020 02:43:00 PM [facility] G4733 Obstructive sleep apnea (adult) (pediatr ic) Obstructive sleep apnea (adult) (pediatric) Diagnosis 09/04/2020 02:43:00 PM [facility] E785 Hyperlipidemia, unspecified Hyperlipidemia, unspecifie d Diagnosis 09/04/2020 02:43:00 PM [facility] I739 Peripheral vascular disease, unspecified Peripheral vascular disease, unspecified Diagnosis 09/04/2020 02:43:00 PM [facility] I10 Essential (primary) hypertension Essential (primary) h ypertension Diagnosis 09/04/2020 02:43:00 PM [facility] Z23 Encounter for immunization Encounter for immunization Diagnosis 08/08/2020 08:56:00 AM [facility] M130 Polyarthritis, unspecified Polyarthritis, unspecified Diagnosis 08/08/2020 08:56:00 AM [facility] 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 Onychogryphosis Diagnosis 08/08/2020 08:5 6:00 AM [facility] E782 Mixed hyperlipidemia Mixed hyperlipidemia Diagnosis 08/08/2020 08:56:00 AM [facility] I359 Nonrheumatic aortic valve disorder, unsp ecified Nonrheumatic aortic valve disorder, unspecified Diagnosis 10/03/2019 10:18:00 AM [facility] N3289 Other specified disorders of bladder Other speci fied disorders of bladder Diagnosis 09/27/2019 09:04:00 AM [facility] I35.0 Nonrheumatic aortic (valve) stenosis Nonrheumati c aortic (valve) stenosis Diagnosis 09/12/2019 12:11:35 PM [facility] Surgeries/Procedures Procedure Description Date Indications Data Source(s) Medication: (Derm) 1% Lidocaine with Epi nephrine Injection Intradermally to marked area (s) 09/28/2020 12:00:00 AM EST eCW1 ([facility]) Colonoscopy W/ Poly 06/07/2020 12:00:00 AM EDT MEDENT ([facility]) ECG ROUTINE ECG W/LEAST 12 LDS W/I&R 10/19/2019 12:00: 00 AM EST MEDENT ([facility]) Brief Emotional/Behav Assessment W/ Scoring Doc Per Standard Inst 10/03/2019 12:00:00 AM EST [facility] ([facility]) DESTROY BENIGN/PREMLG LESION 09/30/2019 12:00:00 AM ES T eCW1 ([facility]) ECHO TTHRC R-T 2D W/WOM-MODE COMPL SPEC&COLR DOP ECHOCARDIO GRAM TRANSTHORACIC Routine 09/20/2019 2:24 PM EST 09/20/2019 07:24:37 PM EST [facility] BLOOD COUNT COMPLETE AUTOMATED CBC Timed 09/20/2019 2:21 A M EST 09/20/2019 07:21:00 AM EST [facility] BASIC METABOLIC PANEL CALCIUM TOTAL BASIC METABOLIC PANEL Timed 09/20/2019 2:21 AM EST 09/20/2019 07:21:00 AM EST [facility] XR CHEST PORTABLE XR CHEST PORTABLE STAT 09/19/2019 9:33 AM EST 09/19/2019 02:33:46 PM EST [facility] ECG ROUTINE ECG W/LEAST 12 LDS TRCG ONLY W/O I&R ECG 12-LEAD Routine 09/19/2019 9:23 AM EST 09/19/2019 02:23:05 PM EST [facility] PROTHROMBIN TIME PROTIME-INR STAT 09/19/2019 9:19 AM EST 09/19/2019 02:19:00 PM EST [facility] BLOOD COUNT COMPLETE AUTOMATED CBC STAT 09/19/2019 9:19 A M EST 09/19/2019 02:19:00 PM EST [facility] MAGNESIUM MAGNESIUM STAT 09/19/2019 9:19 AM EST 09/19/2019 02:19:00 PM EST [facility] BASIC METABOLIC PANEL CALCIUM TOTAL BASIC METABOLIC PANEL STAT 09/19/2019 9:19 AM EST 09/19/2019 02:19:00 PM EST [facility] TRANSCATHETER AORTIC VALVE IMPLANT FEMORAL TRANSCATHE TER AORTIC VALVE IMPLANT FEMORAL Routine 09/19/2019 8:48 AM EST Nonrheumatic aortic (valve) stenosis 09/19/2019 01:48:00 PM EST Nonrheumatic aortic (valve) stenosis [facility] Nonrheumatic aortic (valve) stenosis POC ARTERIAL BLOOD GAS W LYTES POC ARTERIAL BLOOD GAS W LYTES R outine 09/19/2019 8:24 AM EST 09/19/2019 01:24:00 PM EST [facility] POC ACT POC ACT Routine 09/19/2019 8:23 AM EST 020 01:23:00 PM EST [facility] POC ARTERIAL BLOOD GAS W LYTES POC ARTERIAL BLOOD GAS W LYTES R outine 09/19/2019 7:55 AM EST 09/19/2019 12:55:00 PM EST [facility] POC ACT POC ACT Routine 09/19/2019 7:54 AM EST 020 12:54:00 PM EST [facility] GLUC BLD GLUC MNTR DEV CLEARED FDA SPEC HOME USE POCT GLUCOSE Routine 09/19/2019 6:49 AM EST 09/19/2019 11:49:00 AM EST [facility] ECG ROUTINE ECG W/LEAST 12 LDS TRCG ONLY W/O I&R ECG 12-LEAD Routine 09/12/2019 1:46 PM EST Nonrheumatic aortic valve stenosis 09/12/2019 06:46:25 PM ES T Nonrheumatic aortic valve stenosis [facility] Nonrheumatic aortic valve stenosis ROOM TEMP AB SCREEN ROOM TEMP AB SCREEN Routine 09/12/2019 1 :10 PM EST Nonrheumatic aortic valve stenosis 09/12/2019 06:10:00 PM ES T Nonrheumatic aortic valve stenosis [facility] Nonrheumatic aortic valve stenosis BLOOD TYPING ABO TYPE AND SCREEN Routine 09/12/2019 1:10 PM EST Nonrheumatic aortic valve stenosis 09/12/2019 06:10:00 PM ES T Nonrheumatic aortic valve stenosis [facility] Nonrheumatic aortic valve stenosis NT PRO BNP NT PRO BNP Routine 09/12/2019 1:03 PM EST Nonrheumatic aortic valve stenosis 09/12/2019 06:03:00 PM ES T Nonrheumatic aortic valve stenosis [facility] Nonrheumatic aortic valve stenosis URNLS DIP STICK/TABLET RGNT AUTO W/O MICROSCOPY URINALYSIS W/O MICRO Routine 09/12/2019 1:03 PM EST Nonrheumatic aortic valve stenosis 09/12/2019 06:03:00 PM ES T Nonrheumatic aortic valve stenosis [facility] Nonrheumatic aortic valve stenosis THROMBOPLASTIN TIME PARTIAL PLASMA/WHOLE BLOOD APTT Routine 09/12/2019 1:03 PM EST Nonrheumatic aortic valve stenosis 09/12/2019 06:03:00 PM ES T Nonrheumatic aortic valve stenosis [facility] Nonrheumatic aortic valve stenosis PROTHROMBIN TIME PROTIME-INR Routine 09/12/2019 1:03 PM EST Nonrheumatic aortic valve stenosis 09/12/2019 06:03:00 PM ES T Nonrheumatic aortic valve stenosis [facility] Nonrheumatic aortic valve stenosis BLOOD COUNT COMPLETE AUTO&AUTO DIFRNTL WBC COUNT CBC AND DIFFER ENTIAL Routine 09/12/2019 1:03 PM EST Nonrheumatic aortic valve stenosis 09/12/2019 06:03:00 PM ES T Nonrheumatic aortic valve stenosis [facility] Nonrheumatic aortic valve stenosis HEMOGLOBIN GLYCOSYLATED A1C HEMOGLOBIN A1C Routine 09/12/2019 1:03 PM EST Nonrheumatic aortic valve stenosis 09/12/2019 06:03:00 PM ES T Nonrheumatic aortic valve stenosis [facility] Nonrheumatic aortic valve stenosis COMPREHENSIVE METABOLIC PANEL COMPREHENSIVE METABOLIC PANEL Rou lamar 09/12/2019 1:03 PM EST Nonrheumatic aortic valve stenosis 09/12/2019 06:03:00 PM ES T Nonrheumatic aortic valve stenosis [facility] Nonrheumatic aortic valve stenosis Results ID Date Data Source [id number] 08/08/2020 09:32:00 AM EST [facility] Name Value Range Interpretation Code Description Data Meme rce(s) Supporting Document(s) Calcidiol [Mass/volume] in Serum or Plasma 23 ng/mL [facility] ([facility]) Is patient fasting? N ID Date Data Source [id number] 08/08/2020 09:32:00 AM EST [facility] Name Value Range Interpretation Code Description Data Meme rce(s) Supporting Document(s) Cve Panel Laboratory test result [facility] ([facility]) Is patient fasting? N Cholesterol 153 mg/dL 131-200 [facility] ([facility]) Is patient fasting? N Triglycerides 96 mg/dL 35-160 [facility] ([facility]) Is patient fasting? N HDL 45 mg/dL 29-86 [facility] ([facility]) Is patient fasting? N Risk Factor 3.4 3.4-4.9 Below low normal [facility] ([facility]) Is patient fasting? N LDL 99 mg/dL 65-175 [facility] ([facility]) Is patient fasting? N LDL/HDL 2.20 1.00-3.55 [facility] ([facility]) Is patient fasting? N ID Date Data Source [id number] 08/08/2020 09:32:00 AM EST [facility] Name Value Range Interpretation Code Description Data Meme rce(s) Supporting Document(s) Hemoglobin A1c/Hemoglobin.total in Blood 5.8 % 4.4-6.1 [facility] ([facility]) Is patient fasting? N ID Date Data Source [id number] 08/08/2020 09:32:00 AM EST [facility] Name Value Range Interpretation Code Description Data Meme rce(s) Supporting Document(s) CBC W/Automated Diff Laboratory test result [facility] ([facility]) Is patient fasting? N RBC 5.54 10^6/uL 4.50-6.30 [facility] ([facility]) Is patient fasting? N WBC 7.2 10^3/uL 4.2-11.0 [facility] ([facility]) Is patient fasting? N Hemoglobin 16.3 g/dL 14.0-16.0 Above high normal [facility] ([facility]) Is patient fasting? N Hematocrit 48.4 % 41.0-51.0 [facility] ([facility]) Is patient fasting? N MCV 87.4 fL 80.0-94.0 [facility] ([facility]) Is patient fasting? N RDW 12.6 % 11.5-14.8 [facility] ([facility]) Is patient fasting? N MCHC 33.7 g/dL 31.0-36.0 [facility] ([facility]) Is patient fasting? N MCH 29.4 pg 27.0-34.0 [facility] ([facility]) Is patient fasting? N Platelets 140 10^3/uL 150-450 Below low normal [facility] ([facility]) Is patient fasting? N MPV 12.1 fL 7.4-10.4 Above high normal [facility] ([facility]) Is patient fasting? N Neut 59.7 % 37.0-80.0 [facility] ([facility]) Is patient fasting? N Major 7.0 % 3.0-8.0 [facility] ([facility]) Is patient fasting? N Lymph 26.7 % 25.0-40.0 [facility] ([facility]) Is patient fasting? N Eos 5.2 % 0.0-7.0 [facility] ([facility]) Is patient fasting? N %Ig 0.6 % 0.0-0.0 Above high normal [facility] ([facility]) Is patient fasting? N Baso 0.8 % 0.0-2.0 [facility] ([facility]) Is patient fasting? N #Neut 4.27 10^3/uL 2.00-6.90 [facility] ([facility]) Is patient fasting? N %NRBC 0.0 % 0.0-0.0 [facility] ([facility]) Is patient fasting? N #Lymph 1.91 10^3/uL 0.60-3.40 [facility] ([facility]) Is patient fasting? N #Major 0.50 10^3/uL 0.00-0.90 [facility] ([facility]) Is patient fasting? N #Eos 0.37 10^3/uL 0.00-0.70 [facility] ([facility]) Is patient fasting? N #Baso 0.06 10^3/uL 0.00-0.20 [facility] ([facility]) Is patient fasting? N Manual Diff Laboratory test result [facility] ([facility]) Is patient fasting? N #Ig 0.04 10^3/uL 0.00-0.10 [facility] ([facility]) Is patient fasting? N #NRBC 0.00 10^3/uL 0.00-0.00 [facility] ([facility]) Is patient fasting? N RBC Morph Laboratory test result [facility] ([facility]) Is patient fasting? N ID Date Data Source [id number] 08/08/2020 09:32:00 AM EST [facility] Name Value Range Interpretation Code Description Data Meme rce(s) Supporting Document(s) Comprehensive Metabo Laboratory test result [facility] ([facility]) Is patient fasting? N Potassium 4.3 meq/L 3.6-5.0 [facility] ([facility]) Is patient fasting? N Sodium 135 meq/L 134-153 [facility] ([facility]) Is patient fasting? N Co2 26 meq/L 22-30 [facility] ([facility]) Is patient fasting? N Chloride 100 meq/L 98-107 [facility] ([facility]) Is patient fasting? N BUN 21 mg/dL 7-21 [facility] ([facility]) Is patient fasting? N Creatinine 1.1 mg/dL 0.7-1.5 [facility] ([facility]) Is patient fasting? N Glucose 132 mg/dL 65-110 Above high normal [facility] ([facility]) Is patient fasting? N BUN/Creat 19 8-27 [facility] ([facility]) Is patient fasting? N Albumin 4.7 g/dL 3.9-5.0 [facility] ([facility]) Is patient fasting? N Total Protein 7.0 g/dL 6.3-8.2 [facility] ([facility]) Is patient fasting? N A/G Ratio 2.0 0.8-2.0 [facility] ([facility]) Is patient fasting? N Globulin 2.3 GM/DL 2.4-3.2 Below low normal [facility] ( [facility]) Is patient fasting? N Total Bili 0.8 mg/dL 0.2-1.3 [facility] ([facility]) Is patient fasting? N Alkaline Phos 68 U/L 38-126 [facility] ([facility]) Is patient fasting? N Calcium 9.8 mg/dL 8.4-10.2 [facility] ([facility]) Is patient fasting? N SGPT/Alt 12 U/L 7-56 [facility] ([facility]) Is patient fasting? N Sgot/Ast 15 U/L 5-40 [facility] ([facility]) Is patient fasting? N Anion Gap 9.0 mmol/L 8.0-16.0 [facility] ([facility]) Is patient fasting? N Non-Aa GFR Laboratory test result [facility] ([facility]) Is patient fasting? N Age 74 yrs [facility] ([facility]) Is patient fasting? N Afr Amer GFR Laboratory test result [facility] ([facility]) Is patient fasting? N ID Date Data Source [id number] 08/10/2020 03:17:00 AM [facility] Name Value Range Interpretation Code Description Data Meme rce(s) Supporting Document(s) Calcidiol [Moles/volume] in Serum or Plasma 23 NG/ML [facility] VITAMIN-D(2 5HYDROXY) Deficiency: <=20 ng/ml Insufficiency: 21-29 ng/ml Preferred level: => 30 ng/ml ID Date Data Source [id number] 08/08/2020 03:53:00 PM [facility] Name Value Range Interpretation Code Description Data Meme rce(s) Supporting Document(s) CVE PANEL [facility] al LIPID PANEL Cholesterol [Mass/volume] in Serum or Plasma 153 MG/DL 131 - 200 [facility] Deprecated Triglyceride [Mass/volume] in Serum or Plasma 96 MG/DL 3 5 - 160 [facility] HDL 45 MG/DL 29 - 86 [facility] al Cholesterol in LDL [Mass/volume] in Serum or Plasma by Direc t assay 99 mg/dL 65 - 175 [facility] Cholesterol.total/Cholesterol in HDL [Mass Ratio] in Serum o r Plasma 3.4 3.4 - 4.9 L [facility] LDL/HDL 2.20 1.00 - 3.55 [facility] ital CVE RISK CHOL/HDL LDL/HDLMEN: 1/2 AVERAGE 3.43 1.00 AVERAGE 4.97 3.55 2X AVERAGE 9.55 6.25 3X AVERAGE 23.99 7.99WOMEN: 1/2 AVERAGE 3.27 1.47 AVERAGE 4.44 3.22 2X AVERAGE 7.05 5.03 3X AVERAGE 11.04 6.14 ID Date Data Source [id number] 08/08/2020 03:53:00 PM EST [facility] Name Value Range Interpretation Code Description Data Meme rce(s) Supporting Document(s) COMPREHENSIVE METABOLIC PANEL [facility] COMPREHENSIVE METABOLIC PANEL Sodium [Moles/volume] in Serum or Plasma 135 mEq/L 134 - 153 [facility] Potassium [Moles/volume] in Serum or Plasma 4.3 mEq/L 3.6 - 5.0 [facility] Chloride [Moles/volume] in Serum or Plasma 100 mEq/L 98 - 107 [facility] Carbon dioxide, total [Moles/volume] in Serum or Plasma 26 MEQ/L 22 - 30 [facility] Glucose [Mass/volume] in Serum or Plasma 132 MG/DL 65 - 110 H [facility] BUN 21 MG/DL 7 - 21 [facility] Creatinine [Mass/volume] in Serum or Plasma 1.1 MG/DL 0.7 - 1.5 [facility] BUN/CREAT 19 8 - 27 [facility] Protein [Mass/volume] in Serum or Plasma 7.0 G/DL 6.3 - 8.2 [facility] Albumin [Mass/volume] in Serum or Plasma 4.7 G/DL 3.9 - 5.0 [facility] Globulin [Mass/volume] in Serum by calculation 2.3 GM/DL 2.4 - 3.2 L [facility] A/G RATIO 2.0 0.8 - 2.0 [facility] Calcium [Mass/volume] in Serum or Plasma 9.8 MG/DL 8.4 - 10.2 [facility] Bilirubin.total [Mass/volume] in Serum or Plasma 0.8 MG/DL 0.2 - 1.3 [facility] Alkaline phosphatase [Enzymatic activity/volume] in Serum or Plasma 68 U/L 38 - 126 [facility] Aspartate aminotransferase [Enzymatic activity/volume] in Serum or Plasma 15 U/L 5 - 40 [facility] Alanine aminotransferase [Enzymatic activity/volume] in Seru m or Plasma 12 U/L 7 - 56 [facility] Anion gap 3 in Serum or Plasma 9.0 mmol/L 8.0 - 16.0 [facility] AGE 74 yrs [facility] NON-AA GFR >60 mL/min [facility] ital AFR AMER GFR >60 mL/min [facility] spital Male GFR In terprentation [...] >32 mL/min Normal ID Date Data Source [id number] 08/08/2020 03:37:00 PM EST [facility] Name Value Range Interpretation Code Description Data Meme rce(s) Supporting Document(s) CBC W/AUTOMATED DIFF [facility] COMPLETE BLOOD COUNT Leukocytes [#/volume] in Blood by Automated count 7.2 10^3/uL 4.2 - 1 1.0 [facility] Erythrocytes [#/volume] in Blood by Automated count 5.54 10^6/uL 4. 50 - 6.30 [facility] Hemoglobin [Mass/volume] in Blood 16.3 g/dL 14.0 - 16.0 H [facility] Hematocrit [Volume Fraction] of Blood by Automated count 48.4 % 4 1.0 - 51.0 [facility] Erythrocyte mean corpuscular volume [Entitic volume] by Auto mated count 87.4 fL 80.0 - 94.0 [facility] Erythrocyte mean corpuscular hemoglobin [Entitic mass] by Automated count 29.4 pg 27.0 - 34.0 [facility] Erythrocyte mean corpuscular hemoglobin concentration [Mass/volume] by Automated count 33.7 g/dL 31.0 - 36.0 [facility] Erythrocyte distribution width [Ratio] by Automated count 12.6 % 11.5 - 14.8 [facility] Platelets [#/volume] in Blood by Automated count 140 10^3/uL 150 - 45 0 L [facility] Platelet mean volume [Entitic volume] in Blood by Automated count 12.1 fL 7.4 - 10.4 H [facility] Neutrophils/100 leukocytes in Blood by Automated count 59.7 % 37. 0 - 80.0 [facility] Lymphocytes/100 leukocytes in Blood by Manual count 26.7 % 25.0 - 40.0 [facility] Monocytes/100 leukocytes in Blood by Automated count 7.0 % 3.0 - 8.0 [facility] Eosinophils/100 leukocytes in Blood by Automated count 5.2 % 0.0 - 7.0 [facility] Basophils/100 leukocytes in Blood by Automated count 0.8 % 0.0 - 2.0 [facility] %IG 0.6 % 0.0 - 0.0 H [facility] Hospit al %NRBC 0.0 % 0.0 - 0.0 [facility] al Neutrophils [#/volume] in Blood by Automated count 4.27 10^3/uL 2.00 - 6.90 [facility] Lymphocytes [#/volume] in Blood by Automated count 1.91 10^3/uL 0.60 - 3.40 [facility] Monocytes [#/volume] in Blood by Automated count 0.50 10^3/uL 0.00 - 0.90 [facility] Eosinophils [#/volume] in Blood by Automated count 0.37 10^3/uL 0.00 - 0.70 [facility] Basophils [#/volume] in Blood by Automated count 0.06 10^3/uL 0.00 - 0.20 [facility] #IG 0.04 10^3/uL 0.00 - 0.10 [facility] #NRBC 0.00 10^3/uL 0.00 - 0.00 [facility] MANUAL DIFF NOT INDICATED [facility] RBC MORPH NOT INDICATED [facility] ID Date Data Source [id number] 08/08/2020 03:32:00 PM EST [facility] Name Value Range Interpretation Code Description Data Meme rce(s) Supporting Document(s) Hemoglobin A1c/Hemoglobin.total in Blood 5.8 % 4.4 - 6.1 [facility] {A1]{HB] ID Date Data Source [id number] 06/07/2020 11:29:00 AM EDT [facility] ([facility] ) Name Value Range Interpretation Code Description Data Meme rce(s) Supporting Document(s) Surgical pathology study Laboratory test result [facility] ([facility] ) FINAL DIAGNOSIS Colon polyp rectum, polypectomy: Tubular adenoma, fragments. 06/08/20201107 CLINICAL DIAGNOSIS Screening colonoscopy 06/08/2020721 GROSS DIAGNOSIS Received in formalin labeled "colon polyp rectum" and it consists of fragments of tissue 0.3 x 0.3 x 0.1 cm. All in one. -OA 06/08/2020721 Signed VINCENT ADORNO MD 06/08/20201107 ID Date Data Source [id number] 06/02/2020 12:00:00 PM EDT [facility] Name Value Range Interpretation Code Description Data Meme rce(s) Supporting Document(s) SARS coronavirus 2 RNA [facility] This lab was ordered by [facility] and reported by [facility]. ID Date Data Source [id number] 05/07/2020 01:56:00 PM EDT [facility] Name Value Range Interpretation Code Description Data Meem rce(s) Supporting Document(s) Bacteria identified in Wound by Culture Laboratory test result [facility] ([facility]) {SPECIMEN SOURCE : ABDOMEM GROIN AREA ID Date Data Source [id number] 05/11/2020 01:32:00 PM EDT [facility] Name Value Range Interpretation Code Description Data Meme rce(s) Supporting Document(s) CULTURE WOUND [facility] _CULTURE WOUND_$$[id number]$$[id number] DATE/TIME: 05/11/2020 13:06Culture: CULTURE WOUND Status: FinalAerobic Bacterial Culture: P1No growth in 36 - 48 hours. Previous result entered on 05/10/2020 05:29 ET No growth after 18-24 hours.P1 [facility]: [id number] [address] [place] [id number] [facility] [id number] Director : Keenan Wisdom MD NPI #:Furnace Attendant : 05/10/20.0623.XMT.SENT REF 05/11/20.1332.XMT.SENT REF ID Date Data Source [id number] 01/19/2020 11:28:00 AM EDT [facility]) Name Value Range Interpretation Code Description Data Meme rce(s) Supporting Document(s) White Blood Count 6.6 4.2-11.0 [facility] ([facility]) Platelets 127 150-450 [facility] ([facility] Red Blood Count 5.30 4.50-6.30 [facility] ([facility]) Hematocrit 46.0 41.0-51.0 [facility] ([facility]) Hemoglobin 15.1 14.0-16.0 [facility] ([facility]) ID Date Data Source [id number] 01/19/2020 11:28:00 AM EDT [facility] Name Value Range Interpretation Code Description Data Meme rce(s) Supporting Document(s) Alanine aminotransferase [Enzymatic activity/volume] in Serum or Pl asma 15 [facility] ([facility]) Calcium [Mass/volume] in Serum or Plasma 9.3 [facility] ([facility]) Albumin [Mass/volume] in Serum or Plasma 4.6 [facility] ([facility]) Potassium [Moles/volume] in Serum or Plasma 4.3 [facility] ([facility]) Carbon dioxide, total [Moles/volume] in Serum or Plasma 23 [facility] ([facility]) Alkaline phosphatase [Enzymatic activity/volume] in Serum or Plasma 5 8 [facility] ([facility]) Chloride [Moles/volume] in Serum or Plasma 103 [facility] ([facility]) Sodium 140 [facility] Protein [Mass/volume] in Serum or Plasma 6.8 [facility] ([facility]) Aspartate aminotransferase [Enzymatic activity/volume] in Serum or Plasma 16 [facility] ([facility]) Urea nitrogen [Mass/volume] in Serum or Plasma 28 [facility] ([facility]) Creatinine For GFR 1.1 [facility] ([facility]) Glucose 113 65-110 [facility] ID Date Data Source [id number] 01/19/2020 11:28:00 AM EDT [facility] ([facility]) Name Value Range Interpretation Code Description Data Meme rce(s) Supporting Document(s) Triglycerides 108 [facility] ([facility]) Cholesterol 110 131-200 [facility] ([facility]) Cholesterol in LDL [Mass/volume] in Serum or Plasma by calculation 60 [facility] ([facility]) HDL 39 29-86 [facility] Chol/HDL Ratio 1.54 [facility] ([facility]) ID Date Data Source [id number] 01/19/2020 10:13:00 AM EDT [facility] ([facility] Name Value Range Interpretation Code Description Data Meme rce(s) Supporting Document(s) Reflex Criteria Laboratory test result [facility] ([facility]) FASTING~.~.~<DG1.3.1>E78.5</DG1.3.1><DG1.3.1>E78.5</DG1.3.1><DG1.3.1>E78.5</DG1. 3.1><DG1.3.1 Prostate Specific Ag,Serum 1.7 ng/mL 0.0-4.0 [facility] ([facility]) FASTING~.~.~<DG1.3.1>E78.5</DG1.3.1><DG1.3.1>E78.5</DG1.3.1><DG1.3.1>E78.5</DG1. 3.1><DG1.3.1 ID Date Data Source [id number] 01/19/2020 10:13:00 AM EDT [facility] ([facility] Name Value Range Interpretation Code Description Data Meme rce(s) Supporting Document(s) Natriuretic peptide.B prohormone N-Terminal [Mass/volu me] in Serum or Plasma 74 pg/mL 0-125 [facility] ([facility]) FASTING~.~.~<DG1.3.1>E78.5</DG1.3.1><DG1.3.1>E78.5</DG1.3.1><DG1.3.1>E78.5</DG1. 3.1><DG1.3.1 Hemoglobin A1c/Hemoglobin.total in Blood 5.7 % 4.4-6.1 [facility] ([facility]) FASTING~.~.~<DG1.3.1>E78.5</DG1.3.1><DG1.3.1>E78.5</DG1.3.1><DG1.3.1>E78.5</DG1. 3.1><DG1.3.1 ID Date Data Source [id number] 01/19/2020 10:13:00 AM EDT [facility] Name Value Range Interpretation Code Description Data Meme rce(s) Supporting Document(s) Urinalysis Laboratory test result [facility] ([facility]) FASTING~.~.~<DG1.3.1>E78.5</DG1.3.1><DG1.3.1>E78.5</DG1.3.1><DG1.3.1>E78.5</DG1. 3.1><DG1.3.1 Source Laboratory test result [facility] ([facility]) FASTING~.~.~<DG1.3.1>E78.5</DG1.3.1><DG1.3.1>E78.5</DG1.3.1><DG1.3.1>E78.5</DG1. 3.1><DG1.3.1 Color Laboratory test result [facility] ([facility]) FASTING~.~.~<DG1.3.1>E78.5</DG1.3.1><DG1.3.1>E78.5</DG1.3.1><DG1.3.1>E78.5</DG1. 3.1><DG1.3.1 Spec [place] 1.025 1.001-1.030 [facility] ([facility]) FASTING~.~.~<DG1.3.1>E78.5</DG1.3.1><DG1.3.1>E78.5</DG1.3.1><DG1.3.1>E78.5</DG1. 3.1><DG1.3.1 Clarity Laboratory test result [facility] ([facility]) FASTING~.~.~<DG1.3.1>E78.5</DG1.3.1><DG1.3.1>E78.5</DG1.3.1><DG1.3.1>E78.5</DG1. 3.1><DG1.3.1 pH 5 5-9 [facility] ([facility]) FASTING~.~.~<DG1.3.1>E78.5</DG1.3.1><DG1.3.1>E78.5</DG1.3.1><DG1.3.1>E78.5</DG1. 3.1><DG1.3.1 Glucose Laboratory test result [facility] ([facility]) FASTING~.~.~<DG1.3.1>E78.5</DG1.3.1><DG1.3.1>E78.5</DG1.3.1><DG1.3.1>E78.5</DG1. 3.1><DG1.3.1 Bilirubin Laboratory test result [facility] ([facility]) FASTING~.~.~<DG1.3.1>E78.5</DG1.3.1><DG1.3.1>E78.5</DG1.3.1><DG1.3.1>E78.5</DG1. 3.1><DG1.3.1 Ketone Laboratory test result [facility] ([facility]) FASTING~.~.~<DG1.3.1>E78.5</DG1.3.1><DG1.3.1>E78.5</DG1.3.1><DG1.3.1>E78.5</DG1. 3.1><DG1.3.1 Nitrite Laboratory test result [facility] ([facility]) FASTING~.~.~<DG1.3.1>E78.5</DG1.3.1><DG1.3.1>E78.5</DG1.3.1><DG1.3.1>E78.5</DG1. 3.1><DG1.3.1 Blood Laboratory test result [facility] ([facility]) FASTING~.~.~<DG1.3.1>E78.5</DG1.3.1><DG1.3.1>E78.5</DG1.3.1><DG1.3.1>E78.5</DG1. 3.1><DG1.3.1 Protein Laboratory test result [facility] ([facility]) FASTING~.~.~<DG1.3.1>E78.5</DG1.3.1><DG1.3.1>E78.5</DG1.3.1><DG1.3.1>E78.5</DG1. 3.1><DG1.3.1 Urobilinogen Laboratory test result [facility] ([facility]) FASTING~.~.~<DG1.3.1>E78.5</DG1.3.1><DG1.3.1>E78.5</DG1.3.1><DG1.3.1>E78.5</DG1. 3.1><DG1.3.1 Leuk Est Laboratory test result [facility] ([facility]) FASTING~.~.~<DG1.3.1>E78.5</DG1.3.1><DG1.3.1>E78.5</DG1.3.1><DG1.3.1>E78.5</DG1. 3.1><DG1.3.1 Microscopic Laboratory test result [facility] ([facility]) FASTING~.~.~<DG1.3.1>E78.5</DG1.3.1><DG1.3.1>E78.5</DG1.3.1><DG1.3.1>E78.5</DG1. 3.1><DG1.3.1 ID Date Data Source [id number] 01/19/2020 10:13:00 AM EDT [facility] ([facility]) Name Value Range Interpretation Code Description Data Meme rce(s) Supporting Document(s) CBC W/Automated Diff Laboratory test result [facility] ([facility]) FASTING~.~.~<DG1.3.1>E78.5</DG1.3.1><DG1.3.1>E78.5</DG1.3.1><DG1.3.1>E78.5</DG1. 3.1><DG1.3.1 WBC 6.6 10^3/uL 4.2-11.0 [facility] ([facility]) FASTING~.~.~<DG1.3.1>E78.5</DG1.3.1><DG1.3.1>E78.5</DG1.3.1><DG1.3.1>E78.5</DG1. 3.1><DG1.3.1 RBC 5.30 10^6/uL 4.50-6.30 [facility] ([facility]) FASTING~.~.~<DG1.3.1>E78.5</DG1.3.1><DG1.3.1>E78.5</DG1.3.1><DG1.3.1>E78.5</DG1. 3.1><DG1.3.1 Hematocrit 46.0 % 41.0-51.0 [facility] ([facility]) FASTING~.~.~<DG1.3.1>E78.5</DG1.3.1><DG1.3.1>E78.5</DG1.3.1><DG1.3.1>E78.5</DG1. 3.1><DG1.3.1 Hemoglobin 15.1 g/dL 14.0-16.0 [facility] ([facility]) FASTING~.~.~<DG1.3.1>E78.5</DG1.3.1><DG1.3.1>E78.5</DG1.3.1><DG1.3.1>E78.5</DG1. 3.1><DG1.3.1 MCHC 32.8 g/dL 31.0-36.0 [facility] ([facility]) FASTING~.~.~<DG1.3.1>E78.5</DG1.3.1><DG1.3.1>E78.5</DG1.3.1><DG1.3.1>E78.5</DG1. 3.1><DG1.3.1 MCH 28.5 pg 27.0-34.0 [facility] ([facility]) FASTING~.~.~<DG1.3.1>E78.5</DG1.3.1><DG1.3.1>E78.5</DG1.3.1><DG1.3.1>E78.5</DG1. 3.1><DG1.3.1 MCV 86.8 fL 80.0-94.0 [facility] ([facility]) FASTING~.~.~<DG1.3.1>E78.5</DG1.3.1><DG1.3.1>E78.5</DG1.3.1><DG1.3.1>E78.5</DG1. 3.1><DG1.3.1 Platelets 127 10^3/uL 150-450 Below low normal [facility] ([facility]) FASTING~.~.~<DG1.3.1>E78.5</DG1.3.1><DG1.3.1>E78.5</DG1.3.1><DG1.3.1>E78.5</DG1. 3.1><DG1.3.1 RDW 12.7 % 11.5-14.8 [facility] ([facility]) FASTING~.~.~<DG1.3.1>E78.5</DG1.3.1><DG1.3.1>E78.5</DG1.3.1><DG1.3.1>E78.5</DG1. 3.1><DG1.3.1 MPV 12.1 fL 7.4-10.4 Above high normal [facility] ([facility]) FASTING~.~.~<DG1.3.1>E78.5</DG1.3.1><DG1.3.1>E78.5</DG1.3.1><DG1.3.1>E78.5</DG1. 3.1><DG1.3.1 Lymph 30.6 % 25.0-40.0 [facility] ([facility]) FASTING~.~.~<DG1.3.1>E78.5</DG1.3.1><DG1.3.1>E78.5</DG1.3.1><DG1.3.1>E78.5</DG1. 3.1><DG1.3.1 Neut 55.0 % 37.0-80.0 [facility] ([facility]) FASTING~.~.~<DG1.3.1>E78.5</DG1.3.1><DG1.3.1>E78.5</DG1.3.1><DG1.3.1>E78.5</DG1. 3.1><DG1.3.1 Major 7.8 % 3.0-8.0 [facility] ([facility]) FASTING~.~.~<DG1.3.1>E78.5</DG1.3.1><DG1.3.1>E78.5</DG1.3.1><DG1.3.1>E78.5</DG1. 3.1><DG1.3.1 Eos 5.8 % 0.0-7.0 [facility] ([facility]) FASTING~.~.~<DG1.3.1>E78.5</DG1.3.1><DG1.3.1>E78.5</DG1.3.1><DG1.3.1>E78.5</DG1. 3.1><DG1.3.1 Baso 0.6 % 0.0-2.0 [facility] ([facility]) FASTING~.~.~<DG1.3.1>E78.5</DG1.3.1><DG1.3.1>E78.5</DG1.3.1><DG1.3.1>E78.5</DG1. 3.1><DG1.3.1 %Ig 0.2 % 0.0-0.0 Above high normal [facility] ([facility]) FASTING~.~.~<DG1.3.1>E78.5</DG1.3.1><DG1.3.1>E78.5</DG1.3.1><DG1.3.1>E78.5</DG1. 3.1><DG1.3.1 #Neut 3.61 10^3/uL 2.00-6.90 [facility] ([facility]) FASTING~.~.~<DG1.3.1>E78.5</DG1.3.1><DG1.3.1>E78.5</DG1.3.1><DG1.3.1>E78.5</DG1. 3.1><DG1.3.1 #Lymph 2.01 10^3/uL 0.60-3.40 [facility] ([facility]) FASTING~.~.~<DG1.3.1>E78.5</DG1.3.1><DG1.3.1>E78.5</DG1.3.1><DG1.3.1>E78.5</DG1. 3.1><DG1.3.1 %NRBC 0.0 % 0.0-0.0 [facility] ([facility]) FASTING~.~.~<DG1.3.1>E78.5</DG1.3.1><DG1.3.1>E78.5</DG1.3.1><DG1.3.1>E78.5</DG1. 3.1><DG1.3.1 #Eos 0.38 10^3/uL 0.00-0.70 [facility] ([facility]) FASTING~.~.~<DG1.3.1>E78.5</DG1.3.1><DG1.3.1>E78.5</DG1.3.1><DG1.3.1>E78.5</DG1. 3.1><DG1.3.1 #Major 0.51 10^3/uL 0.00-0.90 [facility] ([facility]) FASTING~.~.~<DG1.3.1>E78.5</DG1.3.1><DG1.3.1>E78.5</DG1.3.1><DG1.3.1>E78.5</DG1. 3.1><DG1.3.1 #Baso 0.04 10^3/uL 0.00-0.20 [facility] ([facility]) FASTING~.~.~<DG1.3.1>E78.5</DG1.3.1><DG1.3.1>E78.5</DG1.3.1><DG1.3.1>E78.5</DG1. 3.1><DG1.3.1 Manual Diff Laboratory test result [facility] ([facility]) FASTING~.~.~<DG1.3.1>E78.5</DG1.3.1><DG1.3.1>E78.5</DG1.3.1><DG1.3.1>E78.5</DG1. 3.1><DG1.3.1 #NRBC 0.00 10^3/uL 0.00-0.00 [facility] ([facility]) FASTING~.~.~<DG1.3.1>E78.5</DG1.3.1><DG1.3.1>E78.5</DG1.3.1><DG1.3.1>E78.5</DG1. 3.1><DG1.3.1 #Ig 0.01 10^3/uL 0.00-0.10 [facility] ([facility]) FASTING~.~.~<DG1.3.1>E78.5</DG1.3.1><DG1.3.1>E78.5</DG1.3.1><DG1.3.1>E78.5</DG1. 3.1><DG1.3.1 RBC Morph Laboratory test result [facility] ([facility]) FASTING~.~.~<DG1.3.1>E78.5</DG1.3.1><DG1.3.1>E78.5</DG1.3.1><DG1.3.1>E78.5</DG1. 3.1><DG1.3.1 ID Date Data Source [id number] 01/19/2020 10:13:00 AM EDT [facility] ([facility] system) Name Value Range Interpretation Code Description Data Meme rce(s) Supporting Document(s) Sodium 140 meq/L 134-153 [facility] ([facility]) FASTING~.~.~<DG1.3.1>E78.5</DG1.3.1><DG1.3.1>E78.5</DG1.3.1><DG1.3.1>E78.5</DG1. 3.1><DG1.3.1 [employer] Laboratory test result [facility] ([facility]) FASTING~.~.~<DG1.3.1>E78.5</DG1.3.1><DG1.3.1>E78.5</DG1.3.1><DG1.3.1>E78.5</DG1. 3.1><DG1.3.1 Potassium 4.3 meq/L 3.6-5.0 [facility] ([facility]) FASTING~.~.~<DG1.3.1>E78.5</DG1.3.1><DG1.3.1>E78.5</DG1.3.1><DG1.3.1>E78.5</DG1. 3.1><DG1.3.1 Chloride 103 meq/L 98-107 [facility] ([facility]) FASTING~.~.~<DG1.3.1>E78.5</DG1.3.1><DG1.3.1>E78.5</DG1.3.1><DG1.3.1>E78.5</DG1. 3.1><DG1.3.1 Glucose 113 mg/dL 65-110 Above high normal [facility] ([facility]) FASTING~.~.~<DG1.3.1>E78.5</DG1.3.1><DG1.3.1>E78.5</DG1.3.1><DG1.3.1>E78.5</DG1. 3.1><DG1.3.1 Co2 23 meq/L 22-30 [facility] ([facility]) FASTING~.~.~<DG1.3.1>E78.5</DG1.3.1><DG1.3.1>E78.5</DG1.3.1><DG1.3.1>E78.5</DG1. 3.1><DG1.3.1 Creatinine 1.1 mg/dL 0.7-1.5 [facility] ([facility]) FASTING~.~.~<DG1.3.1>E78.5</DG1.3.1><DG1.3.1>E78.5</DG1.3.1><DG1.3.1>E78.5</DG1. 3.1><DG1.3.1 BUN/Creat 25 8-27 [facility] ([facility]) FASTING~.~.~<DG1.3.1>E78.5</DG1.3.1><DG1.3.1>E78.5</DG1.3.1><DG1.3.1>E78.5</DG1. 3.1><DG1.3.1 BUN 28 mg/dL 7-21 Above high normal [facility] ([facility]) FASTING~.~.~<DG1.3.1>E78.5</DG1.3.1><DG1.3.1>E78.5</DG1.3.1><DG1.3.1>E78.5</DG1. 3.1><DG1.3.1 Total Protein 6.8 g/dL 6.3-8.2 [facility] ([facility]) FASTING~.~.~<DG1.3.1>E78.5</DG1.3.1><DG1.3.1>E78.5</DG1.3.1><DG1.3.1>E78.5</DG1. 3.1><DG1.3.1 Albumin 4.6 g/dL 3.9-5.0 [facility] ([facility]) FASTING~.~.~<DG1.3.1>E78.5</DG1.3.1><DG1.3.1>E78.5</DG1.3.1><DG1.3.1>E78.5</DG1. 3.1><DG1.3.1 A/G Ratio 2.1 0.8-2.0 Above high normal [facility] ([facility]) FASTING~.~.~<DG1.3.1>E78.5</DG1.3.1><DG1.3.1>E78.5</DG1.3.1><DG1.3.1>E78.5</DG1. 3.1><DG1.3.1 Globulin 2.2 GM/DL 2.4-3.2 Below low normal [facility] ( [facility]) FASTING~.~.~<DG1.3.1>E78.5</DG1.3.1><DG1.3.1>E78.5</DG1.3.1><DG1.3.1>E78.5</DG1. 3.1><DG1.3.1 Calcium 9.3 mg/dL 8.4-10.2 [facility] ([facility]) FASTING~.~.~<DG1.3.1>E78.5</DG1.3.1><DG1.3.1>E78.5</DG1.3.1><DG1.3.1>E78.5</DG1. 3.1><DG1.3.1 Alkaline Phos 58 U/L 38-126 [facility] ([facility]) FASTING~.~.~<DG1.3.1>E78.5</DG1.3.1><DG1.3.1>E78.5</DG1.3.1><DG1.3.1>E78.5</DG1. 3.1><DG1.3.1 Total Bili 0.9 mg/dL 0.2-1.3 [facility] ([facility]) FASTING~.~.~<DG1.3.1>E78.5</DG1.3.1><DG1.3.1>E78.5</DG1.3.1><DG1.3.1>E78.5</DG1. 3.1><DG1.3.1 Sgot/Ast 16 U/L 5-40 [facility] ([facility]) FASTING~.~.~<DG1.3.1>E78.5</DG1.3.1><DG1.3.1>E78.5</DG1.3.1><DG1.3.1>E78.5</DG1. 3.1><DG1.3.1 SGPT/Alt 15 U/L 7-56 [facility] ([facility]) FASTING~.~.~<DG1.3.1>E78.5</DG1.3.1><DG1.3.1>E78.5</DG1.3.1><DG1.3.1>E78.5</DG1. 3.1><DG1.3.1 Anion Gap 14.0 mmol/L 8.0-16.0 [facility] ([facility]) FASTING~.~.~<DG1.3.1>E78.5</DG1.3.1><DG1.3.1>E78.5</DG1.3.1><DG1.3.1>E78.5</DG1. 3.1><DG1.3.1 Non-Aa GFR Laboratory test result [facility] ([facility]) FASTING~.~.~<DG1.3.1>E78.5</DG1.3.1><DG1.3.1>E78.5</DG1.3.1><DG1.3.1>E78.5</DG1. 3.1><DG1.3.1 Age 74 yrs [facility] ([facility]) FASTING~.~.~<DG1.3.1>E78.5</DG1.3.1><DG1.3.1>E78.5</DG1.3.1><DG1.3.1>E78.5</DG1. 3.1><DG1.3.1 Afr Amer GFR Laboratory test result [facility] ([facility]) FASTING~.~.~<DG1.3.1>E78.5</DG1.3.1><DG1.3.1>E78.5</DG1.3.1><DG1.3.1>E78.5</DG1. 3.1><DG1.3.1 ID Date Data Source [id number] 01/19/2020 10:13:00 AM EDT [facility] ([facility]) Name Value Range Interpretation Code Description Data Meme rce(s) Supporting Document(s) Creatine kinase [Enzymatic activity/volume] in Serum or Plasma 93 U /L 30-170 [facility] ([facility]) FASTING~.~.~<DG1.3.1>E78.5</DG1.3.1><DG1.3.1>E78.5</DG1.3.1><DG1.3.1>E78.5</DG1. 3.1><DG1.3.1 ID Date Data Source [id number] 01/19/2020 10:13:00 AM EDT [facility] ([facility]) Name Value Range Interpretation Code Description Data Meme rce(s) Supporting Document(s) Cve Panel Laboratory test result [facility] ([facility]) FASTING~.~.~<DG1.3.1>E78.5</DG1.3.1><DG1.3.1>E78.5</DG1.3.1><DG1.3.1>E78.5</DG1. 3.1><DG1.3.1 Triglycerides 108 mg/dL 35-160 [facility] ([facility]) FASTING~.~.~<DG1.3.1>E78.5</DG1.3.1><DG1.3.1>E78.5</DG1.3.1><DG1.3.1>E78.5</DG1. 3.1><DG1.3.1 Cholesterol 110 mg/dL 131-200 Below low normal [facility] ([facility]) FASTING~.~.~<DG1.3.1>E78.5</DG1.3.1><DG1.3.1>E78.5</DG1.3.1><DG1.3.1>E78.5</DG1. 3.1><DG1.3.1 HDL 39 mg/dL 29-86 [facility] ([facility]) FASTING~.~.~<DG1.3.1>E78.5</DG1.3.1><DG1.3.1>E78.5</DG1.3.1><DG1.3.1>E78.5</DG1. 3.1><DG1.3.1 Risk Factor 2.8 3.4-4.9 Below low normal [facility] ([facility]) FASTING~.~.~<DG1.3.1>E78.5</DG1.3.1><DG1.3.1>E78.5</DG1.3.1><DG1.3.1>E78.5</DG1. 3.1><DG1.3.1 LDL 60 mg/dL 65-175 Below low normal [facility] ([facility] system) FASTING~.~.~<DG1.3.1>E78.5</DG1.3.1><DG1.3.1>E78.5</DG1.3.1><DG1.3.1>E78.5</DG1. 3.1><DG1.3.1 LDL/HDL 1.54 1.00-3.55 [facility] ([facility]) FASTING~.~.~<DG1.3.1>E78.5</DG1.3.1><DG1.3.1>E78.5</DG1.3.1><DG1.3.1>E78.5</DG1. 3.1><DG1.3.1 ID Date Data Source [id number] 01/22/2020 08:16:00 AM EDT [facility] Name Value Range Interpretation Code Description Data Meme rce(s) Supporting Document(s) Prostate specific Ag [Mass/volume] in Serum or Plasma 1.7 ng/mL 0.0- 4.0 [facility] Graciela ECLIA methodology.According to the [employer] [employer], Serum PSA shoulddecrease and remain at undetectable levels after radicalprostatectomy. The AUA defines biochemical recurrence as an initialPSA value 0.2 ng/mL or greater followed by a subsequent confirmatoryPSA value 0.2 ng/mL or greater.Values obtained with different assay methods or kits cannot be usedinterchangeably. Results cannot be interpreted as absolute evidenceof the presence or absence of malignant disease. Reflex Criteria COMMENT [facility] The percent free PSA is performed on a r eflex basis only when thetotal PSA is between 4.0 and 10.0 ng/mL. ID Date Data Source [id number] 01/19/2020 02:11:00 PM EDT [facility] Name Value Range Interpretation Code Description Data Meme rce(s) Supporting Document(s) COMPREHENSIVE METABOLIC PANEL [facility] COMPREHENSIVE METABOLIC PANEL Sodium [Moles/volume] in Serum or Plasma 140 mEq/L 134 - 153 [facility] Potassium [Moles/volume] in Serum or Plasma 4.3 mEq/L 3.6 - 5.0 [facility] Chloride [Moles/volume] in Serum or Plasma 103 mEq/L 98 - 107 [facility] Carbon dioxide, total [Moles/volume] in Serum or Plasma 23 MEQ/L 22 - 30 [facility] Glucose [Mass/volume] in Serum or Plasma 113 MG/DL 65 - 110 H [facility] BUN 28 MG/DL 7 - 21 H [facility] Creatinine [Mass/volume] in Serum or Plasma 1.1 MG/DL 0.7 - 1.5 [facility] BUN/CREAT 25 8 - [facility] Protein [Mass/volume] in Serum or Plasma 6.8 G/DL 6.3 - 8.2 [facility] Albumin [Mass/volume] in Serum or Plasma 4.6 G/DL 3.9 - 5.0 [facility] Globulin [Mass/volume] in Serum by calculation 2.2 GM/DL 2.4 - 3.2 L [facility] A/G RATIO 2.1 0.8 - 2.0 H [facility] Calcium [Mass/volume] in Serum or Plasma 9.3 MG/DL 8.4 - 10.2 [facility] Bilirubin.total [Mass/volume] in Serum or Plasma 0.9 MG/DL 0.2 - 1.3 [facility] Alkaline phosphatase [Enzymatic activity/volume] in Serum or Plasma 58 U/L 38 - 126 [facility] Aspartate aminotransferase [Enzymatic activity/volume] in Serum or Plasma 16 U/L 5 - 40 [facility] Alanine aminotransferase [Enzymatic activity/volume] in Seru m or Plasma 15 U/L 7 - 56 [facility] Anion gap 3 in Serum or Plasma 14.0 mmol/L 8.0 - 16.0 [facility] AGE 74 yrs [facility] NON-AA GFR >60 mL/min [facility] AFR AMER GFR >60 mL/min [facility] Male GFR In terprentation [...] >32 mL/min Normal ID Date Data Source [id number] 01/19/2020 02:11:00 PM EDT [facility] Name Value Range Interpretation Code Description Data Meme rce(s) Supporting Document(s) CVE PANEL [facility] LIPID PANEL Cholesterol [Mass/volume] in Serum or Plasma 110 MG/DL 131 - 200 L [facility] Deprecated Triglyceride [Mass/volume] in Serum or Plasma 108 MG/DL 3 5 - 160 [facility] HDL 39 MG/DL 29 - 86 [facility] Cholesterol in LDL [Mass/volume] in Serum or Plasma by Direc t assay 60 mg/dL 65 - 175 L [facility] Cholesterol.total/Cholesterol in HDL [Mass Ratio] in Serum o r Plasma 2.8 3.4 - 4.9 L [facility] LDL/HDL 1.54 1.00 - 3.55 [facility] CVE RISK CHOL/HDL LDL/HDLMEN: 1/2 AVERAGE 3.43 1.00 AVERAGE 4.97 3.55 2X AVERAGE 9.55 6.25 3X AVERAGE 23.99 7.99WOMEN: 1/2 AVERAGE 3.27 1.47 AVERAGE 4.44 3.22 2X AVERAGE 7.05 5.03 3X AVERAGE 11.04 6.14 ID Date Data Source [id number] 01/19/2020 02:11:00 PM EDT [facility] Name Value Range Interpretation Code Description Data Meme rce(s) Supporting Document(s) Hemoglobin A1c/Hemoglobin.total in Blood 5.7 % 4.4 - 6.1 [facility] {A1]{HB] ID Date Data Source [id number] 01/19/2020 02:06:00 PM EDT [facility] Name Value Range Interpretation Code Description Data Meme rce(s) Supporting Document(s) Creatine kinase [Enzymatic activity/volume] in Serum or Plasma 9 3 U/L 30 - 170 [facility] ID Date Data Source [id number] 01/19/2020 02:04:00 PM EDT [facility] Name Value Range Interpretation Code Description Data Meme rce(s) Supporting Document(s) BNP 74 PG/ML 0 - 125 [facility] ID Date Data Source [id number] 01/19/2020 01:49:00 PM EDT [facility] Name Value Range Interpretation Code Description Data Meme rce(s) Supporting Document(s) CBC W/AUTOMATED DIFF [facility] COMPLETE BLOOD COUNT Leukocytes [#/volume] in Blood by Automated count 6.6 10^3/uL 4.2 - 1 1.0 [facility] Erythrocytes [#/volume] in Blood by Automated count 5.30 10^6/uL 4. 50 - 6.30 [facility] Hemoglobin [Mass/volume] in Blood 15.1 g/dL 14.0 - 16.0 [facility] Hematocrit [Volume Fraction] of Blood by Automated count 46.0 % 4 1.0 - 51.0 [facility] Erythrocyte mean corpuscular volume [Entitic volume] by Auto mated count 86.8 fL 80.0 - 94.0 [facility] Erythrocyte mean corpuscular hemoglobin [Entitic mass] by Automated count 28.5 pg 27.0 - 34.0 [facility] Erythrocyte mean corpuscular hemoglobin concentration [Mass/volume] by Automated count 32.8 g/dL 31.0 - 36.0 [facility] Erythrocyte distribution width [Ratio] by Automated count 12.7 % 11.5 - 14.8 [facility] Platelets [#/volume] in Blood by Automated count 127 10^3/uL 150 - 45 0 L [facility] Platelet mean volume [Entitic volume] in Blood by Automated count 12.1 fL 7.4 - 10.4 H [facility] Neutrophils/100 leukocytes in Blood by Automated count 55.0 % 37. 0 - 80.0 [facility] Lymphocytes/100 leukocytes in Blood by Manual count 30.6 % 25.0 - 40.0 [facility] Monocytes/100 leukocytes in Blood by Automated count 7.8 % 3.0 - 8.0 [facility] Eosinophils/100 leukocytes in Blood by Automated count 5.8 % 0.0 - 7.0 [facility] Basophils/100 leukocytes in Blood by Automated count 0.6 % 0.0 - 2.0 [facility] %IG 0.2 % 0.0 - 0.[address] [facility] %NRBC 0.0 % 0.0 - 0.0 [facility] al Neutrophils [#/volume] in Blood by Automated count 3.61 10^3/uL 2.00 - 6.90 [facility] Lymphocytes [#/volume] in Blood by Automated count 2.01 10^3/uL 0.60 - 3.40 [facility] Monocytes [#/volume] in Blood by Automated count 0.51 10^3/uL 0.00 - 0.90 [facility] Eosinophils [#/volume] in Blood by Automated count 0.38 10^3/uL 0.00 - 0.70 [facility] Basophils [#/volume] in Blood by Automated count 0.04 10^3/uL 0.00 - 0.20 [facility] #IG 0.01 10^3/uL 0.00 - 0.10 [facility] #NRBC 0.00 10^3/uL 0.00 - 0.00 [facility] MANUAL DIFF NOT INDICATED [facility] RBC MORPH NOT INDICATED [facility] ID Date Data Source [id number] 01/19/2020 01:48:00 PM EDT [facility] Name Value Range Interpretation Code Description Data Meme rce(s) Supporting Document(s) [facility]IS [facility] UR[facility]ALYSIS SOURCE R [facility] COL[facility] yellow NORMAL: Yellow [facility] ospital CLARITY clear NORMAL: Clear [facility] Specific gravity of Urine by Test strip 1.025 1.001 - 1.030 [facility] pH 5 5 - 9 [facility] Glucose [Mass/volume] in Urine by Test strip NORM NORMAL: Negat [facility] Bilirubin.total [Presence] in Urine by Test strip NEG NORMAL: Negative [facility] Ketones [Presence] in Urine by Test strip NEG NORMAL: Negative [facility] Protein [Mass/volume] in Urine by Test strip NEG NORMAL: Negat [facility] Nitrite [Presence] in Urine by Test strip NEG NORMAL: Negative [facility] BLOOD NEG NORMAL: Negative [facility] Leukocyte esterase [Presence] in Urine by Test strip NEG BRITTANI L: Negative [facility] Urobilinogen [Mass/volume] in Urine by Test strip NOR less conchita n 1.0 mg/dL [facility] MICROSCOPIC Not Indicate [facility] ID Date Data Source [id number] 10/06/2019 09:47:01 PM EST [facility] INFORMATIONPatient MRN Name Date of Age Gend*PT [id number] Theo Edwards 1945 73 years M IPPT Location Admission Date/Time Visit ID Attending [id number] 09/19/19 0632 --- --- EPI ID CSN Admitting Provider [id number] Symone Keen MD([id number]) [place] [address] OPERATIVE REPORT OPNAME: JERRY THEO Riley#: [id number] #: [id number] ADMISSION DATE: 09/19/2019DOB: 1945 SEX: M PT TYPE: I SURACCT #: [id number] CARE PHYSICIAN: SOMMER VALDIVIA OF OPERATION: 09/19/2019PREOPERATIVE DIAGNOSES:1. Severe aortic stenosis, progressive symptomatology, peripheral vasculardisease.2. Hypertension.POSTOPERATIVE DIAGNOSES:1. Severe aortic stenosis, progressive symptomatology, peripheral vasculardisease.2. Hypertension.ANESTHESIA:General.ATTENDING SOCIAL WORKER ASSISTANT:Dr. Gonzalez CARDIAC SURGEON:Dr. Timothy Granados.INDICATIONS:The patient is [...] room in stable condition.ASTRID Romo Job #: [id number] DOC #: [id number] Name Value Range Interpretation Code Description Data Meme rce(s) Supporting Document(s) ID Date Data Source [id number] 09/28/2019 09:03:00 AM EST [facility] [address] [place] [address] PHONE: [phone] FAX: [phone] Name .................. : JERRY TABARES Acct Number.................. : [id number] ROOM. ................. : Number ................... : [id number] Stay type ............. : O/P Discharge Date......... ... : 09/27/19 Admit Date ......... : 09/27/19 Admit Phys .................... : SORIA HARD Date of ....... : 1945 Family Phys ................... : [employer] HARD Phone .................. : [phone] Age ................................ : 73 Film# .................. .:[id number] Sex ................................. : M Unsigned transcriptions are preliminary reports and do not represent a medical or legal document RENAL/URINARY BLADDER [id number] COMPLETE:09/27/19 12:52 P 02939 (PROCEDURE REASON other specified disorders of bladd [...] rce(s) Supporting Document(s) ID Date Data Source [id number] 09/23/2019 01:18:13 PM EST [facility] NT INFORMATIONPatient MRN Name Date of Age Gend*PT [id number] Theo Edwards 1945 73 years M IPPT Location Admission Date/Time Visit ID Attending [id number] 09/19/19 0632 --- --- EPI ID CSN Admitting Provider [id number] Symone Keen MD([id number]) Attestation signed by Symone Keen MD at 09/23/2019 1:18 PMI saw and evaluated the patient and reviewed Brianna Naif's note. I agree withthe history, physical and medical decision making with the following additions,exceptions, and/or observationsSignature: Symone Keen MDDate: September 23, 2019Time: 1:18 PM ------Physician Discharge Summary Theo EdwardsMRN: [id number] date: 09/19/2019Attending Physician: Symone Keen MDAdmission Diagnosis: [...] [facility]. Patient underwent echocardiogram on 07/09/2019which concluded [...] for further evaluation.The patient met with Dr. oRbert, options were discussed and they have electedto [...] deployed in the right femoral artery.A 6 British pigtail catheter was advanced through the left [...] SignsPt Height 1.79 mWeight 115.1 kgBSA 2.32 z0Fgkvxfis BP Echo 130 mmHgDiastolic BP Echo 66 mmHg2D MeasurementsDimensionsLVIDD 4.53 cmLVIDS 2.76 cmIVS 0.76 cmPW 1.14 cmFS 39 %LA volume 48.5 cm3EF 66 %Echo EF Estimated 60 %LA Volume Index 20.9 mL/m22D Measurements - LV VolumeMOD BiplaneLV Systolic Volume 21 cm3LV Systolic Volume Index 9.1 mL/h7Rvqoirc Measurements - Aortic ValveStenosisLVOT peak brooklynn 1.15 [...] rce(s) Supporting Document(s) ID Date Data Source [id number] 09/20/2019 03:42:24 PM EST [facility] Name Value Range Interpretation Code Description Data Meme rce(s) Supporting Document(s) &PDF [facility] MFEALa8rZcATDnVw62/IMAwvVYGxn1WqGDnpVCv3MRauNGFdB1FtrRghJCCFOiDYAbgKDTMPVU6lOQ2b pYy [file] AgICAgICAgICAgICAgICAgICAgICAgICAgICAgICAg PSMiNNOgXSWlSTJcMYUwUIRdCWFdWHWwDFUkNTFlWWUdYRRjLZGjAMWgWMKtJZHsQLOoZFQsNBPxNM6Q ICAgICAgICAgICAgICAgICAgICAgICAgICAgICAgICAgICAgICAgICAgICAgICAgICAgICAgICAgICAg ICAgICAgICAgICAgICAgICAgICAgICAgICAgICAgIC JdMLDbEQLyXU7ZHQMfDTFnFOXvHDFpYYPlMRKtPDAoAWBnDEYyEWBaXXStMJDtYYBrAAZqBSHoADBbXW YhPBJvHBUfHBQtXDQkUUZuORMdPEHqDCFnPWDgKHMzBFUwVPKmLVRfPLLlSTGeEBRaDQ6EGXWoSEGpFN AgICAgICAgICAgICAgICAgICAgICAgICAgICAgICAg ICAgICAgICAgICAgICAgICAgICAgICAgICAgICAgICAgICAgICAgICAgICAgICAgICAgICAgICAgICAg VU4XTVTdQORpNWLpCFUiPDErPGUvNCHkXAJcFRSgEALlBDOtQOWmCKAdJAFvUXPfFLRjITSqLTThTEMv ICAgICAgICAgICAgICAgICAgICAgICAgICAgICAgIC MwEILdXZWyEESbIC8JMHXbIEUyQYVmGQCbOXLsBHDpBGQxEIKzWZQoVRKtHCGpBCEkUOXtNEHmGRDtHV HoWIFiOTDoSZEhYZPtQYKkWPMvMZMuRNNgJQWyTQVwRVKcLYZzPJOgMIUbBFUnFJInOUVuJT0LVRHzOH AgICAgICAgICAgICAgICAgICAgICAgICAgICAgICAg ICAgICAgICAgICAgICAgICAgICAgICAgICAgICAgICAgICAgICAgICAgICAgICAgICAgICAgICAgICAg ZWKxQY0GWAYiBVFdZYTeEVMlSOCiTFTuIBEsCERbGXQpVSIlVSJkBLHeRQNpHJOwSEOeRABvWDWmTZVj ICAgICAgICAgICAgICAgICAgICAgICAgICAgICAgIC McWDIvRBVmBAUcEJIpHU8CVQOiSEEnAIHeECGgWAMkGNIjGSVxSRTkHSVpYQEjIDMlPPIyCAMeZXMxSP XcHVDrEHZdXSZrVSGoFFYoCQAxWMMaEMEuHYFjGBTqLEEaIWYcBEZjVQFaPSYbUQBwCQWtXJPyMK1IZO AgICAgICAgICAgICAgICAgICAgICAgICAgICAgICAg ICAgICAgICAgICAgICAgICAgICAgICAgICAgICAgICAgICAgICAgICAgICAgICAgICAgICAgICAgICAg NNIyTLAvNZ0ESK52vHZwu2A0RCRgFQ0opfo/Dt5GHHkgorAiiDWdXX3QAjEuPW6tov9IWnClBH1rdl6V PAwRCtGaX5J3lNAjRVEcSGUXLnCgU00xBRxmQn55CE irBMOzIcEsDOs2Kb8KAgSwS7ybUYQqMmW8LFArPyT8ZSMsNoPpKScoGS0Ui8KmbYPbXAn+Wx0UNA7pv0 EeJBfnUnMxCY9ryf6NNCtXGjIdH5T9eIOoZ9G2PTweFn5FTAMlFKCyWySsHNUBGQbdQA1CVU6gjpU7IH 9RgODjFJBjVSYlkYFnCVi3K66taUMsSBksJQ7YWCP+ Winnie+Po0HKUJcIZMiBUXhHoPkGFSQGlQqD45jiYUrMYDmDVY2JJGhAu3SDTZgY2FtouStqHffijLaAGBv ZAVREV3HWPygzvAteTNmtRiwPJ32kEorXZ8ZWm5HWdCwMZ7ngt3ZbEHdKa4DIFPlKd9KVOFeUXUdBWUu SVN4IECgYzCyDFrbCFXmWPWlVAG5PQCtUKLyZP4OOl LrWZUsSlC3UJxzHJFdCICqza3MWPMtDUWzDsJ3PfQnOKYsSONzZOsiZBJhHJHyRLf8KYZzXHUzNG7BSi NgMDRfCWPbSsJmVTPlVXYqlk4AGXAoJLUaFwA6DaDyZZJfMKZlEQybAECuPPC2RihfYLGbIYWfHB0FXm TzPHOxDLL4GUIbDCLmPJAbyb8NPRTcQFIxApJ5ZMIh TPKtQKFwDDmfCRXyQHG4GaK9VPTiWQLoTU2OMmVmKIXjNOG9KLXnDACaTMGmcs9CHXGuZENpJfexRXUk XBXhWMAuIQpjRIGkPEX4EYk7KGTyNEZrJW2QZbVyUZAeFLkaEFKeQTDzKZAins1BYDWeEULuNzKiUwGd UTVxTDEsKMvdQPBgYOFaWbR9QUTvWFNgIF4QMrIxXV PaEFG6XeSsZCUiNCSicy6AODPvTXFbIvneOwQfOQIiVGIgCYgeMQUcVQQwFKNwJUCmJYHeZA3OLsEbYV CqNCI4QLLoECFdNCNjqf4JGHKeCFSdHMS5KYNtJNJnUWIjSHnuOHJtYMS1QyGlGGIjBKYpOS8OGyWkKB OaNuCcZnhxXMApXPMykb0SWLIxOSMdASG6GMYzNNCr PLJtSJtqEVThNRH0TMBfJLKuOXQoOG8IAkJtRRUwCeY2DdLtLXZzKPQesc3QiBHxsVpxvc2GLLyFTd3E bIsmULE2ZJkjRn9rrBAnYpOzAXJGCf8WsyItMBMeKDYPZIyoQZUtZLIkHoX2S4WvSKThAFknPOaoTKIc YtnzXKJtHlHlBHo7ImS1FRErKmP9LZNjJGC1BjBqH5 Z1T5O0LLEmAWQkOZEjUxS+CB2pRAs+Ww2Ge3BdvtD6ejCmWIfzYgb8Fr3LNQPIK7XYRn== ID Date Data Source [id number] 09/20/2019 12:28:32 PM EST [facility] INFORMATIONPatient MRN Name Date of Age Gend*PT [id number] Ra Jerryul 1945 73 years M IPPT Location Admission Date/Time Visit ID Attending [id number] 09/19/19 0632 --- Symone Keen MD ([id number]) EPI ID CSN Admitting Provider [id number] Symone Keen MD([id number])Looks wellNo ComplaintAmbulatingPlan for DC home todaySymone Keen MD Name Value Range Interpretation Code Description Data Meme rce(s) Supporting Document(s) ID Date Data Source [id number] 09/20/2019 03:22:09 AM EST [facility] Name Value Range Interpretation Code Description Data Meme rce(s) Supporting Document(s) SODIUM 141 mmol/L (136-145) [facility] POTASSIUM 3.9 mmol/L (3.6-5.2) [facility] CHLORIDE 107 mmol/L (100-108) [facility] CO2 27 mmol/L (22-31) [facility] ANION GAP 7 mmol/L (7-16) [facility] UREA NITROGEN 20 mg/dL (7-24) [facility] CREATININE 1.25 mg/dL (0.80-1.30) [facility] BUN/CREAT RATIO 16.0 RATIO (10.0-20.0) [facility] GLUCOSE 109 mg/dL (70-99) H [facility] CALCIUM 8.5 mg/dL (8.4-10.2) [facility] GFR 57 ml/min/1.73m2 (>59) L [facility] GFR ( AMER) >60 ml/min/1.73m2 (>59) [facility] GFR INTERPRETATION [facility] --NORMAL KIDNEY FUNCTION OR MILD DISEASE - GFR >OR= 60CHRONIC KIDNEY DISEASE - GFR 15 - 59RENAL FAILURE - GFR <15 Est. GFR calculation based on the MDRDstudy equation, which assumes a steadystate for creatinine. Est. GFR should notbe used for medication dosing. ID Date Data Source [id number] 09/20/2019 02:48:04 AM EST [facility] Name Value Range Interpretation Code Description Data Meme rce(s) Supporting Document(s) WBC 7.6 10*3/uL (4.1-11.0) [facility] [place] RBC 4.91 10*6/uL (4.60-6.10) [facility] HGB 14.2 g/dL (13.5-18.0) [facility] HCT 42.7 % (41.0-53.0) [facility] MCV 87.0 fL (80.0-95.0) [facility] MCH 29.0 pg (27.0-32.0) [facility] MCHC 33.3 g/dL (32.0-36.0) [facility] RDW 13.6 % (10.5-14.5) [facility] PLT 106 10*3/uL (150-450) L [facility] MPV 8.7 fL (7.1-10.7) [facility] ID Date Data Source [id number] 09/19/2019 01:45:10 PM EST [facility] INFORMATIONPatient MRN Name Date of Age Gend*PT [id number] Theo Edwards 1945 73 years M IPPT Location Admission Date/Time Visit ID Attending [id number] 09/19/19 0632 --- Symone Keen MD ([id number]) EPI ID CSN Admitting Provider [id number] Symone Keen MD([id number])[facility] CARDIOVASCULAR YYIRVLAOKB[address] [place] [id number] CARDIAC CATHETERIZATION Preoperative diagnosis: Severe symptomatic aortic stenosisPostoperative diagnosis severe symptomatic aortic stenosisReferring Physician: Dr. Jim Surgeon: Dr. Riley-surgeon: Dr. Granados Anesthesia: Dr. ThomasAnesthesia type: MAC Brief Cardiolab NotePatient Name: Theo Edwards of : 1945 Age 73 yearsPrimary Physician: Sommer Soria MD PCP Vbme of Surgery: 09/19/2019 Customs Director: Symone Keen MD Roentgenologist(s): None CCS Functional Classification: None History:This is [...] with patient/family.Risks included, but not limited to; NC, CVA, , renal impairment, vascularcomplication, and need [...] deployed in the right femoral artery.A 6 British pigtail catheter was advanced through the left [...] rce(s) Supporting Document(s) ID Date Data Source [id number] 09/19/2019 09:47:40 AM EST [address] [address]Nfsnjow Name: THEO FLORES: 1945Sex: MOrdering Provider: IRMA Eduardo Prov: IRMA DISLAReferrjulia Provider: Procedure Performed: XR CHEST PORTABLEExam Date: 09/19/2019 09:33MRN: [id number] Number: [id number] Class: InpatientAccount #: [id number] Exam: Post TAVR procedureTechnique: AP portable [...] NANCY BECKMAN On 09/19/2019 9:47 AMWorkstation ID: [id number] Name Value Range Interpretation Code Description Data Meme rce(s) Supporting Document(s) ID Date Data Source [id number] 09/19/2019 09:47:53 AM EST [facility] Name Value Range Interpretation Code Description Data Meme rce(s) Supporting Document(s) EKG [facility] RMGTTz6kLeWJAmAco1ZnWsKrHGRdIK8bwrl3V9T8lQIuO3BxoAMvj0pdE3MkA5KcXAPvPPQFAB3NzLPx jb2 [file] bUn7nVlyo4mf9pLYpIXlHff1oxOa8+yyL/ci0ux8kClUSCmcq4yX1+disk and tape machine tender/Rw5TjKlUbqsdHFv/Sg5rUJ [file] dlCkRUUlWKCKSp0Nc973VDStGDRWTpw+PyxlpMObpUajZALCKCG5BSRXXBXKJ0D= ID Date Data Source [id number] 09/19/2019 11:03:27 AM EST [facility] Name Value Range Interpretation Code Description Data Meme rce(s) Supporting Document(s) MAGNESIUM 2.1 mg/dL (1.7-2.4) [facility] ID Date Data Source [id number] 09/19/2019 11:03:27 AM EST [facility] Name Value Range Interpretation Code Description Data Meme rce(s) Supporting Document(s) SODIUM 137 mmol/L (136-145) [facility] POTASSIUM 3.9 mmol/L (3.6-5.2) [facility] CHLORIDE 105 mmol/L (100-108) [facility] CO2 25 mmol/L (22-31) [facility] ANION GAP 7 mmol/L (7-16) [facility] UREA NITROGEN 24 mg/dL (7-24) [facility] CREATININE 1.27 mg/dL (0.80-1.30) [facility] BUN/CREAT RATIO 18.9 RATIO (10.0-20.0) [facility] GLUCOSE 109 mg/dL (70-99) H [facility] CALCIUM 8.4 mg/dL (8.4-10.2) [facility] GFR 56 ml/min/1.73m2 (>59) L [facility] GFR ([facility] AM) >60 ml/min/1.73m2 (>59) [facility] GFR INTERPRETATION [facility] --NORMAL KIDNEY FUNCTION OR MILD DISEASE - GFR >OR= 60CHRONIC KIDNEY DISEASE - GFR 15 - 59RENAL FAILURE - GFR <15 Est. GFR calculation based on the MDRDstudy equation, which assumes a steadystate for creatinine. Est. GFR should notbe used for medication dosing. ID Date Data Source [id number] 09/19/2019 10:47:03 AM EST [facility] Name Value Range Interpretation Code Description Data Meme [facility](s) Supporting Document(s) PT 12.4 s (9.2-11.9) H [facility] INR 1.22 [facility] SUGGESTED THERAPEUTIC RANGES USING INR F ORSTABILIZED ANTICOAGULATED PATIENTS:STANDARD DOSE THERAPY INR 2.0-3.0 DVT, PE, PREVENT DVT OR EMBOLISMHIGH DOSE THERAPY INR 2.5-3.5 PREVENT EMBOLISM FROM MECHANICAL HEART VALVE ID Date Data Source [id number] 09/19/2019 10:40:30 AM EST [facility] Name Value Range Interpretation Code Description Data Meme rce(s) Supporting Document(s) WBC 6.5 10*3/uL (4.1-11.0) [facility] [place] RBC 4.70 10*6/uL (4.60-6.10) [facility] HGB 13.8 g/dL (13.5-18.0) [facility] HCT 40.4 % (41.0-53.0) L [facility] MCV 85.9 fL (80.0-95.0) [facility] MCH 29.3 pg (27.0-32.0) [facility] MCHC 34.1 g/dL (32.0-36.0) [facility] RDW 13.7 % (10.5-14.5) [facility] PLT 120 10*3/uL (150-450) L [facility] MPV 9.3 fL (7.1-10.7) [facility] ID Date Data Source [id number] 09/19/2019 08:44:42 AM EST [facility] NT INFORMATIONPatient MRN Name Date of Age Gend*PT [id number] Theo Edwards 1945 73 years M IPPT Location Admission Date/Time Visit ID Attending Provider --- --- --- --- EPI ID CSN Admitting Prov ider [id number] ---ZAINAB ExamPerformed by: Gautam Quinones MDInformation: Diagnostic [...] rce(s) Supporting Document(s) ID Date Data Source [id number] 09/19/2019 08:41:17 AM EST [facility] NT INFORMATIONPatient MRN Name Date of Age Gend*PT [id number] Theo Edwards 1945 73 years M IPPT Location Admission Date/Time Visit ID Attending Provider --- --- --- --- EPI ID CSN Admitting Prov ider [id number] ---Arterial Line PlacementPatient location during procedure: CV [...] rce(s) Supporting Document(s) ID Date Data Source [id number] 09/19/2019 08:31:40 AM EST [facility] Name Value Range Interpretation Code Description Data Meme rce(s) Supporting Document(s) POC SOURCE [facility] POC TEMPERATURE [facility] 37.0C POC FIO2 100 [facility] POC PH 7.33 pH (7.35-7.45) L [facility] POC PCO2 45.6 MMHG (32.0-48.0) [facility] POC PO2 89 MMHG (83-108) [facility] POC SAT O2 96 % (95-99) [facility] POC BASE DEFICIT 2 MMOL/L (0-2) [facility] POC HCO3 23.8 MMOL/L (21.0-29.0) [facility] POC TOTAL CO2 25 MMOL/L (23.0-32.0) [facility] PERFORMED BY [facility] ST[facility]FF POC HCT 38 % (41.0-53.0) L [facility] POC SODIUM 139 MMOL/L (136-145) [facility] POC POTASSIUM 3.8 MMOL/L (3.6-5.2) [facility] POC IONIZED CALCIUM 4.8 MG/DL (4.6-5.3) [facility] POC GLU 122 MG/DL (70-99) H [facility] PER[facility] LAB [facility] ID Date Data Source [id number] 09/19/2019 08:32:05 AM EST [facility] Name Value Range Interpretation Code Description Data Meme rce(s) Supporting Document(s) POC ACT 241 s (80-140) H [facility] BY [facility] ID Date Data Source [id number] 09/19/2019 08:20:07 AM EST [facility] Name Value Range Interpretation Code Description Data Meme rce(s) Supporting Document(s) POC SOURCE [facility] POC TEMPERATURE [facility] 37.0C POC FIO2 100 [facility] POC PH 7.36 pH (7.35-7.45) [facility] POC PCO2 46.6 MMHG (32.0-48.0) [facility] POC PO2 80 MMHG (83-108) L [facility] POC SAT O2 95 % (95-99) [facility] POC BASE EXCESS 0 MMOL/L (0-3) [facility] POC HCO3 26.3 MMOL/L (21.0-29.0) [facility] POC TOTAL CO2 28 MMOL/L (23.0-32.0) [facility] BY [facility] POC HCT 42 % (41.0-53.0) [facility] POC SODIUM 140 MMOL/L (136-145) [facility] POC POTASSIUM 4.0 MMOL/L (3.6-5.2) [facility] POC IONIZED CALCIUM 5.0 MG/DL (4.6-5.3) [facility] POC GLU 129 MG/DL (70-99) H [facility] PERFORM LAB [facility] ID Date Data Source [id number] 09/19/2019 08:20:02 AM EST [facility] Name Value Range Interpretation Code Description Data Meme rce(s) Supporting Document(s) POC ACT 131 s (80-140) [facility] PERFOR[facility] BY [facility] ID Date Data Source [id number] 09/19/2019 07:11:40 AM EST [facility] NT INFORMATIONPatient MRN Name Date of Age Gend*PT [id number] Theo Edwards 1945 73 years M IPPT Location Admission Date/Time Visit ID Attending [id number] 09/19/19 0632 --- Symone Keen MD ([id number]) EPI ID CSN Admitting Provider [id number] Symone Keen MD([id number])Updated H&PPlease see the scanned/dictated outpatient note.I have reviewed the note, clinical history and physical exam findings. Therehave been no significant changes.Plan as outlined in the outpatient note.Risk/benifit/alternative of TAVR was discussed with patient/family. Risksincluded, but not limited to; NC, CVA, , renal impairment, vascularcomplication, and need for emergency surgery were discussed and accepted bypatient.Symone Keen MD, [facility], [facility] Name Value Range Interpretation Code Description Data Meme rce(s) Supporting Document(s) ID Date Data Source [id number] 09/19/2019 06:50:40 AM EST [facility] Name Value Range Interpretation Code Description Data Meme rce(s) Supporting Document(s) POC NOVA GLU 124 mg/dL (70-99) H [facility] [place] PERFORMED BY [facility] ID Date Data Source [id number] 09/20/2019 08:46:16 PM EST [facility] SPEC EXP DATE 09/22/2019TEST ING SITE PERFORMED AT [address] [place] [id number] NUMBER [id number] COMPONENT TYPE LEUKOPOOR RED CELLSUNIT DIVISION 00STATUS OF UNIT REL FROM ALLOCTRANSFUSION STATUS OK TO TRANSFUSECROSSMATCH RESULT COMPATIBLEUNIT NUMBER [id number] COMPONENT TYPE LEUKOPOOR RED CELLSUNIT DIVISION 00STATUS OF UNIT REL FROM ALLOCTRANSFUSION STATUS OK TO TRANSFUSECROSSMATCH RESULT COMPATIBLEUNIT NUMBER [id number] COMPONENT TYPE LEUKOPOOR RED CELLSUNIT DIVISION 00STATUS OF UNIT REL FROM ALLOCTRANSFUSION STATUS OK TO TRANSFUSECROSSMATCH RESULT COMPATIBLEUNIT NUMBER [id number] COMPONENT TYPE LEUKOPOOR RED CELLSUNIT DIVISION 00STATUS OF UNIT REL FROM ALLOCTRANSFUSION STATUS OK TO TRANSFUSECROSSMATCH RESULT COMPATIBLE Name Value Range Interpretation Code Description Data Meme rce(s) Supporting Document(s) TRANSFUSE RED CELLS [facility] TESTING SITE PERFORMED AT [address] [place] [id number] ID Date Data Source [id number] 09/12/2019 03:52:03 PM EST [facility] Name Value Range Interpretation Code Description Data Meme rce(s) Supporting Document(s) EKG [facility] UEVLCb0gSxWVIdZqc4YyAjJxBMCeNK5oyjj9Q3W1oEDjT5HcvKXce0rwD3NqA2DzRIHfPDMRQE9MhJWf jb2 [file] kgMDAwMDAgbiAKMDAwMDAwMTczNCAwMDAwMCBuIAow GYQhPQEfFUE5DHFpVXZtDZ3jLhSoMMQmVKUwGFBgOtS8DzNgPbKVxFNujVbyqac1KUoaR6j7LMZxMEoe WH1upqDgHQBjTqeiPd8doEE2UHCyAmeCWf5Mj4FhtiA5bvDxHmIbEls3LcMxVP5R ID Date Data Source [id number] 09/12/2019 01:16:11 PM EST [facility] NT INFORMATIONPatient MRN Name Date of Age Gend*PT [id number] Theo Edwards 1945 73 years M OPPT Location Admission Date/Time Visit ID Attending Provider --- --- --- Symone Keen MD ([id number]) EPI ID CSN Admitting Provider [id number] ---HISTORY PHYSICALName: Theo Edwards : 1945 Sex: male Care Provider: Katie Kwongending Physician: Dr. Garibayformant: The patient who is reliable and accompanied by his .Chief Complaint: "I need valve replacement".HISTORY OF PRESENT ILLNESS:Mr. Edwards is a 73 years old male who reports havinga routine physical exam with his PCP and was noted to have heart murmur.Subsequently he was referred to [facility]. Patient underwentechocardiogram on 07/09/2019 which concluded [...] warm and dry.HEENT: He is normocephalic, atraumatic. [place] co njunctivae. Anicteric sclerae.Pupils are equal, round, [...] hepatosplenomegaly. Negative CVAT.GENITAL/RECTAL: Deferred.MUSCLE/SKELETAL: Strength is 5/5. Nurse Liaison are equal.NEUROLOGICALLY: Cranial nerves II through XII are grossly intact.VASCULAR: Pulses are symmetrical. No bilateral pedal edema.IMPRESSION:1. Nonrheumatic aortic valve stenosis.2. Medical co morbidities as listed above.3. Medication and surgical instructions as per TAVR clinic.09/12/2019 1:11 PMLyudmila Kostiv, NPThis document or parts of this document, were dictated using PageLever speaking software. A reasonable attempt at proofreading has beenmade to minimize errors. Please call with any questions or corrections. Name Value Range Interpretation Code Description Data Meme rce(s) Supporting Document(s) ID Date Data Source [id number] 09/13/2019 03:49:08 PM EST [facility] Name Value Range Interpretation Code Description Data Meme rce(s) Supporting Document(s) SPECIMEN DESCRIPTION [facility] STAPH SCREEN RESULTS (ONEGSA) [facility] COMMENT [facility] GENE TO DETECT STAPH AUREUS. (2) RT-P CR WAS PERFORMED FOR THE mecA AND [employer] GENES TO DETECT METHICILLIN RESISTANCE IN STAPH AUREUS. ID Date Data Source [id number] 09/12/2019 06:57:10 PM EST [facility] SPEC EXP DATE 09/20/2019PATI ENT ABO/Rh O POSITIVEANTIBODY SCREEN NEGATIVETESTING SITE PERFORMED AT [address] [place] [id number] Name Value Range Interpretation Code Description Data Meme rce(s) Supporting Document(s) TYPE AND SCREEN [facility] ID Date Data Source [id number] 09/12/2019 05:49:47 PM EST [facility] Name Value Range Interpretation Code Description Data Meme rce(s) Supporting Document(s) ROOM TEMP AB SCREEN [facility] ROOM TEMP AB SCREEN NEGATIVE ID Date Data Source [id number] 09/13/2019 03:03:26 PM EST [facility] SPECIMEN DESCRIPTION MIDSTREAM UR INE,CLEAN CATCHCULTURE RESULTS NO GROWTHREPORT STATUS FINAL 09/13/2019 Name Value Range Interpretation Code Description Data Meme rce(s) Supporting Document(s) ID Date Data Source [id number] 09/12/2019 09:07:01 PM EST [facility] Name Value Range Interpretation Code Description Data Meme rce(s) Supporting Document(s) HEMOGLOBIN A1C @ 5.8 % (4.0-6.0) [facility] Performed using Siemens [place] immunoassa y.Care must be taken when interpreting FaI5pzgetztt in patients with a hemoglobin variantor decreased erythrocyte lifespan. Values 5.7 - 6.4% suggest prediabetes.Values >=6.5% are diagnostic for diabetes.REFERENCE: DIABETES CARE 2018: 41(S13-S27). EST AVERAGE GLUCOSE 120 mg/dL [facility] ID Date Data Source [id number] 09/12/2019 08:20:51 PM EST [facility] Name Value Range Interpretation Code Description Data Meme rce(s) Supporting Document(s) SODIUM 139 mmol/L (136-145) [facility] POTASSIUM 4.9 mmol/L (3.6-5.2) [facility] CHLORIDE 104 mmol/L (100-108) [facility] CO2 30 mmol/L (22-31) [facility] ANION GAP 5 mmol/L (7-16) L [facility] UREA NITROGEN 19 mg/dL (7-24) [facility] CREATININE 1.35 mg/dL (0.80-1.30) H [facility] BUN/CREAT RATIO 14.1 RATIO (10.0-20.0) [facility] GLUCOSE 131 mg/dL (70-99) H [facility] CALCIUM 9.6 mg/dL (8.4-10.2) [facility] TOTAL PROTEIN 6.8 g/dL (6.4-8.2) [facility] ALBUMIN 4.0 g/dL (3.2-4.5) [facility] GLOBULIN 2.8 g/dL (2.7-4.3) [facility] ALB/GLOB RATIO 1.4 RATIO [facility] ALKALINE PHOSPHATASE 66 U/L (45-117) [facility] BILIRUBIN,TOTAL 0.9 mg/dL (0.0-1.0) [facility] AST (SGOT) 9 U/L (11-39) L [facility] ALT (SGPT) 27 U/L (12-78) [facility] GFR 52 ml/min/1.73m2 (>59) L [facility] GFR ( AMER) >60 ml/min/1.73m2 (>59) [facility] GFR INTERPRETATION [facility] --NORMAL KIDNEY FUNCTION OR MILD DISEASE - GFR >OR= 60CHRONIC KIDNEY DISEASE - GFR 15 - 59RENAL FAILURE - GFR <15 Est. GFR calculation based on the MDRDstudy equation, which assumes a steadystate for creatinine. Est. GFR should notbe used for medication dosing. ID Date Data Source [id number] 09/12/2019 08:20:51 PM EST [facility] Name Value Range Interpretation Code Description Data Meme rce(s) Supporting Document(s) NT PRO BNP 30 pg/mL (0-125) [facility] ID Date Data Source [id number] 09/12/2019 07:52:34 PM EST [facility] Name Value Range Interpretation Code Description Data Meme rce(s) Supporting Document(s) APTT 29.5 s (22.0-34.3) [facility] ID Date Data Source [id number] 09/12/2019 07:52:34 PM EST [facility] Name Value Range Interpretation Code Description Data Meme rce(s) Supporting Document(s) PT 11.6 s (9.2-11.9) [facility] INR 1.14 [facility] SUGGESTED THERAPEUTIC RANGES USING INR F ORSTABILIZED ANTICOAGULATED PATIENTS:STANDARD DOSE THERAPY INR 2.0-3.0 DVT, PE, PREVENT DVT OR EMBOLISMHIGH DOSE THERAPY INR 2.5-3.5 PREVENT EMBOLISM FROM MECHANICAL HEART VALVE ID Date Data Source [id number] 09/12/2019 07:24:28 PM EST [facility] Name Value Range Interpretation Code Description Data Meme rce(s) Supporting Document(s) COLOR [facility] APPEARANCE [facility] SPEC GRAV URINE 1.017 (1.003-1.030) [facility] PH URINE 5.5 (5.0-7.5) [facility] LEUK ESTERASE (NEG) [facility] NITRITE URINE (NEG) [facility] PROTEIN URINE (NEG) [facility] GLUCOSE URINE (NEG) [facility] KETONE URINE (NEG) [facility] UROBILINOGEN 0.2 mg/dL (0-1.0) [facility] BILIRUBIN URINE (NEG) [facility] BLOOD/HGB URINE (NEG) [facility] ID Date Data Source [id number] 09/12/2019 07:14:15 PM EST [facility] Name Value Range Interpretation Code Description Data Meme rce(s) Supporting Document(s) WBC 8.0 10*3/uL (4.1-11.0) [facility] RBC 5.40 10*6/uL (4.60-6.10) [facility] HGB 15.8 g/dL (13.5-18.0) [facility] HCT 46.7 % (41.0-53.0) [facility] MCV 86.6 fL (80.0-95.0) [facility] MCH 29.2 pg (27.0-32.0) [facility] MCHC 33.7 g/dL (32.0-36.0) [facility] RDW 13.8 % (10.5-14.5) [facility] PLT 151 10*3/uL (150-450) [facility] MPV 9.6 fL (7.1-10.7) [facility] NEUT % 56.2 % (35.0-75.0) [facility] LYMPH % 29.3 % (16.0-52.0) [facility] MONO % 7.6 % (0.0-8.0) [facility] EOS % 5.9 % (0.0-5.0) H [facility] BASO % 1.0 % (0.0-4.0) [facility] NEUT # 4.5 10*3/uL (1.8-7.7) [facility] LYMPH # 2.3 10*3/uL (1.2-4.8) [facility] MONO # 0.6 10*3/uL (0.0-0.8) [facility] Eosinophils [#/volume] in Blood by Automated count 0.5 10*3/uL (0.0-0 .5) [facility] BASO # 0.1 10*3/uL (0.0-0.2) [facility] ID Date Data Source [id number] 08/19/2019 10:09:00 AM EST [facility] (Health system) Name Value Range Interpretation Code Description Data Meme rce(s) Supporting Document(s) CPK Creatine Phosphokinase 65 U/L 39-308 Brittani l (applies to non-numeric results) [facility] ([facility]) MB/CK Relative Index 1.54 Normal (applies to non-num leeann results) [facility] ([facility]) <content>DIAGNOSIS CRITERIA</content>
<content>MMB ng/ml Relative Index (RI)</content>
<content>NON-AMI < or = 5 N/A</content>
<content>SADLER ZONE > 5 < or = 4</content>
<content>AMI > 5 > 4</content>
<content></content> CK-MB Value Mass 1.0 ng/mL Normal (applies to non-numeric results) [facility] ([facility]) Troponin I Laboratory test result Normal (applies to non-n umeric results) [facility] ([facility]) <content>Troponin I Reference Interval f or Siemens [place] LOCI:</content>
<content></content>
<content>99th Percentile= 0.00-0.045 ng/ml</content>
<content></content>
<content>Risk Stratification:</content>
<content><= 0.10 ng/ml Decreased Risk for Adverse Clinical</content>
<content>Events.</content>
<content>0.10-1.50 ng/ml Increased Risk for Adverse Clinical</content>
<content>Events. Evaluation of additional</content>
<content>criterion and/or repeat testing in 2-6</content>
<content>hours is suggested to rule out myocardial</content>
<content>damage.</content>
<content>>= 1.50 ng/ml Indicative of Myocardial Injury.</content>
<content></content> ID Date Data Source [id number] 08/19/2019 09:09:00 AM EST [facility] ([facility] [place]) Name Value Range Interpretation Code Description Data Meme rce(s) Supporting Document(s) Troponin <0.02 [facility] ([facility] [place]) ID Date Data Source [id number] 08/19/2019 09:09:00 AM EST [facility] ([facility] [place]) Name Value Range Interpretation Code Description Data Meme rce(s) Supporting Document(s) CPK-MB 1.0 [facility] ([facility] [place]) Creatine kinase [Enzymatic activity/volume] in Serum or Plasma 65 [facility] ([facility]) MB/CK Relative 1.54 [facility] ([facility]) ID Date Data Source [id number] 08/19/2019 09:08:00 AM EST [facility] ([facility] [place]) Name Value Range Interpretation Code Description Data Meme rce(s) Supporting Document(s) Troponin <0.02 [facility] ([facility] [place]) ID Date Data Source [id number] 08/19/2019 09:08:00 AM EST [facility] ([facility] Name Value Range Interpretation Code Description Data Meme rce(s) Supporting Document(s) Creatine kinase [Enzymatic activity/volume] in Serum or Plasma 83 [facility] ([facility]) MB/CK Relative 1.45 [facility] ([facility]) CPK-MB 1.2 [facility] ID Date Data Source [id number] 08/19/2019 09:08:00 AM EST [facility] ([facility] Name Value Range Interpretation Code Description Data Meme rce(s) Supporting Document(s) Glucose 123 70-100 [facility] Blood Urea Nitrogen 22 7-18 [facility] ([facility]) Potassium 4.2 3.5-5.1 [facility] ([facility] Creatinine 1.38 0.70-1.30 [facility] ([facility]) Sodium 139 136-145 [facility] Carbon Dioxide 23 21-32 [facility] ([facility]) Chloride 107 98-107 [facility] Calcium 8.6 8.2-9.6 [facility] ([facility] Glomerular filtration rate/1.73 sq M.pre dicted [Volume Rate/Area] in Serum or Plasma by Creatinine-based formula (MDRD) 53.9 [facility] ([facility]) ID Date Data Source [id number] 08/19/2019 09:08:00 AM EST [facility] ([facility] Name Value Range Interpretation Code Description Data Meme rce(s) Supporting Document(s) Platelets 147 150-450 [facility] White Blood Count 7.5 4.0-10.0 [facility] ([facility]) Red Blood Count 5.22 4.30-6.10 [facility] ([facility]) Hematocrit 45.8 [facility] ([facility]) Hemoglobin 15.0 [facility] ([facility]) ID Date Data Source [id number] 08/19/2019 06:30:00 AM EST [facility] (Health system) Name Value Range Interpretation Code Description Data Meme rce(s) Supporting Document(s) Blood Urea Nitrogen 22 mg/dL 7-18 Above high normal [facility] ([facility]) Glucose, Fasting 123 mg/dL 70-100 Above high normal M EDENT ([facility]) Sodium Level 139 meq/L 136-145 Normal (applies to non-numeric res ults) [facility] ([facility]) Glomerular Filtration Rate 53.9 Normal (applies to n on-numeric results) [facility] ([facility]) <content>Units are mL/min/1.73 m2</content>
<content></content>
<content>Chronic Kidney Disease Staging per NKF:</content>
<content></content>
<content>Stage I & II GFR >=60 Normal to Mildly Decreased</content>
<content>Stage III GFR 30-59 Moderately Decreased</content>
<content>Stage IV GFR 15-29 Severely Decreased</content>
<content>Stage V GFR <15 Very Little GFR Left</content>
<content>ESRD GFR <15 on RED LEADER</content>
<content></content> Creatinine For GFR 1.38 mg/dL 0.70-1.30 Above high normal [facility] ([facility]) Carbon Dioxide Level 23 meq/L 21-32 Normal (applies to non-num leeann results) [facility] ([facility]) Potassium Serum 4.2 meq/L 3.5-5.1 Normal (applies to non-numeric results) [facility] ([facility]) Chloride Level 107 meq/L 98-107 Normal (applies to non-numeric r esults) [facility] ([facility]) Calcium Level 8.6 mg/dL 8.8-10.2 Below low normal MEDEN T ([facility]) Anion Gap 9 meq/L 8-16 Normal (applies to non-numeric resul ts) [facility] ([facility]) ID Date Data Source [id number] 08/19/2019 06:30:00 AM EST [facility] ([facility] system) Name Value Range Interpretation Code Description Data Meme rce(s) Supporting Document(s) CPK Creatine Phosphokinase 83 U/L 39-308 Brittani l (applies to non-numeric results) [facility] ([facility]) CK-MB Value Mass 1.2 ng/mL Normal (applies to non-numeric results) [facility] ([facility]) Troponin I Laboratory test result Normal (applies to non-n umeric results) [facility]) <content>Troponin I Reference Interval f or Siemens [place] LOCI:</content>
<content></content>
<content>99th Percentile= 0.00-0.045 ng/ml</content>
<content></content>
<content>Risk Stratification:</content>
<content><= 0.10 ng/ml Decreased Risk for Adverse Clinical</content>
<content>Events.</content>
<content>0.10-1.50 ng/ml Increased Risk for Adverse Clinical</content>
<content>Events. Evaluation of additional</content>
<content>criterion and/or repeat testing in 2-6</content>
<content>hours is suggested to rule out myocardial</content>
<content>damage.</content>
<content>>= 1.50 ng/ml Indicative of Myocardial Injury.</content>
<content></content> MB/CK Relative Index 1.45 Normal (applies to non-num leeann results) [facility]) <content>DIAGNOSIS CRITERIA</content>
<content>MMB ng/ml Relative Index (RI)</content>
<content>NON-AMI < or = 5 N/A</content>
<content>SADLER ZONE > 5 < or = 4</content>
<content>AMI > 5 > 4</content>
<content></content> ID Date Data Source [id number] 08/19/2019 06:30:00 AM EST [facility] (Health system) Name Value Range Interpretation Code Description Data Meme rce(s) Supporting Document(s) White Blood Count 7.5 10 4.0-10.0 Normal (applies to non-numeri c results) [facility] ([facility]) Hemoglobin 15.0 g/dL 13.5-17.5 Normal (applies to non-numeric resul ts) [facility] ([facility]) Red Blood Count 5.22 10 4.30-6.10 Normal (applies to non-numeric results) [facility] ([facility]) Hematocrit 45.8 % 42.0-52.0 Normal (applies to non-numeric resul ts) [facility] ([facility]) Mean Corpuscular HGB Conc 32.8 g/dL 32.0-36.5 Normal (applies to non-numeric results) [facility] ([facility]) Mean Corpuscular Volume 87.7 fl 80.0-96.0 Normal ( applies to non-numeric results) [facility] ([facility]) Mean Corpuscular Hemoglobin 28.7 pg 27.0-33.0 Norm al (applies to non-numeric results) [facility] ([facility]) Neutrophils % 56.5 % 36.0-66.0 Normal (applies to non-numeric re sults) [facility] ([facility]) Platelet Count, Automated 147 10 150-450 Below low normal [facility] Red Cell Distribution Width 12.7 % 11.5-14.5 Norm al (applies to non-numeric results) [facility] ([facility]) Major % 7.5 % 0.0-5.0 Above high normal [facility] ([facility]) Lymph % 29.4 % 24.0-44.0 Normal (applies to non-numeric resul ts) [facility] ([facility]) Eos % 5.3 % 0.0-3.0 Above high normal [facility] ([facility]) Immature Granulocyte % 0.5 % 0-3.0 Normal (applies to non-n umeric results) [facility] ([facility]) Nucleated Red Blood Cell % 0.0 % 0-0 Normal (applies to n on-numeric results) [facility] ([facility]) Baso % 0.8 % 0.0-1.0 Normal (applies to non-numeric resul ts) [facility] ([facility]) Neutrophils # 4.2 10 1.5-8.5 Normal (applies to non-numeric re sults) [facility] ([facility]) Lymph # 2.2 10 1.5-5.0 Normal (applies to non-numeric resul ts) [facility] ([facility]) Major # 0.6 10 0.0-0.8 Normal (applies to non-numeric resul ts) [facility] ([facility]) Baso # 0.1 10 0.0-0.2 Normal (applies to non-numeric resul ts) [facility] ([facility]) Eos # 0.4 10 0.0-0.5 Normal (applies to non-numeric resul ts) [facility] ([facility]) Procedure Social History Code Duration Value Status Description Data Source(s ) Smoking 09/28/2020 12:00:00 AM EST Never Smoker completed Never S moker eCW1 ([facility]) Smoking 10/19/2019 12:00:00 AM EST Patient has never smoked co mpleted Patient has never smoked [facility] ([facility]) Smoking 09/30/2019 12:00:00 AM EST Never Smoker completed Never S moker eCW1 ([facility]) Alcohol intake 09/20/2019 12:00:00 AM EST Yes completed [facility] Smoking 09/20/2019 12:00:00 AM EST [facility]12/2019 12:00:00 AM EST Yes completed [facility] Smoking 09/12/2019 12:00:00 AM EST Never smoker completed Never s [facility] Vital Signs ID Date Data Source UNK Name Value Range Interpretation Code Description Data Source(s) Body surface area Derived from formula 2.31 m2 2.31 m2 [facility] ([facility]) Body mass index (BMI) [Ratio] 35.5 kg/m2 35.5 k g/m2 [facility] ([facility]) Body height 70.5 [in_i] 70.5 [in_i] [facility] ([facility]) 5'10.50" Body weight 113.854 kg 113.854 kg [facility] (Health system) Body weight 251.00 [lb_av] 251.00 [lb_av] MED[facility] T ([facility]) Oxygen saturation in Arterial blood by Pulse oximetry 98 % 98 % [facility] ([facility]) Respiratory rate 16 /min 16 /min [facility] ( [facility]) Body temperature 97.2 [degF] 97.2 [degF] [facility] ([facility]) Heart rate 55 /min 55 /min [facility] ([facility]) Diastolic blood pressure 60 mm[Hg] 60 mm[Hg] [facility] ([facility]) Systolic blood pressure 110 mm[Hg] 110 mm[Hg] M EDENT ([facility]) Diastolic blood pressure 74 mm[Hg] 74 mm[Hg] eCW1 ([facility]) Systolic blood pressure 124 mm[Hg] 124 mm[Hg] e CW1 ([facility]) Body mass index (BMI) [Ratio] 36.73 kg/m2 36.73 kg/m2 W1 ([facility]) Body height 70 [in_i] 70 [in_i] eCW1 ([facility]) Body weight 256 [lb_av] 256 [lb_av] eCW1 ([facility]) Body surface area Derived from formula 2.34 m2 2.34 m2 [facility] ([facility]) Body mass index (BMI) [Ratio] 36.6 kg/m2 36.6 k g/m2 [facility] ([facility]) Body height 70.5 [in_i] 70.5 [in_i] [facility] ([facility]) 5'10.50" Body weight 117.482 kg 117.482 kg [facility] (Health system) Body weight 259.00 [lb_av] 259.00 [lb_av] MEDEN T ([facility]) Oxygen saturation in Arterial blood by Pulse oximetry 96 % 96 % [facility] ([facility]) Respiratory rate 18 /min 18 /min [facility] ( [facility]) Body temperature 97.3 [degF] 97.3 [degF] [facility] ([facility]) Heart rate 70 /min 70 /min [facility] ([facility]) Diastolic blood pressure 78 mm[Hg] 78 mm[Hg] [facility] ([facility]) just took his meds before he came forgot this am Systolic blood pressure 142 mm[Hg] 142 mm[Hg] M EDENT ([facility]) just took his meds before he came forgot this am Body surface area Derived from formula 2.31 m2 2.31 m2 [facility] ([facility]) Body mass index (BMI) [Ratio] 35.4 kg/m2 35.4 k g/m2 [facility] ([facility]) Body height 70.5 [in_i] 70.5 [in_i] [facility] ([facility]) 5'10.50" Body weight 113.400 kg 113.400 kg [facility] (Health system) Body weight 250.00 [lb_av] 250.00 [lb_av] MEDEN T ([facility]) Oxygen saturation in Arterial blood by Pulse oximetry 98 % 98 % [facility] ([facility]) Respiratory rate 16 /min 16 /min [facility] ( [facility]) Body temperature 97.1 [degF] 97.1 [degF] [facility] ([facility]) Heart rate 68 /min 68 /min [facility] ([facility]) Diastolic blood pressure 80 mm[Hg] 80 mm[Hg] [facility] ([facility]) Systolic blood pressure 118 mm[Hg] 118 mm[Hg] [facility] Body weight 112.946 kg 112.946 kg [facility] ([facility] system) Body weight 249.00 [lb_av] 249.00 [lb_av] MEDEN T ([facility]) Oxygen saturation in Arterial blood by Pulse oximetry 96 % 96 % [facility] ([facility]) Respiratory rate 18 /min 18 /min [facility] ( [facility]) Body temperature 97.4 [degF] 97.4 [degF] [facility] ([facility]) Heart rate 53 /min 53 /min [facility] ([facility]) Diastolic blood pressure 66 mm[Hg] 66 mm[Hg] [facility] ([facility]) Systolic blood pressure 112 mm[Hg] 112 mm[Hg] M EDENT ([facility]) Body weight 112.039 kg 112.039 kg [facility] ([facility] system) Body weight 247.00 [lb_av] 247.00 [lb_av] MED[facility] T ([facility]) Oxygen saturation in Arterial blood by Pulse oximetry 97 % 97 % [facility] ([facility]) Respiratory rate 18 /min 18 /min [facility] ( [facility]) Body temperature 97.4 [degF] 97.4 [degF] [facility] ([facility]) Heart rate 57 /min 57 /min [facility] ([facility]) Diastolic blood pressure 62 mm[Hg] 62 mm[Hg] [facility] ([facility]) Systolic blood pressure 124 mm[Hg] 124 mm[Hg] [facility] ([facility]) Body surface area Derived from formula 2.30 m2 2.30 m2 [facility] ([facility], ) Body weight 112.493 kg 112.493 kg [facility] ([facility], ) [place] body weight 166 [lb_av] 166 [lb_av] [facility] Body mass index (BMI) [Ratio] 35.1 kg/m2 35.1 k g/m2 [facility] ([facility], ) Body weight 248.00 [lb_av] 248.00 [lb_av] [facility] ) Body height 70.5 [in_i] 70.5 [in_i] [facility] ([facility], ) 5'10.50" Diastolic blood pressure 64 mm[Hg] 64 mm[Hg] [facility] ([facility], ) Systolic blood pressure 112 mm[Hg] 112 mm[Hg] M EDENT ([facility]) Diastolic blood pressure--sitting 58 mm[Hg] 58 mm[Hg] [facility] ([facility]) large cuff, Ra Systolic blood pressure--sitting 108 mm[Hg] 108 mm[Hg] [facility] ([facility]) large cuff, Ra Heart rate 57 /min 57 /min [facility] ([facility]) Body mass index (BMI) [Ratio] 35.9 kg/m2 35.9 k g/m2 [facility] ([facility]) Body height 70 [in_i] 70 [in_i] [facility] ([facility]) 5'10" Body weight 250.00 [lb_av] 250.00 [lb_av] [facility] T ([facility]) Body weight 115.668 kg 115.668 kg [facility] (Health system) Body weight 255.00 [lb_av] 255.00 [lb_av] [facility] T ([facility]) Oxygen saturation in Arterial blood by Pulse oximetry 95 % 95 % [facility] ([facility]) Respiratory rate 18 /min 18 /min [facility] ( [facility]) Body temperature 97.8 [degF] 97.8 [degF] [facility] ([facility]) Heart rate 55 /min 55 /min [facility] ([facility]) Diastolic blood pressure 62 mm[Hg] 62 mm[Hg] [facility] ([facility]) Systolic blood pressure 120 mm[Hg] 120 mm[Hg] M EDENT ([facility]) Body mass index (BMI) [Ratio] 36.73 kg/m2 36.73 kg/m2 eCW1 ([facility]) Body height 70 [in_us] 70 [in_us] eCW1 ([facility]) Body weight Measured 256.0 [lb_av] 256.0 [lb_av ] eCW1 ([facility]) Diastolic blood pressure 70 mm[Hg] 70 mm[Hg] eCW1 ([facility]) Systolic blood pressure 127 mm[Hg] 127 mm[Hg] e CW1 ([facility]) Body temperature 97.8 [degF] 97.8 [degF] eCW1 ( [facility]) Respiratory rate 18 /min 18 /min eCW1 ([facility]) Heart rate 60 /min 60 /min eCW1 ([facility]) Heart rate 64 /min 64 /min [facility] Diastolic blood pressure 66 mm[Hg] 66 mm[Hg] [facility] Systolic blood pressure 130 mm[Hg] 130 mm[Hg] [facility] Oxygen saturation in Arterial blood by Pulse oximetry 95 % 95 % [facility] Respiratory rate 17 /min 17 /min [facility] Body temperature 36.56 Sadia 36.56 Sadia [facility] Body mass index (BMI) [Ratio] 35.89 kg/m2 35.89 kg/m2 [facility] Body weight 115.1 kg 115.1 kg [facility] Body height 179.1 cm 179.1 cm [facility] Diastolic blood pressure 74 mm[Hg] 74 mm[Hg] [facility] Systolic blood pressure 128 mm[Hg] 128 mm[Hg] [facility] Oxygen saturation in Arterial blood by Pulse oximetry 98 % 98 % [facility] Body mass index (BMI) [Ratio] 36.07 kg/m2 36.07 kg/m2 [facility] Body weight 115.667 kg 115.667 kg [facility] Body height 179.1 cm 179.1 cm [facility] Heart rate 59 /min 59 /min [facility] Patient Treatment Plan of Care Planned Activity Planned Date Details Description Data Source (s) Amoxicillin 500 MG Oral Capsule 09/20/2019 12:00:00 AM EST [facility] Aspirin 81 MG Delayed Release Oral Tablet 09/20/2019 12:00:00 AM T [facility] clopidogrel 75 MG Oral Tablet 09/20/2019 12:00:00 AM EST [facility] Lidocaine Hydrochloride 20 MG/ML Mucous Membrane Topic al Solution 07/14/2019 12:00:00 AM EST [facility] cilostazol 100 MG Oral Tablet [facility] Aspirin 325 MG Oral Tablet S [facility] cilostazol 100 MG Oral Tablet [facility]
[2020-10-18 02:39] LABS: BASO # 0.1 10^3/uL (0.0-0.2); BASO % 0.8 % (0.0-1.0); EOS # 0.3 10^3/uL (0.0-0.5); EOS % 3.6 % (0.0-3.0); HEMATOCRIT 44.6 % (42.0-52.0); HEMOGLOBIN 14.2 g/dl (13.5-17.5); LYMPH # 1.9 10^3/uL (1.5-5.0); LYMPH % 27.1 % (24.0-44.0); MEAN CORPUSCULAR HEMOGLOBIN 28.3 pg (27.0-33.0); MEAN CORPUSCULAR HGB CONC 31.8 g/dl (32.0-36.5); MONO # 0.7 10^3/uL (0.0-0.8); MONO % 10.4 % (2.0-8.0); NEUTROPHILS # 4.1 10^3/uL (1.5-8.5); NEUTROPHILS % 57.5 % (36.0-66.0); PLATELET COUNT, AUTOMATED 120 10^3/uL (150-450); RED BLOOD COUNT 5.01 10^6/uL (4.30-6.10); WHITE BLOOD COUNT 7.1 10^3/uL (4.0-10.0)
[2020-10-18 02:51] LABS: INR 1.1; PROTHROMBIN TIME 14.4 SECONDS (12.5-14.3)
[2020-10-18 03:01] LABS: ALBUMIN 3.7 GM/DL (3.2-5.2); BILIRUBIN,DIRECT 0.2 MG/DL (0.0-0.2); BILIRUBIN,TOTAL 0.6 MG/DL (0.2-1.0); TOTAL PROTEIN 6.4 GM/DL (6.4-8.2)
[2020-10-18] MEDS ORDERED: KETOROLAC 30 MG/ML 1ML VIAL IV ONE (03:25)
--- OUTSIDE RECORDS SUMMARY | 2020-10-18 04:07 | CCD ---
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 If you continue you may have access to information: Regarding HIV / AIDS; Provided by facilities licensed or operated by the [facility] Office of Mental Health; or Provided by the [facility] Office for People With Developmental Disabilities. If such information is present, then the following [facility] mandated warning applies: This information [...] law may result in a fine or half-way sentence or both. A general authorization for the release of medical or other information is NOT sufficient authorization for further disc losure. Allergies and Adverse Reactions Type Description Substance Reaction Status Data Source(s ) No Known Environmental Allergies No Known Environmental Al lergies [facility] No Known Food Allergies No Known Food Allergies [facility] BRANDNAME [facility] ITCHING [facility] Family History Family Member Name Family Member Gender Family Member Status Date o f Status Description Data Source(s) Unknown Female Problem [facility] ([facility]) Unknown Male Problem MED[facility] ([facility] ) Unknown Female Problem [facility] ([facility]) Encounters Encounter Providers Location Date Indications Data Source(s ) Outpatient Attender: SOMMER SORIA MDConsultant: SOMMER Rider MD 10/08/2020 12:54:00 PM EST - 10/08/2020 12:54:[address] [facility] [address] [address] 10/02/2020 12:00:00 AM EST eCW1 ([facility]) Outpatient Attender: SOMMER SORIA MDConsultant: SOMMER Rider MD 09/04/2020 02:43:00 PM EST - 09/04/2020 02:43:[address] [facility] Outpatient Attender: SOMMER SORIA MD Family Practice 09/04/2020 0 2:00:00 PM EST MEDENT ([facility]) Outpatient Attender: SOMMER SORIA MDConsultant: SOMMER Rider MD 08/08/2020 08:56:00 AM EST - 08/08/2020 08:56:[address] [facility] Outpatient Attender: SOMMER SORIA MD Family Practice 08/08/2020 0 8:20:00 AM EST MEDENT ([facility]) Outpatient Attender: SOMMER SORIA MD Family Practice 05/07/2020 0 1:00:00 PM EDT MEDENT ([facility]) Outpatient Attender: SOMMER SORIA MDConsultant: SOMMER Rider MD 05/07/2020 12:40:00 PM EDT - 05/07/2020 12:40:[address] [facility] [address] [place] [id number] 02/07/2020 12:00:00 AM EDT eCW1 ([facility]) Unknown [address] [facility] [address] 02/06/2020 12:00:00 AM EDT eCW1 ([facility]) Outpatient Attender: SOMMER SORIA MD Family Practice 01/19/2020 1 0:00:00 AM EDT MEDENT ([facility]) Outpatient Attender: SOMMER SORIA MDConsultant: SOMMER Rider MD 01/19/2020 09:37:00 AM EDT - 01/19/2020 09:37:00 AM EDT [facility] Recurring Patient Attender: Dominic Baker IIReferrer: SOMMER LINARES MD 12/30/2019 09:16:29 AM EDT [facility] [place] Outpatient Attender: Jenna STREETER Main Office 10/19/2019 01:00:0 0 PM EST MEDENT ([facility]) Outpatient Attender: SOMMER SORIA MDConsultant: SOMMER Rider MD 10/03/2019 10:18:00 AM EST - 10/03/2019 10:18:00 AM EST [facility] Office Visit Attender: SOMMER SORIA MD Family Practice 2019 09:00:00 AM EST MEDENT ([facility] [address] [place] [id number] 09/30/2019 12:00:00 AM EST eCW1 ([facility]) Outpatient Attender: SOMMER SORIA MDConsultant: SOMMER Rider MD 09/27/2019 09:04:00 AM EST - 09/27/2019 10:04:00 AM EST [facility] Inpatient Attender: SYMONE KEEN MDAdmitter: SYMONE CASTRO MD [id number] 09/19/2019 06:32:00 AM EST - 09/20/2019 05:42:00 PM EST [facility] Patient discharged. Outpatient Attender: SYMONE KEEN MDReferrer: SYMONE CASTRO MD MOB-MOB.PAT 09/12/2019 12:11:35 PM EST - 09/12/2019 01:47:14 PM EST [facility] Outpatient Attender: SOMMER SORIA MDConsultant: SOMMER Rider MD 03/18/2018 02:50:51 PM EDT [facility] Immunizations Vaccine Date Status Description Data Source(s) New in 2011. IIV4 08/08/2020 08:38:00 AM EST completed MEDENT ([facility]) pneumococcal polysaccharide PPV23 08/08/2020 08:37:00 AM EST comple julian MEDENT ([facility]) Medications Medication Brand Name Start Date Product Form Dose Route Admi nistrative Instructions Pharmacy Instructions Status Indications Reaction Description Data Source(s) Cholecalciferol 01058 UNT Oral Capsule Weekly-D 09/04/2020 12:00:00 AM EST ORAL active MEDENT ([facility]) Triamcinolone Acetonide 5 MG/ML Topical Cream Triamcinolone Acetonide 09/04/2020 12:00:00 AM EST active M EDENT ([facility]) Amoxicillin 500 MG Oral Tablet Amoxicillin 05/24/2020 12:00:00 AM EDT ORAL active MEDENT ([facility], ) Magnesium Hydroxide 80 MG/ML Oral Suspension Milk Of Magnesi a 05/21/2020 12:00:00 AM EDT ORAL active M EDENT ([facility], ) Suprep Bowel Prep Kit Suprep Bowel Prep Kit 05/21/2020 12:00:00 AM EDT active MEDENT ([facility], ) terbinafine 250 MG Oral Tablet Terbinafine HCL 05/07/2020 12:00:00 AM EDT ORAL completed MED[facility] ([facility]) ciclopirox 80 MG/ML Topical Solution Ciclopirox 05/07/2020 12:00:00 A M EDT completed MED[facility] ([facility]) Sulfamethoxazole 800 MG / Trimethoprim 160 MG Oral Tablet [B actrim] Bactrim DS 05/07/2020 12:00:00 AM EDT ORAL completed MEDENT ([facility]) Aspirin 81 MG Delayed Release Oral Tablet Aspirin 10/18/2019 1 2:00:00 AM EST ORAL active [facility] ([facility]) clopidogrel 75 MG Oral Tablet Clopidogrel Bisulfate 10/18/2019 1 2:00:00 AM EST ORAL active MED[facility] ( [facility]) Bisacodyl 10 MG Rectal Suppository bisacodyl (DULCOLAX ) suppository 10 mg bisacodyl (DULCOLAX) suppository 10 mg 09/22/2019 09:00:00 AM EST 10 mg Rectal active 10 mg, Rectal, Daily PRN, constipation, Starting Kasie 09/22/19 at 0900, Post-op
If lactulose not effective, give bisacodyl suppository x 1 per rectum prn starting POD #3.
[facility] Medication administered onsite POLYETHYLENE GLYCOL 3350 142 MG/ML Oral Solution polyethylene glycol (GLYCOLAX) packet 17 g polyethylene glycol (GLYCOLAX) packet 17 g 09/21/2019 07:00:00 AM EST 17 g Oral active 17 g, Or al, Daily PRN, For constipation, Starting Thu09/21/19 at 0700, PACU & Post-op
hold for loose stools
[facility] Medication administered onsite Aspirin 81 MG Delayed Release Oral Tablet aspirin EC t ablet 81 mg aspirin EC tablet 81 mg 09/20/2019 09:00:00 AM EST 81 mg Oral activ e 81 mg, Oral, Daily, First dose on Thu09/20/19 at 0900, Post-op
Starting POD # 1 for RUSS patient. Hold for platelet count less than 90,000. If OG tube in place, give non-enteric aspirin.
[facility] Medication administered onsite pantoprazole 40 MG Delayed Release Oral Tablet pantoprazole (PROTONIX) EC tablet 40 mg pantoprazole (PROTONIX) EC tablet 40 mg 09/20/2019 09:00:[address] 40 mg Oral active Stress Ulcer Prophylaxis 40 mg, Oral, Daily, Indications: Stress Ulcer Prophylaxis, First dose on Thu09/20/19 at 0900, Post-op [facility] Stress Ulcer Prophylaxis Medication administered onsite Docusate Sodium 100 MG Oral Capsule docusate sodium (C OLACE) capsule 100 mg docusate sodium (COLACE) capsule 100 mg 09/20/2019 09:00:00 AM EST 100 mg Oral active 100 mg, Oral, 2 times daily, First dose on Thu09/20/19 at 0900, Post-op
Start first POD.
[facility] Medication administered onsite Lisinopril 20 MG Oral Tablet lisinopril (PRINIVIL,ZEST RIL) tablet 20 mg lisinopril (PRINIVIL,ZESTRIL) tablet 20 mg 09/20/2019 09:00:00 AM EST 20 mg Oral active 20 mg, Oral, Daily, First dose on Thu09/20/19 at 0900 [facility] Medication administered onsite clopidogrel 75 MG Oral Tablet clopidogrel (PLAVIX) tab let 75 mg clopidogrel (PLAVIX) tablet 75 mg 09/20/2019 09:00:00 AM EST 75 mg Oral active 75 mg, Oral, Daily, First dose on Thu09/20/19 at 0900, Post-op
Start first POD.
[facility] Medication administered onsite Chlorthalidone 25 MG Oral Tablet chlorthalidone (HYGRO TEN) tablet 12.5 mg chlorthalidone (HYGROTEN) tablet 12.5 mg 09/20/2019 09:00:00 AM EST 12.5 mg Oral active 12.5 mg, Oral, Daily , First dose on Thu09/20/19 at 0900 [facility] Medication administered onsite carvedilol 25 MG Oral Tablet carvedilol (COREG) tablet 25 mg carvedilol (COREG) tablet 25 mg 09/20/2019 09:00:00 AM EST 25 mg Oral activ e 25 mg, Oral, 2 times daily, First dose on Thu09/20/19 at 0900
Hold for SBP <110 or HR <60
[facility] Medication administered onsite clopidogrel 75 MG Oral Tablet clopidogrel (PLAVIX) 75 MG tablet clopidogrel (PLAVIX) 75 MG tablet 09/20/2019 12:00:00 AM EST 75 mg Oral active Take 1 tablet (75 mg total) by mouth daily [facility] Amoxicillin 500 MG Oral Capsule amoxicillin (AMOXIL) 5 00 MG capsule amoxicillin (AMOXIL) 500 MG capsule 09/20/2019 12:00:00 AM EST 2000 mg Oral active Take 4 capsules (2,000 mg total) by mout h as needed (Take 1 hr prior to any dental procedures or cleanings) [facility] Aspirin 81 MG Delayed Release Oral Tablet aspirin 81 M G EC tablet aspirin 81 MG EC tablet 09/20/2019 12:00:00 AM EST 81 mg Oral active Take 1 tablet (81 mg total) by mouth daily [facility] heparin (porcine) injection 5,000 Units 80658-250-99 09/19/19 09:00:00 PM EST 5000 U Subcutaneous [...] equal to 1.7 if receiving Coumadin therapy.
[facility] Medication administered onsite cefazolin (ANCEF) injection 2 g 09/19/2019 03:00:00 PM EST 2 g Intravenous completed Perioperative Pharmacoprophylaxis 2 g, Intravenous, Administer over 6 Minutes, Every 8 hours (relative), First dose on Thu09/19/19 at 1500, For 2 doses, Post-op
RN may administer IV push or infuse this medication through syringe adapter set ref [id number]. Flush line after use
[facility] Perioperative Pharmacoprophylaxis Medication administered onsite normal saline flush 0.9 % injection 3 mL 73890-448-85 09/19/2019 02:00:00 PM EST 3 mL Intravenous active 3 mL , Intravenous, PROTOCOL, First dose on Thu09/19/19 at 1400, Post-op
flush per protocol, D/C Main IV fluid if appropriate
[facility] Medication administered onsite acetaminophen (TYLENOL) 325 MG [...] Thu09/19/19 at 1058, Post-op [Order 2 End] [facility] Medication administered onsite 2 ML Metoclopramide 5 MG/ML Prefilled Sy ringe metoclopramide (REGLAN) injection 10 mg metoclopramide (REGLAN) injection 10 mg 09/19/2019 10:58:[address] 10 mg Intravenous active 10 mg, I ntravenous, Every 6 hours PRN, nausea, vomiting, Starting Thu09/19/19 at 1058, Post-op
Give once if no response to Zofran after 15-30 minutes, then q6h prn N/V.
[facility] Medication administered onsite ondansetron (ZOFRAN) injection 4 mg 11076-227-76 09/19/2019 10:58:0 7 AM EST 4 mg Intravenous active 4 mg, In travenous, Every 6 hours PRN, nausea, vomiting, Starting Thu09/19/19 at 1058, Post-op
If no response in 15-30 minutes then give metoclopramide 10 mg IV x 1 then q6h prn N/V.
[facility] Medication administered onsite sodium chloride 0.9% (NS) infusion 2737-0403-15 09/19/2019 10:00:00 A M EST Intravenous completed at 75 mL/hr, Intravenous, Continuous, Starting Thu09/19/19 at 1000, For 4 hours, Post-op [facility] Medication administered onsite atorvastatin 20 MG Oral Tablet atorvastatin (LIPITOR) tablet 20 mg atorvastatin (LIPITOR) tablet 20 mg 09/19/2019 10:00:00 AM EST 20 mg Oral active 20 mg, Oral, Daily, First dose on Thu09/19/19 at 1000 [facility] Medication administered onsite Magnesium Chloride 0.63532 MEQ/ML / Pota ssium Chloride 0.0497 MEQ/ML / Sodium Acetate 0.0163 MEQ/ML / Sodium Chloride 0.0899 MEQ/ML / Sodium gluconate 5.02 MG/ML Injectable Solution [Normosol-R] electrolyte-R (NORMOSOL-R/PLASMALYTE-R) solution electrolyte-R (NORMOSOL-R/PLASMALYTE-R) solution 09/19 08:00:00 AM EST Intravenous active at 3 0 mL/hr, Intravenous, Continuous, Starting Thu09/19/19 at 0800, Pre-op
For cardiac surgery patients only
[facility] Medication administered onsite heparin (porcine) injection 5,000 Units 13974-806-32 09/19/19 07:00:00 AM EST 5000 U Subcutaneous completed 5,000 Uni ts, Subcutaneous, On Admission, Thu09/19/19 at 0700, For 1 dose, Pre-op
Hold for platelets less than 90,000.
[facility] Medication administered onsite Lidocaine Hydrochloride 20 MG/ML Mucous Membrane Topical Solution lidocaine Viscous HCl (XYLOCAINE) 2 % solution lidocaine Viscous HCl (XYLOCAINE) 2 % solution 07/14/2019 12:00:00 AM EST 5 mL Oral aborted Take 5 mL by mouth as needed for pain [facility] cilostazol 100 MG Oral Tablet cilostazol (PLETAL) 100 MG tablet cilostazol (PLETAL) 100 MG tablet 100 mg Oral aborted Take 100 mg by mouth 2 (two) times a day [facility] Aspirin 325 MG Oral Tablet aspirin 325 MG tablet aspirin 325 MG tab let 325 mg Oral aborted Take 325 mg by mouth linus ly [facility] cilostazol 100 MG Oral Tablet cilostazol (PLETAL) 100 MG tablet cilostazol (PLETAL) 100 MG tablet 100 mg Oral aborted Take 100 mg by mouth 2 (two) times a day [facility] Insurance Providers Payer name Policy type / Coverage type Policy ID Covered democrat ID Covered democrat's relationship to moss Policy Moss Plan Information FOR LIFE [id number] SP [id number] MEDICARE [id number] SP [id number] MEDICARE PART A [facility] [id number] 18 [id number] FOR LIFE [id number] 01 [id number] FOR LIFE CO UNAVAILABLE 01 U NAVAILABLE FOR LIFE -O/P UNAVAILABLE 01 UNAVAILABLE Family [place] F [id number] SELF [id number] MEDICARE [id number] Sandra [id number] Sandra [id number] FOR LIFE -O/P [id number] 01 [id number] MEDICARE PART A -O/P [id number] 18 [id number] FOR LIFE -O/P CO [id number] 01 [id number] FOR LIFE [id number] MEDICARE [id number] MEDICARE [id number] SP [id number] A MEDICARE [id number] Sandra [id number] A MEDICARE PART A [facility] [id number] 18 [id number] FOR LIFE -O/P [id number] 01 [id number] MEDICARE PART A -O/P [id number] 18 [id number] DME Jurisdiction A SDIC C [id number] SELF [id number] Medicare C [id number] SELF [id number] M77 For Life F [id number] SELF 0 [id number] DME Jurisdiction A SDIC C [id number] SELF [id number] Medicare C [id number] SELF [id number] M77 For Life Medigap Part [id number] Family Dependent [id number] Medicare Part A [place] Primary [id number] Self [id number] For Life Medigap Part [id number] Family Dependent [id number] [place] Part A [place] Primary [id number] Self [id number] [employer] Plan Commercial [id number] Self [id number] [place] [facility] (T[place]) Medigap Part B [id number] Self [id number] Medicare [facility] Medicare Primary [id number] Self [id number] [employer] Commercial [id number] Self [id number] [place] [employer] (T[place]) Medigap Part B [id number] Self [id number] [place] Primary [id number] Self [id number] For Life Medigap Part [id number] Family Dependent [id number] [place] Part A [place] Primary [id number] Self [id number] For Life - WPS Medigap Part B [id number] Family Depen dent [id number] Medicare (Part B) Medicare Primary [id number] Self [id number] For Life Medigap Part B [id number] Family Dependent [id number] [place] Part [place] Primary [id number] Self [id number] [facility] [id number] SP [id number] For Life Medigap Part [id number] Family Dependent [id number] [place] Part [place] Primary [id number] Self [id number] [employer] Commercial [id number] Self [id number] [place] [employer] (TFL) Medigap Part B [id number] Self [id number] [place] Primary [id number] Self [id number] [place] Family Health Plan Commercial [id number] Self [id number] [facility] Serv (TFL) Medigap Part B [id number] Self [id number] [place] Primary [id number] Self [id number] For Life Medigap Part [id number] Family Dependent [id number] [place] Part A [place] Primary [id number] Self [id number] FOR LIFE O [id number] P [id number] MEDICARE C [id number] S [id number] A FOR LIFE [id number] 01 0 [id number] MEDICARE -O/P [id number] 18 [id number] Medicare Part A [place] Primary [id number] Self [id number] For Life Commercial [id number] Family Dependent [id number] [place] Part A [place] Primary [id number] Self [id number] For Life Commercial [id number] Family Dependent [id number] [facility] AT [facility] [id number] 18 [id number] [facility] AT [facility] [id number] 18 [id number] [facility] AT [facility]P [id number] 18 [id number] Medicare Part A [place] Primary [id number] Self [id number] For Life Commercial [id number] Family Dependent [id number] MEDICARE PART A [facility] [id number] 18 [id number] For Life - [place]PS Medigap Part B [id number] Self [id number] Medicare (Part B) Medicare Primary [id number] Self [id number] [facility] [place] [id number] 18 [id number] [facility] AT [facility] CO [id number] 18 [id number] [facility] Commercial [id number] Self [id number] [facility] [id number] Self [id number] [place] Commercial [id number] Self [id number] [place] Commercial [id number] Self [id number] [place] Commercial [id number] Self [id number] [place] Commercial [id number] Self [id number] [place] Commercial [id number] Self 000 [id number] [place] Commercial [id number] Self [id number] [place] O [id number] S 0000 [id number] [facility] Commercial Self [facility] Health Plan Commercial Self [facility] Health Maintenance Organization (HMO) [facility] [id number] Spo [id number] Problems, Conditions, and Diagnoses Code Display Name Description Problem Type Effective Dates Data Source(s) 24458775 Essential hypertension Essential hypertension Problem 01/12/2020 12:00:00 AM [place]IN M[place]A ([facility], ) E78.5 Hyperlipidemia, acquired Hyperlipidemia, acquired 6457 200009/19/2019 12:00:[address] [facility] I10 Hypertension, essential Hypertension, essential 530448 09/19/2019 12:00:[address] [facility] I73.9 Peripheral vascular disease Peripheral vascular diseas e 87494238 09/19/2019 12:00:[address] [facility] K21.9 GERD (gastroesophageal reflux disease) G ERD (gastroesophageal reflux disease) [id number] 09/19/2019 12:00:[address] [facility] I35.0 Nonrheumatic aortic (valve) stenosis Nonrheumati c aortic (valve) stenosis 52509614 09/19/2019 12:00:00 AM [facility] E559 Vitamin D deficiency, unspecified Vitamin D defi ciency, unspecified Diagnosis 09/04/2020 02:43:[address] [facility] R739 Hyperglycemia, unspecified Hyperglycemia, unspecified Diagnosis 09/04/2020 02:43:[address] [facility] G4733 Obstructive sleep apnea (adult) (pediatr ic) Obstructive sleep apnea (adult) (pediatric) Diagnosis 09/04/2020 02:43:[address] [facility] E785 Hyperlipidemia, unspecified Hyperlipidemia, unspecifie d Diagnosis 09/04/2020 02:43:[address] [facility] I739 Peripheral vascular disease, unspecified Peripheral vascular disease, unspecified Diagnosis 09/04/2020 02:43:[address] [facility] I10 Essential (primary) hypertension Essential (primary) h ypertension Diagnosis 09/04/2020 02:43:[address] [facility] Z23 Encounter for immunization Encounter for immunization Diagnosis 08/08/2020 08:56:[address] [facility] M130 Polyarthritis, unspecified Polyarthritis, unspecified Diagnosis 08/08/2020 08:56:[address] 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 E782 Mixed hyperlipidemia Mixed hyperlipidemia Diagnosis 08/08/2020 08:56:[address] [facility] I359 Nonrheumatic aortic valve disorder, unsp ecified Nonrheumatic aortic valve disorder, unspecified Diagnosis 10/03/2019 10:18:00 AM [facility] N3289 Other specified disorders of bladder Other speci fied disorders of bladder Diagnosis 09/27/2019 09:04:[address] [facility] I35.0 Nonrheumatic aortic (valve) stenosis Nonrheumati c aortic (valve) stenosis Diagnosis 09/12/2019 12:11:35 PM [facility] Surgeries/Procedures Procedure Description Date Indications Data Source(s) Medication: (Derm) 1% Lidocaine with Epi nephrine Injection Intradermally to marked area (s) 09/28/2020 12:00:00 AM EST eCW1 ([facility]) Colonoscopy W/ Poly 06/07/2020 12:00:00 AM EDT MEDENT ([facility]) ECG ROUTINE ECG W/LEAST 12 LDS W/I&R 10/19/2019 12:00: 00 AM EST MED[facility] ([facility]) Brief Emotional/Behav Assessment W/ Scoring Doc Per Standard Inst 10/03/2019 12:00:00 AM EST [facility] ([facility]) DESTROY BENIGN/PREMLG LESION 09/30/2019 12:00:00 AM ES T eCW1 ([facility]) ECHO TTHRC R-T 2D W/WOM-MODE COMPL SPEC&COLR DOP ECHOCARDIO GRAM TRANSTHORACIC Routine 09/20/2019 2:24 PM EST 09/20/2019 07:24:37 PM EST [facility] BLOOD COUNT COMPLETE AUTOMATED CBC Timed 09/20/2019 2:21 A M EST 09/20/2019 07:21:00 AM EST [facility] BASIC METABOLIC PANEL CALCIUM TOTAL BASIC METABOLIC PANEL Timed 09/20/2019 2:21 AM EST 09/20/2019 07:21:00 AM EST [facility] XR CHEST PORTABLE XR CHEST PORTABLE STAT 09/19/2019 9:33 AM EST 09/19/2019 02:33:46 PM EST [facility] ECG ROUTINE ECG W/LEAST 12 LDS TRCG ONLY W/O I&R ECG 12-LEAD Routine 09/19/2019 9:23 AM EST 09/19/2019 02:23:05 PM EST [facility] PROTHROMBIN TIME PROTIME-INR STAT 09/19/2019 9:19 AM EST 09/19/2019 02:19:00 PM EST [facility] BLOOD COUNT COMPLETE AUTOMATED CBC STAT 09/19/2019 9:19 A M EST 09/19/2019 02:19:00 PM EST [facility] MAGNESIUM MAGNESIUM STAT 09/19/2019 9:19 AM EST 09/19/2019 02:19:00 PM EST [facility] BASIC METABOLIC PANEL CALCIUM TOTAL BASIC METABOLIC PANEL STAT 09/19/2019 9:19 AM EST 09/19/2019 02:19:00 PM EST [facility] TRANSCATHETER AORTIC VALVE IMPLANT FEMORAL TRANSCATHE TER AORTIC VALVE IMPLANT FEMORAL Routine 09/19/2019 8:48 AM EST Nonrheumatic aortic (valve) stenosis 09/19/2019 01:48:00 PM EST Nonrheumatic aortic (valve) stenosis [facility] Nonrheumatic aortic (valve) stenosis POC ARTERIAL BLOOD GAS W LYTES POC ARTERIAL BLOOD GAS W LYTES R outine 09/19/2019 8:24 AM EST 09/19/2019 01:24:00 PM EST [facility] POC ACT POC ACT Routine 09/19/2019 8:23 AM EST 020 01:23:00 PM EST [facility] POC ARTERIAL BLOOD GAS W LYTES POC ARTERIAL BLOOD GAS W LYTES R outine 09/19/2019 7:55 AM EST 09/19/2019 12:55:00 PM EST [facility] POC ACT POC ACT Routine 09/19/2019 7:54 AM EST 020 12:54:00 PM EST [facility] GLUC BLD GLUC MNTR DEV CLEARED FDA SPEC HOME USE POCT GLUCOSE Routine 09/19/2019 6:49 AM EST 09/19/2019 11:49:00 AM EST [facility] ECG ROUTINE ECG W/LEAST 12 LDS TRCG ONLY W/O I&R ECG 12-LEAD Routine 09/12/2019 1:46 PM EST Nonrheumatic aortic valve stenosis 09/12/2019 06:46:25 PM ES T Nonrheumatic aortic valve stenosis [facility] Nonrheumatic aortic valve stenosis ROOM TEMP AB SCREEN ROOM TEMP AB SCREEN Routine 09/12/2019 1 :10 PM EST Nonrheumatic aortic valve stenosis 09/12/2019 06:10:00 PM ES T Nonrheumatic aortic valve stenosis [facility] Nonrheumatic aortic valve stenosis BLOOD TYPING ABO TYPE AND SCREEN Routine 09/12/2019 1:10 PM EST Nonrheumatic aortic valve stenosis 09/12/2019 06:10:00 PM ES T Nonrheumatic aortic valve stenosis [facility] Nonrheumatic aortic valve stenosis NT PRO BNP NT PRO BNP Routine 09/12/2019 1:03 PM EST Nonrheumatic aortic valve stenosis 09/12/2019 06:03:00 PM ES T Nonrheumatic aortic valve stenosis [facility] Nonrheumatic aortic valve stenosis URNLS DIP STICK/TABLET RGNT AUTO W/O MICROSCOPY URINALYSIS W/O MICRO Routine 09/12/2019 1:03 PM EST Nonrheumatic aortic valve stenosis 09/12/2019 06:03:00 PM ES T Nonrheumatic aortic valve stenosis [facility] Nonrheumatic aortic valve stenosis THROMBOPLASTIN TIME PARTIAL PLASMA/WHOLE BLOOD APTT Routine 09/12/2019 1:03 PM EST Nonrheumatic aortic valve stenosis 09/12/2019 06:03:00 PM ES T Nonrheumatic aortic valve stenosis [facility] Nonrheumatic aortic valve stenosis PROTHROMBIN TIME PROTIME-INR Routine 09/12/2019 1:03 PM EST Nonrheumatic aortic valve stenosis 09/12/2019 06:03:00 PM ES T Nonrheumatic aortic valve stenosis [facility] Nonrheumatic aortic valve stenosis BLOOD COUNT COMPLETE AUTO&AUTO DIFRNTL WBC COUNT CBC AND DIFFER ENTIAL Routine 09/12/2019 1:03 PM EST Nonrheumatic aortic valve stenosis 09/12/2019 06:03:00 PM ES T Nonrheumatic aortic valve stenosis [facility] Nonrheumatic aortic valve stenosis HEMOGLOBIN GLYCOSYLATED A1C HEMOGLOBIN A1C Routine 09/12/2019 1:03 PM EST Nonrheumatic aortic valve stenosis 09/12/2019 06:03:00 PM ES T Nonrheumatic aortic valve stenosis [facility] Nonrheumatic aortic valve stenosis COMPREHENSIVE METABOLIC PANEL COMPREHENSIVE METABOLIC PANEL Rou lamar 09/12/2019 1:03 PM EST Nonrheumatic aortic valve stenosis 09/12/2019 06:03:00 PM ES T Nonrheumatic aortic valve stenosis [facility] Nonrheumatic aortic valve stenosis Results ID Date Data Source [id number] 08/08/2020 09:32:00 AM EST [facility] ([facility]) Name Value Range Interpretation Code Description Data Meme rce(s) Supporting Document(s) Calcidiol [Mass/volume] in Serum or Plasma 23 ng/mL [facility] ([facility]) Is patient fasting? N ID Date Data Source [id number] 08/08/2020 09:32:00 AM EST [facility] ([facility]) Name Value Range Interpretation Code Description Data Meme rce(s) Supporting Document(s) Cve Panel Laboratory test result [facility] ([facility]) Is patient fasting? N Cholesterol 153 mg/dL 131-200 [facility] ([facility]) Is patient fasting? N Triglycerides 96 mg/dL 35-160 [facility] ([facility]) Is patient fasting? N HDL 45 mg/dL 29-86 [facility] ([facility]) Is patient fasting? N Risk Factor 3.4 3.4-4.9 Below low normal [facility] ([facility]) Is patient fasting? N LDL 99 mg/dL 65-175 [facility] ([facility]) Is patient fasting? N LDL/HDL 2.20 1.00-3.55 [facility] ([facility]) Is patient fasting? N ID Date Data Source [id number] 08/08/2020 09:32:00 AM EST [facility] ([facility]) Name Value Range Interpretation Code Description Data Meme rce(s) Supporting Document(s) Hemoglobin A1c/Hemoglobin.total in Blood 5.8 % 4.4-6.1 [facility] ([facility]) Is patient fasting? N ID Date Data Source [id number] 08/08/2020 09:32:00 AM EST [facility] ([facility]) Name Value Range Interpretation Code Description Data Meme rce(s) Supporting Document(s) CBC W/Automated Diff Laboratory test result [facility] ([facility]) Is patient fasting? N RBC 5.54 10^6/uL 4.50-6.30 [facility] ([facility]) Is patient fasting? N WBC 7.2 10^3/uL 4.2-11.0 [facility] ([facility]) Is patient fasting? N Hemoglobin 16.3 g/dL 14.0-16.0 Above high normal [facility] ([facility]) Is patient fasting? N Hematocrit 48.4 % 41.0-51.0 [facility] ([facility]) Is patient fasting? N MCV 87.4 fL 80.0-94.0 [facility] ([facility]) Is patient fasting? N RDW 12.6 % 11.5-14.8 [facility] ([facility]) Is patient fasting? N MCHC 33.7 g/dL 31.0-36.0 [facility] ([facility]) Is patient fasting? N MCH 29.4 pg 27.0-34.0 [facility] ([facility]) Is patient fasting? N Platelets 140 10^3/uL 150-450 Below low normal [facility] ([facility]) Is patient fasting? N MPV 12.1 fL 7.4-10.4 Above high normal [facility] ([facility]) Is patient fasting? N Neut 59.7 % 37.0-80.0 [facility] ([facility]) Is patient fasting? N Manatee 7.0 % 3.0-8.0 [facility] ([facility]) Is patient fasting? N Lymph 26.7 % 25.0-40.0 [facility] ([facility]) Is patient fasting? N Eos 5.2 % 0.0-7.0 [facility] ([facility]) Is patient fasting? N %Ig 0.6 % 0.0-0.0 Above high normal [facility] ([facility]) Is patient fasting? N Baso 0.8 % 0.0-2.0 [facility] ([facility]) Is patient fasting? N #Neut 4.27 10^3/uL 2.00-6.90 [facility] ([facility]) Is patient fasting? N %NRBC 0.0 % 0.0-0.0 [facility] ([facility]) Is patient fasting? N #Lymph 1.91 10^3/uL 0.60-3.40 [facility] ([facility]) Is patient fasting? N #Manatee 0.50 10^3/uL 0.00-0.90 [facility] ([facility]) Is patient fasting? N #Eos 0.37 10^3/uL 0.00-0.70 [facility] ([facility]) Is patient fasting? N #Baso 0.06 10^3/uL 0.00-0.20 [facility] ([facility]) Is patient fasting? N Manual Diff Laboratory test result [facility] ([facility]) Is patient fasting? N #Ig 0.04 10^3/uL 0.00-0.10 [facility] ([facility]) Is patient fasting? N #NRBC 0.00 10^3/uL 0.00-0.00 [facility] ([facility]) Is patient fasting? N RBC Morph Laboratory test result [facility] ([facility]) Is patient fasting? N ID Date Data Source [id number] 08/08/2020 09:32:00 AM EST [facility] ([facility]) Name Value Range Interpretation Code Description Data Meme rce(s) Supporting Document(s) Comprehensive Metabo Laboratory test result [facility] ([facility]) Is patient fasting? N Potassium 4.3 meq/L 3.6-5.0 [facility] ([facility]) Is patient fasting? N Sodium 135 meq/L 134-153 [facility] ([facility]) Is patient fasting? N Co2 26 meq/L 22-30 [facility] ([facility]) Is patient fasting? N Chloride 100 meq/L 98-107 [facility] ([facility]) Is patient fasting? N BUN 21 mg/dL 7-21 [facility] ([facility]) Is patient fasting? N Creatinine 1.1 mg/dL 0.7-1.5 [facility] ([facility]) Is patient fasting? N Glucose 132 mg/dL 65-110 Above high normal [facility] ([facility]) Is patient fasting? N BUN/Creat 19 8-27 [facility] ([facility]) Is patient fasting? N Albumin 4.7 g/dL 3.9-5.0 [facility] ([facility]) Is patient fasting? N Total Protein 7.0 g/dL 6.3-8.2 [facility] ([facility]) Is patient fasting? N A/G Ratio 2.0 0.8-2.0 [facility] ([facility]) Is patient fasting? N Globulin 2.3 GM/DL 2.4-3.2 Below low normal [facility] ( [facility]) Is patient fasting? N Total Bili 0.8 mg/dL 0.2-1.3 [facility] ([facility]) Is patient fasting? N Alkaline Phos 68 U/L 38-126 [facility] ([facility]) Is patient fasting? N Calcium 9.8 mg/dL 8.4-10.2 [facility] ([facility]) Is patient fasting? N SGPT/Alt 12 U/L 7-56 [facility] ([facility]) Is patient fasting? N Sgot/Ast 15 U/L 5-40 [facility] ([facility]) Is patient fasting? N Anion Gap 9.0 mmol/L 8.0-16.0 [facility] ([facility]) Is patient fasting? N Non-Aa GFR Laboratory test result [facility] ([facility]) Is patient fasting? N Age 74 yrs [facility] ([facility]) Is patient fasting? N Afr Amer GFR Laboratory test result [facility] ([facility]) Is patient fasting? N ID Date Data Source [id number] 08/10/2020 03:17:[address] [facility] Name Value Range Interpretation Code Description Data Meme rce(s) Supporting Document(s) Calcidiol [Moles/volume] in Serum or Plasma 23 NG/ML [facility] VITAMIN-D(2 5HYDROXY) Deficiency: <=20 ng/ml Insufficiency: 21-29 ng/ml Preferred level: => 30 ng/ml ID Date Data Source [id number] 08/08/2020 03:53:[address] [facility] Name Value Range Interpretation Code Description Data Meme rce(s) Supporting Document(s) CVE PANEL [facility] al LIPID PANEL Cholesterol [Mass/volume] in Serum or Plasma 153 MG/DL 131 - 200 [facility] Deprecated Triglyceride [Mass/volume] in Serum or Plasma 96 MG/DL 3 5 - 160 [facility] HDL 45 MG/DL 29 - 86 [facility] Cholesterol in LDL [Mass/volume] in Serum or Plasma by Direc t assay 99 mg/dL 65 - 175 [facility] Cholesterol.total/Cholesterol in HDL [Mass Ratio] in Serum o r Plasma 3.4 3.4 - 4.9 L [facility] LDL/HDL 2.20 1.00 - 3.55 [facility] ital CVE RISK CHOL/HDL LDL/HDLMEN: 1/2 AVERAGE 3.43 1.00 AVERAGE 4.97 3.55 2X AVERAGE 9.55 6.25 3X AVERAGE 23.99 7.99WOMEN: 1/2 AVERAGE 3.27 1.47 AVERAGE 4.44 3.22 2X AVERAGE 7.05 5.03 3X AVERAGE 11.04 6.14 ID Date Data Source [id number] 08/08/2020 03:53:00 PM EST [facility] Name Value Range Interpretation Code Description Data Meme rce(s) Supporting Document(s) COMPREHENSIVE METABOLIC PANEL [facility] COMPREHENSIVE METABOLIC PANEL Sodium [Moles/volume] in Serum or Plasma 135 mEq/L 134 - 153 [facility] Potassium [Moles/volume] in Serum or Plasma 4.3 mEq/L 3.6 - 5.0 [facility] Chloride [Moles/volume] in Serum or Plasma 100 mEq/L 98 - 107 [facility] Carbon dioxide, total [Moles/volume] in Serum or Plasma 26 MEQ/L 22 - 30 [facility] Glucose [Mass/volume] in Serum or Plasma 132 MG/DL 65 - 110 H [facility] BUN 21 MG/DL 7 - 21 [facility] Creatinine [Mass/volume] in Serum or Plasma 1.1 MG/DL 0.7 - 1.5 [facility] BUN/CREAT 19 8 - 27 [facility] Protein [Mass/volume] in Serum or Plasma 7.0 G/DL 6.3 - 8.2 [facility] Albumin [Mass/volume] in Serum or Plasma 4.7 G/DL 3.9 - 5.0 [facility] Globulin [Mass/volume] in Serum by calculation 2.3 GM/DL 2.4 - 3.2 L [facility] A/G RATIO 2.0 0.8 - 2.0 [facility] Calcium [Mass/volume] in Serum or Plasma 9.8 MG/DL 8.4 - 10.2 [facility] Bilirubin.total [Mass/volume] in Serum or Plasma 0.8 MG/DL 0.2 - 1.3 [facility] Alkaline phosphatase [Enzymatic activity/volume] in Serum or Plasma 68 U/L 38 - 126 [facility] Aspartate aminotransferase [Enzymatic activity/volume] in Serum or Plasma 15 U/L 5 - 40 [facility] Alanine aminotransferase [Enzymatic activity/volume] in Seru m or Plasma 12 U/L 7 - 56 [facility] Anion gap 3 in Serum or Plasma 9.0 mmol/L 8.0 - 16.0 [facility] AGE 74 yrs [facility] al NON-AA GFR >60 mL/min [facility] ital AFR AMER GFR >60 mL/min [facility] Ho spital Male GFR In terprentation 20-49 [...] >32 mL/min Normal ID Date Data Source [id number] 08/08/2020 03:37:00 PM EST [facility] Name Value Range Interpretation Code Description Data Meme rce(s) Supporting Document(s) CBC W/AUTOMATED DIFF [facility] COMPLETE BLOOD COUNT Leukocytes [#/volume] in Blood by Automated count 7.2 10^3/uL 4.2 - 1 1.0 [facility] Erythrocytes [#/volume] in Blood by Automated count 5.54 10^6/uL 4. 50 - 6.30 [facility] Hemoglobin [Mass/volume] in Blood 16.3 g/dL 14.0 - 16.0 H [facility] Hematocrit [Volume Fraction] of Blood by Automated count 48.4 % 4 1.0 - 51.0 [facility] Erythrocyte mean corpuscular volume [Entitic volume] by Auto mated count 87.4 fL 80.0 - 94.0 [facility] Erythrocyte mean corpuscular hemoglobin [Entitic mass] by Automated count 29.4 pg 27.0 - 34.0 [facility] Erythrocyte mean corpuscular hemoglobin concentration [Mass/volume] by Automated count 33.7 g/dL 31.0 - 36.0 [facility] Erythrocyte distribution width [Ratio] by Automated count 12.6 % 11.5 - 14.8 [facility] Platelets [#/volume] in Blood by Automated count 140 10^3/uL 150 - 45 0 L [facility] Platelet mean volume [Entitic volume] in Blood by Automated count 12.1 fL 7.4 - 10.4 H [facility] Neutrophils/100 leukocytes in Blood by Automated count 59.7 % 37. 0 - 80.0 [facility] Lymphocytes/100 leukocytes in Blood by Manual count 26.7 % 25.0 - 40.0 [facility] Monocytes/100 leukocytes in Blood by Automated count 7.0 % 3.0 - 8.0 [facility] Eosinophils/100 leukocytes in Blood by Automated count 5.2 % 0.0 - 7.0 [facility] Basophils/100 leukocytes in Blood by Automated count 0.8 % 0.0 - 2.0 [facility] %IG 0.6 % 0.0 - 0.0 H [facility] al %NRBC 0.0 % 0.0 - 0.0 [facility] al Neutrophils [#/volume] in Blood by Automated count 4.27 10^3/uL 2.00 - 6.90 [facility] Lymphocytes [#/volume] in Blood by Automated count 1.91 10^3/uL 0.60 - 3.40 [facility] Monocytes [#/volume] in Blood by Automated count 0.50 10^3/uL 0.00 - 0.90 [facility] Eosinophils [#/volume] in Blood by Automated count 0.37 10^3/uL 0.00 - 0.70 [facility] Basophils [#/volume] in Blood by Automated count 0.06 10^3/uL 0.00 - 0.20 [facility] #IG 0.04 10^3/uL 0.00 - 0.10 [facility] #NRBC 0.00 10^3/uL 0.00 - 0.00 [facility] MANUAL DIFF NOT INDICATED [facility] RBC MORPH NOT INDICATED [facility] ID Date Data Source [id number] 08/08/2020 03:32:00 PM EST [facility] Name Value Range Interpretation Code Description Data Meme rce(s) Supporting Document(s) Hemoglobin A1c/Hemoglobin.total in Blood 5.8 % 4.4 - 6.1 [facility] {A1]{HB] ID Date Data Source [id number] 06/07/2020 11:29:00 AM EDT [facility] ([facility] ) Name Value Range Interpretation Code Description Data Meme rce(s) Supporting Document(s) Surgical pathology study Laboratory test result [facility] ) FINAL DIAGNOSIS Colon polyp rectum, polypectomy: Tubular adenoma, fragments. 06/08/20201107 CLINICAL DIAGNOSIS Screening colonoscopy 06/08/2020721 GROSS DIAGNOSIS Received in formalin labeled "colon polyp rectum" and it consists of fragments of tissue 0.3 x 0.3 x 0.1 cm. All in one. -OA 06/08/2020721 Signed VINCENT ADORNO MD 06/08/20201107 ID Date Data Source [id number] 06/02/2020 12:00:00 PM EDT [facility] Name Value Range Interpretation Code Description Data Meme rce(s) Supporting Document(s) SARS coronavirus 2 RNA [facility] This lab was ordered by [facility] and reported by [facility]. ID Date Data Source [id number] 05/07/2020 01:56:00 PM EDT [facility] ([facility]) Name Value Range Interpretation Code Description Data Meme rce(s) Supporting Document(s) Bacteria identified in Wound by Culture Laboratory test result [facility] ([facility]) {SPECIMEN SOURCE : ABDOMEM GROIN AREA ID Date Data Source [id number] 05/11/2020 01:32:00 PM EDT [facility] Name Value Range Interpretation Code Description Data Meme rce(s) Supporting Document(s) CULTURE WOUND [facility] _CULTURE WOUND_$$[id number] DATE/TIME: 05/11/2020 13:06Culture: CULTURE WOUND Status: FinalAerobic Bacterial Culture: P1No growth in 36 - 48 hours. Previous result entered on 05/10/2020 05:29 ET No growth after 18-24 hours.P1 [facility] performed [facility]: [id number] [address] [place] [address] [id number] [facility] [id number] Director : Keenan Wisdom MD NPI #:Stave Hewer : 05/10/[email or web address].SENT REF 05/11/20.1332.XMT.SENT REF ID Date Data Source [id number] 01/19/2020 11:28:00 AM EDT [facility] Name Value Range Interpretation Code Description Data Meme rce(s) Supporting Document(s) White Blood Count 6.6 4.2-11.0 [facility] ([facility]) Platelets 127 150-450 [facility] ([facility]) Red Blood Count 5.30 4.50-6.30 [facility] ([facility]) Hematocrit 46.0 41.0-51.0 [facility] ([facility]) Hemoglobin 15.1 14.0-16.0 [facility] ([facility]) ID Date Data Source [id number] 01/19/2020 11:28:00 AM EDT [facility] Name Value Range Interpretation Code Description Data Meme rce(s) Supporting Document(s) Alanine aminotransferase [Enzymatic activity/volume] in Serum or Pl asma 15 [facility] ([facility]) Calcium [Mass/volume] in Serum or Plasma 9.3 [facility] ([facility]) Albumin [Mass/volume] in Serum or Plasma 4.6 [facility] ([facility]) Potassium [Moles/volume] in Serum or Plasma 4.3 [facility] ([facility]) Carbon dioxide, total [Moles/volume] in Serum or Plasma 23 [facility] ([facility]) Alkaline phosphatase [Enzymatic activity/volume] in Serum or Plasma 5 8 [facility] ([facility]) Chloride [Moles/volume] in Serum or Plasma 103 [facility] ([facility]) Sodium 140 [facility] Protein [Mass/volume] in Serum or Plasma 6.8 [facility] ([facility]) Aspartate aminotransferase [Enzymatic activity/volume] in Serum or Plasma 16 [facility] ([facility]) Urea nitrogen [Mass/volume] in Serum or Plasma 28 [facility] ([facility]) Creatinine For GFR 1.1 [facility] ([facility]) Glucose 113 65-110 [facility] ID Date Data Source [id number] 01/19/2020 11:28:00 AM EDT [facility] ([facility]) Name Value Range Interpretation Code Description Data Meme rce(s) Supporting Document(s) Triglycerides 108 [facility] ([facility]) Cholesterol 110 131-200 [facility] ([facility]) Cholesterol in LDL [Mass/volume] in Serum or Plasma by calculation 60 [facility] ([facility]) HDL 39 29-86 [facility] Chol/HDL Ratio 1.54 [facility] ([facility]) ID Date Data Source [id number] 01/19/2020 10:13:00 AM EDT [facility] ([facility]) Name Value Range Interpretation Code Description Data Meme rce(s) Supporting Document(s) Reflex Criteria Laboratory test result [facility] ([facility]) FASTING~.~.~<DG1.3.1>E78.5</DG1.3.1><DG1.3.1>E78.5</DG1.3.1><DG1.3.1>E78.5</DG1. 3.1><DG1.3.1 Prostate Specific Ag,Serum 1.7 ng/mL 0.0-4.0 [facility] ([facility]) FASTING~.~.~<DG1.3.1>E78.5</DG1.3.1><DG1.3.1>E78.5</DG1.3.1><DG1.3.1>E78.5</DG1. 3.1><DG1.3.1 ID Date Data Source [id number] 01/19/2020 10:13:00 AM EDT [facility] ([facility]) Name Value Range Interpretation Code Description Data Meme rce(s) Supporting Document(s) Natriuretic peptide.B prohormone N-Terminal [Mass/volu me] in Serum or Plasma 74 pg/mL 0-125 [facility] ([facility]) FASTING~.~.~<DG1.3.1>E78.5</DG1.3.1><DG1.3.1>E78.5</DG1.3.1><DG1.3.1>E78.5</DG1. 3.1><DG1.3.1 Hemoglobin A1c/Hemoglobin.total in Blood 5.7 % 4.4-6.1 [facility] ([facility]) FASTING~.~.~<DG1.3.1>E78.5</DG1.3.1><DG1.3.1>E78.5</DG1.3.1><DG1.3.1>E78.5</DG1. 3.1><DG1.3.1 ID Date Data Source [id number] 01/19/2020 10:13:00 AM EDT [facility] ([facility]) Name Value Range Interpretation Code Description Data Meme rce(s) Supporting Document(s) Urinalysis Laboratory test result [facility] ([facility]) FASTING~.~.~<DG1.3.1>E78.5</DG1.3.1><DG1.3.1>E78.5</DG1.3.1><DG1.3.1>E78.5</DG1. 3.1><DG1.3.1 Source Laboratory test result [facility] ([facility]) FASTING~.~.~<DG1.3.1>E78.5</DG1.3.1><DG1.3.1>E78.5</DG1.3.1><DG1.3.1>E78.5</DG1. 3.1><DG1.3.1 Color Laboratory test result [facility] ([facility]) FASTING~.~.~<DG1.3.1>E78.5</DG1.3.1><DG1.3.1>E78.5</DG1.3.1><DG1.3.1>E78.5</DG1. 3.1><DG1.3.1 Spec [place] 1.025 1.001-1.030 [facility] ([facility]) FASTING~.~.~<DG1.3.1>E78.5</DG1.3.1><DG1.3.1>E78.5</DG1.3.1><DG1.3.1>E78.5</DG1. 3.1><DG1.3.1 Clarity Laboratory test result [facility] ([facility]) FASTING~.~.~<DG1.3.1>E78.5</DG1.3.1><DG1.3.1>E78.5</DG1.3.1><DG1.3.1>E78.5</DG1. 3.1><DG1.3.1 pH 5 5-9 [facility] ([facility]) FASTING~.~.~<DG1.3.1>E78.5</DG1.3.1><DG1.3.1>E78.5</DG1.3.1><DG1.3.1>E78.5</DG1. 3.1><DG1.3.1 Glucose Laboratory test result [facility] ([facility]) FASTING~.~.~<DG1.3.1>E78.5</DG1.3.1><DG1.3.1>E78.5</DG1.3.1><DG1.3.1>E78.5</DG1. 3.1><DG1.3.1 Bilirubin Laboratory test result [facility] ([facility]) FASTING~.~.~<DG1.3.1>E78.5</DG1.3.1><DG1.3.1>E78.5</DG1.3.1><DG1.3.1>E78.5</DG1. 3.1><DG1.3.1 Ketone Laboratory test result [facility] ([facility]) FASTING~.~.~<DG1.3.1>E78.5</DG1.3.1><DG1.3.1>E78.5</DG1.3.1><DG1.3.1>E78.5</DG1. 3.1><DG1.3.1 Nitrite Laboratory test result [facility] ([facility]) FASTING~.~.~<DG1.3.1>E78.5</DG1.3.1><DG1.3.1>E78.5</DG1.3.1><DG1.3.1>E78.5</DG1. 3.1><DG1.3.1 Blood Laboratory test result [facility] ([facility]) FASTING~.~.~<DG1.3.1>E78.5</DG1.3.1><DG1.3.1>E78.5</DG1.3.1><DG1.3.1>E78.5</DG1. 3.1><DG1.3.1 Protein Laboratory test result [facility] ([facility] [facility]) FASTING~.~.~<DG1.3.1>E78.5</DG1.3.1><DG1.3.1>E78.5</DG1.3.1><DG1.3.1>E78.5</DG1. 3.1><DG1.3.1 Urobilinogen Laboratory test result [facility] ([facility]) FASTING~.~.~<DG1.3.1>E78.5</DG1.3.1><DG1.3.1>E78.5</DG1.3.1><DG1.3.1>E78.5</DG1. 3.1><DG1.3.1 Leuk Est Laboratory test result [facility] ([facility]) FASTING~.~.~<DG1.3.1>E78.5</DG1.3.1><DG1.3.1>E78.5</DG1.3.1><DG1.3.1>E78.5</DG1. 3.1><DG1.3.1 Microscopic Laboratory test result [facility] ([facility]) FASTING~.~.~<DG1.3.1>E78.5</DG1.3.1><DG1.3.1>E78.5</DG1.3.1><DG1.3.1>E78.5</DG1. 3.1><DG1.3.1 ID Date Data Source [id number] 01/19/2020 10:13:00 AM EDT [facility] ([facility]) Name Value Range Interpretation Code Description Data Meme rce(s) Supporting Document(s) CBC W/Automated Diff Laboratory test result [facility] ([facility]) FASTING~.~.~<DG1.3.1>E78.5</DG1.3.1><DG1.3.1>E78.5</DG1.3.1><DG1.3.1>E78.5</DG1. 3.1><DG1.3.1 WBC 6.6 10^3/uL 4.2-11.0 [facility] ([facility]) FASTING~.~.~<DG1.3.1>E78.5</DG1.3.1><DG1.3.1>E78.5</DG1.3.1><DG1.3.1>E78.5</DG1. 3.1><DG1.3.1 RBC 5.30 10^6/uL 4.50-6.30 [facility] ([facility]) FASTING~.~.~<DG1.3.1>E78.5</DG1.3.1><DG1.3.1>E78.5</DG1.3.1><DG1.3.1>E78.5</DG1. 3.1><DG1.3.1 Hematocrit 46.0 % 41.0-51.0 [facility] ([facility]) FASTING~.~.~<DG1.3.1>E78.5</DG1.3.1><DG1.3.1>E78.5</DG1.3.1><DG1.3.1>E78.5</DG1. 3.1><DG1.3.1 Hemoglobin 15.1 g/dL 14.0-16.0 [facility] ([facility]) FASTING~.~.~<DG1.3.1>E78.5</DG1.3.1><DG1.3.1>E78.5</DG1.3.1><DG1.3.1>E78.5</DG1. 3.1><DG1.3.1 MCHC 32.8 g/dL 31.0-36.0 [facility] ([facility]) FASTING~.~.~<DG1.3.1>E78.5</DG1.3.1><DG1.3.1>E78.5</DG1.3.1><DG1.3.1>E78.5</DG1. 3.1><DG1.3.1 MCH 28.5 pg 27.0-34.0 [facility] ([facility]) FASTING~.~.~<DG1.3.1>E78.5</DG1.3.1><DG1.3.1>E78.5</DG1.3.1><DG1.3.1>E78.5</DG1. 3.1><DG1.3.1 MCV 86.8 fL 80.0-94.0 [facility] ([facility]) FASTING~.~.~<DG1.3.1>E78.5</DG1.3.1><DG1.3.1>E78.5</DG1.3.1><DG1.3.1>E78.5</DG1. 3.1><DG1.3.1 Platelets 127 10^3/uL 150-450 Below low normal [facility] ([facility]) FASTING~.~.~<DG1.3.1>E78.5</DG1.3.1><DG1.3.1>E78.5</DG1.3.1><DG1.3.1>E78.5</DG1. 3.1><DG1.3.1 RDW 12.7 % 11.5-14.8 [facility] ([facility]) FASTING~.~.~<DG1.3.1>E78.5</DG1.3.1><DG1.3.1>E78.5</DG1.3.1><DG1.3.1>E78.5</DG1. 3.1><DG1.3.1 MPV 12.1 fL 7.4-10.4 Above high normal [facility] ([facility]) FASTING~.~.~<DG1.3.1>E78.5</DG1.3.1><DG1.3.1>E78.5</DG1.3.1><DG1.3.1>E78.5</DG1. 3.1><DG1.3.1 Lymph 30.6 % 25.0-40.0 [facility] ([facility]) FASTING~.~.~<DG1.3.1>E78.5</DG1.3.1><DG1.3.1>E78.5</DG1.3.1><DG1.3.1>E78.5</DG1. 3.1><DG1.3.1 Neut 55.0 % 37.0-80.0 [facility] ([facility]) FASTING~.~.~<DG1.3.1>E78.5</DG1.3.1><DG1.3.1>E78.5</DG1.3.1><DG1.3.1>E78.5</DG1. 3.1><DG1.3.1 Man[place]e 7.8 % 3.0-8.0 [facility] ([facility]) FASTING~.~.~<DG1.3.1>E78.5</DG1.3.1><DG1.3.1>E78.5</DG1.3.1><DG1.3.1>E78.5</DG1. 3.1><DG1.3.1 Eos 5.8 % 0.0-7.0 [facility] ([facility]) FASTING~.~.~<DG1.3.1>E78.5</DG1.3.1><DG1.3.1>E78.5</DG1.3.1><DG1.3.1>E78.5</DG1. 3.1><DG1.3.1 Baso 0.6 % 0.0-2.0 [facility] ([facility]) FASTING~.~.~<DG1.3.1>E78.5</DG1.3.1><DG1.3.1>E78.5</DG1.3.1><DG1.3.1>E78.5</DG1. 3.1><DG1.3.1 %Ig 0.2 % 0.0-0.0 Above high normal [facility] ([facility]) FASTING~.~.~<DG1.3.1>E78.5</DG1.3.1><DG1.3.1>E78.5</DG1.3.1><DG1.3.1>E78.5</DG1. 3.1><DG1.3.1 #Neut 3.61 10^3/uL 2.00-6.90 [facility] ([facility]) FASTING~.~.~<DG1.3.1>E78.5</DG1.3.1><DG1.3.1>E78.5</DG1.3.1><DG1.3.1>E78.5</DG1. 3.1><DG1.3.1 #Lymph 2.01 10^3/uL 0.60-3.40 [facility] ([facility]) FASTING~.~.~<DG1.3.1>E78.5</DG1.3.1><DG1.3.1>E78.5</DG1.3.1><DG1.3.1>E78.5</DG1. 3.1><DG1.3.1 %NRBC 0.0 % 0.0-0.0 [facility] ([facility]) FASTING~.~.~<DG1.3.1>E78.5</DG1.3.1><DG1.3.1>E78.5</DG1.3.1><DG1.3.1>E78.5</DG1. 3.1><DG1.3.1 #Eos 0.38 10^3/uL 0.00-0.70 [facility] ([facility]) FASTING~.~.~<DG1.3.1>E78.5</DG1.3.1><DG1.3.1>E78.5</DG1.3.1><DG1.3.1>E78.5</DG1. 3.1><DG1.3.1 #Manatee 0.51 10^3/uL 0.00-0.90 [facility] ([facility]) FASTING~.~.~<DG1.3.1>E78.5</DG1.3.1><DG1.3.1>E78.5</DG1.3.1><DG1.3.1>E78.5</DG1. 3.1><DG1.3.1 #Baso 0.04 10^3/uL 0.00-0.20 [facility] ([facility]) FASTING~.~.~<DG1.3.1>E78.5</DG1.3.1><DG1.3.1>E78.5</DG1.3.1><DG1.3.1>E78.5</DG1. 3.1><DG1.3.1 Manual Diff Laboratory test result [facility] ([facility]) FASTING~.~.~<DG1.3.1>E78.5</DG1.3.1><DG1.3.1>E78.5</DG1.3.1><DG1.3.1>E78.5</DG1. 3.1><DG1.3.1 #NRBC 0.00 10^3/uL 0.00-0.00 [facility] ([facility]) FASTING~.~.~<DG1.3.1>E78.5</DG1.3.1><DG1.3.1>E78.5</DG1.3.1><DG1.3.1>E78.5</DG1. 3.1><DG1.3.1 #Ig 0.01 10^3/uL 0.00-0.10 [facility] ([facility]) FASTING~.~.~<DG1.3.1>E78.5</DG1.3.1><DG1.3.1>E78.5</DG1.3.1><DG1.3.1>E78.5</DG1. 3.1><DG1.3.1 RBC Morph Laboratory test result [facility] ([facility]) FASTING~.~.~<DG1.3.1>E78.5</DG1.3.1><DG1.3.1>E78.5</DG1.3.1><DG1.3.1>E78.5</DG1. 3.1><DG1.3.1 ID Date Data Source [id number] 01/19/2020 10:13:00 AM EDT [facility] ([facility]) Name Value Range Interpretation Code Description Data Meme rce(s) Supporting Document(s) Sodium 140 meq/L 134-153 [facility] ([facility]) FASTING~.~.~<DG1.3.1>E78.5</DG1.3.1><DG1.3.1>E78.5</DG1.3.1><DG1.3.1>E78.5</DG1. 3.1><DG1.3.1 [facility] [employer] Laboratory test result [facility] ([facility]) FASTING~.~.~<DG1.3.1>E78.5</DG1.3.1><DG1.3.1>E78.5</DG1.3.1><DG1.3.1>E78.5</DG1. 3.1><DG1.3.1 Potassium 4.3 meq/L 3.6-5.0 [facility] ([facility]) FASTING~.~.~<DG1.3.1>E78.5</DG1.3.1><DG1.3.1>E78.5</DG1.3.1><DG1.3.1>E78.5</DG1. 3.1><DG1.3.1 Chloride 103 meq/L 98-107 [facility] ([facility]) FASTING~.~.~<DG1.3.1>E78.5</DG1.3.1><DG1.3.1>E78.5</DG1.3.1><DG1.3.1>E78.5</DG1. 3.1><DG1.3.1 Glucose 113 mg/dL 65-110 Above high normal [facility] ([facility]) FASTING~.~.~<DG1.3.1>E78.5</DG1.3.1><DG1.3.1>E78.5</DG1.3.1><DG1.3.1>E78.5</DG1. 3.1><DG1.3.1 Co2 23 meq/L 22-30 [facility] ([facility]) FASTING~.~.~<DG1.3.1>E78.5</DG1.3.1><DG1.3.1>E78.5</DG1.3.1><DG1.3.1>E78.5</DG1. 3.1><DG1.3.1 Creatinine 1.1 mg/dL 0.7-1.5 [facility] ([facility]) FASTING~.~.~<DG1.3.1>E78.5</DG1.3.1><DG1.3.1>E78.5</DG1.3.1><DG1.3.1>E78.5</DG1. 3.1><DG1.3.1 BUN/Creat 25 8-27 [facility] ([facility]) FASTING~.~.~<DG1.3.1>E78.5</DG1.3.1><DG1.3.1>E78.5</DG1.3.1><DG1.3.1>E78.5</DG1. 3.1><DG1.3.1 BUN 28 mg/dL 7-21 Above high normal [facility] ([facility]) FASTING~.~.~<DG1.3.1>E78.5</DG1.3.1><DG1.3.1>E78.5</DG1.3.1><DG1.3.1>E78.5</DG1. 3.1><DG1.3.1 Total Protein 6.8 g/dL 6.3-8.2 [facility] ([facility]) FASTING~.~.~<DG1.3.1>E78.5</DG1.3.1><DG1.3.1>E78.5</DG1.3.1><DG1.3.1>E78.5</DG1. 3.1><DG1.3.1 Albumin 4.6 g/dL 3.9-5.0 [facility] ([facility]) FASTING~.~.~<DG1.3.1>E78.5</DG1.3.1><DG1.3.1>E78.5</DG1.3.1><DG1.3.1>E78.5</DG1. 3.1><DG1.3.1 A/G Ratio 2.1 0.8-2.0 Above high normal [facility] ([facility]) FASTING~.~.~<DG1.3.1>E78.5</DG1.3.1><DG1.3.1>E78.5</DG1.3.1><DG1.3.1>E78.5</DG1. 3.1><DG1.3.1 Globulin 2.2 GM/DL 2.4-3.2 Below low normal [facility] ( [facility]) FASTING~.~.~<DG1.3.1>E78.5</DG1.3.1><DG1.3.1>E78.5</DG1.3.1><DG1.3.1>E78.5</DG1. 3.1><DG1.3.1 Calcium 9.3 mg/dL 8.4-10.2 [facility] ([facility]) FASTING~.~.~<DG1.3.1>E78.5</DG1.3.1><DG1.3.1>E78.5</DG1.3.1><DG1.3.1>E78.5</DG1. 3.1><DG1.3.1 Alkaline Phos 58 U/L 38-126 [facility] ([facility]) FASTING~.~.~<DG1.3.1>E78.5</DG1.3.1><DG1.3.1>E78.5</DG1.3.1><DG1.3.1>E78.5</DG1. 3.1><DG1.3.1 Total Bili 0.9 mg/dL 0.2-1.3 [facility] ([facility]) FASTING~.~.~<DG1.3.1>E78.5</DG1.3.1><DG1.3.1>E78.5</DG1.3.1><DG1.3.1>E78.5</DG1. 3.1><DG1.3.1 Sgot/Ast 16 U/L 5-40 [facility] ([facility]) FASTING~.~.~<DG1.3.1>E78.5</DG1.3.1><DG1.3.1>E78.5</DG1.3.1><DG1.3.1>E78.5</DG1. 3.1><DG1.3.1 SGPT/Alt 15 U/L 7-56 [facility] ([facility]) FASTING~.~.~<DG1.3.1>E78.5</DG1.3.1><DG1.3.1>E78.5</DG1.3.1><DG1.3.1>E78.5</DG1. 3.1><DG1.3.1 Anion Gap 14.0 mmol/L 8.0-16.0 [facility] ([facility]) FASTING~.~.~<DG1.3.1>E78.5</DG1.3.1><DG1.3.1>E78.5</DG1.3.1><DG1.3.1>E78.5</DG1. 3.1><DG1.3.1 Non-Aa GFR Laboratory test result [facility] ([facility]) FASTING~.~.~<DG1.3.1>E78.5</DG1.3.1><DG1.3.1>E78.5</DG1.3.1><DG1.3.1>E78.5</DG1. 3.1><DG1.3.1 Age 74 yrs [facility] ([facility]) FASTING~.~.~<DG1.3.1>E78.5</DG1.3.1><DG1.3.1>E78.5</DG1.3.1><DG1.3.1>E78.5</DG1. 3.1><DG1.3.1 Afr Amer GFR Laboratory test result [facility] ([facility]) FASTING~.~.~<DG1.3.1>E78.5</DG1.3.1><DG1.3.1>E78.5</DG1.3.1><DG1.3.1>E78.5</DG1. 3.1><DG1.3.1 ID Date Data Source [id number] 01/19/2020 10:13:00 AM EDT [facility] ([facility]) Name Value Range Interpretation Code Description Data Meme rce(s) Supporting Document(s) Creatine kinase [Enzymatic activity/volume] in Serum or Plasma 93 U /L 30-170 [facility] ([facility]) FASTING~.~.~<DG1.3.1>E78.5</DG1.3.1><DG1.3.1>E78.5</DG1.3.1><DG1.3.1>E78.5</DG1. 3.1><DG1.3.1 ID Date Data Source [id number] 01/19/2020 10:13:00 AM EDT [facility] ([facility]) Name Value Range Interpretation Code Description Data Meme rce(s) Supporting Document(s) Cve Panel Laboratory test result [facility] ([facility]) FASTING~.~.~<DG1.3.1>E78.5</DG1.3.1><DG1.3.1>E78.5</DG1.3.1><DG1.3.1>E78.5</DG1. 3.1><DG1.3.1 Triglycerides 108 mg/dL 35-160 [facility] ([facility]) FASTING~.~.~<DG1.3.1>E78.5</DG1.3.1><DG1.3.1>E78.5</DG1.3.1><DG1.3.1>E78.5</DG1. 3.1><DG1.3.1 Cholesterol 110 mg/dL 131-200 Below low normal [facility] ([facility]) FASTING~.~.~<DG1.3.1>E78.5</DG1.3.1><DG1.3.1>E78.5</DG1.3.1><DG1.3.1>E78.5</DG1. 3.1><DG1.3.1 HDL 39 mg/dL 29-86 [facility] ([facility]) FASTING~.~.~<DG1.3.1>E78.5</DG1.3.1><DG1.3.1>E78.5</DG1.3.1><DG1.3.1>E78.5</DG1. 3.1><DG1.3.1 Risk Factor 2.8 3.4-4.9 Below low normal [facility] ([facility]) FASTING~.~.~<DG1.3.1>E78.5</DG1.3.1><DG1.3.1>E78.5</DG1.3.1><DG1.3.1>E78.5</DG1. 3.1><DG1.3.1 LDL 60 mg/dL 65-175 Below low normal [facility] ([facility]) FASTING~.~.~<DG1.3.1>E78.5</DG1.3.1><DG1.3.1>E78.5</DG1.3.1><DG1.3.1>E78.5</DG1. 3.1><DG1.3.1 LDL/HDL 1.54 1.00-3.55 [facility] ([facility]) FASTING~.~.~<DG1.3.1>E78.5</DG1.3.1><DG1.3.1>E78.5</DG1.3.1><DG1.3.1>E78.5</DG1. 3.1><DG1.3.1 ID Date Data Source [id number] 01/22/2020 08:16:00 AM EDT [facility] Name Value Range Interpretation Code Description Data Meme rce(s) Supporting Document(s) Prostate specific Ag [Mass/volume] in Serum or Plasma 1.7 ng/mL 0.0- 4.0 [facility] Graciela ECLIA methodology.According to the [employer] [employer], Serum PSA shoulddecrease and remain at undetectable levels after radicalprostatectomy. The AUA defines biochemical recurrence as an initialPSA value 0.2 ng/mL or greater followed by a subsequent confirmatoryPSA value 0.2 ng/mL or greater.Values obtained with different assay methods or kits cannot be usedinterchangeably. Results cannot be interpreted as absolute evidenceof the presence or absence of malignant disease. Reflex Criteria COMMENT [facility] The percent free PSA is performed on a r eflex basis only when thetotal PSA is between 4.0 and 10.0 ng/mL. ID Date Data Source [id number] 01/19/2020 02:11:00 PM EDT [facility] Name Value Range Interpretation Code Description Data Meme rce(s) Supporting Document(s) COMPREHENSIVE METABOLIC PANEL [facility] COMPREHENSIVE METABOLIC PANEL Sodium [Moles/volume] in Serum or Plasma 140 mEq/L 134 - 153 [facility] Potassium [Moles/volume] in Serum or Plasma 4.3 mEq/L 3.6 - 5.0 [facility] Chloride [Moles/volume] in Serum or Plasma 103 mEq/L 98 - 107 [facility] Carbon dioxide, total [Moles/volume] in Serum or Plasma 23 MEQ/L 22 - 30 [facility] Glucose [Mass/volume] in Serum or Plasma 113 MG/DL 65 - 110 H [facility] BUN 28 MG/DL 7 - 21 H [facility] Creatinine [Mass/volume] in Serum or Plasma 1.1 MG/DL 0.7 - 1.5 [facility] BUN/CREAT 25 8 - 27 [facility] Protein [Mass/volume] in Serum or Plasma 6.8 G/DL 6.3 - 8.2 [facility] Albumin [Mass/volume] in Serum or Plasma 4.6 G/DL 3.9 - 5.0 [facility] Globulin [Mass/volume] in Serum by calculation 2.2 GM/DL 2.4 - 3.2 L [facility] A/G RATIO 2.1 0.8 - 2.0 H [facility] Calcium [Mass/volume] in Serum or Plasma 9.3 MG/DL 8.4 - 10.2 [facility] Bilirubin.total [Mass/volume] in Serum or Plasma 0.9 MG/DL 0.2 - 1.3 [facility] Alkaline phosphatase [Enzymatic activity/volume] in Serum or Plasma 58 U/L 38 - 126 [facility] Aspartate aminotransferase [Enzymatic activity/volume] in Serum or Plasma 16 U/L 5 - 40 [facility] Alanine aminotransferase [Enzymatic activity/volume] in Seru m or Plasma 15 U/L 7 - 56 [facility] Anion gap 3 in Serum or Plasma 14.0 mmol/L 8.0 - 16.0 [facility] AGE 74 yrs [facility] NON-AA GFR >60 mL/min [facility] ital AFR AMER GFR >60 mL/min [facility] Ho spital Male GFR In terprentation 20-49 [...] >32 mL/min Normal ID Date Data Source [id number] 01/19/2020 02:11:00 PM EDT [facility] Name Value Range Interpretation Code Description Data Meme rce(s) Supporting Document(s) CVE PANEL [facility] LIPID PANEL Cholesterol [Mass/volume] in Serum or Plasma 110 MG/DL 131 - 200 L [facility] Deprecated Triglyceride [Mass/volume] in Serum or Plasma 108 MG/DL 3 5 - 160 [facility] HDL 39 MG/DL 29 - 86 [facility] Cholesterol in LDL [Mass/volume] in Serum or Plasma by Direc t assay 60 mg/dL 65 - 175 L [facility] Cholesterol.total/Cholesterol in HDL [Mass Ratio] in Serum o r Plasma 2.8 3.4 - 4.9 L [facility] LDL/HDL 1.54 1.00 - 3.55 [facility] ital CVE RISK CHOL/HDL LDL/HDLMEN: 1/2 AVERAGE 3.43 1.00 AVERAGE 4.97 3.55 2X AVERAGE 9.55 6.25 3X AVERAGE 23.99 7.99WOMEN: 1/2 AVERAGE 3.27 1.47 AVERAGE 4.44 3.22 2X AVERAGE 7.05 5.03 3X AVERAGE 11.04 6.14 ID Date Data Source [id number] 01/19/2020 02:11:00 PM EDT [facility] Name Value Range Interpretation Code Description Data Meme rce(s) Supporting Document(s) Hemoglobin A1c/Hemoglobin.total in Blood 5.7 % 4.4 - 6.1 [facility] {A1]{HB] ID Date Data Source [id number] 01/19/2020 02:06:00 PM EDT [facility] Name Value Range Interpretation Code Description Data Meme rce(s) Supporting Document(s) Creatine kinase [Enzymatic activity/volume] in Serum or Plasma 9 3 U/L 30 - 170 [facility] ID Date Data Source [id number] 01/19/2020 02:04:00 PM EDT [facility] Name Value Range Interpretation Code Description Data Meme rce(s) Supporting Document(s) BNP 74 PG/ML 0 - 125 [facility] ID Date Data Source [id number] 01/19/2020 01:49:00 PM EDT [facility] Name Value Range Interpretation Code Description Data Meme rce(s) Supporting Document(s) CBC W/AUTOMATED DIFF [facility] COMPLETE BLOOD COUNT Leukocytes [#/volume] in Blood by Automated count 6.6 10^3/uL 4.2 - 1 1.0 [facility] Erythrocytes [#/volume] in Blood by Automated count 5.30 10^6/uL 4. 50 - 6.30 [facility] Hemoglobin [Mass/volume] in Blood 15.1 g/dL 14.0 - 16.0 [facility] Hematocrit [Volume Fraction] of Blood by Automated count 46.0 % 4 1.0 - 51.0 [facility] Erythrocyte mean corpuscular volume [Entitic volume] by Auto mated count 86.8 fL 80.0 - 94.0 [facility] Erythrocyte mean corpuscular hemoglobin [Entitic mass] by Automated count 28.5 pg 27.0 - 34.0 [facility] Erythrocyte mean corpuscular hemoglobin concentration [Mass/volume] by Automated count 32.8 g/dL 31.0 - 36.0 [facility] Erythrocyte distribution width [Ratio] by Automated count 12.7 % 11.5 - 14.8 [facility] Platelets [#/volume] in Blood by Automated count 127 10^3/uL 150 - 45 0 L [facility] Platelet mean volume [Entitic volume] in Blood by Automated count 12.1 fL 7.4 - 10.4 H [facility] Neutrophils/100 leukocytes in Blood by Automated count 55.0 % 37. 0 - 80.0 [facility] Lymphocytes/100 leukocytes in Blood by Manual count 30.6 % 25.0 - 40.0 [facility] Monocytes/100 leukocytes in Blood by Automated count 7.8 % 3.0 - 8.0 [facility] Eosinophils/100 leukocytes in Blood by Automated count 5.8 % 0.0 - 7.0 [facility] Basophils/100 leukocytes in Blood by Automated count 0.6 % 0.0 - 2.0 [facility] %IG 0.2 % 0.0 - 0.0 [facility] %NRBC 0.0 % 0.0 - 0.0 [facility] al Neutrophils [#/volume] in Blood by Automated count 3.61 10^3/uL 2.00 - 6.90 [facility] Lymphocytes [#/volume] in Blood by Automated count 2.01 10^3/uL 0.60 - 3.40 [facility] Monocytes [#/volume] in Blood by Automated count 0.51 10^3/uL 0.00 - 0.90 [facility] Eosinophils [#/volume] in Blood by Automated count 0.38 10^3/uL 0.00 - 0.70 [facility] Basophils [#/volume] in Blood by Automated count 0.04 10^3/uL 0.00 - 0.20 [facility] #IG 0.01 10^3/uL 0.00 - 0.10 [facility] #NRBC 0.00 10^3/uL 0.00 - 0.00 [facility] MANUAL DIFF NOT INDICATED [facility] RBC MORPH NOT INDICATED [facility] Ho spital ID Date Data Source [id number] 01/19/2020 01:48:00 PM EDT [facility] Name Value Range Interpretation Code Description Data Meme rce(s) Supporting Document(s) [facility] COL[facility] yellow NORMAL: Yellow [facility] ospital CLARITY clear NORMAL: Clear [facility] spital Specific gravity of Urine by Test strip 1.025 1.001 - 1.030 [facility] pH 5 5 - 9 [facility] Glucose [Mass/volume] in Urine by Test strip NORM NORMAL: Negat [facility] Bilirubin.total [Presence] in Urine by Test strip NEG NORMAL: Negative [facility] Ketones [Presence] in Urine by Test strip NEG NORMAL: Negative [facility] Protein [Mass/volume] in Urine by Test strip NEG NORMAL: Negat [facility] Nitrite [Presence] in Urine by Test strip NEG NORMAL: Negative [facility] BLOOD NEG NORMAL: Negative [facility] Leukocyte esterase [Presence] in Urine by Test strip NEG BRITTANI L: Negative [facility] Urobilinogen [Mass/volume] in Urine by Test strip NOR less conchita n 1.0 mg/dL [facility] MICROSCOPIC Not Indicate [facility] ID Date Data Source [id number] 10/06/2019 09:47:01 PM EST [facility] NT INFORMATIONPatient MRN Name Date of Age Gend*PT [id number] Theo Edwards 1945 73 years M IPPT Location Admission Date/Time Visit ID Attending [id number] 09/19/19 0632 --- --- EPI ID CSN Admitting Provider [id number] Symone Keen MD([id number]) [place] [address] OPERATIVE REPORT OPNAME: JERRY THEO Riley#: [id number] #: [id number] ADMISSION DATE: 09/19/2019DOB: 1945 SEX: M PT TYPE: I SURACCT #: [id number] CARE PHYSICIAN: SOMMER VALDIVIA OF OPERATION: 09/19/2019PREOPERATIVE DIAGNOSES:1. Severe aortic stenosis, progressive symptomatology, peripheral vasculardisease.2. Hypertension.POSTOPERATIVE DIAGNOSES:1. Severe aortic stenosis, progressive symptomatology, peripheral vasculardisease.2. Hypertension.ANESTHESIA:General.ATTENDING CEO [place]:Dr. Gonzalez CARDIAC SURGEON:Dr. Timothy Granados.INDICATIONS:The patient is [...] room in stable condition.ASTRID Romo Job #: [id number] DOC #: [id number] Name Value Range Interpretation Code Description Data Meme rce(s) Supporting Document(s) ID Date Data Source [id number] 09/28/2019 09:03:00 AM EST [facility] [address] [place] [address] PHONE: [phone] FAX: [phone] Name .................. : JERRY TABARES Acct Number.................. : [id number] ROOM. ................. : Number ................... : [id number] Stay type ............. : O/P Discharge Date......... ... : 09/27/19 Admit Date ......... : 09/27/19 Admit Phys .................... : SORIA HARD Date of ....... : 1945 Family Phys ................... : Mosaic HARD Phone .................. : [phone] Age ................................ : 73 Film# .................. .:[id number] Sex ................................. : M Unsigned transcriptions are preliminary reports and do not represent a medical or legal document RENAL/URINARY BLADDER [id number] COMPLETE:09/27/19 12:52 P [id number] (PROCEDURE REASON other specified disorders of bladd [...] rce(s) Supporting Document(s) ID Date Data Source [id number] 09/23/2019 01:18:13 PM EST [facility] NT INFORMATIONPatient MRN Name Date of Age Gend*PT [id number] Theo Edwards 1945 73 years M IPPT Location Admission Date/Time Visit ID Attending [id number] 09/19/19 0632 --- --- EPI ID CSN Admitting Provider [id number] Symone Keen MD([id number]) Attestation signed by Symone Keen MD at 09/23/2019 1:18 PMI saw and evaluated the patient and reviewed Brianna Naif's note. I agree withthe history, physical and medical decision making with the following additions,exceptions, and/or observationsSignature: Symone Keen MDDate: September 23, 2019Time: 1:18 PM ------Physician Discharge Summary Theo EdwardsMRN: [id number] date: 09/19/2019Attending Physician: Symone Keen MDAdmission Diagnosis: [...] [facility] Patient underwent echocardiogram on 07/09/2019which concluded Moderately [...] deployed in the right femoral artery.A 6 [place] pigtail catheter was advanced through the left [...] SignsPt Height 1.79 mWeight 115.1 kgBSA 2.32 t6Arpljsro BP Echo 130 mmHgDiastolic BP Echo 66 mmHg2D MeasurementsDimensionsLVIDD 4.53 cmLVIDS 2.76 cmIVS 0.76 cmPW 1.14 cmFS 39 %LA volume 48.5 cm3EF 66 %Echo EF Estimated 60 %LA Volume Index 20.9 mL/m22D Measurements - LV VolumeMOD BiplaneLV Systolic Volume 21 cm3LV Systolic Volume Index 9.1 mL/n8Eqxevmn Measurements - Aortic ValveStenosisLVOT peak brooklynn 1.15 [...] rce(s) Supporting Document(s) ID Date Data Source [id number] 09/20/2019 03:42:24 PM EST [facility] Name Value Range Interpretation Code Description Data Meme rce(s) Supporting Document(s) &PDF [facility] VBVJOd5zBjNNUlKr75/GWIwiNQIwb6GpAIpbCQd0RUalIZOaB4ChzGzbUMWBNuABQlaVJNOVYV6eRX0c pYy [file] AgICAgICAgICAgICAgICAgICAgICAgICAgICAgICAg KJClKTSdQUFaPDEjTZOyDIDkUZQwLGSgKXRmBOKlLNIpSREpODXrMLKsCOTfYOMsIYWuVUEyLYUhGB7H ICAgICAgICAgICAgICAgICAgICAgICAgICAgICAgICAgICAgICAgICAgICAgICAgICAgICAgICAgICAg ICAgICAgICAgICAgICAgICAgICAgICAgICAgICAgIC OaKQWtKFCwJT9GJGQfIBLnLMSlJPEeTJXcSQRzANOcDIZkYKMtDEAbVTPzTIFsVYWbCUIfXUUuFEWtWX XnIZDkQOOgEAHqIIHdNECjMCFySTLqOHKdZSBrBMCrXQWwQRIrTVSvJGHzRWZoDIEtXC2NQZIzVMFpKX AgICAgICAgICAgICAgICAgICAgICAgICAgICAgICAg ICAgICAgICAgICAgICAgICAgICAgICAgICAgICAgICAgICAgICAgICAgICAgICAgICAgICAgICAgICAg FH3SQGEgDICsCUMrGRBiCZKuXURlSTQsFQQhRSYjTZAqHAEoEOXlAPDrRHEiMWQnMGEvXTPcFABmVIMm ICAgICAgICAgICAgICAgICAgICAgICAgICAgICAgIC KlELExTMMjINLyFG9UGGMmCDWxDCWjLAQnVJIbDDDzLJRyNXTjGEJkCQZgVBJgLTJxQMKaALRkCMRoVK GjJKAaGCYnOMOjLUHuVULoZWYoDRWiKZMfTBXvEDDyDQKeWYUxGSViDZWzYVGcURXaLUDiSR9BWGLoLF AgICAgICAgICAgICAgICAgICAgICAgICAgICAgICAg ICAgICAgICAgICAgICAgICAgICAgICAgICAgICAgICAgICAgICAgICAgICAgICAgICAgICAgICAgICAg SULrRE6HNRJxXZEnOPBkBWQqGBKtJEAnTKYuGTMmXBWeYYLzHPYmGANfDOYxLTBxNOUdBWCaIGQsPKKz ICAgICAgICAgICAgICAgICAgICAgICAgICAgICAgIC XhOTCqDGOyNTJmIVFsNH6VJULnHBVuHOPxJKGrLMQoGOExPHKeINPvPLAfJGCoFNVaYWByCYZoJIGwSE KlGRUrBQEaMFYaNPObMVDrFIJrDZNxPNPwPBDjLPPbCEFnPYYjFBPlNRVrPTAoVVTpCTMvPNHdCZ5IEB AgICAgICAgICAgICAgICAgICAgICAgICAgICAgICAg ICAgICAgICAgICAgICAgICAgICAgICAgICAgICAgICAgICAgICAgICAgICAgICAgICAgICAgICAgICAg VQLjUNYjQK4QLR21jPQvw1N5PCQuON3frht/On8DITeydfVyoECxPG4KXoBbIJ2gkf2VQwSqEB0kxu5A KXeIXmEcA9M7pMIdWEMpHIVKFdJaF70lWSajSo52IU ksOXSmZvCqWUv1Au0VJpZlN9hnOKOgMrU2MTPzHuZ7YKNtZrRoWHgbBG0Xx0VgdPPxNBf+Ld8SNE4dy8 RdVNqqIzHdDH1ciu9GHRgWRrAlN6E6eUQeX4M6GEnyFl8FZKLsUQWiTyRhQDJWIZhlWA0ITK4sdtQ6NJ 2AwAJgDBLpTQZeoYEbEAf0N10qxNDzWMygHS0PMQZ+ Winnie+Ae3QDVVjOSRdKUMaKyPhMHGFYkOdK84hyCVoMCGxTCX8LAPrIq1TMEAjS9NpbtUlcRznmfBbLTAg PQNEEH3PZQnbisMpzDZtcQexDM65pNxbCQ2NWu8CYkMsDM3hco8KaCFeVt5ALYXpNf5WNFCbDXFaJAIi FIZ1QEIzDhYnMKzsVLCvSBFzWPH0KOLsNYFnHM7TLy ZqVEQbBpM3NDbzCIErUBCyka1PNJRySRCuSzR8FrPvCOAkJEZwNTvkOKRkMAFgTLo0CVTtOIDvCL0SCy QwQWMoPQDnPjYsIKWfIFYtpe8MHVXnJSIsRzP4CeQlSEEaLZRpFMzvYVVcCZV7FekwJSNrULMgSU2AHo BwOMNcLDD7JUYiWVUoLSFosg7FSRLmGJKqAsX0XIZl OPNaIMXeVKhiNYZtUWG7BeC4KRMcFDKrAK9TIyHkSQQqXZV8JLSbSFDuICYtdm6UTYUjMFGdBskvKEPa CMSlCHIqTYpoQCKhSQC2GDo2UBZmFUSuWV4NTuTfKKHjJHecYBFvSMQqOAPatw5PQQSzVOAhYzSnOwCm CTUsWNOhTLauAECiKJGlGfD8JOTgWXJnWD3JHpLoLS BlFJH2IoWuNOXzARIjpr6SIBWaYTVnCbcsQpJrCVOaOIMfCPcnURSlEOVpNDOgYETyPLUpKD7CIkZyND OmHNO7BOVoAFWpKYMtwu0PXVZgIDGcGEI4RSPxNNOhFEOeDDnzVUHxKSO6KmFxOWJnIVOsZR2MBzZpKR GxZzEoVegsXFTtFRKwzi8DNYYkNEZsKWJ7KIKvYJRp ZPXkTNjaKVBwXBN2JUUsCGJvKWWrIE2UArOqARScLjB3JwPuMPVbZAXfcr1SzKImmOjaxu8WSFcIGg3D bWupRQW2FLcoKl5vfWVaVdOrCWHEYs5BfpIpSVPyAOPTOOfbNVQjFHWvWsZ3F7ZyZIYtTCoyCHtrNOQe IjzgUVYuCtAxPYe5RpA5DFQzGdD5RJXiQNQ2PgPzL8 R2F7G2QUQwNQPhWDQjMzW+QT3aFAh+Nx2Qc9ZnwnG3buOxUTvvUiw5Lz4AKELHR0IFDl== ID Date Data Source [id number] 09/20/2019 12:28:32 PM EST [facility] NT INFORMATIONPatient MRN Name Date of Age Gend*PT [id number] Ra Jerryul 1945 73 years M IPPT Location Admission Date/Time Visit ID Attending [id number] 09/19/19 0632 --- Symone Keen MD ([id number]) EPI ID CSN Admitting Provider [id number] Symone Keen MD([id number])Looks wellNo ComplaintAmbulatingPlan for DC home todaySymone Keen MD Name Value Range Interpretation Code Description Data Meme rce(s) Supporting Document(s) ID Date Data Source [id number] 09/20/2019 03:22:09 AM EST [facility] Name Value Range Interpretation Code Description Data Meme rce(s) Supporting Document(s) SODIUM 141 mmol/L (136-145) [facility] POTASSIUM 3.9 mmol/L (3.6-5.2) [facility] CHLORIDE 107 mmol/L (100-108) [facility] CO2 27 mmol/L (22-31) [facility] ANION GAP 7 mmol/L (7-16) [facility] UREA NITROGEN 20 mg/dL (7-24) [facility] CREATININE 1.25 mg/dL (0.80-1.30) [facility] BUN/CREAT RATIO 16.0 RATIO (10.0-20.0) [facility] GLUCOSE 109 mg/dL (70-99) H [facility] CALCIUM 8.5 mg/dL (8.4-10.2) [facility] GFR 57 ml/min/1.73m2 (>59) L [facility] GFR ( AMER) >60 ml/min/1.73m2 (>59) [facility] GFR INTERPRETATION Lab [facility] --NORMAL KIDNEY FUNCTION OR MILD DISEASE - GFR >OR= 60CHRONIC KIDNEY DISEASE - GFR 15 - 59RENAL FAILURE - GFR <15 Est. GFR calculation based on the MDRDstudy equation, which assumes a steadystate for creatinine. Est. GFR should notbe used for medication dosing. ID Date Data Source [id number] 09/20/2019 02:48:04 AM EST [facility] Name Value Range Interpretation Code Description Data Meme rce(s) Supporting Document(s) WBC 7.6 10*3/uL (4.1-11.0) [facility] [place] RBC 4.91 10*6/uL (4.60-6.10) [facility] HGB 14.2 g/dL (13.5-18.0) [facility] HCT 42.7 % (41.0-53.0) [facility] MCV 87.0 fL (80.0-95.0) [facility] MCH 29.0 pg (27.0-32.0) [facility] MCHC 33.3 g/dL (32.0-36.0) [facility] RDW 13.6 % (10.5-14.5) [facility] PLT 106 10*3/uL (150-450) L [facility] MPV 8.7 fL (7.1-10.7) [facility] ID Date Data Source [id number] 09/19/2019 01:45:10 PM EST [facility]PATIE NT INFORMATIONPatient MRN Name Date of Age Gend*PT [id number] Theo Edwards 1945 73 years M IPPT Location Admission Date/Time Visit ID Attending ProviderD-[id number] 09/19/19 0632 --- Symone Keen MD ([id number]) EPI ID CSN Admitting Provider [id number] Symone Keen MD([id number])[facility] CARDIOVASCULAR KEELSCGCAN[address] [place] [id number] CARDIAC CATHETERIZATION Preoperative diagnosis: Severe symptomatic aortic stenosisPostoperative diagnosis severe symptomatic aortic stenosisReferring Physician: Dr. Jim Surgeon: Dr. Riley-surgeon: Dr. Granados Anesthesia: Dr. ThomasAnesthesia type: MAC Brief Cardiolab NotePatient Name: Theo Edwards of : 1945 Age 73 yearsPrimary Physician: Sommer Soria MD PCP Gwac of Surgery: 09/19/2019 Spinning Frame Cleaner: Symone Keen MD Software Quality Manager(s): None CCS Functional Classification: None History:This [...] with patient/family.Risks included, but not limited to; OH, CVA, , renal impairment, vascularcomplication, and need [...] deployed in the right femoral artery.A 6 [place] Citizen pigtail catheter was advanced through the left [...] rce(s) Supporting Document(s) ID Date Data Source [id number] 09/19/2019 09:47:40 AM EST [address] [address]Bkocuch Name: THEO FLORES: 1945Sex: MOrdering Provider: IRMA Eduardo Prov: IRMA DISLAReferrjulia Provider: Procedure Performed: XR CHEST PORTABLEExam Date: 09/19/2019 09:33MRN: [id number] Number: [id number] Class: InpatientAccount #: [id number] for Exam: Post TAVR procedureTechnique: AP portable [...] NANCY BECKMAN On 09/19/2019 9:47 AMWorkstation ID: [id number] Name Value Range Interpretation Code Description Data Meme rce(s) Supporting Document(s) ID Date Data Source [id number] 09/19/2019 09:47:53 AM EST [facility] Name Value Range Interpretation Code Description Data Meme rce(s) Supporting Document(s) EKG [facility] IXHDXh5gWwJKUlVik5WkIwYpMPRwHI3pmvx4Q9M2sKFrK9GftGQbg3uiQ9VbR7NuLUBzBPIDMB8ZmZGi jb2 [file] tIb2cKlex1at3oYUjQChWik4zwTu9+yyL/aj1cp2gGnXRUrix5dP8+line fixer/Hp6TcTnDgzjtNKl/Sg5rUJ [file] iqCbVZSoFBKJEq1Cc048QDVqLKTBEet+QzjgqEAgzAciAKGYQGC3WVPOEQICG0D= ID Date Data Source [id number] 09/19/2019 11:03:27 AM EST [facility] Name Value Range Interpretation Code Description Data Meme rce(s) Supporting Document(s) MAGNESIUM 2.1 mg/dL (1.7-2.4) [facility] ID Date Data Source [id number] 09/19/2019 11:03:27 AM EST [facility] Name Value Range Interpretation Code Description Data Meme rce(s) Supporting Document(s) SODIUM 137 mmol/L (136-145) [facility] POTASSIUM 3.9 mmol/L (3.6-5.2) [facility] CHLORIDE 105 mmol/L (100-108) [facility] CO2 25 mmol/L (22-31) [facility] ANION GAP 7 mmol/L (7-16) [facility] UREA NITROGEN 24 mg/dL (7-24) [facility] CREATININE 1.27 mg/dL (0.80-1.30) [facility] BUN/CREAT RATIO 18.9 RATIO (10.0-20.0) [facility] GLUCOSE 109 mg/dL (70-99) H [facility] CALCIUM 8.4 mg/dL (8.4-10.2) [facility] GFR 56 ml/min/1.73m2 (>59) L [facility] GFR ([facility] AM) >60 ml/min/1.73m2 (>59) [facility] GFR INTERPRETATION [facility] --NORMAL KIDNEY FUNCTION OR MILD DISEASE - GFR >OR= 60CHRONIC KIDNEY DISEASE - GFR 15 - 59RENAL FAILURE - GFR <15 Est. GFR calculation based on the MDRDstudy equation, which assumes a steadystate for creatinine. Est. GFR should notbe used for medication dosing. ID Date Data Source [id number] 09/19/2019 10:47:03 AM EST [facility] Name Value Range Interpretation Code Description Data Meme caro center(s) Supporting Document(s) PT 12.4 s (9.2-11.9) H [facility] INR 1.22 [facility] SUGGESTED THERAPEUTIC RANGES USING INR F ORSTABILIZED ANTICOAGULATED PATIENTS:STANDARD DOSE THERAPY INR 2.0-3.0 DVT, PE, PREVENT DVT OR EMBOLISMHIGH DOSE THERAPY INR 2.5-3.5 PREVENT EMBOLISM FROM MECHANICAL HEART VALVE ID Date Data Source [id number] 09/19/2019 10:40:30 AM EST [facility] Name Value Range Interpretation Code Description Data Meme rce(s) Supporting Document(s) WBC 6.5 10*3/uL (4.1-11.0) [facility] [place] RBC 4.70 10*6/uL (4.60-6.10) [facility] HGB 13.8 g/dL (13.5-18.0) [facility] HCT 40.4 % (41.0-53.0) L [facility] MCV 85.9 fL (80.0-95.0) [facility] MCH 29.3 pg (27.0-32.0) [facility] MCHC 34.1 g/dL (32.0-36.0) [facility] RDW 13.7 % (10.5-14.5) [facility] PLT 120 10*3/uL (150-450) L [facility] MPV 9.3 fL (7.1-10.7) [facility] ID Date Data Source [id number] 09/19/2019 08:44:42 AM EST [facility]PATIE NT INFORMATIONPatient MRN Name Date of Age Gend*PT [id number] Theo Edwards 1945 73 years M IPPT Location Admission Date/Time Visit ID Attending Provider --- --- --- --- EPI ID CSN Admitting Prov ider [id number] ---ZAINAB ExamPerformed by: Gautam Quinones MDInformation: Diagnostic [...] rce(s) Supporting Document(s) ID Date Data Source [id number] 09/19/2019 08:41:17 AM EST [facility] CenterPATIE NT INFORMATIONPatient MRN Name Date of Age Gend*PT [id number] Theo Edwards 1945 73 years M IPPT Location Admission Date/Time Visit ID Attending Provider --- --- --- --- EPI ID CSN Admitting Prov ider [id number] ---Arterial Line PlacementPatient location during procedure: CV [...] rce(s) Supporting Document(s) ID Date Data Source [id number] 09/19/2019 08:31:40 AM EST [facility] Name Value Range Interpretation Code Description Data Meme rce(s) Supporting Document(s) POC SOURCE [facility] POC TEMPERATURE [facility] 37.0C POC FIO2 100 [facility] POC PH 7.33 pH (7.35-7.45) L [facility] POC PCO2 45.6 MMHG (32.0-48.0) [facility] POC PO2 89 MMHG (83-108) [facility] POC SAT O2 96 % (95-99) [facility] POC BASE DEFICIT 2 MMOL/L (0-2) [facility] POC HCO3 23.8 MMOL/L (21.0-29.0) [facility] POC TOTAL CO2 25 MMOL/L (23.0-32.0) [facility] PERFORMED BY [facility] POC HCT 38 % (41.0-53.0) L [facility] POC SODIUM 139 MMOL/L (136-145) [facility] POC POTASSIUM 3.8 MMOL/L (3.6-5.2) [facility] POC IONIZED CALCIUM 4.8 MG/DL (4.6-5.3) [facility] POC GLU 122 MG/DL (70-99) H [facility] PERFORM LAB [facility] [place] [facility] ID Date Data Source [id number] 09/19/2019 08:32:05 AM EST [facility] Name Value Range Interpretation Code Description Data Meme rce(s) Supporting Document(s) POC ACT 241 s (80-140) H [facility] ID Date Data Source [id number] 09/19/2019 08:20:07 AM EST [facility] Name Value Range Interpretation Code Description Data Meme rce(s) Supporting Document(s) POC SOURCE [facility] POC TEMPERATURE [facility] 37.0C POC FIO2 100 [facility] POC PH 7.36 pH (7.35-7.45) [facility] POC PCO2 46.6 MMHG (32.0-48.0) [facility] POC PO2 80 MMHG (83-108) L [facility] POC SAT O2 95 % (95-99) [facility] POC BASE EXCESS 0 MMOL/L (0-3) [facility] POC HCO3 26.3 MMOL/L (21.0-29.0) [facility] POC TOTAL CO2 28 MMOL/L (23.0-32.0) [facility] POC HCT 42 % (41.0-53.0) [facility] POC SODIUM 140 MMOL/L (136-145) [facility] POC POTASSIUM 4.0 MMOL/L (3.6-5.2) [facility] POC IONIZED CALCIUM 5.0 MG/DL (4.6-5.3) [facility] POC GLU 129 MG/DL (70-99) H [facility] PERFORM LAB [facility] [place] [facility] ID Date Data Source [id number] 09/19/2019 08:20:02 AM EST [facility] Name Value Range Interpretation Code Description Data Meme rce(s) Supporting Document(s) POC ACT 131 s (80-140) [facility] ID Date Data Source [id number] 09/19/2019 07:11:40 AM EST [facility] CenterPATIE NT INFORMATIONPatient MRN Name Date of Age Gend*PT [id number] Theo Edwards 1945 73 years M IPPT Location Admission Date/Time Visit ID Attending [id number] 09/19/19 0632 --- Symone Keen MD ([id number]) EPI ID CSN Admitting Provider [id number] Symone Keen MD([id number])Updated H&PPlease see the scanned/dictated outpatient note.I have reviewed the note, clinical history and physical exam findings. Therehave been no significant changes.Plan as outlined in the outpatient note.Risk/benifit/alternative of TAVR was discussed with patient/family. Risksincluded, but not limited to; OH, CVA, , renal impairment, vascularcomplication, and need for emergency surgery were discussed and accepted bypatient.Symone Keen MD, [facility], [facility] TULSAAIInterventional Geophysicist Name Value Range Interpretation Code Description Data Meme rce(s) Supporting Document(s) ID Date Data Source [id number] 09/19/2019 06:50:40 AM EST [facility] Name Value Range Interpretation Code Description Data Meme rce(s) Supporting Document(s) POC NOVA GLU 124 mg/dL (70-99) H [facility] [facility] [place] PERFORMED BY [facility] ID Date Data Source [id number] 09/20/2019 08:46:16 PM EST [facility] SPEC EXP DATE 09/22/2019TEST ING SITE PERFORMED AT [address] [place] [address]VRKP NUMBER [id number] COMPONENT TYPE LEUKOPOOR RED CELLSUNIT DIVISION 00STATUS OF UNIT REL FROM ALLOCTRANSFUSION STATUS OK TO TRANSFUSECROSSMATCH RESULT COMPATIBLEUNIT NUMBER [id number] COMPONENT TYPE LEUKOPOOR RED CELLSUNIT DIVISION 00STATUS OF UNIT REL FROM ALLOCTRANSFUSION STATUS OK TO TRANSFUSECROSSMATCH RESULT COMPATIBLEUNIT NUMBER [id number] COMPONENT TYPE LEUKOPOOR RED CELLSUNIT DIVISION 00STATUS OF UNIT REL FROM ALLOCTRANSFUSION STATUS OK TO TRANSFUSECROSSMATCH RESULT COMPATIBLEUNIT NUMBER [id number] COMPONENT TYPE LEUKOPOOR RED CELLSUNIT DIVISION 00STATUS OF UNIT REL FROM ALLOCTRANSFUSION STATUS OK TO TRANSFUSECROSSMATCH RESULT COMPATIBLE Name Value Range Interpretation Code Description Data Meme rce(s) Supporting Document(s) TRANSFUSE RED CELLS [facility] TESTING SITE PERFORMED AT [address] [place] [address] ID Date Data Source [id number] 09/12/2019 03:52:03 PM EST [facility] Name Value Range Interpretation Code Description Data Meme rce(s) Supporting Document(s) EKG [facility] FYTTZy6oVrZJHcDkg3TeUcQrBEJwDX2mkhi3V7W4gHIwD8ThgABvc2qzZ3KrP1CmOKQyQGLNZZ0RoCEq jb2 [file] kgMDAwMDAgbiAKMDAwMDAwMTczNCAwMDAwMCBuIAow OKAsTEZrTSC6DZErTKHtOS1xEwCzPANgJRXzDSAjTlF7UlScKdVYsDNwtDwgppj0CWrwI8l7FHRoFYjl UK4wojWaPIVtIesaHj4xeZC5YUXgLvqBVb6Dh7MzrrZ4ifLqQpIuGho0HlRxHV4M ID Date Data Source [id number] 09/12/2019 01:16:11 PM EST [facility] CenterPATI NT INFORMATIONPatient MRN Name Date of Age Gend*PT [id number] Theo Edwards 1945 73 years M OPPT Location Admission Date/Time Visit ID Attending Provider --- --- --- Symone Keen MD ([id number]) EPI ID CSN Admitting Provider [id number] ---HISTORY PHYSICALName: Theo Edwards : 1945 Sex: male Care Provider: Katie Kwongending Physician: Dr. Garibayformant: The patient who is reliable and accompanied by his .Chief Complaint: "I need valve replacement".HISTORY OF PRESENT ILLNESS:Mr. Edwards is a 73 years old male who reports havinga routine physical exam with his PCP and was noted to have heart murmur.Subsequently he was referred to [facility]. Patient underwentechocardiogram on 07/09/2019 which concluded Moderately [...] warm and dry.HEENT: He is normocephalic, atraumatic. Deercroft co njunctivae. Anicteric sclerae.Pupils are equal, round, [...] hepatosplenomegaly. Negative CVAT.GENITAL/RECTAL: Deferred.MUSCLE/SKELETAL: Strength is 5/5. Research Manager are equal.NEUROLOGICALLY: Cranial nerves II through XII are grossly intact.VASCULAR: Pulses are symmetrical. No bilateral pedal edema.IMPRESSION:1. Nonrheumatic aortic valve stenosis.2. Medical co morbidities as listed above.3. Medication and surgical instructions as per TAVR clinic.09/12/2019 1:11 PMLyudmila Kostiv, NPThis document or parts of this document, were dictated using [employer] speaking software. A reasonable attempt at proofreading has beenmade to minimize errors. Please call with any questions or corrections. Name Value Range Interpretation Code Description Data Meme rce(s) Supporting Document(s) ID Date Data Source [id number] 09/13/2019 03:49:08 PM EST [facility] Name Value Range Interpretation Code Description Data Meme rce(s) Supporting Document(s) SPECIMEN DESCRIPTION [facility] STAPH SCREEN RESULTS (ONEGSA) [facility] COMMENT [facility] GENE TO DETECT STAPH AUREUS. (2) RT-P CR WAS PERFORMED FOR THE mecA AND SCCmec GENES TO DETECT METHICILLIN RESISTANCE IN STAPH AUREUS. ID Date Data Source [id number] 09/12/2019 06:57:10 PM EST [facility] SPEC EXP DATE 09/20/2019PATI ENT ABO/Rh O POSITIVEANTIBODY SCREEN NEGATIVETESTING SITE PERFORMED AT [address] [place] [id number] Name Value Range Interpretation Code Description Data Meme rce(s) Supporting Document(s) TYPE AND SCREEN [facility] ID Date Data Source [id number] 09/12/2019 05:49:47 PM EST [facility] Name Value Range Interpretation Code Description Data Meme rce(s) Supporting Document(s) ROOM TEMP AB SCREEN [facility] ROOM TEMP AB SCREEN NEGATIVE ID Date Data Source [id number] 09/13/2019 03:03:26 PM EST [facility] SPECIMEN DESCRIPTION MIDSTREAM UR INE,CLEAN CATCHCULTURE RESULTS NO GROWTHREPORT STATUS FINAL 09/13/2019 Name Value Range Interpretation Code Description Data Meme rce(s) Supporting Document(s) ID Date Data Source [id number] 09/12/2019 09:07:01 PM EST [facility] Name Value Range Interpretation Code Description Data Meme rce(s) Supporting Document(s) HEMOGLOBIN A1C @ 5.8 % (4.0-6.0) [facility] Performed using Siemens [place] immunoassa y.Care must be taken when interpreting JnM7owqygybu in patients with a hemoglobin variantor decreased erythrocyte lifespan. Values 5.7 - 6.4% suggest prediabetes.Values >=6.5% are diagnostic for diabetes.REFERENCE: DIABETES CARE 2018: 41(S13-S27). EST AVERAGE GLUCOSE 120 mg/dL [facility] ID Date Data Source [id number] 09/12/2019 08:20:51 PM EST [facility] Name Value Range Interpretation Code Description Data Meme rce(s) Supporting Document(s) SODIUM 139 mmol/L (136-145) [facility] POTASSIUM 4.9 mmol/L (3.6-5.2) [facility] CHLORIDE 104 mmol/L (100-108) [facility] CO2 30 mmol/L (22-31) [facility] ANION GAP 5 mmol/L (7-16) L [facility] UREA NITROGEN 19 mg/dL (7-24) [facility] CREATININE 1.35 mg/dL (0.80-1.30) H [facility] [place] [facility] BUN/CREAT RATIO 14.1 RATIO (10.0-20.0) [facility] GLUCOSE 131 mg/dL (70-99) H [facility] [place] [facility] CALCIUM 9.6 mg/dL (8.4-10.2) [facility] [place] TOTAL PROTEIN 6.8 g/dL (6.4-8.2) [facility] [place] ALBUMIN 4.0 g/dL (3.2-4.5) [facility] [place] GLOBULIN 2.8 g/dL (2.7-4.3) [facility] [place] ALB/GLOB RATIO 1.4 RATIO [facility] [place] ALKALINE PHOSPHATASE 66 U/L (45-117) [facility] BILIRUBIN,TOTAL 0.9 mg/dL (0.0-1.0) [facility] [place] [facility] AST (SGOT) 9 U/L (11-39) L [facility] [place] ALT (SGPT) 27 U/L (12-78) [facility] [place] GFR 52 ml/min/1.73m2 (>59) L [facility] [place] GFR ( AMER) >60 ml/min/1.73m2 (>59) [facility] [place] GFR INTERPRETATION [facility] --NORMAL KIDNEY FUNCTION OR MILD DISEASE - GFR >OR= 60CHRONIC KIDNEY DISEASE - GFR 15 - 59RENAL FAILURE - GFR <15 Est. GFR calculation based on the MDRDstudy equation, which assumes a steadystate for creatinine. Est. GFR should notbe used for medication dosing. ID Date Data Source [id number] 09/12/2019 08:20:51 PM EST [facility] Name Value Range Interpretation Code Description Data Meme rce(s) Supporting Document(s) NT PRO BNP 30 pg/mL (0-125) [facility] [place] ID Date Data Source [id number] 09/12/2019 07:52:34 PM EST [facility] Name Value Range Interpretation Code Description Data Meme rce(s) Supporting Document(s) APTT 29.5 s (22.0-34.3) [facility] [place] ID Date Data Source [id number] 09/12/2019 07:52:34 PM EST [facility] Name Value Range Interpretation Code Description Data Meme rce(s) Supporting Document(s) PT 11.6 s (9.2-11.9) [facility] [place] INR 1.14 [facility] [place] SUGGESTED THERAPEUTIC RANGES USING INR F ORSTABILIZED ANTICOAGULATED PATIENTS:STANDARD DOSE THERAPY INR 2.0-3.0 DVT, PE, PREVENT DVT OR EMBOLISMHIGH DOSE THERAPY INR 2.5-3.5 PREVENT EMBOLISM FROM MECHANICAL HEART VALVE ID Date Data Source [id number] 09/12/2019 07:24:28 PM EST [facility] Name Value Range Interpretation Code Description Data Meme rce(s) Supporting Document(s) COLOR [facility] [place] [facility] APPEARANCE [facility] [place] SPEC GRAV URINE 1.017 (1.003-1.030) [facility] PH URINE 5.5 (5.0-7.5) [facility] [place] LEUK ESTERASE (NEG) [facility] [place] NITRITE URINE (NEG) [facility] [place] PROTEIN URINE (NEG) [facility] [place] GLUCOSE URINE (NEG) [facility] [place] [facility] KETONE URINE (NEG) [facility] [place] [facility] UROBILINOGEN 0.2 mg/dL (0-1.0) [facility] [place] [facility] BILIRUBIN URINE (NEG) [facility] [place] [facility] BLOOD/HGB URINE (NEG) [facility] [place] ID Date Data Source [id number] 09/12/2019 07:14:15 PM EST [facility] [place] Name Value Range Interpretation Code Description Data Meme rce(s) Supporting Document(s) WBC 8.0 10*3/uL (4.1-11.0) [facility] [place] [facility] RBC 5.40 10*6/uL (4.60-6.10) [facility] [place] [facility] HGB 15.8 g/dL (13.5-18.0) [facility] [place] HCT 46.7 % (41.0-53.0) [facility] [place] [facility] MCV 86.6 fL (80.0-95.0) [facility] [place] [facility] MCH 29.2 pg (27.0-32.0) [facility] [place] [facility] MCHC 33.7 g/dL (32.0-36.0) [facility] [place] [facility] RDW 13.8 % (10.5-14.5) [facility] [place] [facility] PLT 151 10*3/uL (150-450) [facility] [place] [facility] MPV 9.6 fL (7.1-10.7) [facility] [place] [facility] NEUT % 56.2 % (35.0-75.0) [facility] [place] [facility] LYMPH % 29.3 % (16.0-52.0) [facility] [place] [facility] MONO % 7.6 % (0.0-8.0) [facility] [place] [facility] EOS % 5.9 % (0.0-5.0) H [facility] [place] [facility] BASO % 1.0 % (0.0-4.0) [facility] [place] [facility] NEUT # 4.5 10*3/uL (1.8-7.7) [facility] LYMPH # 2.3 10*3/uL (1.2-4.8) [facility] MONO # 0.6 10*3/uL (0.0-0.8) [facility] Eosinophils [#/volume] in Blood by Automated count 0.5 10*3/uL (0.0-0 .5) [facility] BASO # 0.1 10*3/uL (0.0-0.2) [facility] ID Date Data Source [id number] 08/19/2019 10:09:00 AM EST [facility]) Name Value Range Interpretation Code Description Data Meme rce(s) Supporting Document(s) CPK Creatine Phosphokinase 65 U/L 39-308 Brittani l (applies to non-numeric results) [facility] ([facility]) MB/CK Relative Index 1.54 Normal (applies to non-num leeann results) [facility] ([facility]) <content>DIAGNOSIS CRITERIA</content>
<content>MMB ng/ml Relative Index (RI)</content>
<content>NON-AMI < or = 5 N/A</content>
<content>SADLER ZONE > 5 < or = 4</content>
<content>AMI > 5 > 4</content>
<content></content> CK-MB Value Mass 1.0 ng/mL Normal (applies to non-numeric results) [facility] ([facility]) Troponin I Laboratory test result Normal (applies to non-n umeric results) [facility] ([facility]) <content>Troponin I Reference Interval f or Siemens [place] LOCI:</content>
<content></content>
<content>99th Percentile= 0.00-0.045 ng/ml</content>
<content></content>
<content>Risk Stratification:</content>
<content><= 0.10 ng/ml Decreased Risk for Adverse Clinical</content>
<content>Events.</content>
<content>0.10-1.50 ng/ml Increased Risk for Adverse Clinical</content>
<content>Events. Evaluation of additional</content>
<content>criterion and/or repeat testing in 2-6</content>
<content>hours is suggested to rule out myocardial</content>
<content>damage.</content>
<content>>= 1.50 ng/ml Indicative of Myocardial Injury.</content>
<content></content> ID Date Data Source [id number] 08/19/2019 09:09:00 AM EST [facility] ([facility]) Name Value Range Interpretation Code Description Data Meme rce(s) Supporting Document(s) Troponin <0.02 [facility] ([facility]) ID Date Data Source [id number] 08/19/2019 09:09:00 AM EST [facility] ([facility]) Name Value Range Interpretation Code Description Data Meme rce(s) Supporting Document(s) CPK-MB 1.0 [facility] ([facility]) Creatine kinase [Enzymatic activity/volume] in Serum or Plasma 65 [facility] ([facility]) MB/CK Relative 1.54 [facility] ([facility]) ID Date Data Source [id number] 08/19/2019 09:08:00 AM EST [facility] ([facility]) Name Value Range Interpretation Code Description Data Meme rce(s) Supporting Document(s) Troponin <0.02 [facility] ([facility]) ID Date Data Source [id number] 08/19/2019 09:08:00 AM EST [facility] ([facility] Name Value Range Interpretation Code Description Data Meme rce(s) Supporting Document(s) Creatine kinase [Enzymatic activity/volume] in Serum or Plasma 83 [facility] ([facility]) MB/CK Relative 1.45 [facility] ([facility] CPK-MB 1.2 [facility] ID Date Data Source [id number] 08/19/2019 09:08:00 AM EST [facility] ([facility] Name Value Range Interpretation Code Description Data Meme rce(s) Supporting Document(s) Glucose 123 70-100 [facility] Blood Urea Nitrogen 22 7-18 [facility] ([facility] Potassium 4.2 3.5-5.1 [facility] Creatinine 1.38 0.70-1.30 [facility] ([facility]) Sodium 139 136-145 [facility] Carbon Dioxide 23 21-32 [facility] ([facility] Chloride 107 98-107 [facility] Calcium 8.6 8.2-9.6 [facility] Glomerular filtration rate/1.73 sq M.pre dicted [Volume Rate/Area] in Serum or Plasma by Creatinine-based formula (MDRD) 53.9 [facility] ([facility]) ID Date Data Source [id number] 08/19/2019 09:08:00 AM EST [facility] ([facility] Name Value Range Interpretation Code Description Data Meme rce(s) Supporting Document(s) Platelets 147 150-450 [facility] White Blood Count 7.5 4.0-10.0 [facility] Red Blood Count 5.22 4.30-6.10 [facility] ([facility] Hematocrit 45.8 [facility] ([facility]) Hemoglobin 15.0 [facility] ([facility]) ID Date Data Source [id number] 08/19/2019 06:30:00 AM EST [facility] ([facility]) Name Value Range Interpretation Code Description Data Meme rce(s) Supporting Document(s) Blood Urea Nitrogen 22 mg/dL 7-18 Above high normal [facility] ([facility]) Glucose, Fasting 123 mg/dL 70-100 Above high normal M [facility] ([facility]) Sodium Level 139 meq/L 136-145 Normal (applies to non-numeric res ults) [facility] ([facility]) Glomerular Filtration Rate 53.9 Normal (applies to n on-numeric results) [facility] ([facility]) <content>Units are mL/min/1.73 m2</content>
<content></content>
<content>Chronic Kidney Disease Staging per NKF:</content>
<content></content>
<content>Stage I & II GFR >=60 Normal to Mildly Decreased</content>
<content>Stage III GFR 30-59 Moderately Decreased</content>
<content>Stage IV GFR 15-29 Severely Decreased</content>
<content>Stage V GFR <15 Very Little GFR Left</content>
<content>ESRD GFR <15 on EQUAL OPPORTUNITY REPRESENTATIVE</content>
<content></content> Creatinine For GFR 1.38 mg/dL 0.70-1.30 Above high normal [facility] ([facility]) Carbon Dioxide Level 23 meq/L 21-32 Normal (applies to non-num leeann results) [facility] ([facility]) Potassium Serum 4.2 meq/L 3.5-5.1 Normal (applies to non-numeric results) [facility] ([facility]) Chloride Level 107 meq/L 98-107 Normal (applies to non-numeric r esults) [facility] ([facility]) Calcium Level 8.6 mg/dL 8.8-10.2 Below low normal [facility] ([facility]) Anion Gap 9 meq/L 8-16 Normal (applies to non-numeric resul ts) [facility] ([facility]) ID Date Data Source [id number] 08/19/2019 06:30:00 AM EST [facility] ([facility]) Name Value Range Interpretation Code Description Data Meme rce(s) Supporting Document(s) CPK Creatine Phosphokinase 83 U/L 39-308 Brittani l (applies to non-numeric results) [facility] ([facility]) CK-MB Value Mass 1.2 ng/mL Normal (applies to non-numeric results) [facility] ([facility]) Troponin I Laboratory test result Normal (applies to non-n umeric results) [facility]) <content>Troponin I Reference Interval f or Siemens [place] LOCI:</content>
<content></content>
<content>99th Percentile= 0.00-0.045 ng/ml</content>
<content></content>
<content>Risk Stratification:</content>
<content><= 0.10 ng/ml Decreased Risk for Adverse Clinical</content>
<content>Events.</content>
<content>0.10-1.50 ng/ml Increased Risk for Adverse Clinical</content>
<content>Events. Evaluation of additional</content>
<content>criterion and/or repeat testing in 2-6</content>
<content>hours is suggested to rule out myocardial</content>
<content>damage.</content>
<content>>= 1.50 ng/ml Indicative of Myocardial Injury.</content>
<content></content> MB/CK Relative Index 1.45 Normal (applies to non-num leeann results) [facility]) <content>DIAGNOSIS CRITERIA</content>
<content>MMB ng/ml Relative Index (RI)</content>
<content>NON-AMI < or = 5 N/A</content>
<content>SADLER ZONE > 5 < or = 4</content>
<content>AMI > 5 > 4</content>
<content></content> ID Date Data Source [id number] 08/19/2019 06:30:00 AM EST [facility] ([facility]) Name Value Range Interpretation Code Description Data Meme rce(s) Supporting Document(s) White Blood Count 7.5 10 4.0-10.0 Normal (applies to non-numeri c results) [facility] ([facility]) Hemoglobin 15.0 g/dL 13.5-17.5 Normal (applies to non-numeric resul ts) [facility] ([facility]) Red Blood Count 5.22 10 4.30-6.10 Normal (applies to non-numeric results) [facility] ([facility]) Hematocrit 45.8 % 42.0-52.0 Normal (applies to non-numeric resul ts) [facility] ([facility]) Mean Corpuscular HGB Conc 32.8 g/dL 32.0-36.5 Normal (applies to non-numeric results) [facility] ([facility]) Mean Corpuscular Volume 87.7 fl 80.0-96.0 Normal ( applies to non-numeric results) [facility] ([facility]) Mean Corpuscular Hemoglobin 28.7 pg 27.0-33.0 Norm al (applies to non-numeric results) [facility] ([facility]) Neutrophils % 56.5 % 36.0-66.0 Normal (applies to non-numeric re sults) [facility] ([facility]) Platelet Count, Automated 147 10 150-450 Below low [facility] Red Cell Distribution Width 12.7 % 11.5-14.5 Norm al (applies to non-numeric results) [facility] ([facility]) [place] % 7.5 % 0.0-5.0 Above high normal [facility] ([facility]) Lymph % 29.4 % 24.0-44.0 Normal (applies to non-numeric resul ts) [facility] ([facility]) Eos % 5.3 % 0.0-3.0 Above high normal [facility] ([facility]) Immature Granulocyte % 0.5 % 0-3.0 Normal (applies to non-n umeric results) [facility] ([facility]) Nucleated Red Blood Cell % 0.0 % 0-0 Normal (applies to n on-numeric results) [facility] ([facility]) Baso % 0.8 % 0.0-1.0 Normal (applies to non-numeric resul ts) [facility] ([facility]) Neutrophils # 4.2 10 1.5-8.5 Normal (applies to non-numeric re sults) [facility] ([facility]) Lymph # 2.2 10 1.5-5.0 Normal (applies to non-numeric resul ts) [facility] ([facility]) [place] # 0.6 10 0.0-0.8 Normal (applies to non-numeric resul ts) [facility] ([facility]) Baso # 0.1 10 0.0-0.2 Normal (applies to non-numeric resul ts) [facility] ([facility]) Eos # 0.4 10 0.0-0.5 Normal (applies to non-numeric resul ts) [facility] ([facility]) Procedure Social History Code Duration Value Status Description Data Source(s ) Smoking 09/28/2020 12:00:00 AM EST Never Smoker completed Never S moker eCW1 ([facility]) Smoking 10/19/2019 12:00:00 AM EST Patient has never smoked co mpleted Patient has never smoked [facility] ([facility]) Smoking 09/30/2019 12:00:00 AM EST Never Smoker completed Never S moker eCW1 ([facility]) Alcohol intake 09/20/2019 12:00:00 AM EST Yes completed [facility] Smoking 09/20/2019 12:00:00 AM EST [facility] 09[facility]12/2019 12:00:00 AM EST Yes completed [facility] Smoking 09/12/2019 12:00:00 AM EST Never smoker completed Never s [facility] Vital Signs ID Date Data Source UNK Name Value Range Interpretation Code Description Data Source(s) Body surface area Derived from formula 2.31 m2 2.31 m2 [facility] ([facility]) Body mass index (BMI) [Ratio] 35.5 kg/m2 35.5 k g/m2 [facility] ([facility]) Body height 70.5 [in_i] 70.5 [in_i] [facility] ([facility]) 5'10.50" Body weight 113.854 kg 113.854 kg [facility] ([facility]) Body weight 251.00 [lb_av] 251.00 [lb_av] [facility] T ([facility]) Oxygen saturation in Arterial blood by Pulse oximetry 98 % 98 % [facility] ([facility]) Respiratory rate 16 /min 16 /min [facility] ( [facility]) Body temperature 97.2 [degF] 97.2 [degF] [facility] ([facility]) Heart rate 55 /min 55 /min [facility] ([facility]) Diastolic blood pressure 60 mm[Hg] 60 mm[Hg] [facility] ([facility]) Systolic blood pressure 110 mm[Hg] 110 mm[Hg] M [facility] ([facility]) Diastolic blood pressure 74 mm[Hg] 74 mm[Hg] eCW1 ([facility]) Systolic blood pressure 124 mm[Hg] 124 mm[Hg] e CW1 ([facility]) Body mass index (BMI) [Ratio] 36.73 kg/m2 36.73 kg/m2 W1 ([facility]) Body height 70 [in_i] 70 [in_i] eCW1 ([facility]) Body weight 256 [lb_av] 256 [lb_av] eCW1 ([facility]) Body surface area Derived from formula 2.34 m2 2.34 m2 [facility] ([facility]) Body mass index (BMI) [Ratio] 36.6 kg/m2 36.6 k g/m2 [facility] ([facility]) Body height 70.5 [in_i] 70.5 [in_i] [facility] ([facility]) 5'10.50" Body weight 117.482 kg 117.482 kg [facility] ([facility]) Body weight 259.00 [lb_av] 259.00 [lb_av] [facility] T ([facility]) Oxygen saturation in Arterial blood by Pulse oximetry 96 % 96 % [facility] ([facility]) Respiratory rate 18 /min 18 /min [facility] ( [facility]) Body temperature 97.3 [degF] 97.3 [degF] [facility] ([facility]) Heart rate 70 /min 70 /min [facility] ([facility]) Diastolic blood pressure 78 mm[Hg] 78 mm[Hg] [facility] ([facility]) just took his meds before he came forgot this am Systolic blood pressure 142 mm[Hg] 142 mm[Hg] M [facility] ([facility]) just took his meds before he came forgot this am Body surface area Derived from formula 2.31 m2 2.31 m2 [facility] ([facility]) Body mass index (BMI) [Ratio] 35.4 kg/m2 35.4 k g/m2 [facility] ([facility]) Body height 70.5 [in_i] 70.5 [in_i] [facility] ([facility]) 5'10.50" Body weight 113.400 kg 113.400 kg [facility] ([facility]) Body weight 250.00 [lb_av] 250.00 [lb_av] [facility] T ([facility]) Oxygen saturation in Arterial blood by Pulse oximetry 98 % 98 % [facility] ([facility]) Respiratory rate 16 /min 16 /min [facility] ( [facility]) Body temperature 97.1 [degF] 97.1 [degF] [facility] ([facility]) Heart rate 68 /min 68 /min [facility] ([facility]) Diastolic blood pressure 80 mm[Hg] 80 mm[Hg] [facility] ([facility]) Systolic blood pressure 118 mm[Hg] 118 mm[Hg] [facility] Body weight 112.946 kg 112.946 kg [facility] ([facility]) Body weight 249.00 [lb_av] 249.00 [lb_av] [facility] T ([facility]) Oxygen saturation in Arterial blood by Pulse oximetry 96 % 96 % [facility] Respiratory rate 18 /min 18 /min [facility]) Body temperature 97.4 [degF] 97.4 [degF] [facility] ([facility]) Heart rate 53 /min 53 /min [facility]) Diastolic blood pressure 66 mm[Hg] 66 mm[Hg] [facility] ([facility]) Systolic blood pressure 112 mm[Hg] 112 mm[Hg] M [facility]ENT ([facility]) Body weight 112.039 kg 112.039 kg [facility] ([facility]) Body weight 247.00 [lb_av] 247.00 [lb_av] [facility] T ([facility]) Oxygen saturation in Arterial blood by Pulse oximetry 97 % 97 % [facility] ([facility]) Respiratory rate 18 /min 18 /min [facility] ( [facility]) Body temperature 97.4 [degF] 97.4 [degF] [facility] ([facility]) Heart rate 57 /min 57 /min [facility]) Diastolic blood pressure 62 mm[Hg] 62 mm[Hg] [facility] ([facility]) Systolic blood pressure 124 mm[Hg] 124 mm[Hg] [facility] ([facility]) Body surface area Derived from formula 2.30 m2 2.30 m2 [facility] ([facility], ) Body weight 112.493 kg 112.493 kg [facility] ([facility], ) [place] body weight 166 [lb_av] 166 [lb_av] [facility] Body mass index (BMI) [Ratio] 35.1 kg/m2 35.1 k g/m2 [facility] ([facility], ) Body weight 248.00 [lb_av] 248.00 [lb_av] [facility] Body height 70.5 [in_i] 70.5 [in_i] [facility] ([facility], ) 5'10.50" Diastolic blood pressure 64 mm[Hg] 64 mm[Hg] [facility] ([facility], ) Systolic blood pressure 112 mm[Hg] 112 mm[Hg] M EDENT ([facility]) Diastolic blood pressure--sitting 58 mm[Hg] 58 mm[Hg] [facility] ([facility]) large cuff, Ra Systolic blood pressure--sitting 108 mm[Hg] 108 mm[Hg] [facility] ([facility]) large cuff, Ra Heart rate 57 /min 57 /min [facility] ([facility]) Body mass index (BMI) [Ratio] 35.9 kg/m2 35.9 k g/m2 [facility] ([facility]) Body height 70 [in_i] 70 [in_i] [facility] 5'10" Body weight 250.00 [lb_av] 250.00 [lb_av] [facility] T ([facility]) Body weight 115.668 kg 115.668 kg [facility] ([facility]) Body weight 255.00 [lb_av] 255.00 [lb_av] [facility] T ([facility]) Oxygen saturation in Arterial blood by Pulse oximetry 95 % 95 % [facility] ([facility]) Respiratory rate 18 /min 18 /min [facility] ( [facility]) Body temperature 97.8 [degF] 97.8 [degF] [facility] ([facility]) Heart rate 55 /min 55 /min [facility] ([facility]) Diastolic blood pressure 62 mm[Hg] 62 mm[Hg] [facility] ([facility]) Systolic blood pressure 120 mm[Hg] 120 mm[Hg] M [facility]ENT ([facility]) Body mass index (BMI) [Ratio] 36.73 kg/m2 36.73 kg/m2 eCW1 ([facility]) Body height 70 [in_us] 70 [in_us] eCW1 ([facility]) Body weight Measured 256.0 [lb_av] 256.0 [lb_av ] eCW1 ([facility]) Diastolic blood pressure 70 mm[Hg] 70 mm[Hg] eCW1 ([facility]) Systolic blood pressure 127 mm[Hg] 127 mm[Hg] e CW1 ([facility]) Body temperature 97.8 [degF] 97.8 [degF] eCW1 ( [facility]) Respiratory rate 18 /min 18 /min eCW1 ([facility]) Heart rate 60 /min 60 /min eCW1 ([facility]) Heart rate 64 /min 64 /min [facility] Diastolic blood pressure 66 mm[Hg] 66 mm[Hg] [facility] Systolic blood pressure 130 mm[Hg] 130 mm[Hg] [facility] Oxygen saturation in Arterial blood by Pulse oximetry 95 % 95 % [facility] Respiratory rate 17 /min 17 /min [facility] Body temperature 36.56 Sadia 36.56 Sadia [facility] Body mass index (BMI) [Ratio] 35.89 kg/m2 35.89 kg/m2 [facility] Body weight 115.1 kg 115.1 kg [facility] Body height 179.1 cm 179.1 cm [facility] Diastolic blood pressure 74 mm[Hg] 74 mm[Hg] [facility] Systolic blood pressure 128 mm[Hg] 128 mm[Hg] [facility] Oxygen saturation in Arterial blood by Pulse oximetry 98 % 98 % [facility] Body mass index (BMI) [Ratio] 36.07 kg/m2 36.07 kg/m2 [facility] Body weight 115.667 kg 115.667 kg [facility] Body height 179.1 cm 179.1 cm [facility] Heart rate 59 /min 59 /min [facility] Patient Treatment Plan of Care Planned Activity Planned Date Details Description Data Source (s) Amoxicillin 500 MG Oral Capsule 09/20/2019 12:00:00 AM EST [facility] Aspirin 81 MG Delayed Release Oral Tablet 09/20/2019 12:00:00 AM T [facility] clopidogrel 75 MG Oral Tablet 09/20/2019 12:00:00 AM EST [facility] Lidocaine Hydrochloride 20 MG/ML Mucous Membrane Topic al Solution 07/14/2019 12:00:00 AM EST [facility] cilostazol 100 MG Oral Tablet [facility] Aspirin 325 MG Oral Tablet S [facility] cilostazol 100 MG Oral Tablet [facility]
[2020-10-18] MEDS ORDERED: ISOVUE-370 76% 100ML VIAL As Ordered ONE (04:38)
--- NOTE | 2020-10-18 04:43 | REPVR ---
PROCEDURE INFORMATION: Exam: CT Angiography Chest With Contrast Exam date and time: 10/18/2020 3:21 AM Age: 75 years old Clinical indication: Left-sided chest pain; Additional info: Pleuritic left chest pain TECHNIQUE: Imaging protocol: Computed tomographic angiography of the chest with contrast. 3D rendering (Not supervised by radiologist): MIP and/or 3D reconstructed images were created by the technologist. Radiation optimization: All CT scans at this facility use at least one of these dose optimization techniques: automated exposure control; mA and/or kV adjustment per patient size (includes targeted exams where dose is matched to clinical indication); or iterative reconstruction. Contrast material: ISO; Contrast volume: 75 ml; Contrast route: INTRAVENOUS (IV); COMPARISON: NM PORTABLE CHEST X-RAY 10/17/2020 4:25 PM FINDINGS: Pulmonary arteries: The pulmonary trunk is normal in size measuring 2.4 cm. Aorta: The patient is status post aortic root repair. The thoracic aorta is normal in caliber. Evaluation for dissection is not feasible due to non opacification of the aorta. Lungs: See "Pleural spaces" finding. Pleural spaces: There is a 6 mm pleural base nodule along the superior aspect of the left major fissure on axial image 86. There are mild bibasilar atelectatic lung changes. Heart: The heart is normal in size. There is moderate coronary vascular calcifications. There is no pericardial effusion. Lymph nodes: Unremarkable. No enlarged lymph nodes. Spleen: The spleen is mildly enlarged measuring 14 centimetres. The main portal vein is dilated measuring 2 centimetres. Bones/joints: Multilevel thoracic spine endplate Schmorl's nodes seen with multilevel anterior disc osteophyte complex formation. Lower cervical spine DJD seen. Soft tissues: Unremarkable. IMPRESSION: 1. No CT evidence of pulmonary embolism or right heart strain. 2. No focal consolidation. Nonspecific mild bilateral basilar atelectatic changes seen. 3. 6 mm pleural base nodule along the superior aspect of the left major fissure. - For patients at low risk (minimal or absent history of smoking and of other known risk factors), recommend CT Chest at 6-12 months, then consider CT Chest at 18-24 months. - For patients at high risk (history of smoking or of other known risk factors), recommend CT Chest at 6-12 months, then CT Chest at 18-24 months. (Reference: Danyelle) 4. Mild splenomegaly with dilated main portal vein at 2 cm suggestive of an element of portal hypertension. REFERENCES: Danyelle Campbell, et al. Guidelines for Management of Incidental Pulmonary Nodules Detected on CT Images: From the Fleischner Society 2017. Radiology. 2017;284(1):228-243. Electronically signed by: Leon Amaya On 10/18/2020 04:44:07 AM
[2020-10-18 05:51] VITALS: BP 137/66
--- NOTE | 2020-10-18 09:38 | ECGEPIP ---
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
--- NOTE | 2020-10-18 11:49 | ED PDOC ---
Post-Departure Follow-Up cta chest faxed to dr reddy for fu Alyx Rogers MD Oct 18, 2020 11:49
== END 2020-10-18 05:53 | disposition home or self-care (01) ==
LOC: M ED 01:34
DX: R09.1 Pleurisy (principal); R91.1 Solitary pulmonary nodule; R94.31 Abnormal electrocardiogram [ECG] [EKG]; I11.9 Hypertensive heart disease without heart failure; E78.5 Hyperlipidemia, unspecified; Z88.9 Allergy status to unspecified drugs, medicaments and biological substances; Z79.82 Long term (current) use of aspirin; Z79.899 Other long term (current) drug therapy
CPT/HCPCS: 71275; 80047; 80076; 83690; 84484; 85025; 85610; 93005; 93041; 94760; 96374; 99285; J1885

== ENCOUNTER → 2020-12-31 | Outpatient (CLI) | payer MEDICARE, OTHER ==
[2020-12-31 14:28] LABS: ALBUMIN 3.9 GM/DL (3.2-5.2); ALT/SGPT 21 U/L (12-78); BILIRUBIN,TOTAL 0.9 MG/DL (0.2-1.0); BLOOD UREA NITROGEN 18 MG/DL (7-18); CALCIUM LEVEL 9.6 MG/DL (8.8-10.2); CARBON DIOXIDE LEVEL 32 MEQ/L (21-32); CHLORIDE LEVEL 105 MEQ/L (98-107); CHOLESTEROL LEVEL 145 MG/DL (<200); CHOLESTEROL RISK RATIO 3.152 (<5); GLOMERULAR FILTRATION RATE > 60.0 (>42); GLUCOSE, FASTING 108 MG/DL (70-100); HDL CHOLESTEROL 46 MG/DL (>40); LDL CHOLESTEROL 73 MG/DL (<100); NON-HDL-C 99 MG/DL; POTASSIUM SERUM 4.1 MEQ/L (3.5-5.1); SODIUM LEVEL 140 MEQ/L (136-145); TOTAL PROTEIN 6.6 GM/DL (6.4-8.2); TRIGLYCERIDES LEVEL 132 MG/DL (<150)
== END ==
LOC: M LAB 13:02
PROVIDERS: ATTEND Physician Assistant
DX: I11.9 Hypertensive heart disease without heart failure (principal)

== ENCOUNTER → 2021-03-22 | Outpatient (CLI) | payer MEDICARE, OTHER ==
[2021-03-22 15:12] LABS: BLOOD UREA NITROGEN 23 MG/DL (7-18); CREATININE FOR GFR 1.22 MG/DL (0.70-1.30); GLOMERULAR FILTRATION RATE > 60.0 (>42)
== END ==
LOC: M LAB 14:24
PROVIDERS: ATTEND Surgery Vascular Surgery
DX: I70.213 Atherosclerosis of native arteries of extremities with intermittent claudication, bilateral legs (principal)

== ENCOUNTER → 2021-04-01 | Outpatient (CLI) | payer MEDICARE, OTHER ==
[~2021-04-01] MED LIST changes: +ISOVUE-370 76% 100ML VIAL As Ordered ONE; +LOSA100T45 PO; -LOSA100T50 PO; -TERB250T12 PO; +TERB250T91 PO
== END ==
LOC: M RAD 13:43
PROVIDERS: ATTEND Surgery Vascular Surgery
DX: I70.213 Atherosclerosis of native arteries of extremities with intermittent claudication, bilateral legs (principal)
CPT/HCPCS: 75635; Q9967

== ENCOUNTER → 2022-04-16 | Outpatient (CLI) | payer MEDICARE, OTHER ==
[~2022-04-16] MED LIST changes: -ISOVUE-370 76% 100ML VIAL As Ordered ONE
== END ==
LOC: M LABSMTC 09:25
PROVIDERS: ATTEND Anesthesiology
DX: Z01.818 Encounter for other preprocedural examination (principal); Z11.52 Encounter for screening for COVID-19

== ENCOUNTER → 2022-06-26 | Outpatient (CLI) | payer MEDICARE, OTHER ==
[~2022-06-26] MED LIST changes: -CILO100T; +CILO100T3; +CILO100T3 PO; +CLOP75TA99 PO; +ECOT81TA5 PO; +ERGO500029 PO; +GABA800T4 PO; -PLAV1TAB2 PO
== END ==
LOC: M LABSMTC 10:53
PROVIDERS: ATTEND Anesthesiology
DX: Z01.812 Encounter for preprocedural laboratory examination (principal); Z20.822 Contact with and (suspected) exposure to COVID-19

== ENCOUNTER 2023-09-24 18:37 | Emergency (ER) | payer MEDICARE, OTHER ==
[~2023-09-24] VITALS: Ht 177.8 cm; Wt 114.4 kg
[~2023-09-24 18:37] MED LIST changes: -LOSA100T45 PO; +LOSA100T46 PO
[2023-09-24] MEDS ORDERED: CLOP75TA2 (18:52)
[2023-09-24 19:47] LABS: BASO # 0.1 10^3/uL (0.0-0.2); BASO % 0.8 % (0.0-1.0); EOS # 0.3 10^3/uL (0.0-0.5); EOS % 4.5 % (0.0-3.0); HEMATOCRIT 44.3 % (42.0-52.0); HEMOGLOBIN 15.4 g/dl (13.5-17.5); LYMPH # 1.9 10^3/uL (1.5-5.0); LYMPH % 31.3 % (24.0-44.0); MEAN CORPUSCULAR HEMOGLOBIN 29.6 pg (27.0-33.0); MEAN CORPUSCULAR HGB CONC 34.8 g/dl (32.0-36.5); MEAN CORPUSCULAR VOLUME 85.2 fl (80.0-96.0); MONO # 0.5 10^3/uL (0.0-0.8); MONO % 8.2 % (2.0-8.0); NEUTROPHILS # 3.3 10^3/uL (1.5-8.5); NEUTROPHILS % 54.9 % (36.0-66.0); PLATELET COUNT, AUTOMATED 135 10^3/uL (150-450)
[2023-09-24 19:57] LABS: ERYTHROCYTE SEDIMENTATION RATE 3 mm/hr (0-20)
[2023-09-24 20:00] LABS: INR 1.15; PARTIAL THROMBOPLASTIN TIME 27.3 SECONDS (24.8-34.2); PROTHROMBIN TIME 14.4 SECONDS (12.5-14.5)
[2023-09-24 20:09] LABS: C REACTIVE PROTEIN QUANTITATIV < 0.40 MG/DL (<1.0)
[2023-09-24 20:15] LABS: ALBUMIN 3.8 G/DL (3.2-5.2); ALKALINE PHOSPHATASE 62 U/L (46-116); ALT/SGPT 20 U/L (7.0-40); AST/SGOT 30 U/L (<34); BILIRUBIN,DIRECT 0.2 MG/DL (<0.4); BILIRUBIN,TOTAL 0.7 MG/DL (0.3-1.2); BLOOD UREA NITROGEN 21 MG/DL (9-23); CARBON DIOXIDE LEVEL 26 MMOL/L (20-31); CHLORIDE LEVEL 106 MMOL/L (98-107); CREATININE FOR GFR 1.17 MG/DL (0.70-1.30); GLOMERULAR FILTRATION RATE > 60.0 (>42); GLUCOSE, FASTING 134 MG/DL (74-106); POTASSIUM SERUM 4.6 MMOL/L (3.5-5.1); SODIUM LEVEL 141 MMOL/L (136-145); TOTAL PROTEIN 6.4 G/DL (5.7-8.2)
[2023-09-24 20:51] VITALS: BP 128/62; TEMP 97.8; O2SAT 99
== END 2023-09-24 21:00 | disposition home or self-care (01) ==
LOC: M ED 18:37
DX: I70.211 Atherosclerosis of native arteries of extremities with intermittent claudication, right leg (principal); M79.604 Pain in right leg; I10 Essential (primary) hypertension; F12.10 Cannabis abuse, uncomplicated; Z79.02 Long term (current) use of antithrombotics/antiplatelets; Z79.891 Long term (current) use of opiate analgesic; Z79.899 Other long term (current) drug therapy

== ENCOUNTER 2024-01-26 10:59 | Observation (INO) | payer MEDICARE, OTHER ==
[~2024-01-26] VITALS: Ht 177.8 cm; Wt 111.4 kg
[2024-01-26] MEDS: ATORVASTATIN 20 MG TAB PO SCH (09:00)
[2024-01-26] MEDS: ASPIRIN 81MG CHEW TABLET PO SCH (09:00)
[~2024-01-26 10:59] MED LIST changes: +CLOP75TA2
[2024-01-26 11:47] LABS: BASO # 0.1 10^3/uL (0.0-0.2); EOS # 0.4 10^3/uL (0.0-0.5); EOS % 4.5 % (0.0-3.0); HEMATOCRIT 47.4 % (42.0-52.0); HEMOGLOBIN 16.4 g/dl (13.5-17.5); LYMPH # 2.5 10^3/uL (1.5-5.0); LYMPH % 28.2 % (24.0-44.0); MEAN CORPUSCULAR HEMOGLOBIN 29.4 pg (27.0-33.0); MEAN CORPUSCULAR HGB CONC 34.6 g/dl (32.0-36.5); MEAN CORPUSCULAR VOLUME 85.1 fl (80.0-96.0); MONO # 0.7 10^3/uL (0.0-0.8); MONO % 7.9 % (2.0-8.0); NEUTROPHILS % 57.8 % (36.0-66.0); PLATELET COUNT, AUTOMATED 150 10^3/uL (150-450); RED BLOOD COUNT 5.57 10^6/uL (4.30-6.10); WHITE BLOOD COUNT 8.7 10^3/uL (4.0-10.0)
[2024-01-26 12:00] LABS: INR 1.12; PROTHROMBIN TIME 14.1 SECONDS (12.5-14.5)
[2024-01-26 12:03] LABS: LIPASE 27 U/L (12-53)
[2024-01-26 12:05] LABS: ALBUMIN 4.1 G/DL (3.2-5.2); ALKALINE PHOSPHATASE 83 U/L (46-116); ALT/SGPT 22 U/L (7.0-40); AST/SGOT 11 U/L (<34); BILIRUBIN,DIRECT 0.5 MG/DL (<0.4); BILIRUBIN,TOTAL 1.6 MG/DL (0.3-1.2); CK-MB VALUE MASS < 1.0 NG/ML (<3.6); CPK CREATINE PHOSPHOKINASE 62 U/L (46-171); MB/CK RELATIVE INDEX 1.61 (< OR =4); TOTAL PROTEIN 6.6 G/DL (5.7-8.2)
[2024-01-26] MEDS: diazePAM 10MG/2ML SYRINGE IV ONE (12:05)
[2024-01-26] MEDS: ONDANSETRON 4MG 2ML VIAL IV ONE (12:05)
[2024-01-26] MEDS: MECLIZINE 25 MG TABLET PO ONE (14:01)
[2024-01-26] MEDS: CARVedilol 12.5 MG TAB PO ONE (16:10)
[2024-01-26] MEDS ORDERED: MECL-86 PO (16:54)
[2024-01-26] MEDS: CHLORTHALIDONE 12.5MG PER 1/2 TABLET PO ONE (17:16)
[2024-01-26 17:24] LABS: IONIZED CALCIUM 4.7 MG/DL (4.5-5.3)
[2024-01-26 17:58] LABS: CK-MB VALUE MASS < 1.0 NG/ML (<3.6); POTASSIUM SERUM 3.8 MMOL/L (3.5-5.1)
[2024-01-26 17:59] LABS: CHOLESTEROL RISK RATIO 3.68 (<5); CPK CREATINE PHOSPHOKINASE 46 U/L (46-171); HDL CHOLESTEROL 34.7 MG/DL (>40); LDL CHOLESTEROL 74.5 MG/DL (<100); MB/CK RELATIVE INDEX 2.17 (< OR =4); NON-HDL-C 93.3 MG/DL
[2024-01-26] MEDS: CALCIUM GLUCONATE 1,000 MG in D5W MINI-BAG PLUS 100 ML IV ONE (18:35)
[2024-01-26] MEDS ORDERED: CARVedilol 12.5 MG TAB PO SCH ×2 (19:15→21:00)
[2024-01-26] MEDS: MECLIZINE 25 MG TABLET PO SCH (19:56)
[2024-01-26] MEDS: CILOSTAZOL 100 MG TAB (PLETAL) PO SCH (20:54)
[2024-01-26] MEDS ORDERED: HOME MED LIST COMPLETE! XX SCH (21:40)
[2024-01-26] MEDS: ONDANSETRON 4MG ORAL DISINTEGRATING TAB PO PRN (22:00)
[2024-01-26 22:49] LABS: CK-MB VALUE MASS < 1.0 NG/ML (<3.6)
[2024-01-26 22:50] LABS: CPK CREATINE PHOSPHOKINASE 51 U/L (46-171); MB/CK RELATIVE INDEX 1.96 (< OR =4)
[2024-01-27] MEDS: ISOSORBIDE DIN. (ISORDIL) 20 MG TAB PO SCH
[2024-01-27 05:00] LABS: HEMATOCRIT 44.2 % (42.0-52.0); HEMOGLOBIN 15.1 g/dl (13.5-17.5); MEAN CORPUSCULAR HEMOGLOBIN 29.4 pg (27.0-33.0); MEAN CORPUSCULAR HGB CONC 34.2 g/dl (32.0-36.5); MEAN CORPUSCULAR VOLUME 86.2 fl (80.0-96.0); PLATELET COUNT, AUTOMATED 142 10^3/uL (150-450); RED BLOOD COUNT 5.13 10^6/uL (4.30-6.10); WHITE BLOOD COUNT 8.7 10^3/uL (4.0-10.0)
[2024-01-27 05:28] LABS: CK-MB VALUE MASS < 1.0 NG/ML (<3.6)
[2024-01-27 05:29] LABS: CPK CREATINE PHOSPHOKINASE 44 U/L (46-171); MB/CK RELATIVE INDEX 2.27 (< OR =4)
[2024-01-27 05:34] LABS: ALBUMIN 3.8 G/DL (3.2-5.2); ALKALINE PHOSPHATASE 78 U/L (46-116); ALT/SGPT 21 U/L (7.0-40); AST/SGOT 10 U/L (<34); BILIRUBIN,TOTAL 1.4 MG/DL (0.3-1.2); BLOOD UREA NITROGEN 15 MG/DL (9-23); CALCIUM LEVEL 9.7 MG/DL (8.3-10.6); CARBON DIOXIDE LEVEL 27 MMOL/L (20-31); CHLORIDE LEVEL 104 MMOL/L (98-107); GLOMERULAR FILTRATION RATE > 60.0 (>42); GLUCOSE, FASTING 128 MG/DL (74-106); MAGNESIUM LEVEL 1.9 MG/DL (1.8-2.4); POTASSIUM SERUM 3.6 MMOL/L (3.5-5.1); SODIUM LEVEL 138 MMOL/L (136-145); TOTAL PROTEIN 6.3 G/DL (5.7-8.2)
[2024-01-27 05:36] LABS: FREE THYROXINE INDEX 2.4 % (1.4-3.8); T UPTAKE 38.2 % (22.5-37.0); THYROID STIMULATING HORMONE 2.107 uIU/ML (0.55-4.78); THYROXINE (T4) 6.4 UG/DL (4.5-10.9)
[2024-01-27] MEDS ORDERED: ACETAMINOPHEN TAB 650MG DOSE (2X325MG) PO PRN (08:25)
[2024-01-27] MEDS: NS 500 ML IV ONE (08:28)
[2024-01-27] MEDS: CARVedilol 3.125 MG TAB PO SCH (08:28)
[2024-01-27] MEDS: amLODIPine 5 MG TAB PO SCH (08:28)
[2024-01-27] MEDS ORDERED: CLOPIDOGREL 75 MG TAB PO SCH (09:00)
[2024-01-27] MEDS: FIORICET TAB PO ONE (09:16)
[2024-01-27] MEDS: ONDANSETRON 4MG 2ML VIAL IV ONE (09:16)
[2024-01-27] MEDS: MECLIZINE 25 MG TABLET PO SCH (11:51)
[2024-01-27] MEDS ORDERED: ONDANSETRON 4MG 2ML VIAL IV PRN (12:30)
[2024-01-27] MEDS: NS 1,000 ML IV SCH (13:36)
[2024-01-27 15:03] VITALS: BP 136/68; TEMP 97.7; O2SAT 93
[2024-01-27 20:00] VITALS: BP 120/56; TEMP 97.5; O2SAT 93
[2024-01-28 04:00] VITALS: BP 118/54; TEMP 97.7; O2SAT 94
[2024-01-28 10:00] VITALS: BP 123/59; TEMP 97.5; O2SAT 96
[2024-01-28] MEDS ORDERED: LOSA25TA13 PO (10:24)
[2024-01-28] MEDS ORDERED: MECL-209 PO (10:24)
[2024-01-28] MEDS ORDERED: ASPI81CH8 PO (10:25)
[2024-01-28] MEDS ORDERED: CARV3.12 PO (10:25)
[2024-01-28] MEDS: LOSARTAN 25 MG TAB PO SCH (11:13)
[2024-01-28] MEDS: CAPSAICIN 0.025% CR 60 GM TOP SCH (11:25)
[2024-01-28] MEDS: LIDOCAINE 5% (LIDODERM) PATCH TD SCH (11:26)
[2024-01-28 12:00] VITALS: BP 138/73; TEMP 97.5; O2SAT 96
[2024-01-28 16:00] VITALS: BP 136/71; TEMP 98.1; O2SAT 97
[2024-01-29 00:30] VITALS: BP 135/71; TEMP 97.5; O2SAT 96
[2024-01-29 04:30] VITALS: BP 146/74; TEMP 97.9; O2SAT 98
[2024-01-29 08:00] VITALS: BP 150/74; TEMP 97.5; O2SAT 97
[2024-01-29 08:01] VITALS: BP 95/74
== END 2024-01-29 11:01 | disposition home or self-care (01) ==
LOC: M ED 10:59 → M ED INP 16:44 → M MSPAV 01-27 15:18
PROVIDERS: ADMIT General Practice; ATTEND Family Medicine
DX: H81.4 Vertigo of central origin (principal); E86.0 Dehydration; R41.82 Altered mental status, unspecified; B02.29 Other postherpetic nervous system involvement; R26.89 Other abnormalities of gait and mobility; Z79.899 Other long term (current) drug therapy; I25.10 Atherosclerotic heart disease of native coronary artery without angina pectoris; E78.5 Hyperlipidemia, unspecified; Z95.2 Presence of prosthetic heart valve; E66.9 Obesity, unspecified
CPT/HCPCS: 36415; 70450; 70544; 70551; 71045; 74018; 80047; 80053; 80061; 80076; 82330; 82550; 82553; 83690; 83735; 84132; 84436; 84443; 84479; 84484; 85025; 85027; 85610; 93005; 93041; 93306; 94660; 94760; 96361; 96374; 96375; 96376; 97112; 97116; 97161; 97530; 99285; G0378; J0612; J2405; J3360

== ENCOUNTER → 2024-07-14 | Outpatient (CLI) | payer MEDICARE, OTHER ==
[~2024-07-14] MED LIST changes: +ASPI81CH8 PO; +CARV3.12 PO; +GABA-1635 PO; -GABA800T4 PO; +LOSA25TA13 PO; +MECL-209 PO; +MECL-86 PO
== END ==
LOC: M EKG 12:43
PROVIDERS: ATTEND Physician Assistant
DX: R55 Syncope and collapse (principal); Z53.9 Procedure and treatment not carried out, unspecified reason

== ENCOUNTER → 2025-01-06 | Outpatient (CLI) | payer MEDICARE, OTHER ==
[2025-01-06 12:07] LABS: CALCIUM LEVEL 8.9 MG/DL (8.3-10.6); CREATININE FOR GFR 1.02 MG/DL (0.70-1.30); GLOMERULAR FILTRATION RATE 75.2 (>42); POTASSIUM SERUM 4.4 MMOL/L (3.5-5.1)
== END ==
LOC: M LAB 11:16
PROVIDERS: ATTEND Physician Assistant
DX: I11.9 Hypertensive heart disease without heart failure (principal)